=== PATIENT | male | born 1960 | race Caucasian/White ===

== ENCOUNTER → 2016-11-27 | Outpatient (CLI) | payer OTHER ==
--- NOTE | 2016-12-05 11:11 | P.ARTDOP ---
Arterial Doppler LOWER EXTREMITY ARTERIAL DOPPLER: DATE OF SERVICE: 11/27/2016 Reason for study: Suspected peripheral vascular disease. Doppler waveforms: Multiphasic throughout on the left. Not done on the right.. Pulse volume recording: Normal configuration throughout on the left. Pressure gradients: None. Ankle-brachial indices: Greater than one bilaterally. Toe pressures: [] on the right, 81 on the left Impression: Normal.
== END | disposition home or self-care (01) ==
LOC: RADUSWWP 13:30
PROVIDERS: ATTEND Family Medicine
DX: I73.9 Peripheral vascular disease, unspecified (principal)
CPT/HCPCS: 93922

== ENCOUNTER → 2016-12-28 | Outpatient (CLI) | payer OTHER ==
--- NOTE | 2016-12-28 15:45 | US ---
EXAMINATION TYPE: US venous doppler duplex LE DATE OF EXAM: 12/28/2016 3:37 PM COMPARISON: LOWER EXTREMITY VENOUS INSUFFICIENCY SIDE PERFORMED: bilateral 1) Color flow is present and patency is documented in the following vessels. No DVT or SVT is noted . ? EIV ? Common Femoral Vein ? Deep Femoral Vein ? Femoral Vein ? Popliteal Vein ? Proximal Calf Veins ? Greater Saph Vein ? Upper Small Saph Vein 2) There is venous reflux noted at the following venous levels: rt CFV, GSV lower leg. Left DFV, FV prox, GSV lower leg. IMPRESSION: No ultrasound evidence for acute DVT in the bilateral lower extremities. Venous reflux n oted above.
== END | disposition home or self-care (01) ==
LOC: RADUSWWP 14:24
PROVIDERS: ATTEND Podiatrist
DX: M86.8X7 Other osteomyelitis, ankle and foot (principal); E13.621 Other specified diabetes mellitus with foot ulcer; E63.8 Other specified nutritional deficiencies
CPT/HCPCS: 93923; 93970

== ENCOUNTER 2019-01-17 00:52 | Inpatient (IN) | payer MEDICAID ==
--- NOTE | 2019-01-17 01:50 | XR ---
History: ITS.REASON XR Reason: Pain Exam: XR LEFT FOOT Comparison: 12/14/2016 FINDINGS: No osseous destruction or new periosteal reaction identified. No fracture or dislocation. Midfoot polyarticular osteoarthrosis, possible Charcot's joint not excluded, again noted. Large enthesophyte at the plantar surface of the calcaneus. IMPRESSION: No osseous destruction or new periosteal reaction identified. Midfoot polyarticular osteoarthrosis, possible Charcot's joint not excluded, again noted. Large enthesophyte at the plantar surface of the calcaneus.
[2019-01-17 02:04] LABS: Glucose,Whole Blood 369 mg/dL (75-99)
--- NOTE | 2019-01-17 03:10 | ED ---
General Adult HPI - General Chief complaint: Skin/Abscess/Foreign Body Stated complaint: Diabetic Foot Ulcer Time Seen by Provider: 01/17/19 01:53 Source: patient Mode of arrival: ambulatory Limitations: no limitations - History of Present Illness Initial comments: Timur is a 58-year-old diabetic male who is been being followed by podiatry for a nonhealing wound on his left toe for a number of weeks. Patient reports that last night after showering he noted significant pain and redness to the left toe he tried to go to sleep however was woken by the pain. Patient reports he's noted that the toe seems to be swollen and he can see what appears to be a blood blister developing around the toe. Patient reports he's never experienced this in the past. He denies any associated injury. He denies any fevers chills nausea vomiting. - Related Data Home Medications Medication Instructions Recorded Confirmed HYDROcodone/APAP 10-325MG [[place] 1 tab PO Q6HR PRN 05/12/14 01/17/19 10-325] Potassium Chloride [K-Tab ER] 10 meq PO DAILY 05/12/14 01/17/19 Ibuprofen [Motrin] 800 mg PO TID PRN 05/29/16 01/17/19 Aspirin EC [Ecotrin Low Dose] 81 mg PO DAILY 01/17/19 01/17/19 Ertugliflozin Pidolate [Steglatro] 15 mg PO DAILY 01/17/19 01/17/19 Furosemide [Lasix] 20 mg PO BID 01/17/19 01/17/19 Insulin Glargine [Lantus] 30 unit SQ HS 01/17/19 01/17/19 Losartan Potassium 100 mg PO HS 01/17/19 01/17/19 amLODIPine [Norvasc] 5 mg PO DAILY 01/17/19 01/17/19 Previous Rx's Medication Instructions Recorded Pantoprazole [Protonix] 40 mg PO AC-BRKFST #30 tablet. 06/01/16 Allergies Allergy/AdvReac Type Severity Reaction Status Date / Time levofloxacin [From Levaquin] AdvReac Severe Chest Pain Verified 01/17/19 07:14 cephalexin monohydrate AdvReac Unknown Nausea & Verified 01/17/19 07:14 [From Keflex] Vomiting codeine AdvReac Unknown Nausea & Verified 01/17/19 07:14 Vomiting Review of Systems ROS Statement: Those systems with pertinent positive or pertinent negative responses have been documented in the HPI. ROS Other: All systems not noted in ROS Statement are negative. Past Medical History Past Medical History: Diabetes Mellitus, GERD/Reflux, Hypertension, Osteoarthritis (OA) Additional Past Medical History / Comment(s): PT ARRIVED BY CAR TO [facility] ER WITH C/O N/V/D FOR 24 HOURS. HE HAS AN ILEOSTOMY THAT HE HAS HAD TO EMPTY FREQUENTLY. HE HAS HAD SEVERAL EPISODES OF VOMITTING AND CONTINUOUS NAUSEA. 8-10 KIDNEY STONES, ULCERATIVE Colitis, Urostomy, RECTUM REMOVED. PT HAS ARTHIRITIS ALL OVER, History of Any Multi-Drug Resistant Organisms: None Reported Date of last positivie culture/infection: 12/14/16 MDRO Source:: TOE Past Surgical History: Appendectomy, Bowel Resection, Heart Catheterization, Joint Replacement, Orthopedic Surgery Additional Past Surgical History / Comment(s): BILATERAL TOTAL KneeS,L Shoulder ROTATOR CUFF REPAIR, BILATERALHandS L HAND INDEX FINGER AND R HAND MIDDLE FINGER BOTH PARTIAL AMP WITH REPAIR, COLECTOMY/ILEOSTOMY. CARDIAC CATH YRS AGO AND NO BLOCKAGES-DONE AT [facility]. Past Anesthesia/Blood Transfusion Reactions: No Reported Reaction Additional Past Anesthesia/Blood Transfusion Reaction / Comment(s): NEVER RECIEVED BLOOD Past Psychological History: No Psychological Hx Reported Smoking Status: Never smoker Past Alcohol Use History: Occasional Past Drug Use History: None Reported - Past Family History Father Family Medical History: Hypertension Additional Family Medical History / Comment(s): FATHER ALIVE AND IS 74 YRS OLD. Mother Family Medical History: Osteoarthritis (OA) Additional Family Medical History / Comment(s): MOTHER HAS ALOT OF ARTHRITIS AND HAS HAD MANY ORTHOPEDIC SURGERIES. SHE IS 73 YRS OLD. General Exam - General Exam Comments Initial Comments: Physical Exam GENERAL: Patient is well-developed and well-nourished. Patient is nontoxic and well- hydrated and is in no distress. HENT: Normocephalic, Atraumatic. EYES: PERRL, EOMI PULMONARY: Unlabored respirations. No audible rales rhonchi or wheezing was noted. CARDIOVASCULAR: There is a regular rate and rhythm without any murmurs gallops or rubs. ABDOMEN: Soft and nontender with normal bowel sounds. SKIN: Nonhealing diabetic ulcer to the left pinky toe, with obvious underlying abscess and cellulitis of the foot : Deferred NEUROLOGIC: Patient is alert and oriented x3. Moving all extremities spontaneously MUSCULOSKELETAL: Normal extremities with adequate strength and full range of motion. No lower extremity swelling or edema. No calf tenderness. PSYCHIATRIC: Normal psychiatric evaluation. Limitations: no limitations Limitations: no limitations Course Vital Signs 01/17/19 01/17/19 01/17/19 01:02 05:19 06:16 Temperature 97.4 F L Pulse Rate 95 63 60 Respiratory 18 18 18 Rate Blood Pressure 156/81 147/85 125/76 O2 Sat by Pulse 98 98 98 Oximetry Medical Decision Making - Medical Decision Making The patient was seen and evaluated history was obtained from the patient signs a 58 her old diabetic male with chronic wound which is clearly now infected Labs and imaging ordered, x-ray reveals no obvious osteomyelitis no free air Labs reveal hyperglycemia with chronic kidney disease no leukocytosis Plan patient will be admitted for IV antibiotics and evaluation by wound care - Lab Data Result diagrams: 01/17/19 03:50 01/17/19 03:50 Lab Results 01/17/19 01/17/19 01/17/19 Range/Units 02:02 03:50 03:50 WBC 7.6 (3.8-10.6) k/uL RBC 4.94 (4.30-5.90) m/uL Hgb 15.6 (13.0-17.5) gm/dL Hct 45.3 (39.0-53.0) % MCV 91.7 (80.0-100.0) fL MCH 31.6 (25.0-35.0) pg MCHC 34.5 (31.0-37.0) g/dL RDW 12.3 (11.5-15.5) % Plt Count 219 (150-450) k/uL Neutrophils % 75 % Lymphocytes % 15 % Monocytes % 7 % Eosinophils % 2 % Basophils % 0 % Neutrophils # 5.7 (1.3-7.7) k/uL Lymphocytes # 1.2 (1.0-4.8) k/uL Monocytes # 0.5 (0-1.0) k/uL Eosinophils # 0.1 (0-0.7) k/uL Basophils # 0.0 (0-0.2) k/uL Sodium 137 (137-145) mmol/L Potassium 4.3 (3.5-5.1) mmol/L Chloride 106 (98-107) mmol/L Carbon Dioxide 19 L (22-30) mmol/L Anion Gap 12 mmol/L BUN 42 H (9-20) mg/dL Creatinine 1.45 H (0.66-1.25) mg/dL Est GFR (CKD-EPI)AfAm 62 (>60 ml/min/1.73 sqM) Est GFR (CKD-EPI)NonAf 53 (>60 ml/min/1.73 sqM) Glucose 283 H (74-99) mg/dL POC Glucose (mg/dL) 369 H (75-99) mg/dL POC Glu Buffer Chrome ID Deanna Ta Plasma Lactic Acid Ganesh (0.7-2.0) mmol/L Calcium 8.8 (8.4-10.2) mg/dL Total Bilirubin 0.7 (0.2-1.3) mg/dL AST 26 (17-59) U/L ALT 39 (21-72) U/L Alkaline Phosphatase 88 (38-126) U/L C-Reactive Protein 5.2 (<10.0) mg/L Total Protein 7.1 (6.3-8.2) g/dL Albumin 4.2 (3.5-5.0) g/dL 01/17/19 Range/Units 03:50 WBC (3.8-10.6) k/uL RBC (4.30-5.90) m/uL Hgb (13.0-17.5) gm/dL Hct (39.0-53.0) % MCV (80.0-100.0) fL MCH (25.0-35.0) pg MCHC (31.0-37.0) g/dL RDW (11.5-15.5) % Plt Count (150-450) k/uL Neutrophils % % Lymphocytes % % Monocytes % % Eosinophils % % Basophils % % Neutrophils # (1.3-7.7) k/uL Lymphocytes # (1.0-4.8) k/uL Monocytes # (0-1.0) k/uL Eosinophils # (0-0.7) k/uL Basophils # (0-0.2) k/uL Sodium (137-145) mmol/L Potassium (3.5-5.1) mmol/L Chloride (98-107) mmol/L Carbon Dioxide (22-30) mmol/L Anion Gap mmol/L BUN (9-20) mg/dL Creatinine (0.66-1.25) mg/dL Est GFR (CKD-EPI)AfAm (>60 ml/min/1.73 sqM) Est GFR (CKD-EPI)NonAf (>60 ml/min/1.73 sqM) Glucose (74-99) mg/dL POC Glucose (mg/dL) (75-99) mg/dL POC Glu Buffer Chrome ID Plasma Lactic Acid Ganesh 1.7 (0.7-2.0) mmol/L Calcium (8.4-10.2) mg/dL Total Bilirubin (0.2-1.3) mg/dL AST (17-59) U/L ALT (21-72) U/L Alkaline Phosphatase (38-126) U/L C-Reactive Protein (<10.0) mg/L Total Protein (6.3-8.2) g/dL Albumin (3.5-5.0) g/dL Disposition Clinical Impression: Abscess of skin or subcutaneous tissue, Acute renal insufficiency, Diabetic foot ulcer associated with type 2 diabetes mellitus, Abscess Disposition: ADMITTED IP TO THIS [facility] Condition: Stable
[2019-01-17] MEDS ORDERED: SODIUM CHLORIDE 0.9% 1,000 ML IV ONE (03:42)
[2019-01-17] MEDS ORDERED: LIDOCAINE 1% INJ 10MG/ML (20 ML MDV) SQ ONE (03:45)
[2019-01-17] MEDS ORDERED: VANCOMYCIN IV PER PHARMACY 1 EACH MISC MISCELLANE PRN (03:45)
[2019-01-17] MEDS: SODIUM CHLORIDE 0.9% 1,000 ML IV SCH ×2 (03:50→11:09)
[2019-01-17] MEDS: PIPERACILLIN-TAZOBACTAM 3.375 GM in SODIUM CHLORIDE 0.9% 100 ML IVPB SCH ×3 (04:03→21:04)
[2019-01-17 04:05] LABS: Basophils % (A) 0 %; Eosinophils # (A) 0.1 k/uL (0-0.7); Eosinophils % (A) 2 %; HCT 45.3 % (39.0-53.0); HGB 15.6 gm/dL (13.0-17.5); Lymphocytes # (A) 1.2 k/uL (1.0-4.8); Lymphocytes % (A) 15 %; MCH 31.6 pg (25.0-35.0); MCHC 34.5 g/dL (31.0-37.0); MCV 91.7 fL (80.0-100.0); Mean Platelet Volume 6.3; Monocytes # (A) 0.5 k/uL (0-1.0); Monocytes % (A) 7 %; Neutrophils # (A) 5.7 k/uL (1.3-7.7); Neutrophils % (A) 75 %; Platelet Count 219 k/uL (150-450); RBC 4.94 m/uL (4.30-5.90); RDW 12.3 % (11.5-15.5); WBC 7.6 k/uL (3.8-10.6)
[2019-01-17 04:28] LABS: Albumin 4.2 g/dL (3.5-5.0); C Reactive Protein 5.2 mg/L (<10.0); Calcium 8.8 mg/dL (8.4-10.2); Potassium 4.3 mmol/L (3.5-5.1); Total Bilirubin 0.7 mg/dL (0.2-1.3); Total Protein 7.1 g/dL (6.3-8.2)
[2019-01-17] MEDS ORDERED: NALOXONE 0.4 MG/ML 1 ML VIAL IV PRN (04:49)
[2019-01-17] MEDS ORDERED: MORPHINE SULFATE 4 MG/ML SYRINGE IVP STA (04:53)
[2019-01-17] MEDS ORDERED: VANCOMYCIN 1,750 MG in SODIUM CHLORIDE 0.9% 500 ML 500 ML IVPB ONE (05:00)
[2019-01-17 07:53] LABS: Glucose,Whole Blood 195 mg/dL (75-99)
[2019-01-17] MEDS: FUROSEMIDE 40 MG TAB PO SCH (08:14)
[2019-01-17] MEDS: LISINOPRIL 10 MG TAB PO SCH (08:14)
[2019-01-17] MEDS: PANTOPRAZOLE 40 MG TABLET PO SCH (08:14)
[2019-01-17] MEDS: amLODIPine 5 MG TAB PO SCH ×2 (08:14→21:04)
[2019-01-17] MEDS: INSULIN ASPART (NovoLOG) 100 UNIT/ML VIAL SQ SCH ×4 (08:14→21:04)
[2019-01-17] MEDS: HYDROcodone/APAP 10-325MG 1 EACH TAB PO PRN ×2 (08:23→18:14)
[2019-01-17] MEDS ORDERED: GABAPENTIN 400 MG CAP PO PRN (09:00)
[2019-01-17 12:23] LABS: Glucose,Whole Blood 148 mg/dL (75-99)
[2019-01-17 15:01] VITALS: BMI 32.5
[2019-01-17] MEDS ORDERED: VANCOMYCIN 1,750 MG in SODIUM CHLORIDE 0.9% 500 ML 500 ML IVPB SCH (17:00)
[2019-01-17 17:08] LABS: Glucose,Whole Blood 135 mg/dL (75-99)
--- NOTE | 2019-01-17 20:18 | P.HPIM ---
History of Present Illness H&P Date: 01/17/19 Chief Complaint: Left foot small toe infection History of presenting complaint: This is a very pleasant 58 year patient who follows with Dr. hull out of [place]. Chronic stable medical conditions include diabetes, GERD, hypertension, osteoarthritis, has a chronic ileostomy from surgery from underlying ulcerative colitis. Normally changes the bag every 3 days. Patient is being followed by a custodial services manager for wound on the left toe for about close to 2 months. Yesterday started leaking became sore and inflamed and red. Was admitted for the same. She was started on IV Zosyn and vancomycin the ER.. Denies any injury to the toe. 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 EYES: Pupils equal. Conjunctiva normal. HEENT: External appearance of nose and ears normal, oral cavity grossly normal. NECK: JVD not raised; masses not palpable. HEART: First and second heart sounds are normal; no edema. LUNGS: Respiratory rate normal; clear to auscultation. ABDOMEN: Soft, nontender, liver spleen not palpable, no masses palpable. Ileostomy bag with liquid stool present PSYCH: Alert and oriented x3; mood and affect normal. NEUROLOGICAL: Cranial nerves grossly intact; no facial asymmetry, power and sensation grossly intact. LYMPHATICS: No lymph nodes palpable in the axilla and neck Dermatological: There is superficial wound on the superior lateral aspect of the left small toe with some tenderness Investigations, reviewed and clinical context: White count 7.6 hemoglobin 15.6 platelets 219 potassium 4.3 to and 42 creatinine 1.45 Patient's labs from 2017 show a BUN of 29 and creatinine 1.5 X-ray of the foot did not show any bony involvement Assessment: -This is a patient is could've wound on the left foot small toe being followed by a custodial services manager for about 2 months. It became acutely painful red and was draining yesterday. X-ray of the foot does not show any involvement of the bone. That makes acute osteomyelitis less likely. We'll get an ESR, CRP and get a ID opinion for the same. -Chronic kidney disease stage III from diabetic nephropathy and possibly hype rtensive nephrosclerosis -Diabetes mellitus type 2, chronically insulin -GERD -Essential hypertension -Chronic ileostomy with surgery for ulcerative colitis in the past Plan: Patient was started on IV Zosyn and vancomycin the ER. Given the renal function will hold off vancomycin for now. Still further input from ID. We'll check the ESR and a CRP. Other home medications resumed. Accu-Cheks will be followed. Care was discussed with the patient. Questions were answered.. Past Medical History Past Medical History: Diabetes Mellitus, GERD/Reflux, Hypertension, Osteoarthritis (OA) Additional Past Medical History / Comment(s): PT ARRIVED BY CAR TO [facility] ER WITH C/O N/V/D FOR 24 HOURS. HE HAS AN ILEOSTOMY THAT HE HAS HAD TO EMPTY FREQUENTLY. HE HAS HAD SEVERAL EPISODES OF VOMITTING AND CONTINUOUS NAUSEA. 8-10 KIDNEY STONES, ULCERATIVE Colitis, Urostomy, RECTUM REMOVED. PT HAS ARTHIRITIS ALL OVER, History of Any Multi-Drug Resistant Organisms: None Reported Date of last positivie culture/infection: 12/14/16 MDRO Source:: TOE Past Surgical History: Appendectomy, Bowel Resection, Heart Catheterization, Joint Replacement, Orthopedic Surgery Additional Past Surgical History / Comment(s): BILATERAL TOTAL KneeS,L Shoulder ROTATOR CUFF REPAIR, BILATERALHandS L HAND INDEX FINGER AND R HAND MIDDLE FINGER BOTH PARTIAL AMP WITH REPAIR, COLECTOMY/ILEOSTOMY. CARDIAC CATH YRS AGO AND NO BLOCKAGES-DONE AT [facility]. Past Anesthesia/Blood Transfusion Reactions: No Reported Reaction Additional Past Anesthesia/Blood Transfusion Reaction / Comment(s): NEVER RECIEVED BLOOD Past Psychological History: No Psychological Hx Reported Smoking Status: Never smoker Past Alcohol Use History: Occasional Past Drug Use History: None Reported - Past Family History Father Family Medical History: Hypertension Additional Family Medical History / Comment(s): FATHER ALIVE AND IS 74 YRS OLD. Mother Family Medical History: Osteoarthritis (OA) Additional Family Medical History / Comment(s): MOTHER HAS ALOT OF ARTHRITIS AND HAS HAD MANY ORTHOPEDIC SURGERIES. SHE IS 73 YRS OLD. Medications and Allergies Home Medications Medication Instructions Recorded Confirmed Type HYDROcodone/APAP 10-325MG [[place] 1 tab PO Q6HR PRN 05/12/14 01/17/19 History 10-325] Potassium Chloride [K-Tab ER] 10 meq PO DAILY 05/12/14 01/17/19 History Ibuprofen [Motrin] 800 mg PO TID PRN 05/29/16 01/17/19 History Pantoprazole [Protonix] 40 mg PO AC-BRKFST #30 tablet. 06/01/16 01/17/19 Rx Aspirin EC [Ecotrin Low Dose] 81 mg PO DAILY 01/17/19 01/17/19 History Ertugliflozin Pidolate [Steglatro] 15 mg PO DAILY 01/17/19 01/17/19 History Furosemide [Lasix] 20 mg PO BID 01/17/19 01/17/19 History Insulin Glargine [Lantus] 30 unit SQ HS 01/17/19 01/17/19 History Losartan Potassium 100 mg PO HS 01/17/19 01/17/19 History amLODIPine [Norvasc] 5 mg PO DAILY 01/17/19 01/17/19 History Allergies Allergy/AdvReac Type Severity Reaction Status Date / Time levofloxacin [From Levaquin] AdvReac Severe Chest Pain Verified 01/17/19 07:14 cephalexin monohydrate AdvReac Unknown Nausea & Verified 01/17/19 07:14 [From Keflex] Vomiting codeine AdvReac Unknown Nausea & Verified 01/17/19 07:14 Vomiting Physical Exam Vitals: Vital Signs Temp Pulse Pulse Resp BP BP Pulse Ox 01/17/19 13:09 97.4 F L 62 16 114/66 99 01/17/19 07:50 97.4 F L 61 16 155/84 97 01/17/19 06:16 60 18 125/76 98 01/17/19 05:19 63 18 147/85 98 01/17/19 01:02 97.4 F L 95 18 156/81 98 Intake and Output 01/17/19 01/17/19 01/17/19 06:59 14:59 22:59 Other: Voiding Method Toilet Toilet # Voids 2 Weight 108.862 kg 108.862 kg Results CBC & Chem 7: 01/17/19 03:50 01/17/19 03:50 Labs: Abnormal Lab Results - Last 24 Hours (Table) 01/17/19 01/17/19 01/17/19 Range/Units 02:02 03:50 07:50 Carbon Dioxide 19 L (22-30) mmol/L BUN 42 H (9-20) mg/dL Creatinine 1.45 H (0.66-1.25) mg/dL Glucose 283 H (74-99) mg/dL POC Glucose (mg/dL) 369 H 195 H (75-99) mg/dL 01/17/19 01/17/19 Range/Units 12:21 17:06 Carbon Dioxide (22-30) mmol/L BUN (9-20) mg/dL Creatinine (0.66-1.25) mg/dL Glucose (74-99) mg/dL POC Glucose (mg/dL) 148 H 135 H (75-99) mg/dL Thrombosis Risk Factor Assmnt - Choose All That Apply Each Factor Represents 1 point: Age 41-60 years Thrombosis Risk Factor Assessment Total Risk Factor Score: 1 Thrombosis Risk Factor Assessment Level: Low Risk
[2019-01-17 20:53] LABS: Glucose,Whole Blood 152 mg/dL (75-99)
[2019-01-18] MEDS: PIPERACILLIN-TAZOBACTAM 3.375 GM in SODIUM CHLORIDE 0.9% 100 ML IVPB SCH ×3 (04:17→20:13)
[2019-01-18] MEDS: SODIUM CHLORIDE 0.9% 1,000 ML IV SCH ×3 (04:18→20:15)
[2019-01-18] MEDS: HYDROcodone/APAP 10-325MG 1 EACH TAB PO PRN ×3 (04:21→20:14)
[2019-01-18 07:18] LABS: Glucose,Whole Blood 163 mg/dL (75-99)
[2019-01-18] MEDS: FUROSEMIDE 40 MG TAB PO SCH (07:29)
[2019-01-18] MEDS: amLODIPine 5 MG TAB PO SCH ×2 (07:29→20:14)
[2019-01-18] MEDS: PANTOPRAZOLE 40 MG TABLET PO SCH (07:29)
[2019-01-18] MEDS: INSULIN ASPART (NovoLOG) 100 UNIT/ML VIAL SQ SCH ×4 (07:29→20:39)
[2019-01-18] MEDS: LISINOPRIL 10 MG TAB PO SCH (07:29)
[2019-01-18 08:59] LABS: HCT 43.2 % (39.0-53.0); HGB 14.8 gm/dL (13.0-17.5); MCHC 34.2 g/dL (31.0-37.0); MCV 93.7 fL (80.0-100.0); Mean Platelet Volume 6.4; Platelet Count 186 k/uL (150-450); RBC 4.61 m/uL (4.30-5.90); RDW 12.3 % (11.5-15.5); WBC 5.6 k/uL (3.8-10.6)
[2019-01-18 10:02] LABS: Erythrocyte Sedimentation Rate 5 mm/hr (0-15)
[2019-01-18 12:00] LABS: Glucose,Whole Blood 148 mg/dL (75-99)
[2019-01-18] MEDS: TAMSULOSIN 0.4 MG CAP.ER.24H PO SCH (12:46)
[2019-01-18 17:33] LABS: Glucose,Whole Blood 129 mg/dL (75-99)
[2019-01-18 20:37] LABS: Glucose,Whole Blood 186 mg/dL (75-99)
--- NOTE | 2019-01-18 21:58 | P.PN ---
Progress Note - Text Progress Note Date: 01/18/19 Chief Complaint: Left foot small toe infection Interval history: This is a very pleasant 58 year patient who follows with Dr. hull out of [place]. Chronic stable medical conditions include diabetes, GERD, hypertension, osteoarthritis, has a chronic ileostomy from surgery from underlying ulcerative colitis. Normally changes the bag every 3 days. Patient is being followed by a tool/die maker for wound on the left toe for about close to 2 months. Yesterday started leaking became sore and inflamed and red. Was admitted for the same. She was started on IV Zosyn and vancomycin the ER.. Denies any injury to the toe. Today-feeding bit better. Pain is better controlled. Did tolerate her diet. No fever no chills. No drainage. Review of systems: Was done for constitutional, cardiovascular, GI, pulmonary. relevant finding as above Current medications are reviewed that include: IV Zosyn Physical examination: VITAL SIGNS: 98, 71, 18, 136/81, 98% room air GENERAL: Laying in bed, more comfortable today. EYES: Pupils equal. Conjunctiva normal. HEENT: External appearance of nose and ears normal, oral cavity grossly normal. NECK: JVD not raised; masses not palpable. HEART: First and second heart sounds are normal; no edema. LUNGS: Respiratory rate normal; clear to auscultation. ABDOMEN: Soft, nontender, liver spleen not palpable, no masses palpable. Ileostomy bag with liquid stool present PSYCH: Alert and oriented x3; mood and affect normal. Dermatological: There is superficial wound on the superior lateral aspect of the left small toe with some tenderness Investigations, reviewed and clinical context: White count 5.6 hemoglobin 14.8 CRP less than 5 Patient's labs from 2017 show a BUN of 29 and creatinine 1.5 X-ray of the foot did not show any bony involvement Assessment: -This is a patient is could've wound on the left foot small toe being followed by a tool/die maker for about 2 months. It became acutely painful red and was draining yesterday. X-ray of the foot does not show any involvement of the bone. That makes acute osteomyelitis less likely. We'll get an ESR, CRP and get a ID opinion for the same. -Chronic kidney disease stage III from diabetic nephropathy and possibly hypertensive nephrosclerosis -Diabetes mellitus type 2, chronically insulin -GERD -Essential hypertension -Chronic ileostomy with surgery for ulcerative colitis in the past Plan: Awaiting input from ID. Continue with IV Zosyn. Patient's toe pain is better. Care was discussed with the patient. Follow.
--- NOTE | 2019-01-18 22:42 | P.CONS ---
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 Is developed an increasing amount of ulceration to the fifth toe he became very concerned because of his history of prior diabetic foot ulceration. 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 He was doing well with these but they were out and trying to break some new boots in. All who is slowly trying to utilize them. Developed a diabetic ulceration to the left foot fifth toe and with the swelling pain erythema and increased blood sugars he presented to Hospital. With concerns of diabetic foot infection the consultation was requested. The patient has not had high-grade fevers, chills or rigors but is concerned about toe or foot loss. Review of Systems HEENT:Denies headache or acute visual change. Denies sinus or mouth discomforts. Denies neck stiffness or pain. Denies significant oral cavity pain. Denies difficulty on swallowing. Lungs: Denies significant shortness of breath, cough, sputum production, or hemoptysis. Cardiovascular: Denies significant shortness of breath, chest pain, chest wall pain, orthopnea, dyspnea on exertion, syncope Gastrointestinal:Denies nausea, vomiting, diarrhea, constipation, hematemesis, melena, hematochezia. No no significant change of bowel habit noticed. Musculoskeletal: denies significant myalgias or arthralgias. No new joint swelling. Denies new back pain. Skin:swelling pain ulceration left foot Neuro: Denies headache or visual change. Denies any new onset weakness or difficulty with ambulation. Denies falls or seizures. Psychiatric:Denies anxiety or depression. Endocrine: Denies significant fatigue, denies significant weight loss or weight gain. Past Medical History Past Medical History: Diabetes Mellitus, GERD/Reflux, Hypertension, Osteoarthritis (OA) Additional Past Medical History / Comment(s): PT ARRIVED BY CAR TO [facility] ER WITH C/O N/V/D FOR 24 HOURS. HE HAS AN ILEOSTOMY THAT HE HAS HAD TO EMPTY FREQUENTLY. HE HAS HAD SEVERAL EPISODES OF VOMITTING AND CONTINUOUS NAUSEA. 8-10 KIDNEY STONES, ULCERATIVE Colitis, Urostomy, RECTUM REMOVED. PT HAS ARTHIRITIS A LL OVER, History of Any Multi-Drug Resistant Organisms: None Reported Year Discovered:: 12/14/16 MDRO Source:: TOE Past Surgical History: Appendectomy, Bowel Resection, Heart Catheterization, Joint Replacement, Orthopedic Surgery Additional Past Surgical History / Comment(s): BILATERAL TOTAL KneeS,L Shoulder ROTATOR CUFF REPAIR, BILATERALHandS L HAND INDEX FINGER AND R HAND MIDDLE FINGER BOTH PARTIAL AMP WITH REPAIR, COLECTOMY/ILEOSTOMY. CARDIAC CATH YRS AGO AND NO BLOCKAGES-DONE AT [facility]. Past Anesthesia/Blood Transfusion Reactions: No Reported Reaction Additional Past Anesthesia/Blood Transfusion Reaction / Comm: NEVER RECIEVED BLOOD Past Psychological History: No Psychological Hx Reported Additional Psychological History / Comment(s): . 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 no tobacco useNo alcohol use. No travel history Smoking Status: Never smoker Past Alcohol Use History: Occasional Past Drug Use History: None Reported - Past Family History Father Family Medical History: Hypertension Additional Family Medical History / Comment(s): FATHER ALIVE AND IS 74 YRS OLD. Mother Family Medical History: Osteoarthritis (OA) Additional Family Medical History / Comment(s): MOTHER HAS ALOT OF ARTHRITIS AND HAS HAD MANY ORTHOPEDIC SURGERIES. SHE IS 73 YRS OLD. Medications and Allergies Home Medications and Allergies Comment(s): Current Medications Hydrocodone Bitart/Acetaminophen (Cascade 10) 0.5 each PO Q6HR PRN PRN Reason: Pain Last Admin: 01/18/19 20:14 Dose: 0.5 each Documented by: Amlodipine Besylate (Norvasc) 5 mg PO BID [facility] Last Admin: 01/18/19 20:14 Dose: 5 mg Documented by: Furosemide (Lasix) 40 mg PO DAILY [facility] Last Admin: 01/18/19 07:29 Dose: 40 mg Documented by: Gabapentin (Neurontin) 800 mg PO TID PRN PRN Reason: Pain Sodium Chloride (Saline 0.9%) 1,000 mls @ 100 mls/hr IV .Q10H [facility] Last Admin: 01/18/19 20:15 Dose: 100 mls/hr Documented by: Piperacillin Sod/Tazobactam (Sod 3.375 gm/ Sodium Chloride) 100 mls @ 25 mls/hr IVPB Q8H [facility] Last Admin: 01/18/19 20:13 Dose: 25 mls/hr Documented by: Insulin Aspart (Novolog) 0 unit SQ ACHS CHRISTIANO; Protocol Last Admin: 01/18/19 20:39 Dose: 3 unit Documented by: Lisinopril (Zestril) 10 mg PO DAILY [facility] Last Admin: 01/18/19 07:29 Dose: 10 mg Documented by: Morphine Sulfate (Morphine Sulfate (Inj)) 2 mg IVP Q4H PRN PRN Reason: Pain/Discomfort Naloxone HCl (Narcan) 0.2 mg IV Q2M PRN PRN Reason: Opioid Reversal Pantoprazole Sodium (Protonix) 40 mg PO AC-BRKFST [facility] Last Admin: 01/18/19 07:29 Dose: 40 mg Documented by: Tamsulosin HCl (Flomax) 0.4 mg PO PC-SUPPER [facility] Last Admin: 01/18/19 12:46 Dose: 0.4 mg Documented by: Home Medications Medication Instructions Recorded Confirmed Type HYDROcodone/APAP 10-325MG [Cascade 1 tab PO Q6HR PRN 05/12/14 01/17/19 History 10-325] Potassium Chloride [K-Tab ER] 10 meq PO DAILY 05/12/14 01/17/19 History Ibuprofen [Motrin] 800 mg PO TID PRN 05/29/16 01/17/19 History Pantoprazole [Protonix] 40 mg PO [facility] #30 tablet. 06/01/16 01/17/19 Rx Aspirin EC [Ecotrin Low Dose] 81 mg PO DAILY 01/17/19 01/17/19 History Ertugliflozin Pidolate [Steglatro] 15 mg PO DAILY 01/17/19 01/17/19 History Furosemide [Lasix] 20 mg PO BID 01/17/19 01/17/19 History Insulin Glargine [Lantus] 30 unit SQ 01/17/19 01/17/19 History Losartan Potassium 100 mg PO 01/17/19 01/17/19 History amLODIPine [Norvasc] 5 mg PO DAILY 01/17/19 01/17/19 History Allergies Allergy/AdvReac Type Severity Reaction Status Date / Time levofloxacin [From Levaquin] AdvReac Severe Chest Pain Verified 01/17/19 07:14 cephalexin monohydrate AdvReac Unknown Nausea & Verified 01/17/19 07:14 [From Keflex] Vomiting codeine AdvReac Unknown Nausea & Verified 01/17/19 07:14 Vomiting Physical Exam Vitals: Vital Signs Temp Pulse Resp BP Pulse Ox 01/18/19 20:43 97.3 F L 58 L 18 137/92 98 01/18/19 14:10 98.0 F 71 20 154/81 97 01/18/19 05:00 98.0 F 71 18 136/81 98 Intake and Output 01/18/19 01/18/19 01/18/19 06:59 14:59 22:59 Intake Total 500 300 Balance 500 300 Intake: Oral 500 300 Other: Voiding Method Toilet Toilet # Voids 1 3 2 # Bowel Movements 1 HEENT: Anicteric conjunctiva are pink and moist nasal mucosa grossly intact without significant lesions, there is no thrush. Neck: The neck is supple without significant lymphadenopathy or thyromegaly. Lungs: Good bilateral air entry without significant crackles or wheezing. There is no significant bronchial sounds. There is no egophony or dullness. Heart: Regular rate and rhythm with an audible S1-S2, no S3 no S4. There is no significant murmur click or rub, PMI was nondisplaced. Abdomen: Positive bowel sounds soft and nontender without palpable masses or o rganomegaly. There was no guarding or rebound. Extremities: The upper extremities have excellent pulses they are symmetric, no significant petechiae or telangiectasia. No splinter hemorrhages were noted. does have prior shoulder surgery in bicep injuries in the past The lower extremities are free from significant edema. The feet are well perfused. The left foot fifth toe has evidence of the distinct ulceration. There is swelling erythema and some deformity. He does have bilateral foot deformities from his Charcot feet. No other ulcerations are seen. There is only minimal ascending erythema on the left leg. the bilateral total knee arthroplasty are without erythema or tenderness. Neuro: Awake alert oriented to person place and time. There are no acute new gross focal sensory motor deficits. Results CBC & Chem 7: 01/18/19 08:28 01/17/19 03:50 Labs: Abnormal Lab Results - Last 24 Hours (Table) 01/18/19 01/18/19 01/18/19 Range/Units 07:13 11:48 17:25 POC Glucose (mg/dL) 163 H 148 H 129 H (75-99) mg/dL 07/14/19 Range/Units 20:34 POC Glucose (mg/dL) 186 H (75-99) mg/dL Microbiology - Last 24 Hours (Table) 01/17/19 03:50 Blood Culture - Preliminary Blood No Growth after 24 hours Laboratory Results WBC 5.6 k/uL (3.8-10.6) 01/18/19 08:28 RBC 4.61 m/uL (4.30-5.90) 01/18/19 08:28 Hgb 14.8 gm/dL (13.0-17.5) 01/18/19 08:28 Hct 43.2 % (39.0-53.0) 01/18/19 08:28 MCV 93.7 fL (80.0-100.0) 01/18/19 08:28 MCH 32.0 pg (25.0-35.0) 01/18/19 08:28 MCHC 34.2 g/dL (31.0-37.0) 01/18/19 08:28 RDW 12.3 % (11.5-15.5) 01/18/19 08:28 Plt Count 186 k/uL (150-450) 01/18/19 08:28 Neutrophils % 75 % 01/17/19 03:50 Lymphocytes % 15 % 01/17/19 03:50 Monocytes % 7 % 01/17/19 03:50 Eosinophils % 2 % 01/17/19 03:50 Basophils % 0 % 01/17/19 03:50 Neutrophils # 5.7 k/uL (1.3-7.7) 01/17/19 03:50 Lymphocytes # 1.2 k/uL (1.0-4.8) 01/17/19 03:50 Monocytes # 0.5 k/uL (0-1.0) 01/17/19 03:50 Eosinophils # 0.1 k/uL (0-0.7) 01/17/19 03:50 Basophils # 0.0 k/uL (0-0.2) 01/17/19 03:50 ESR 5 mm/hr (0-15) 01/18/19 08:28 Sodium 137 mmol/L (137-145) 01/17/19 03:50 Potassium 4.3 mmol/L (3.5-5.1) 01/17/19 03:50 Chloride 106 mmol/L (98-107) 01/17/19 03:50 Carbon Dioxide 19 mmol/L (22-30) L 01/17/19 03:50 Anion Gap 12 mmol/L 01/17/19 03:50 BUN 42 mg/dL (9-20) H 01/17/19 03:50 Creatinine 1.45 mg/dL (0.66-1.25) H 01/17/19 03:50 Est GFR (CKD-EPI)AfAm 62 (>60 ml/min/1.73 sqM) 01/17/19 03:50 Est GFR (CKD-EPI)NonAf 53 (>60 ml/min/1.73 sqM) 01/17/19 03:50 Glucose 283 mg/dL (74-99) H 01/17/19 03:50 POC Glucose (mg/dL) 186 mg/dL (75-99) H 01/18/19 20:34 POC Glu [employer] Carolina Dinh 01/18/19 20:34 Plasma Lactic Acid Ganesh 1.7 mmol/L (0.7-2.0) 01/17/19 03:50 Calcium 8.8 mg/dL (8.4-10.2) 01/17/19 03:50 Total Bilirubin 0.7 mg/dL (0.2-1.3) 01/17/19 03:50 AST 26 U/L (17-59) 01/17/19 03:50 ALT 39 U/L (21-72) 01/17/19 03:50 Alkaline Phosphatase 88 U/L (38-126) 01/17/19 03:50 C-Reactive Protein <5.0 mg/L (<10.0) 01/18/19 08:28 Total Protein 7.1 g/dL (6.3-8.2) 01/17/19 03:50 Albumin 4.2 g/dL (3.5-5.0) 01/17/19 03:50 Microbiology 01/17/19 03:50 Blood Blood Culture - Preliminary No Growth after 24 hours Comments: x-ray without fracture or osteomyelitis Assessment and Plan (1) Diabetic ulcer of right foot associated with diabetes mellitus due to underlying condition, with fat layer exposed Narrative/Plan: 58-year-old male who 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 He has noticed been trying to break and some new boots and developed some ulceration to the lateral aspect of the toe. He has some minimal drainage. The and became considerably worse with swelling to the toe increasing drainage erythema tenderness and ascending erythema. With all the changes he sought care. He has now been admitted and has been initiated antibiotic therapy that included Zosyn and vancomycin. Local wound care was initiated with therahoney wrap. Elevation of the foot while at rest. Bone scan has been r equested to ensure there is no underlying osteomyelitis. He does seem to be feeling a bit better since admission. Improved glucose control is paramount. Multivitamin with zinc is added. Current Visit: No Status: Acute Code(s): E08.621 - DIABETES MELLITUS DUE TO UNDERLYING CONDITION W FOOT ULCER; L97.512 - NON-PRS CHRONIC ULCER OTH PRT RIGHT FOOT W FAT LAYER EXPOSED SNOMED Code(s): 752439468 (2) Small bowel obstruction Current Visit: No Status: Acute Code(s): K56.69 - OTHER INTESTINAL OBSTR UCTION * DO NOT USE * SNOMED Code(s): 095105671 (3) Degenerative joint disease Current Visit: Yes Status: Acute Code(s): M19.90 - UNSPECIFIED OSTEOARTHRITIS, UNSPECIFIED SITE SNOMED Code(s): 166181184
[2019-01-19] MEDS: PIPERACILLIN-TAZOBACTAM 3.375 GM in SODIUM CHLORIDE 0.9% 100 ML IVPB SCH ×3 (04:18→20:26)
[2019-01-19] MEDS: SODIUM CHLORIDE 0.9% 1,000 ML IV SCH ×3 (04:18→20:22)
[2019-01-19] MEDS: ONDANSETRON 4 MG/2 ML VIAL IVP PRN ×3 (06:20→17:43)
[2019-01-19 07:05] LABS: Glucose,Whole Blood 206 mg/dL (75-99)
[2019-01-19] MEDS: LISINOPRIL 10 MG TAB PO SCH (08:48)
[2019-01-19] MEDS: MULTIVITAMINS, THERA 1 EACH TAB PO SCH (08:48)
[2019-01-19] MEDS: PANTOPRAZOLE 40 MG TABLET PO SCH (08:48)
[2019-01-19] MEDS: FUROSEMIDE 40 MG TAB PO SCH (08:48)
[2019-01-19] MEDS: INSULIN ASPART (NovoLOG) 100 UNIT/ML VIAL SQ SCH ×4 (08:49→21:28)
[2019-01-19] MEDS: amLODIPine 5 MG TAB PO SCH ×2 (08:49→20:29)
[2019-01-19] MEDS: MORPHINE SULFATE 2 MG/ML SYRINGE IVP PRN ×2 (10:42→21:17)
[2019-01-19 12:41] LABS: Glucose,Whole Blood 155 mg/dL (75-99)
--- NOTE | 2019-01-19 14:02 | NM ---
EXAMINATION TYPE: NM bone 3 phase DATE OF EXAM: 01/19/2019 COMPARISON: Plain film 01/17/2019 HISTORY: Osteomyelitis left foot, fifth digit open sore Triple phase bone scintigraphy was performed following the injection of 26 mCi Tc 99m MDP. Immediate images and 4.5 hours post injection images acquired. FINDINGS: There is increased uptake noted at the posterior right calcaneus plantar aspect. There may be associa marianne spur. Uptake in the midfoot of the left foot is noted likely due to underlying arthropathy. There is some mild uptake present on blood pool of blood flow imaging at the level of the fifth digit of t he left foot, no significant uptake in delayed images in this distribution. IMPRESSION: Findings may be due to underlying cellulitis. There is arthropathy and possible right-sided plantar c alcaneal spur. No definite osteomyelitis fifth digit left foot.
[2019-01-19 17:32] LABS: Glucose,Whole Blood 268 mg/dL (75-99)
[2019-01-19] MEDS: TAMSULOSIN 0.4 MG CAP.ER.24H PO SCH (17:43)
--- NOTE | 2019-01-19 18:04 | P.PN ---
Progress Note - Text Progress Note Date: 01/19/19 Chief Complaint: Left foot small toe infection Interval history: This is a very pleasant 58 year patient who follows with Dr. hull out of [place]. Chronic stable medical conditions include diabetes, GERD, hypertension, osteoarthritis, has a chronic ileostomy from surgery from underlying ulcerative colitis. Normally changes the bag every 3 days. Patient is being followed by a vehicle sales professional for wound on the left toe for about close to 2 months. Yesterday started leaking became sore and inflamed and red. Was admitted for the same. She was started on IV Zosyn and vancomycin the ER.. Denies any injury to the toe. Today-patient had some nausea vomiting. Also increase drainage from his ileostomy bag. Rather tired. Feels a bit exhausted. No fever no chills. Review of systems: Was done for constitutional, cardiovascular, GI, pulmonary. relevant finding as above Current medications are reviewed that include: IV Zosyn, normal saline Physical examination: VITAL SIGNS: 97.7, 65, 22, 150/82, 98% room air GENERAL: Laying in bed, tired. EYES: Pupils equal. Conjunctiva normal. HEENT: External appearance of nose and ears normal, oral cavity dry. NECK: JVD not raised; masses not palpable. HEART: First and second heart sounds are normal; no edema. LUNGS: Respiratory rate normal; clear to auscultation. ABDOMEN: Soft, nontender, liver spleen not palpable, no masses palpable. Ileostomy bag watery stool PSYCH: Alert and oriented x3; mood and affect tired. Dermatological: There is superficial wound on the superior lateral aspect of the left small toe with some tenderness Investigations, reviewed and clinical context: Accu-Cheks noted C. diff negative X-ray of the foot did not show any bony involvement Assessment: -wound on the left foot small toe being followed by a vehicle sales professional for about 2 months. It became acutely painful red and was draining X-ray of the foot does not show any involvement of the bone. That makes acute osteomyelitis less likely. -Chronic kidney disease stage III from diabetic nephropathy and possibly hypertensive nephrosclerosis -Diabetes mellitus type 2, chronically insulin -GERD -Essential hypertension -Chronic ileostomy with surgery for ulcerative colitis in the past -Acute antibiotic associated diarrhea Plan: Continue with antibiotics. Add Imodium. Increase IV fluids. Bone scan has been ordered. Care was discussed with the patient.
[2019-01-19 18:43] LABS: Calcium 8.5 mg/dL (8.4-10.2); Potassium 4.3 mmol/L (3.5-5.1)
[2019-01-19 21:29] LABS: Glucose,Whole Blood 186 mg/dL (75-99)
--- NOTE | 2019-01-19 23:06 | P.PN ---
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 Is developed an increasing amount of ulceration to the fifth toe he became very concerned because of his history of prior diabetic foot ulceration. 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 He was doing well with these but they were out and trying to break some new boots in. All who is slowly trying to utilize them. Developed a diabetic ulceration to the left foot fifth toe and with the swelling pain erythema and increased blood sugars he presented to Hospital. With concerns of diabetic foot infection the consul tation was requested. The patient has not had high-grade fevers, chills or rigors but is concerned about toe or foot loss. 01/19/2019 patient had worsening status with nausea diarrhea and limited emesis. Now feeling much better and stool in the ostomy is now somewhat formed without blood. Denies fever and foot is feeling better. Objective - Vital Signs Vital signs: Vital Signs Temp 98.4 F 01/19/19 22:15 Pulse 83 01/19/19 22:15 Resp 16 01/19/19 22:15 BP 119/72 01/19/19 22:15 Pulse Ox 95 01/19/19 22:15 Intake & Output 01/19/19 01/19/19 01/20/19 06:59 18:59 06:59 Intake Total 300 100 Output Total 2400 1000 Balance -2100 -900 Intake: Oral 300 100 Output: Urine 400 Stool 2000 1000 Other: Voiding Method Toilet # Voids 1 1 - Exam HEENT: Anicteric conjunctiva are pink and moist nasal mucosa grossly intact without significant lesions, there is no thrush. Neck: The neck is supple without significant lymphadenopathy or thyromegaly. Lungs: Good bilateral air entry without significant crackles or wheezing. There is no significant bronchial sounds. There is no egophony or dullness. Heart: Regular rate and rhythm with an audible S1-S2, no S3 no S4. There is no significant murmur click or rub, PMI was nondisplaced. Abdomen: Positive bowel sounds soft and nontender without palpable masses or organomegaly. There was no guarding or rebound. Extremities: The upper extremities have excellent pulses they are symmetric, no significant petechiae or telangiectasia. No splinter hemorrhages were noted. does have prior shoulder surgery in bicep injuries in the past The lower extremities are free from significant edema. The feet are well perfused. The left foot fifth toe has evidence of the distinct ulceration. There is some swelling, improved erythema and some deformity. He does have bilateral foot def ormities from his Charcot feet. No other ulcerations are seen. There is only minimal ascending erythema on the left leg. the bilateral total knee arthroplasty are without erythema or tenderness. Neuro: Awake alert oriented to person place and time. There are no acute new gross focal sensory motor deficits. - Labs CBC & Chem 7: 01/18/19 08:28 01/19/19 18:23 Labs: Abnormal Lab Results - Last 24 Hours (Table) 01/19/19 01/19/19 01/19/19 Range/Units 07:03 12:22 17:30 Chloride (98-107) mmol/L Carbon Dioxide (22-30) mmol/L BUN (9-20) mg/dL Glucose (74-99) mg/dL POC Glucose (mg/dL) 206 H 155 H 268 H (75-99) mg/dL 01/19/19 01/19/19 Range/Units 18:23 21:08 Chloride 109 H (98-107) mmol/L Carbon Dioxide 21 L (22-30) mmol/L BUN 23 H (9-20) mg/dL Glucose 221 H (74-99) mg/dL POC Glucose (mg/dL) 186 H (75-99) mg/dL Microbiology - Last 24 Hours (Table) 01/17/19 03:50 Blood Culture - Preliminary Blood No Growth after 48 hours Laboratory Results WBC 5.6 k/uL (3.8-10.6) 01/18/19 08:28 RBC 4.61 m/uL (4.30-5.90) 01/18/19 08:28 Hgb 14.8 gm/dL (13.0-17.5) 01/18/19 08:28 Hct 43.2 % (39.0-53.0) 01/18/19 08:28 MCV 93.7 fL (80.0-100.0) 01/18/19 08:28 MCH 32.0 pg (25.0-35.0) 01/18/19 08:28 MCHC 34.2 g/dL (31.0-37.0) 01/18/19 08:28 RDW 12.3 % (11.5-15.5) 01/18/19 08:28 Plt Count 186 k/uL (150-450) 01/18/19 08:28 Neutrophils % 75 % 01/17/19 03:50 Lymphocytes % 15 % 01/17/19 03:50 Monocytes % 7 % 01/17/19 03:50 Eosinophils % 2 % 01/17/19 03:50 Basophils % 0 % 01/17/19 03:50 Neutrophils # 5.7 k/uL (1.3-7.7) 01/17/19 03:50 Lymphocytes # 1.2 k/uL (1.0-4.8) 01/17/19 03:50 Monocytes # 0.5 k/uL (0-1.0) 01/17/19 03:50 Eosinophils # 0.1 k/uL (0-0.7) 01/17/19 03:50 Basophils # 0.0 k/uL (0-0.2) 01/17/19 03:50 ESR 5 mm/hr (0-15) 01/18/19 08:28 Sodium 138 mmol/L (137-145) 01/19/19 18:23 Potassium 4.3 mmol/L (3.5-5.1) 01/19/19 18:23 Chloride 109 mmol/L (98-107) H 01/19/19 18:23 Carbon Dioxide 21 mmol/L (22-30) L 01/19/19 18:23 Anion Gap 8 mmol/L 01/19/19 18:23 BUN 23 mg/dL (9-20) H 01/19/19 18:23 Creatinine 1.25 mg/dL (0.66-1.25) 01/19/19 18:23 Est GFR (CKD-EPI)AfAm 75 (>60 ml/min/1.73 sqM) 01/19/19 18:23 Est GFR (CKD-EPI)NonAf 64 (>60 ml/min/1.73 sqM) 01/19/19 18:23 Glucose 221 mg/dL (74-99) H 01/19/19 18:23 POC Glucose (mg/dL) 186 mg/dL (75-99) H 01/19/19 21:08 POC Glu [place] Wheeler ID Ritika Hogan 01/19/19 21:08 Plasma Lactic Acid Ganesh 1.7 mmol/L (0.7-2.0) 01/17/19 03:50 Calcium 8.5 mg/dL (8.4-10.2) 01/19/19 18:23 Total Bilirubin 0.7 mg/dL (0.2-1.3) 01/17/19 03:50 AST 26 U/L (17-59) 01/17/19 03:50 ALT 39 U/L (21-72) 01/17/19 03:50 Alkaline Phosphatase 88 U/L (38-126) 01/17/19 03:50 C-Reactive Protein <5.0 mg/L (<10.0) 01/18/19 08:28 Total Protein 7.1 g/dL (6.3-8.2) 01/17/19 03:50 Albumin 4.2 g/dL (3.5-5.0) 01/17/19 03:50 C. 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 He has noticed been trying to break and some new boots and developed some ulceration to the lateral aspect of the toe. He has some minimal drainage. The and became considerably worse with swelling to the toe increasing drainage erythema tenderness and ascending erythema. With all the changes he sought care. He has now been admitted and has been initiated antibiotic therapy that included Zosyn and vancomycin. Local wound care was initiated with theraho mumtaz wrap. Elevation of the foot while at rest. Bone scan has been requested to ensure there is no underlying osteomyelitis. He does seem to be feeling a bit better since admission. Improved glucose control is paramount. Multivitamin with zinc is added. 01/19/2019 feeling better now that the diarrhea has resolved, foot improved. Bone scan is negative and will not require outpatient intravenous Will be transitioned to oral antibiotic therapy in the morning as he is ready for discharge at that time if he continues to have resolution of his gastroenteritis. Current Visit: No Status: Acute Code(s): E08.621 - DIABETES MELLITUS DUE TO UNDERLYING CONDITION W FOOT ULCER; L97.512 - NON-PRS CHRONIC ULCER OTH PRT RIGHT FOOT W FAT LAYER EXPOSED SNOMED Code(s): 379055282 (2) Small bowel obstruction Current Visit: No Status: Acute Code(s): K56.69 - OTHER INTESTINAL OBSTRUCTION * DO NOT USE * SNOMED Code(s): 803655313 (3) Degenerative joint disease Current Visit: Yes Status: Acute Code(s): M19.90 - UNSPECIFIED OSTEOARTHRITIS, UNSPECIFIED SITE SNOMED Code(s): 873553284
[2019-01-20] MEDS: MORPHINE SULFATE 2 MG/ML SYRINGE IVP PRN (03:05)
[2019-01-20] MEDS: SODIUM CHLORIDE 0.9% 1,000 ML IV SCH ×3 (05:27→13:57)
[2019-01-20] MEDS: PIPERACILLIN-TAZOBACTAM 3.375 GM in SODIUM CHLORIDE 0.9% 100 ML IVPB SCH ×2 (05:28→12:00)
[2019-01-20 06:14] VITALS: BP 126/75; PULSE 72; RESP 18; TEMP 97.9
[2019-01-20 07:11] LABS: Glucose,Whole Blood 200 mg/dL (75-99)
[2019-01-20] MEDS: LISINOPRIL 10 MG TAB PO SCH (07:50)
[2019-01-20] MEDS: INSULIN ASPART (NovoLOG) 100 UNIT/ML VIAL SQ SCH ×2 (07:50→12:34)
[2019-01-20] MEDS: PANTOPRAZOLE 40 MG TABLET PO SCH (07:50)
[2019-01-20] MEDS: MULTIVITAMINS, THERA 1 EACH TAB PO SCH (07:50)
[2019-01-20] MEDS: amLODIPine 5 MG TAB PO SCH (07:50)
[2019-01-20 09:25] LABS: HCT 43.2 % (39.0-53.0); HGB 14.7 gm/dL (13.0-17.5); MCH 31.9 pg (25.0-35.0); MCHC 34.1 g/dL (31.0-37.0); MCV 93.7 fL (80.0-100.0); Mean Platelet Volume 6.5; Platelet Count 146 k/uL (150-450); RBC 4.61 m/uL (4.30-5.90); RDW 12.2 % (11.5-15.5); WBC 5.6 k/uL (3.8-10.6)
[2019-01-20 09:48] LABS: Calcium 8.1 mg/dL (8.4-10.2); Potassium 3.9 mmol/L (3.5-5.1)
[2019-01-20 12:31] LABS: Glucose,Whole Blood 163 mg/dL (75-99)
--- NOTE | 2019-01-20 22:44 | P.PN ---
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 Is developed an increasing amount of ulceration to the fifth toe he became very concerned because of his history of prior diabetic foot ulceration. 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 He was doing well with these but they were out and trying to break some new boots in. All who is slowly trying to utilize them. Developed a diabetic ulceration to the left foot fifth toe and with the swelling pain erythema and increased blood sugars he presented to Hospital. With concerns of diabetic foot infection the consul tation was requested. The patient has not had high-grade fevers, chills or rigors but is concerned about toe or foot loss. 01/19/2019 patient had worsening status with nausea diarrhea and limited emesis. Now feeling much better and stool in the ostomy is now somewhat formed without blood. Denies fever and foot is feeling better. 01/20/2019 patient is feeling better today. His gastrointestinal distress has resolved. He is not having any further difficulties with profuse diarrhea. He has no nausea or emesis. He is not having abdominal pain. Denies fevers or chills blood sugars improved. Objective - Vital Signs Vital signs: Vital Signs Temp 97.9 F 01/20/19 06:13 Pulse 72 01/20/19 06:13 Resp 18 01/20/19 06:13 BP 126/75 01/20/19 06:13 Pulse Ox 97 01/20/19 06:13 Intake & Output 01/20/19 01/20/19 01/21/19 06:59 18:59 06:59 Intake Total 100 Output Total 1000 Balance -900 Intake: Oral 100 Output: Stool 1000 Other: Voiding Method Toilet # Voids 2 3 # Bowel Movements 0 - Exam HEENT: Anicteric conjunctiva are pink and moist nasal mucosa grossly intact without significant lesions, there is no thrush. Neck: The neck is supple without significant lymphadenopathy or thyromegaly. Lungs: Good bilateral air entry without significant crackles or wheezing. There is no significant bronchial sounds. There is no egophony or dullness. Heart: Regular rate and rhythm with an audible S1-S2, no S3 no S4. There is no significant murmur click or rub, PMI was nondisplaced. Abdomen: Positive bowel sounds soft and nontender without palpable masses or organomegaly. There was no guarding or rebound. Extremities: The upper extremities have excellent pulses they are symmetric, no significant petechiae or telangiectasia. No splinter hemorrhages were noted. does have prior shoulder surgery in bicep injuries in the past The lower extremities are free from significant edema. The feet are well perfused. The left foot fifth toe has evidence of the distinct ulceration. There is some swelling, improved erythema and some deformity. He does have bilateral foot deformities from his Charcot feet. No other ulcerations are seen. There is only minimal ascending erythema on the left leg. the bilateral total knee arthroplasty are without erythema or tenderness. Neuro: Awake alert oriented to person place and time. There are no acute new gross focal sensory motor deficits. - Labs CBC & Chem 7: 01/20/19 09:00 01/20/19 09:00 Labs: Abnormal Lab Results - Last 24 Hours (Table) 01/20/19 01/20/19 01/20/19 Range/Units 07:08 09:00 09:00 Plt Count 146 L (150-450) k/uL Sodium 136 L (137-145) mmol/L Chloride 110 H (98-107) mmol/L Carbon Dioxide 18 L (22-30) mmol/L BUN 23 H (9-20) mg/dL Creatinine 1.31 H (0.66-1.25) mg/dL Glucose 247 H (74-99) mg/dL POC Glucose (mg/dL) 200 H (75-99) mg/dL Calcium 8.1 L (8.4-10.2) mg/dL 01/20/19 Range/Units 12:28 Plt Count (150-450) k/uL Sodium (137-145) mmol/L Chloride (98-107) mmol/L Carbon Dioxide (22-30) mmol/L BUN (9-20) mg/dL Creatinine (0.66-1.25) mg/dL Glucose (74-99) mg/dL POC Glucose (mg/dL) 163 H (75-99) mg/dL Calcium (8.4-10.2) mg/dL Microbiology - Last 24 Hours (Table) 01/17/19 03:50 Blood Culture - Preliminary Blood No Growth after 72 hours Laboratory Results WBC 5.6 k/uL (3.8-10.6) 01/20/19 09:00 RBC 4.61 m/uL (4.30-5.90) 01/20/19 09:00 Hgb 14.7 gm/dL (13.0-17.5) 01/20/19 09:00 Hct 43.2 % (39.0-53.0) 01/20/19 09:00 MCV 93.7 fL (80.0-100.0) 01/20/19 09:00 MCH 31.9 pg (25.0-35.0) 01/20/19 09:00 MCHC 34.1 g/dL (31.0-37.0) 01/20/19 09:00 RDW 12.2 % (11.5-15.5) 01/20/19 09:00 Plt Count 146 k/uL (150-450) L 01/20/19 09:00 Neutrophils % 75 % 01/17/19 03:50 Lymphocytes % 15 % 01/17/19 03:50 Monocytes % 7 % 01/17/19 03:50 Eosinophils % 2 % 01/17/19 03:50 Basophils % 0 % 01/17/19 03:50 Neutrophils # 5.7 k/uL (1.3-7.7) 01/17/19 03:50 Lymphocytes # 1.2 k/uL (1.0-4.8) 01/17/19 03:50 Monocytes # 0.5 k/uL (0-1.0) 01/17/19 03:50 Eosinophils # 0.1 k/uL (0-0.7) 01/17/19 03:50 Basophils # 0.0 k/uL (0-0.2) 01/17/19 03:50 ESR 5 mm/hr (0-15) 01/18/19 08:28 Sodium 136 mmol/L (137-145) L 01/20/19 09:00 Potassium 3.9 mmol/L (3.5-5.1) 01/20/19 09:00 Chloride 110 mmol/L (98-107) H 01/20/19 09:00 Carbon Dioxide 18 mmol/L (22-30) L 01/20/19 09:00 Anion Gap 8 mmol/L 01/20/19 09:00 BUN 23 mg/dL (9-20) H 01/20/19 09:00 Creatinine 1.31 mg/dL (0.66-1.25) H 01/20/19 09:00 Est GFR (CKD-EPI)AfAm 70 (>60 ml/min/1.73 sqM) 01/20/19 09:00 Est GFR (CKD-EPI)NonAf 61 (>60 ml/min/1.73 sqM) 01/20/19 09:00 Glucose 247 mg/dL (74-99) H 01/20/19 09:00 POC Glucose (mg/dL) 163 mg/dL (75-99) H 01/20/19 12:28 POC Glu Mail Carrier Radha Garcia 01/20/19 12:28 Plasma Lactic Acid Ganesh 1.7 mmol/L (0.7-2.0) 01/17/19 03:50 Calcium 8.1 mg/dL (8.4-10.2) L 01/20/19 09:00 Total Bilirubin 0.7 mg/dL (0.2-1.3) 01/17/19 03:50 AST 26 U/L (17-59) 01/17/19 03:50 ALT 39 U/L (21-72) 01/17/19 03:50 Alkaline Phosphatase 88 U/L (38-126) 01/17/19 03:50 C-Reactive Protein <5.0 mg/L (<10.0) 01/18/19 08:28 Total Protein 7.1 g/dL (6.3-8.2) 01/17/19 03:50 Albumin 4.2 g/dL (3.5-5.0) 01/17/19 03:50 C. 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 He has noticed been trying to break and some new boots and developed some ulceration to the lateral aspect of the toe. He has some minimal drainage. The and became considerably worse with swelling to the toe increasing drainage erythema tenderness and ascending erythema. With all the changes he sought care. He has now been admitted and has been initiated antibiotic therapy that included Zosyn and vancomycin. Local wound care was initiated with therahoney wrap. Elevation of the foot while at rest. Bone scan has been requested to ensure there is no underlying osteomyelitis. He does seem to be feeling a bit better since admission. Improved glucose control is paramount. Multivitamin with zinc is added. 01/19/2019 feeling better now that the diarrhea has resolved, foot improved. Bone scan is negative and will not require outpatient intravenous Will be transitioned to oral antibiotic therapy in the morning as he is ready for discharge at that time if he continues to have resolution of his gastroenteritis. 01/20/2019 the patient is improved further today. His gastrointestinal function is at baseline. He denies nausea or emesis or diarrhea. Foot is without pain. He is doing well with the therahoney dressing and this will continue in outpatient setting. Will be Epifoam the office after he sees his primary care physician. Antibiotic therapy is provided with Augmentin for the next week and is to contact the office if he has any acute change or worsening of the foot. He does have a specialty boot. He does await his new diabetic shoes and boots to protect his foot even further. Status: Acute Code(s): E08.621 - DIABETES MELLITUS DUE TO UNDERLYING CONDITION W FOOT ULCER; L97.512 - NON-PRS CHRONIC ULCER OTH PRT RIGHT FOOT W FAT LAYER EXPOSED SNOMED Code(s): 594541219 (2) Small bowel obstruction Status: Acute Code(s): K56.69 - OTHER INTESTINAL OBSTRUCTION * DO NOT USE * SNOMED Code(s): 442538308 (3) Degenerative joint disease Status: Acute Code(s): M19.90 - UNSPECIFIED OSTEOARTHRITIS, UNSPECIFIED SITE SNOMED Code(s): 484729748
--- NOTE | 2019-01-20 23:14 | P.DS ---
Providers Date of admission: 01/17/19 04:49 Expected date of discharge: 01/20/19 Attending physician: Vahid Chang Consults: 01/17/19 20:08 Consult Physician Routine Consulting Provider: Pablo Norwood Consult Reason/Comments: l foot toe infection Do you want consulting provider notified?: Yes Primary care physician: Kervin Palma [facility] Course: Hospital course: This is a very pleasant 58 year patient who follows with Dr. palma out of [place]. Chronic stable medical conditions include diabetes, GERD, hypertension, osteoarthritis, has a chronic ileostomy from surgery from underlying ulcerative colitis. Normally changes the bag every 3 days. Patient is being followed by a bow stapler for wound on the left toe for about close to 2 months. Yesterday started leaking became sore and inflamed and red. Was admitted for the same. She was started on IV Zosyn and vancomycin the ER.. Denies any injury to the toe. Patient did have a bone scan. That was negative. X-ray of the foot was negative for osteomyelitis. Final diagnosis was cellulitis with the toe wound. Care was discussed with patient. Doing well. consultation: Dr. Norwood from infectious disease Physical examination: VITAL SIGNS: 97.9, 72, 18, 126/75, 97% room air GENERAL: Laying in bed, tired. EYES: Pupils equal. Conjunctiva normal. HEENT: External appearance of nose and ears normal, oral cavity dry. NECK: JVD not raised; masses not palpable. HEART: First and second heart sounds are normal; no edema. LUNGS: Respiratory rate normal; clear to auscultation. ABDOMEN: Soft, nontender, liver spleen not palpable, no masses palpable. Ileostomy bag watery stool Dermatological: There is superficial wound on the superior lateral aspect of the left small toe with some tenderness Investigations, reviewed and clinical context: BUN 23, creatinine 1.31 Accu-Cheks noted C. diff negative X-ray of the foot did not show any bony involvement Assessment: -Acute wound on the left foot small toe being followed by a bow stapler for about 2 months. It became acutely painful red and was draining X-ray of the foot does not show any involvement of the bone. Diagnosis acute cellulitis with wound -Chronic kidney disease stage III from diabetic nephropathy and possibly hypertensive nephrosclerosis -Diabetes mellitus type 2, chronically on insulin -GERD -Essential hypertension -Chronic ileostomy with surgery for ulcerative colitis in the past -Acute antibiotic associated diarrhea Disposition: Home Patient Condition at Discharge: Stable Plan - Discharge Summary New Discharge Prescriptions: New Amoxic-Pot Clav 875-125Mg [Augmentin 875-125] 1 tab PO Q12HR #20 tablet Continue HYDROcodone/APAP 10-325MG [Mathews 10-325] 1 tab PO Q6HR PRN PRN Reason: Pain Pantoprazole [Protonix] 40 mg PO AC-BRKFST #30 tablet. Ertugliflozin Pidolate [Steglatro] 15 mg PO DAILY Losartan Potassium 100 mg PO HS Aspirin EC [Ecotrin Low Dose] 81 mg PO DAILY Changed Insulin Glargine [Lantus] 25 unit SQ HS #0 amLODIPine [Norvasc] 5 mg PO BID #60 tab Discontinued Potassium Chloride [K-Tab ER] 10 meq PO DAILY Ibuprofen [Motrin] 800 mg PO TID PRN PRN Reason: Pain Furosemide [Lasix] 20 mg PO BID Discharge Medication List HYDROcodone/APAP 10-325MG [Mathews 10-325] 1 tab PO Q6HR PRN 05/12/14 [History] Pantoprazole [Protonix] 40 mg PO AC-BRKFST #30 tablet. 06/01/16 [Rx] Aspirin EC [Ecotrin Low Dose] 81 mg PO DAILY 01/17/19 [History] Ertugliflozin Pidolate [Steglatro] 15 mg PO DAILY 01/17/19 [History] Losartan Potassium 100 mg PO HS 01/17/19 [History] Amoxic-Pot Clav 875-125Mg [Augmentin 875-125] 1 tab PO Q12HR #20 tablet 01/20/19 [Rx] Insulin Glargine [Lantus] 25 unit SQ HS #0 01/20/19 [Rx] amLODIPine [Norvasc] 5 mg PO BID #60 tab 01/20/19 [Rx] Follow up Appointment(s)/Referral(s): Pablo Norwood MD [STAFF PHYSICIAN] - As Needed Kervin Palma MD [Primary Care Provider] - 01/22/19 10:45 am Patient Instructions/Handouts: Foot Care for People with Diabetes (DC), Diabetic Foot Ulcers (DC) Discharge Disposition: HOME SELF-CARE
== END 2019-01-20 15:53 | disposition home or self-care (01) | DRG 638 ==
LOC: EC 00:52 → 4MS4W 04:49
PROVIDERS: ADMIT Hospitalist; ATTEND Hospitalist
DX: E11.621 Type 2 diabetes mellitus with foot ulcer (principal); L03.116 Cellulitis of left lower limb; K51.90 Ulcerative colitis, unspecified, without complications; K52.1 Toxic gastroenteritis and colitis; E11.22 Type 2 diabetes mellitus with diabetic chronic kidney disease; E11.610 Type 2 diabetes mellitus with diabetic neuropathic arthropathy; E11.65 Type 2 diabetes mellitus with hyperglycemia; N18.3 Chronic kidney disease, stage 3 (moderate); L97.522 Non-pressure chronic ulcer of other part of left foot with fat layer exposed; I12.9 Hypertensive chronic kidney disease with stage 1 through stage 4 chronic kidney disease, or unspecified chronic kidney disease; T36.95XA Adverse effect of unspecified systemic antibiotic, initial encounter; K21.9 Gastro-esophageal reflux disease without esophagitis; M19.90 Unspecified osteoarthritis, unspecified site; Z93.2 Ileostomy status; Z79.82 Long term (current) use of aspirin; Z79.4 Long term (current) use of insulin; Z79.899 Other long term (current) drug therapy; Z87.442 Personal history of urinary calculi; Z96.653 Presence of artificial knee joint, bilateral; Z90.49 Acquired absence of other specified parts of digestive tract; Z89.022 Acquired absence of left finger(s); Z89.021 Acquired absence of right finger(s); Z88.1 Allergy status to other antibiotic agents; Z88.5 Allergy status to narcotic agent; Z82.49 Family history of ischemic heart disease and other diseases of the circulatory system; Z82.61 Family history of arthritis
CPT/HCPCS: 36415; 78315; 80048; 80053; 83605; 85025; 85027; 85652; 86140; 87040; 87324; 96365; 96366; 96367; 96372; 96375; 99284

== ENCOUNTER → 2019-05-27 | Outpatient (CLI) | payer MEDICAID ==
--- NOTE | 2019-05-27 09:35 | MR ---
EXAMINATION TYPE: MR thoracic spine wo con DATE OF EXAM: 05/27/2019 COMPARISON: Pain HISTORY: injury of thorax about two months ago, upper back pain Standard multiplanar, multisequence MRI departmental protocol Multiplanar, multisequence images of the thoracic spine were acquired. FINDINGS: There is multilevel degenerative disc disease and hypertrophic changes. Multilevel vertebral body hem angioma noted. Multilevel Schmorl's nodes. Incidental note is made of degenerative disc disease invol ving the mid and lower cervical spine. Chronic appearing deformity T4 noted. At T1-T2 there is no disc herniation or canal stenosis. Neural foramina patent. T2-T3 paracentral disc bulging but no canal stenosis or foraminal encroachment T3-T4 there is central disc bulging with mild effacement of thecal sac. No canal stenosis or foramina l encroachment. T4-T5 there is central disc bulging with mild effacement of thecal sac. More localized area of left p aracentral thecal sac compression may represent a small disc protrusion. Best noted on axial image 9. No Canal stenosis. No spinal cord contact. Neural foramina patent. At T5-T6 there is a focal central disc herniation cord compression. A area of compressive myelitis in volving the anterior paracentral spinal cord not excluded. Neural foramina patent. T6-T7 there is no disc herniation or canal stenosis. No foraminal encroachment At T7-T8 there is no disc herniation or canal stenosis. There is left paracentral disc bulging. Neura l foramina are patent. T8-T9 there is left paracentral disc protrusion with mild effacement of thecal sac. No spinal cord co ntact. Left neural foramina mildly narrowed. T9-T10 there is no disc herniation or canal stenosis. No foraminal encroachment At T10-T11 there is no disc herniation or canal stenosis. There is mild facet arthropathy and hypertr ophic spurring. Neural foramina.. T11-T12 no disc herniation or canal stenosis. No foraminal encroachment. Anterior spurring noted. At T12-L1 there is a right paracentral lateral disc bulge with mild right-sided foraminal encroachmen t. IMPRESSION: 1. Central disc herniation T5-T6 with spinal cord compression. 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 2. Multilevel moderate to severe degenerative disc disease. 3. Left paracentral disc bulging T7-T8 and T8-T9 with mild effacement of thecal sac but no spinal cor d contact. 4. Mild central disc bulging T3-T4 and T4-T5 but no spinal cord contact or foraminal encroachment. 5. At T12-L1 there is a right paracentral lateral disc bulge with mild right foraminal encroachment.
== END | disposition home or self-care (01) ==
LOC: RADMRIMAIN 08:14
PROVIDERS: ATTEND Family Medicine
DX: M51.24 Other intervertebral disc displacement, thoracic region (principal); M51.34 Other intervertebral disc degeneration, thoracic region; G95.29 Other cord compression
CPT/HCPCS: 72146

== ENCOUNTER → 2019-07-15 | Outpatient (CLI) | payer MEDICAID ==
[2019-07-15 13:31] VITALS: BP 145/77; PULSE 104; RESP 18
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
== END | disposition home or self-care (01) ==
LOC: PNWHC3 12:52
PROVIDERS: ATTEND Specialist
DX: M47.814 Spondylosis without myelopathy or radiculopathy, thoracic region (principal); M46.94 Unspecified inflammatory spondylopathy, thoracic region; M51.24 Other intervertebral disc displacement, thoracic region; E11.9 Type 2 diabetes mellitus without complications; I10 Essential (primary) hypertension; M19.90 Unspecified osteoarthritis, unspecified site; K21.9 Gastro-esophageal reflux disease without esophagitis; Z79.891 Long term (current) use of opiate analgesic; Z79.899 Other long term (current) drug therapy; Z79.4 Long term (current) use of insulin; Z79.01 Long term (current) use of anticoagulants; Z79.52 Long term (current) use of systemic steroids; Z79.82 Long term (current) use of aspirin
CPT/HCPCS: 99211

== ENCOUNTER 2019-07-27 06:10 | Day surgery (SDC) | payer MEDICAID ==
[2019-07-23 15:23] VITALS: BMI 33.2
[~2019-07-27 06:10] MED LIST: DEXAMETHASONE SOD PHOSPHATE 10 MG/ML 1 ML VIAL ONE; IOPAMIDOL M200 10 ML VIAL ONE; LACTATED RINGERS 1,000 ML IV SCH; MIDAZOLAM 2 MG/2 ML VIAL ONE; fentaNYL (PF) 50 MCG/ML 2 ML AMP ONE
[2019-07-27] MEDS ORDERED: LIDOCAINE 1% 20 ML VIAL (10MG/ML) FOR IV START INTRADERMA ONE (06:35)
[2019-07-27 06:42] LABS: Glucose,Whole Blood 188 mg/dL (75-99)
[2019-07-27 06:45] VITALS: RESP 18; TEMP 98
--- NOTE | 2019-07-27 07:26 | P.PCN ---
Date of Procedure: 07/27/19 Procedure(s) Performed: PREOPERATIVE DIAGNOSIS: 1- Thoracic radiculopathy, Thoracic Degenerative Disc Diseases 2-Thoracic spondylosis with Facet arthropathy without myelopathy POSTOPERATIVE DIAGNOSIS: 1-Thoracic Degenerative Disc Diseases 2-Thoracic spondylosis with Facet arthropathy without myelopathy PROCEDURE 1. Thoracic epidural steroid injection under fluoroscopic guidance at the T5-6 level using a left paramedian approach 2. Thoracic epidurogram. ANESTHESIA: Local with 1% lidocaine 3 ml, moderate sedation with intravenous Versed and fentanyl, sedation time 16 minutes Fluoroscopy was used for the procedure and images were saved in the radiology portion of the chart. EBL: Minimal PROCEDURE INDICATION: The patient with low back pain and radiculitis symptoms unresponsive to conservative treatment. Fluoroscopy was used to optimize visualization of the needle placement and to maximize safety. PROCEDURE DESCRIPTION / TECHNIQUE: The patient was seen and identified in the preoperative area. Risks, benefits, complications including but not limited to infections ,bleeding ,allergic r eaction to the medications ,nerve damage and incomplete pain relief , and alternatives were discussed with the patient. The patient agreed to proceed with the procedure and signed the consent. IV was started, and vital signs were stable. Patient was taken to the OR and time out was completed. The patient was placed in the prone position on procedure table. The thoracic area was prepped and draped in the usual sterile fashion. Vitals were closely monitored during the procedure. Conscious sedation was used during the procedure to decrease patients anxiety. Using anterior-posterior fluoroscopy, the T5-6 interlaminar space was identified and the skin over this site was marked and then infiltrated with 1% lidocaine subcutaneously. Subsequently, a 20-gauge 3.5" Tuohy epidural needle was inserted and advanced toward the epidural space using the loss of resistance technique and guided by AP and lateral/ oblique fluoroscopy. The correct needle position in the epidural space was verified with the injection of 2 mL of the water soluble contrast dye Isovue 200 contrast under live fluoroscopy, observing an excellent epidurogram. Then, after negative aspiration for blood and CSF and in the absence of paresthesias, a 5 ml mixture containing 10 mg of dexamethasone, 3 ml of preservative free Normal Saline, and 1 ml of preservative free lidocaine 1% solution was injected and a washout epidurogram was seen. Needle was withdrawn intact, skin was cleansed, and bandages were applied. COMPLICATIONS: None DISPOSITION / PLANS: The patient was placed in a supine position and transferred to the recovery area in a stable condition for observation. There was no evidence of lower extremity motor or sensory deficit after the procedure. Patient was discharged from the recovery room after meeting discharge criteria. Home discharge instructions were given to the patient by the staff. The patient will schedule a follow up in the clinic in 2-4 weeks.
[2019-07-27 07:36] LABS: Glucose,Whole Blood 209 mg/dL (75-99)
[2019-07-27 07:55] VITALS: BP 138/93; PULSE 88
--- NOTE | 2019-07-27 08:12 | FL ---
Fluoroscopy HISTORY: Pain 10 seconds fluoroscopy time supplied to the referring clinician. 4 intraoperative C-arm images docum ent the procedure. See dictated report from anesthesia.
== END 2019-07-27 07:58 | disposition home or self-care (01) ==
LOC: ORPAIN 06:10
PROVIDERS: ATTEND Anesthesiology
DX: M51.14 Intervertebral disc disorders with radiculopathy, thoracic region (principal); M47.24 Other spondylosis with radiculopathy, thoracic region; E11.9 Type 2 diabetes mellitus without complications; K21.9 Gastro-esophageal reflux disease without esophagitis; M19.90 Unspecified osteoarthritis, unspecified site; Z93.2 Ileostomy status; Z90.49 Acquired absence of other specified parts of digestive tract; Z87.442 Personal history of urinary calculi; Z87.19 Personal history of other diseases of the digestive system; Z98.890 Other specified postprocedural states; Z96.653 Presence of artificial knee joint, bilateral; Z89.022 Acquired absence of left finger(s); Z89.021 Acquired absence of right finger(s); Z82.49 Family history of ischemic heart disease and other diseases of the circulatory system; Z82.61 Family history of arthritis; Z88.1 Allergy status to other antibiotic agents; Z88.5 Allergy status to narcotic agent; Z79.82 Long term (current) use of aspirin; Z79.899 Other long term (current) drug therapy; Z79.4 Long term (current) use of insulin
CPT/HCPCS: 62321; J2250; J1100; J3010; Q9966; 99152

== ENCOUNTER → 2020-05-23 | Outpatient (CLI) | payer MEDICAID ==
--- NOTE | 2020-05-23 11:27 | US ---
EXAMINATION TYPE: US thyroid st tissue head/neck DATE OF EXAM: 05/23/2020 COMPARISON: NONE CLINICAL HISTORY: R22.1 Swelling and mass of neck. GLAND SIZE: Right Lobe: cm Overall Parenchyma: Left Lobe: cm Overall Parenchyma: Isthmus Thickness: cm NODULES RIGHT: # of nodules measured on right: 1. X x cm nodule at the pole with margins; . This nodule is and shows . Prior size: x x cm 2. X x cm nodule at the pole with margins; . This nodule is and shows . Prior size: x x cm 3. X x cm nodule at the pole with margins; . This nodule is and shows . Prior size: x x cm 4. X x cm nodule at the pole with margins; . This nodule is and shows . Prior size: x x cm LEFT: # of nodules measured on left: 1. X x cm nodule at the pole with margins; . This nodule is and shows . Prior size: x x cm 2. X x cm nodule at the pole with margins; . This nodule is and shows . Prior size: x x cm 3. X x cm nodule at the pole with margins; . This nodule is and shows . Prior size: x x cm 4. X x cm nodule at the pole with margins; . This nodule is and shows . Prior size: x x cm ISTHMUS: # of nodules measured in the isthmus: 1. X x cm nodule at the pole with margins; . This nodule is and shows . Prior size: x x cm Bilateral neck scanned, no evidence of lymphadenopathy. IMPRESSION: EXAMINATION TYPE: US thyroid st tissue head/neck DATE OF EXAM: 05/23/2020 COMPARISON: NONE CLINICAL HISTORY: R22.1 Swelling and mass of neck. Swelling, redness left submandibular area MEASUREMENTS: GLAND SIZE: Right Lobe: 4.7 x 1.6 x 1.4 cm Left Lobe: 4.9 x 1.8 x 1.3 cm Isthmus Thickness: 0.6 NODULES RIGHT: # of nodules measured on right: 0 LEFT: # of nodules measured on left:0 ISTHMUS: # of nodules measured within isthmus:0 Bilateral neck scanned, no evidence of lymphadenopathy. Area of swelling/redness = 4.3 x 4.8 x 1.6 cm area of swelling. No abscess or free fluid noted. IMPRESSION: 1. Diffuse soft tissue edema overlying the area of abnormality correlate for cellulitis. No definite abscess is seen. Correlate with CT soft tissue neck as clinically warranted.
== END | disposition home or self-care (01) ==
LOC: RADUSWWP 10:55
PROVIDERS: ATTEND Nurse Practitioner Family
DX: M79.89 Other specified soft tissue disorders (principal)
CPT/HCPCS: 76536

== ENCOUNTER 2020-05-26 10:31 | Emergency (ER) | payer MEDICAID ==
[2020-05-26 10:47] VITALS: RESP 18
[2020-05-26] MEDS ORDERED: amLODIPine 10 MG TAB PO STA (11:02)
[2020-05-26] MEDS ORDERED: SODIUM CHLORIDE 0.9% 500 ML 500 ML IV ONE (11:02)
[2020-05-26] MEDS ORDERED: ACETAMINOPHEN TAB 325 MG TAB PO STA (11:03)
--- NOTE | 2020-05-26 11:08 | ED ---
General Adult HPI - General Chief complaint: Headache Stated complaint: High BP Time Seen by Provider: 05/26/20 10:50 Source: patient, RN notes reviewed, old records reviewed Mode of arrival: ambulatory Limitations: no limitations - History of Present Illness Initial comments: 59-year-old male patient to ED for evaluation. Patient positive for the last 6 weeks he has been having essentially daily headaches in his frontal and maxillary sinus region. He reports that his blood pressure has been quite elevated. He seems primary care provider twice over this time. He had his blood pressure medication Norvasc up to 10 mg. He reports that he is diabetic and his blood sugars have been elevated as well. Patient does have a history of ileostomy secondary to ulcerative colitis. Denies any other acute complaints. Systemic: Pt denies fatigue, fever/chills, rash. Pt denies weakness, night sweats, weight loss. Neuro: Pt denies visual disturbances, syncope or pre-syncope. HEENT: Pt denies ocular discharge or irritation, otalgia, rhinorrhea, pharyngitis or notable lymphadenopathy. Cardiopulmonary: Pt denies chest pain, SOB, heart palpitations, dyspnea on exertion. Abdominal/GI: Pt denies abdominal pain, n/v/d. : Pt denies dysuria, burning w/ urination, frequency/urgency. Denies new onset urinary or bowel incontinence. MSK: Pt denies myalgia, loss of strength or function in extremities. Neuro: Pt denies new onset weakness, paresthesias. - Related Data Home Medications Medication Instructions Recorded Confirmed HYDROcodone/APAP 10-325MG [[place] 1 tab PO Q6H PRN 05/12/14 05/26/20 10-325] Aspirin EC [Ecotrin Low Dose] 81 mg PO DAILY 01/17/19 05/26/20 Ibuprofen [Motrin] 800 mg PO TID PRN 07/14/19 05/26/20 Losartan Potassium [Cozaar] 100 mg PO DAILY 07/14/19 05/26/20 Chlorhexidine Gluconate [Peridex] 15 ml PO BID 05/26/20 05/26/20 Doxycycline Monohydrate [Monodox] 100 mg PO BID 05/26/20 05/26/20 Fluticasone Nasal [place] [Flonase 1 spray EA NOSTRIL DAILY PRN 05/26/20 05/26/20 Nasal [place]] Insulin Glargine,Hum.rec.anlog 30 unit SQ DAILY 05/26/20 05/26/20 [Lantus Solostar] Insulin Glulisine [Apidra Solostar] See Protocol SQ ACHS 05/26/20 05/26/20 Sildenafil Citrate 100 mg PO DAILY PRN 05/26/20 05/26/20 Tamsulosin [Flomax] 0.4 mg PO HS 05/26/20 05/26/20 amLODIPine [Norvasc] 10 mg PO DAILY 05/26/20 05/26/20 predniSONE See Taper PO DAILY 05/26/20 05/26/20 Previous Rx's Medication Instructions Recorded Pantoprazole [Protonix] 40 mg PO AC-BRKFST #30 tablet. 06/01/16 Amoxicillin/Potassium Clav 1 each PO Q12HR #20 tab 05/26/20 [Augmentin 875-125 Tablet] Allergies Allergy/AdvReac Type Severity Reaction Status Date / Time levofloxacin [From Levaquin] AdvReac Severe Chest Pain Verified 05/26/20 12:28 cephalexin monohydrate AdvReac Unknown Nausea & Verified 05/26/20 12:28 [From Keflex] Vomiting codeine AdvReac Unknown Nausea & Verified 05/26/20 12:28 Vomiting Review of Systems ROS Statement: Those systems with pertinent positive or pertinent negative responses have been documented in the HPI. ROS Other: All systems not noted in ROS Statement are negative. Past Medical History Past Medical History: Diabetes Mellitus, GERD/Reflux, Hypertension, Osteoarthritis (OA) Additional Past Medical History / Comment(s): PT ARRIVED BY CAR TO [facility] ER WITH C/O N/V/D FOR 24 HOURS. HE HAS AN ILEOSTOMY THAT HE HAS HAD TO EMPTY FREQUENTLY. HE HAS HAD SEVERAL EPISODES OF VOMITTING AND CONTINUOUS NAUSEA. 8-10 KIDNEY STONES, ULCERATIVE Colitis, Urostomy, RECTUM REMOVED. PT HAS ARTHIRITIS ALL OVER, History of Any Multi-Drug Resistant Organisms: None Reported Date of last positivie culture/infection: 12/14/16 MDRO Source:: TOE Past Surgical History: Appendectomy, Bowel Resection, Heart Catheterization, Joint Replacement, Orthopedic Surgery Additional Past Surgical History / Comment(s): BILATERAL TOTAL KneeS,L Shoulder ROTATOR CUFF REPAIR, BILATERALHandS L HAND INDEX FINGER AND R HAND MIDDLE FINGER BOTH PARTIAL AMP WITH REPAIR, COLECTOMY/ILEOSTOMY. CARDIAC CATH YRS AGO AND NO BLOCKAGES-DONE AT [facility]. Past Anesthesia/Blood Transfusion Reactions: No Reported Reaction Additional Past Anesthesia/Blood Transfusion Reaction / Comment(s): NEVER RECEIVED BLOOD Past Psychological History: No Psychological Hx Reported Smoking Status: Never smoker Past Alcohol Use History: Occasional Past Drug Use History: None Reported - Past Family History Father Family Medical History: Hypertension Additional Family Medical History / Comment(s): FATHER ALIVE AND IS 74 YRS OLD. Mother Family Medical History: Osteoarthritis (OA) Additional Family Medical History / Comment(s): MOTHER HAS ALOT OF ARTHRITIS AND HAS HAD MANY ORTHOPEDIC SURGERIES. SHE IS 73 YRS OLD. General Exam - General Exam Comments Initial Comments: Constitutional: NAD, AOX3, Pt has pleasant affect. HEENT: NC/AT, trachea midline, neck supple, no lymphadenopathy. External ears appear normal, without discharge. Mucous membranes moist. Eyes PERRLA, EOM intact. There is no scleral icterus. No pallor noted. Cardiopulmonary: RRR, no murmurs, rubs or gallops, no JVD noted. Lungs CTAB in anterior and posterior heck. No peripheral edema. Maxillary sinus pressure rep roducible upon palpation. Abdominal exam: Abdomen soft and non-distended. Abdomen non-tender to palpation in all 4 quadrants. Bowel sounds active in LLQ. No hepatosplenomegaly. No ecchymosis Neuro: CN II-XII intact. No nuchal rigidity. No raccon eyes, no lyon sign, no hemotympanum. No cervical spinal tenderness. NIH 0. MSK: No posterior calf tenderness bilaterally, homans sign negative bilaterally. Posterior tibialis and radial pulse +2 bilaterally. Sensation intact in upper and lower extremities. Full active ROM in upper and lower extremities, 5/5 stregnth. Limitations: no limitations Course Vital Signs 05/26/20 05/26/20 10:42 13:06 Temperature 97.8 F Pulse Rate 90 80 Respiratory 18 18 Rate Blood Pressure 148/101 145/103 O2 Sat by Pulse 99 99 Oximetry Medical Decision Making - Medical Decision Making 59-year-old male patient to ED for evaluation of headache, elevated blood pressure, hyperglycemia ongoing the last 6 weeks. Patient vital signs are stable emergency department. Physical exam displayed maxillary sinus reproducible tender this to palpation. CT angiography of brain negative for acute process. CT brain without contrast is displayed no acute process. patient will be treated with Augmentin for sinusitis. Will follow up with primary care provider tomorrow will closely monitor blood sugar and will return for any worsening symptoms. Case discussed with Dr. Garcia. - Lab Data Result diagrams: 05/26/20 11:20 05/26/20 11:20 Lab Results 05/26/20 05/26/20 05/26/20 Range/Units 11: 11: 11:20 WBC 12.8 H (3.8-10.6) k/uL RBC 5.18 (4.30-5.90) m/uL Hgb 16.6 (13.0-17.5) gm/dL Hct 47.3 (39.0-53.0) % MCV 91.2 (80.0-100.0) fL MCH 32.1 (25.0-35.0) pg MCHC 35.2 (31.0-37.0) g/dL RDW 11.9 (11.5-15.5) % Plt Count 239 (150-450) k/uL MPV 6.5 Neutrophils % 84 % Lymphocytes % 9 % Monocytes % 4 % Eosinophils % 1 % Basophils % 1 % Neutrophils # 10.7 H (1.3-7.7) k/uL Lymphocytes # 1.1 (1.0-4.8) k/uL Monocytes # 0.6 (0-1.0) k/uL Eosinophils # 0.1 (0-0.7) k/uL Basophils # 0.1 (0-0.2) k/uL Sodium 138 (137-145) mmol/L Potassium 4.1 (3.5-5.1) mmol/L Chloride 102 (98-107) mmol/L Carbon Dioxide 27 (22-30) mmol/L Anion Gap 9 mmol/L BUN 34 H (9-20) mg/dL Creatinine 1.23 (0.66-1.25) mg/dL Est GFR (CKD-EPI)AfAm 75 (>60 ml/min/1.73 sqM) Est GFR (CKD-EPI)NonAf 65 (>60 ml/min/1.73 sqM) Glucose 304 H (74-99) mg/dL Calcium 9.4 (8.4-10.2) mg/dL Total Bilirubin 1.5 H (0.2-1.3) mg/dL AST 19 (17-59) U/L ALT 24 (4-49) U/L Alkaline Phosphatase 84 (38-126) U/L Troponin I <0.012 (0.000-0.034) ng/mL Total Protein 7.6 (6.3-8.2) g/dL Albumin 4.6 (3.5-5.0) g/dL - EKG Data -: EKG Interpreted by Me (and Dr. Garcia ) EKG Comments: ventricular rate 79, when necessary for 174, QRS 112, QT/QTc 416/477. Sinus rhythm with PVC. Incomplete right bundle branch block. Anterior fascicular block. No concern for acute ischemia this time. Disposition Clinical Impression: Headache, Sinusitis Disposition: HOME SELF-CARE Condition: Stable Instructions (If sedation given, give patient instructions): Acute Headache (ED), Sinusitis (ED) Additional Instructions: Follow up with PCP tomorrow. Take antibiotics as directed. Return to ED with any worsening symptoms. Prescriptions: Amoxicillin/Potassium Clav [Augmentin 875-125 Tablet] 1 each PO Q12HR #20 tab Is patient prescribed a controlled substance at d/c from ED?: No Referrals: Kervin Palma MD [Primary Care Provider] - 1-2 days
[2020-05-26 11:30] LABS: Basophils # (A) 0.1 k/uL (0-0.2); Basophils % (A) 1 %; Eosinophils # (A) 0.1 k/uL (0-0.7); Eosinophils % (A) 1 %; HCT 47.3 % (39.0-53.0); HGB 16.6 gm/dL (13.0-17.5); Lymphocytes # (A) 1.1 k/uL (1.0-4.8); Lymphocytes % (A) 9 %; MCH 32.1 pg (25.0-35.0); MCHC 35.2 g/dL (31.0-37.0); MCV 91.2 fL (80.0-100.0); Mean Platelet Volume 6.5; Monocytes # (A) 0.6 k/uL (0-1.0); Monocytes % (A) 4 %; Neutrophils # (A) 10.7 k/uL (1.3-7.7); Neutrophils % (A) 84 %; Platelet Count 239 k/uL (150-450); RBC 5.18 m/uL (4.30-5.90); RDW 11.9 % (11.5-15.5); WBC 12.8 k/uL (3.8-10.6)
[2020-05-26 11:43] LABS: Albumin 4.6 g/dL (3.5-5.0); Calcium 9.4 mg/dL (8.4-10.2); Potassium 4.1 mmol/L (3.5-5.1); Total Bilirubin 1.5 mg/dL (0.2-1.3); Total Protein 7.6 g/dL (6.3-8.2)
--- NOTE | 2020-05-26 12:26 | CT ---
EXAMINATION TYPE: CT brain wo con DATE OF EXAM: 05/26/2020 COMPARISON: 08/23/2015 INDICATION: HERR for 6 weeks, elevated BP DLP: 1089 mGycm, Automated exposure control for dose reduction was used. CONTRAST: None CT of the brain is performed utilizing 3 mm thick sections through the posterior fossa and 3 mm thick sections through the remaining calvarium. Study is performed within 24 hours of arrival to the hosp ital. No abnormal hyperdensity is present to suggest an acute intracranial hemorrhage. No mass lesion is evident. No acute infarcts are evident. Mild periventricular white matter hypodensity may be present most like ly on the basis of chronic white matter ischemic changes. Vascular calcification is in the distal morena tebral arteries. A small amount of calcification is at the carotid siphon level. A Virchow-Thad's sp isreal or small lacunar infarct of the inferior left basal ganglion is present. Ventricles and sulci are appropriate for the patient age. Paranasal sinuses and mastoid air cells within the [id number] are clear. IMPRESSIONS: 1. No acute intracranial process. 2. Mild periventricular white matter ischemic type changes. 3. Probable Virchow-Thad space left inferior basal ganglion
--- NOTE | 2020-05-26 13:56 | CT ---
EXAMINATION TYPE: CT angio head neck DATE OF EXAM: 05/26/2020 HISTORY: HERR for 6 weeks, elevated BP COMPARISON: None CT DLP: 674.7 mGycm. Automated Exposure Control for Dose Reduction was Utilized. TECHNIQUE: CTA scan of the neck is performed with IV Contrast, patient injected with 65 mL of Isovue 370, axial images are obtained, coronal and sagittal reformatted images are reviewed. Three-D recons tructed images are created on an independent workstation and reviewed. Source images are reviewed. FINDINGS: Carotid/Vascular Structures: There is a three-vessel arch. Vertebral arteries are codominant. Common carotid arteries bifurcate into internal and external carotid arteries. Internal carotid arteries are tortuous. Some plaquing is present on the right. No significant flow-limiting stenosis is evident. V ertebral arteries and internal carotid arteries are patent to the level of the skull base. Cervical of [place]: Vertebral basilar system appears normal. Posterior cerebral vasculature is unrema rkable. Internal carotid arteries bifurcate normally into A1 and M1 segments. The right A1 segment is better visualized in the coronal plane in the axial plane. A2 segments are normal. The anterior comm unicating artery is patent. Posterior communicating arteries are not identified.. IMPRESSION: 1. No flow-limiting stenosis bilateral carotid bifurcations. 2. Normal pauma of [place]
[2020-05-26] MEDS ORDERED: AMOXIC-POT CLAV 875MG STARTER PACK 2 TAB BTL PO STA (14:10)
[2020-05-26] MEDS ORDERED: AMOXIC-POT CLAV 875-125MG 1 EACH TAB PO STA (14:10)
[2020-05-26 15:06] LABS: Appearance,Urine Clear (Clear); Bilirubin,Urine Negative (Negative); Blood,Urine Negative (Negative); Color,Urine Yellow; Glucose,Urine (UA) 4+ (Negative); Ketones,Urine Negative (Negative); Leukocyte Esterase,Urine Negative (Negative); Mucus,Urine Rare /hpf; Nitrite,Urine Negative (Negative); Protein,Urine 1+ (Negative); RBC,Urine 1 /hpf (0-5); Urobilinogen,Urine <2.0 mg/dL (<2.0); WBC,Urine 1 /hpf (0-5)
[2020-05-26 15:11] LABS: Specific Gravity,Urine >1.050 (1.001-1.035)
[2020-05-26 15:18] VITALS: BP 141/108; PULSE 85; TEMP 97.4
== END 2020-05-26 15:23 | disposition home or self-care (01) ==
LOC: EC 10:31
DX: J32.9 Chronic sinusitis, unspecified (principal); K21.9 Gastro-esophageal reflux disease without esophagitis; E11.65 Type 2 diabetes mellitus with hyperglycemia; I10 Essential (primary) hypertension; M19.90 Unspecified osteoarthritis, unspecified site; Z79.4 Long term (current) use of insulin; Z79.82 Long term (current) use of aspirin; Z79.899 Other long term (current) drug therapy; Z88.1 Allergy status to other antibiotic agents; Z88.5 Allergy status to narcotic agent; Z95.5 Presence of coronary angioplasty implant and graft; Z96.653 Presence of artificial knee joint, bilateral
CPT/HCPCS: 36415; 93005; 80053; 84484; 85025; 81001; 70496; 70450; 70498; 99285; 96360; Q9967

== ENCOUNTER → 2020-07-02 | Outpatient (CLI) | payer MEDICAID ==
--- NOTE | 2020-07-02 08:25 | MR ---
EXAMINATION TYPE: MR cervical spine wo con DATE OF EXAM: 07/02/2020 COMPARISON: None HISTORY: 53-year-old female R5 1, headache TECHNIQUE: Multiplanar, multisequence images of the cervical spine were acquired. FINDINGS: No craniocervical junction abnormality, predental space widening, or prevertebral soft tissue swellin g. There is preserved alignment of the cervical spine. Mild multilevel degenerative disc disease is present with variable disc desiccation and discussed by complex formation. Ligamentum flavum thickening made cervical spine with scattered facet and uncovertebral joint arthrop athy. No suspicious bone marrow replacement. Some diminished marrow signal suggests red marrow hyperplasia. At C2-C3, no canal or foraminal stenosis. At C3-C4, facet and uncovertebral joint arthropathy resulting in mild bilateral neuroforaminal stenos is. No significant spinal canal stenosis. At C4-C5, there is ligamentum flavum thickening, broad-based disc osteophyte complex, and right great er than left facet and uncovertebral joint arthropathy. Changes result in mild spinal canal stenosis. Moderate to severe right and [id number] left neuroforaminal stenosis. At C5-C6, hypertrophic facet arthropathy results in mild neuroforaminal narrowing. Ligamentum flavum thickening impresses on the dorsal thecal sac. Minimal overall narrowing of the spinal canal. At C6/C7, ligamentum flavum thickening with hypertrophic facet arthropathy. Mild left neuroforaminal narrowing. No significant spinal canal stenosis. At C7-T1, facet arthropathy without significant canal or foraminal stenosis. Normal course, caliber, and signal intensity of the cervical spinal cord. IMPRESSION: 1. Mild multilevel degenerative disc disease. Ligamentum flavum thickening mid cervical spine. Scatte red facet and uncovertebral joint arthropathy. 2. Overall mild spinal canal stenosis at C4-C5, minimal at C5-C6. No mass effect on the cord or cord compression. 3. Variable neuroforaminal stenoses as outlined above, moderate to severe on the right at C4-C5. Mild to moderate on the left at this level.
== END | disposition home or self-care (01) ==
LOC: RADMRIMAIN 07:38
PROVIDERS: ATTEND Nurse Practitioner Family
DX: M48.02 Spinal stenosis, cervical region (principal); M50.30 Other cervical disc degeneration, unspecified cervical region
CPT/HCPCS: 72141

== ENCOUNTER → 2020-08-01 | Outpatient (CLI) | payer MEDICAID ==
[2020-08-01 16:15] LABS: Basophils # (A) 0.1 k/uL (0-0.2); Basophils % (A) 1 %; Eosinophils # (A) 0.1 k/uL (0-0.7); Eosinophils % (A) 3 %; HCT 42.1 % (39.0-53.0); HGB 14.9 gm/dL (13.0-17.5); Lymphocytes # (A) 1.2 k/uL (1.0-4.8); Lymphocytes % (A) 21 %; MCHC 35.4 g/dL (31.0-37.0); MCV 90.6 fL (80.0-100.0); Mean Platelet Volume 6.6; Monocytes # (A) 0.4 k/uL (0-1.0); Monocytes % (A) 8 %; Neutrophils # (A) 3.7 k/uL (1.3-7.7); Neutrophils % (A) 66 %; Platelet Count 194 k/uL (150-450); RBC 4.65 m/uL (4.30-5.90); RDW 12.4 % (11.5-15.5); WBC 5.5 k/uL (3.8-10.6)
[2020-08-01 16:22] LABS: Appearance,Urine Clear (Clear); Bilirubin,Urine Negative (Negative); Blood,Urine Negative (Negative); Color,Urine Yellow; Glucose,Urine (UA) 4+ (Negative); Ketones,Urine Negative (Negative); Leukocyte Esterase,Urine Negative (Negative); Mucus,Urine Rare /hpf; Nitrite,Urine Negative (Negative); PH, Urine 5.5 (5.0-8.0); Protein,Urine 1+ (Negative); RBC,Urine <1 /hpf (0-5); Specific Gravity,Urine 1.028 (1.001-1.035); Urobilinogen,Urine <2.0 mg/dL (<2.0); WBC,Urine 5 /hpf (0-5)
[2020-08-02 01:00] LABS: Hemoglobin A1C 8.5 % (4.0-6.0)
[2020-08-02 01:57] LABS: African American GFR (CKD) 69.7 (60.0-200.0); Albumin 4.7 g/dL (3.80-4.90); Albumin/Globulin Ratio 2.47 (1.60-3.17); Anion Gap 10.5 mmol/L (4.00-12.00); BUN/Creat Ratio 22.31 Ratio (12.00-20.00); Carbon Dioxide 23.5 mmol/L (21.6-31.8); Chol/HDL Ratio 3.11; Globulin 1.9 g/dL (1.6-3.3); LDL Cholesterol,Calculated 69.4 mg/dL (0.0-131.0); Magnesium 1.6 mg/dL (1.5-2.4); Non-African American GFR(CKD) 60.1 (60.0-200.0); Phosphorus 3.7 mg/dL (2.4-5.1); Potassium 4.1 mmol/L (3.5-5.5); Total Bilirubin 1.2 mg/dL (0.3-1.2); Total Protein 6.6 g/dL (6.2-8.2); VLDL Calculation 23.6 mg/dL (5.00-40.00)
[2020-08-02 02:05] LABS: T4, Free (Free Thyroxine) 1.3 ng/dL (0.80-1.80)
[2020-08-02 03:56] LABS: Urine Alcohol Negative (Negative); Urine Barbiturate Negative (Negative); Urine Cocaine Negative (Negative); Urine Methadone Negative (Negative); Urine Opiates Positive (Negative); Urine Phencyclidine Negative (Negative)
[2020-08-02 04:06] LABS: Creatinine,Urine Random 169.4 mg/dL
[2020-08-02 04:11] LABS: Total Protein,Urine Random 37.1 mg/dL (0.0-13.5)
== END | disposition home or self-care (01) ==
LOC: LABWHC1 15:47
PROVIDERS: ATTEND Internal Medicine
DX: Z01.30 Encounter for examination of blood pressure without abnormal findings (principal); Z12.5 Encounter for screening for malignant neoplasm of prostate; F11.90 Opioid use, unspecified, uncomplicated; Z78.9 Other specified health status; Z68.33 Body mass index [BMI] 33.0-33.9, adult; R73.02 Impaired glucose tolerance (oral); E78.2 Mixed hyperlipidemia; I10 Essential (primary) hypertension
CPT/HCPCS: 84439; 82570; 80061; 80053; 84156; 83735; 84100; 84443; 85025; 81001; 80306; 83036; 36415; G0103

== ENCOUNTER 2020-08-11 17:33 | Inpatient (IN) | payer MEDICAID ==
[2020-08-11] MEDS ORDERED: METOCLOPRAMIDE 5 MG/ML 2 ML VIAL IVP STA (17:34)
[2020-08-11 17:41] LABS: Glucose,Whole Blood 188 mg/dL (75-99)
--- NOTE | 2020-08-11 17:43 | ED ---
General Adult HPI - General Chief complaint: Dizziness Stated complaint: dizziness Time Seen by Provider: 08/11/20 17:38 Source: patient, EMS, RN notes reviewed Mode of arrival: EMS Limitations: no limitations - History of Present Illness Initial comments: patient is a pleasant 60-year-old male presenting to the emergency department by EMS. EMS had difficulty identifying chief complaint. Patient complains of extreme dizziness. Patient had slurred speech that is improving per EMS. Patient also seemed to have some weakness of his left arm and both legs. Patient had a procedure done at 4:00 today with his neurologist, and Dr. Tsang secondary to chronic headaches. Patient is unclear what procedure was done however had 2 tubes inserted into his nares. Patient does not have headache at this time. Patient states he feels weak all over. Patient states he is very dizzy. Patient is nauseated and did vomit a couple times in route. Last known well was prior to his 4:00 procedure.Patient has a somewhat difficult time providing history. - Related Data Home Medications Medication Instructions Recorded Confirmed HYDROcodone/APAP 10-325MG [[place] 1 tab PO Q6H PRN 05/12/14 05/26/20 10-325] Aspirin EC [Ecotrin Low Dose] 81 mg PO DAILY 01/17/19 05/26/20 Ibuprofen [Motrin] 800 mg PO TID PRN 07/14/19 05/26/20 Losartan Potassium [Cozaar] 100 mg PO DAILY 07/14/19 05/26/20 Chlorhexidine Gluconate [Peridex] 15 ml PO BID 05/26/20 05/26/20 Doxycycline Monohydrate [Monodox] 100 mg PO BID 05/26/20 05/26/20 Fluticasone Nasal [place] [Flonase 1 spray EA NOSTRIL DAILY PRN 05/26/20 05/26/20 Nasal [place]] Insulin Glargine,Hum.rec.anlog 30 unit SQ DAILY 05/26/20 05/26/20 [Lantus Solostar] Insulin Glulisine [Apidra Solostar] See Protocol SQ ACHS 05/26/20 05/26/20 Sildenafil Citrate 100 mg PO DAILY PRN 05/26/20 05/26/20 Tamsulosin [Flomax] 0.4 mg PO HS 05/26/20 05/26/20 amLODIPine [Norvasc] 10 mg PO DAILY 05/26/20 05/26/20 predniSONE See Taper PO DAILY 05/26/20 05/26/20 Previous Rx's Medication Instructions Recorded Pantoprazole [Protonix] 40 mg PO AC-BRKFST #30 tablet. 06/01/16 Amoxicillin/Potassium Clav 1 each PO Q12HR #20 tab 05/26/20 [Augmentin 875-125 Tablet] Allergies Allergy/AdvReac Type Severity Reaction Status Date / Time levofloxacin [From Levaquin] AdvReac Severe Chest Pain Verified 08/11/20 17:46 cephalexin monohydrate AdvReac Unknown Nausea & Verified 08/11/20 17:46 [From Keflex] Vomiting codeine AdvReac Unknown Nausea & Verified 08/11/20 17:46 Vomiting Review of Systems ROS Statement: Those systems with pertinent positive or pertinent negative responses have been documented in the HPI. ROS Other: All systems not noted in ROS Statement are negative. Constitutional: Denies: fever Eyes: Denies: eye pain ENT: Denies: ear pain Respiratory: Denies: cough Cardiovascular: Denies: chest pain Endocrine: Denies: fatigue Gastrointestinal: Denies: abdominal pain Genitourinary: Denies: dysuria Musculoskeletal: Denies: back pain Skin: Denies: rash Neurological: Reports: weakness, vertigo. Denies: headache Past Medical History Past Medical History: Diabetes Mellitus, GERD/Reflux, Hypertension, Osteoarthritis (OA) Additional Past Medical History / Comment(s): PT ARRIVED BY CAR TO [facility] ER WITH C/O N/V/D FOR 24 HOURS. HE HAS AN ILEOSTOMY THAT HE HAS HAD TO EMPTY FREQUENTLY. HE HAS HAD SEVERAL EPISODES OF VOMITTING AND CONTINUOUS NAUSEA. 8-10 KIDNEY STONES, ULCERATIVE Colitis, Urostomy, RECTUM REMOVED. PT HAS ARTHIRITIS ALL OVER, History of Any Multi-Drug Resistant Organisms: None Reported Date of last positivie culture/infection: 12/14/16 MDRO Source:: TOE Past Surgical History: Appendectomy, Bowel Resection, Heart Catheterization, Joint Replacement, Orthopedic Surgery Additional Past Surgical History / Comment(s): BILATERAL TOTAL KneeS,L Shoulder ROTATOR CUFF REPAIR, BILATERALHandS L HAND INDEX FINGER AND R HAND MIDDLE FINGER BOTH PARTIAL AMP WITH REPAIR, COLECTOMY/ILEOSTOMY. CARDIAC CATH YRS AGO AND NO BLOCKAGES-DONE AT [facility]. Past Anesthesia/Blood Transfusion Reactions: No Reported Reaction Additional Past Anesthesia/Blood Transfusion Reaction / Comment(s): NEVER RECEIVED BLOOD Past Psychological History: No Psychological Hx Reported Smoking Status: Never smoker Past Alcohol Use History: Occasional Past Drug Use History: None Reported - Past Family History Father Family Medical History: Hypertension Additional Family Medical History / Comment(s): FATHER ALIVE AND IS 74 YRS OLD. Mother Family Medical History: Osteoarthritis (OA) Additional Family Medical History / Comment(s): MOTHER HAS ALOT OF ARTHRITIS AND HAS HAD MANY ORTHOPEDIC SURGERIES. SHE IS 73 YRS OLD. General Exam General appearance: alert Head exam: Present: atraumatic Eye exam: Present: normal appearance, PERRL, EOMI. Absent: nystagmus ENT exam: Present: normal exam, normal oropharynx, other (Normal internal nares exam) Neck exam: Present: normal inspection Respiratory exam: Present: normal lung sounds bilaterally Cardiovascular Exam: Present: regular rate, normal rhythm GI/Abdominal exam: Present: soft, other (Ostomy bag is present). Absent: tenderness Extremities exam: Present: normal inspection Neurological exam: Present: alert, oriented X3, CN II-XII intact Expanded Neurological exam: Present: protecting the airway Speech: Present: fluid speech Cranial nerves: EOM's Intact: Normal Motor strength exam: RUE: 5, LUE: 5, RLE: 3, LLE: 3 Eye Response: (4) open spontaneously Motor Response: (6) obeys commands Verbal Response: (5) oriented Psychiatric exam: Present: anxious Skin exam: Present: normal color Course Vital Signs 08/11/20 08/11/20 17:37 18:46 Temperature 98.1 F Pulse Rate 68 72 Respiratory 18 18 Rate Blood Pressure 145/80 124/90 O2 Sat by Pulse 98 100 Oximetry - Reevaluation(s) Reevaluation #1: 08/11/20 17:56 Code stroke was called immediately following evaluation of patient. Case was discussed with Dr. soria who agrees patient is not a TPA candidate. He states risks outweighs benefit with NIH of 2. In addition patient is not a clear-cut diagnosis of stroke at this time. In addition we have attempted to get a hold of Dr. Tsang without success this time. 08/11/20 18:51 Case was discussed with Dr. Tsang who is familiar with this patient and states he had a sphenopalatine ganglion block. This was using a catheter, not a needle. Lidocaine was used. No injection Through the mucosa occurred. 08/11/20 19:09 Primary care physician is Dr. Villatoros, not Dr. lopez EKG Findings - EKG Comments: EKG Findings:: Normal sinus rhythm at 60. MO 192. QRS 120. QTc 464. QTC 464. Left axis. No acute ST change. Nonspecific intraventricular conduction delay. Medical Decision Making - Medical Decision Making Patient reevaluated and resting comfortably in bed. Patient still has some dizziness however is improved. Patient is somewhat drowsy. Patient and spouse are updated on results and plan. Dr. Amaya has been paged for admission covering for hospital call. - Lab Data Result diagrams: 08/11/20 17:53 08/11/20 17:53 Lab Results 08/11/20 08/11/20 08/11/20 Range/Units 17:40 17:53 17:53 WBC 7.0 (3.8-10.6) k/uL RBC 4.34 (4.30-5.90) m/uL Hgb 14.4 (13.0-17.5) gm/dL Hct 39.1 (39.0-53.0) % MCV 90.1 (80.0-100.0) fL MCH 33.3 (25.0-35.0) pg MCHC 37.0 (31.0-37.0) g/dL RDW 12.3 (11.5-15.5) % Plt Count 205 (150-450) k/uL MPV 6.5 Neutrophils % 68 % Lymphocytes % 20 % Monocytes % 6 % Eosinophils % 4 % Basophils % 1 % Neutrophils # 4.8 (1.3-7.7) k/uL Lymphocytes # 1.4 (1.0-4.8) k/uL Monocytes # 0.4 (0-1.0) k/uL Eosinophils # 0.3 (0-0.7) k/uL Basophils # 0.1 (0-0.2) k/uL Hyperchromasia Slight PT 10.7 (9.0-12.0) sec INR 1.0 (<1.2) APTT 22.4 (22.0-30.0) sec Sodium (137-145) mmol/L Potassium (3.5-5.1) mmol/L Chloride (98-107) mmol/L Carbon Dioxide (22-30) mmol/L Anion Gap mmol/L BUN (9-20) mg/dL Creatinine (0.66-1.25) mg/dL Est GFR (CKD-EPI)AfAm (>60 ml/min/1.73 sqM) Est GFR (CKD-EPI)NonAf (>60 ml/min/1.73 sqM) Glucose (74-99) mg/dL POC Glucose (mg/dL) 188 H (75-99) mg/dL POC Glu Cable Tool Driller Volodymyr Tate Calcium (8.4-10.2) mg/dL Total Bilirubin (0.2-1.3) mg/dL AST (17-59) U/L ALT (4-49) U/L Alkaline Phosphatase (38-126) U/L Total Protein (6.3-8.2) g/dL Albumin (3.5-5.0) g/dL 08/11/20 Range/Units 17:53 WBC (3.8-10.6) k/uL RBC (4.30-5.90) m/uL Hgb (13.0-17.5) gm/dL Hct (39.0-53.0) % MCV (80.0-100.0) fL MCH (25.0-35.0) pg MCHC (31.0-37.0) g/dL RDW (11.5-15.5) % Plt Count (150-450) k/uL MPV Neutrophils % % Lymphocytes % % Monocytes % % Eosinophils % % Basophils % % Neutrophils # (1.3-7.7) k/uL Lymphocytes # (1.0-4.8) k/uL Monocytes # (0-1.0) k/uL Eosinophils # (0-0.7) k/uL Basophils # (0-0.2) k/uL Hyperchromasia PT (9.0-12.0) sec INR (<1.2) APTT (22.0-30.0) sec Sodium 138 (137-145) mmol/L Potassium 3.4 L (3.5-5.1) mmol/L Chloride 108 H (98-107) mmol/L Carbon Dioxide 20 L (22-30) mmol/L Anion Gap 10 mmol/L BUN 26 H (9-20) mg/dL Creatinine 1.30 H (0.66-1.25) mg/dL Est GFR (CKD-EPI)AfAm 70 (>60 ml/min/1.73 sqM) Est GFR (CKD-EPI)NonAf 60 (>60 ml/min/1.73 sqM) Glucose 189 H (74-99) mg/dL POC Glucose (mg/dL) (75-99) mg/dL POC Glu Cable Tool Driller ID Calcium 9.5 (8.4-10.2) mg/dL Total Bilirubin 1.5 H (0.2-1.3) mg/dL AST 26 (17-59) U/L ALT 27 (4-49) U/L Alkaline Phosphatase 74 (38-126) U/L Total Protein 7.0 (6.3-8.2) g/dL Albumin 4.3 (3.5-5.0) g/dL - Radiology Data Radiology results: report reviewed (Computed tomography scan of the brain and CT angios reveal no acute abnormality) Disposition Clinical Impression: Vertigo, Leg weakness Disposition: ADMITTED IP TO THIS HOSP Is patient prescribed a controlled substance at d/c from ED?: No Referrals: Volodymyr Lopez DO [REFERRING] - 1-2 days Decision Time: 19:07
[2020-08-11 17:57] LABS: Basophils # (A) 0.1 k/uL (0-0.2); Basophils % (A) 1 %; Eosinophils # (A) 0.3 k/uL (0-0.7); Eosinophils % (A) 4 %; HCT 39.1 % (39.0-53.0); HGB 14.4 gm/dL (13.0-17.5); Hyperchromasia Slight; Lymphocytes # (A) 1.4 k/uL (1.0-4.8); Lymphocytes % (A) 20 %; MCH 33.3 pg (25.0-35.0); MCV 90.1 fL (80.0-100.0); Mean Platelet Volume 6.5; Monocytes # (A) 0.4 k/uL (0-1.0); Monocytes % (A) 6 %; Neutrophils # (A) 4.8 k/uL (1.3-7.7); Neutrophils % (A) 68 %; Platelet Count 205 k/uL (150-450); RBC 4.34 m/uL (4.30-5.90); RDW 12.3 % (11.5-15.5)
[2020-08-11] MEDS ORDERED: LORazepam 2 MG/ML INJ IV STA (17:58)
--- NOTE | 2020-08-11 18:01 | CT ---
EXAMINATION TYPE: CT brain wo con for TPA DATE OF EXAM: 08/11/2020 COMPARISON: 05/26/2020 HISTORY: dizziness CT DLP: 1177.8 mGycm Automated exposure control for dose reduction was used. Ventricles have normal size. There is no mass effect nor midline shift. There is no sign of intracran ial hemorrhage. There is 1 cm hypodensity in the insula left temporal lobe consistent with Virchow-Ro bin space unchanged. There is some mild white matter hypodensity in both cerebral hemispheres. The calvarium is intact. The skull base is intact. IMPRESSION: There is evidence for some mild chronic small vessel ischemia.. No adverse change compared to old exa m. No acute abnormality.
[2020-08-11 18:05] LABS: Albumin 4.3 g/dL (3.5-5.0); Calcium 9.5 mg/dL (8.4-10.2); Potassium 3.4 mmol/L (3.5-5.1); Total Bilirubin 1.5 mg/dL (0.2-1.3)
[2020-08-11 18:22] LABS: Prothrombin Time 10.7 sec (9.0-12.0)
[2020-08-11 18:23] LABS: Partial Thromboplastin Time 22.4 sec (22.0-30.0)
--- NOTE | 2020-08-11 18:59 | CT ---
EXAMINATION TYPE: CT angio head neck DATE OF EXAM: 08/11/2020 COMPARISON: 05/26/2020 HISTORY: Dizziness, nausea CT DLP: 856.2 mGycm Automated exposure control for dose reduction was used. CONTRAST: Performed with IV Contrast, patient injected with 65 mL of Isovue 370. Images obtained from the aortic arch to the vertex of the brain with IV contrast and 3-D post process ed images. There is normal branching pattern of the great vessels on the aortic arch. There is arterial flow in the common internal and external carotid arteries bilaterally. There is arterial flow in both subclav aleks arteries. I see no evidence of any significant stenosis of the internal carotid arteries. Carotid artery bifurcations appear widely patent. There is arterial flow in both vertebral arteries. There is atherosclerotic calcification in the distal vertebral arteries bilaterally. There is arteria l flow in the vertebrobasilar artery system. There is arterial flow in the anterior middle and web coordinator ior cerebral arteries. There is normal contrast opacification of the venous sinuses. I see no evidenc e of intracranial arterial stenosis. There is no evidence of intracranial aneurysm or neovascularity. There is no mass effect. IMPRESSION: Negative CT angiogram of the neck. Negative CT angiogram of the brain. No adverse change. Atheroscler otic calcification seen in the distal vertebral arteries bilaterally.
[2020-08-11] MEDS ORDERED: SCOPOLAMINE 1.5MG/72HR PATCH TRANSDERM STA (19:13)
--- NOTE | 2020-08-11 19:47 | XR ---
EXAMINATION TYPE: XR chest 2V DATE OF EXAM: 08/11/2020 COMPARISON: 05/31/2016 HISTORY: Hypertension. Altered mental status. Nausea. TECHNIQUE: 2 views FINDINGS: There is no heart failure nor confluent pneumonic infiltrate. Costophrenic angles are clear . Bony thorax is intact. There are no hilar masses. IMPRESSION: No active cardiopulmonary disease. No change.
[2020-08-11] MEDS: MECLIZINE 25 MG TAB PO PRN (20:24)
[2020-08-11] MEDS ORDERED: ONDANSETRON 4 MG/2 ML VIAL IVP STA (20:31)
[2020-08-11] MEDS: SODIUM CHLORIDE 0.9% 1,000 ML IV SCH (20:47)
[2020-08-11 20:53] LABS: Glucose,Whole Blood 200 mg/dL (75-99)
[2020-08-11] MEDS ORDERED: ONDANSETRON 4 MG/2 ML VIAL IVP PRN (22:08)
[2020-08-11] MEDS: METOCLOPRAMIDE 5 MG/ML 2 ML VIAL IVP SCH (22:38)
[2020-08-12 03:55] LABS: Cholesterol 148 mg/dL (<200); HDL Cholesterol 44 mg/dL (40-60); LDL Cholesterol,Calculated 69 mg/dL (0-99); Triglycerides 174 mg/dL (<150)
[2020-08-12] MEDS: METOCLOPRAMIDE 5 MG/ML 2 ML VIAL IVP SCH ×2 (05:08→11:01)
[2020-08-12] MEDS: MECLIZINE 25 MG TAB PO PRN ×2 (05:10→13:13)
[2020-08-12] MEDS: SODIUM CHLORIDE 0.9% 1,000 ML IV SCH (05:11)
[2020-08-12 05:16] VITALS: RESP 16
[2020-08-12 06:17] LABS: Glucose,Whole Blood 141 mg/dL (75-99)
[2020-08-12] MEDS: INSULIN ASPART (NovoLOG) 100 UNIT/ML VIAL SQ SCH ×2 (06:25→13:13)
[2020-08-12 08:25] VITALS: TEMP 97.7
[2020-08-12] MEDS ORDERED: ATORVASTATIN 80 MG TAB PO STA (10:18)
[2020-08-12] MEDS ORDERED: ASPIRIN 81 MG PO SCH (10:30)
[2020-08-12] MEDS ORDERED: CLOPIDOGREL 75 MG TAB PO SCH (10:30)
--- NOTE | 2020-08-12 11:00 | ECHOF ---
Referral Reason:Thrombus MEASUREMENTS -------- HEIGHT: 182.9 cm WEIGHT: 116.1 kg BP: 132/78 RVIDd: 3.3 cm (< 3.3) IVSd: 1.6 cm (0.6 - 1.1) LVIDd: 4.2 cm (3.9 - 5.3) LVPWd: 1.7 cm (0.6 - 1.1) IVSs: 1.8 cm LVIDs: 3.3 cm LVPWs: 2.0 cm LAESV Index (A-L): 34.73 ml/m Ao Diam: 4.1 cm (2.0 - 3.7) AV Cusp: 2.7 cm (1.5 - 2.6) MV EXCURSION: 16.790 mm (> 18.000) MV EF SLOPE: 87 mm/s (70 - 150) EPSS: 1.4 cm MV E Jason: 0.66 m/s MV DecT: 260 ms MV A Jason: 0.85 m/s MV E/A Ratio: 0.78 RAP: 5.00 mmHg RVSP: 24.33 mmHg FINDINGS -------- Sinus rhythm. This was a technically difficult study with suboptimal views. The left ventricular size is normal. There is moderate concentric left ventricular hypertrophy. O verall left ventricular systolic function is low-normal with, an EF between 50 - 55 %. The right ventricle is mildly enlarged. LA is midly dilated 29-33ml/m2. The right atrial size is normal. xx ml of Lumason was utilized for enhancement of images. Interatrial and interventricular septum intact. The aortic valve is trileaflet and appears structurally normal. There is no evidence of aortic regu rgitation. There is no evidence of aortic stenosis. Mild mitral regurgitation is present. Mild tricuspid regurgitation present. There is no evidence of pulmonary hypertension. The right v entricular systolic pressure, as measured by Doppler, is 24.33mmHg. There is no pulmonic regurgitation present. The aortic root is mildy dilated. IVC Not well visulized. There is no pericardial effusion. CONCLUSIONS -------- 1. The left ventricular size is normal. 2. There is moderate concentric left ventricular hypertrophy. 3. Overall left ventricular systolic function is low-normal with, an EF between 50 - 55 %. 4. The right ventricle is mildly enlarged. 5. LA is midly dilated 29-33ml/m2. 6. Mild mitral regurgitation is present. 7. Mild tricuspid regurgitation present. NEW PATIENT ESCORT: Anitha Herbert RDCS
[2020-08-12 11:01] VITALS: BP 132/83; PULSE 80
--- NOTE | 2020-08-12 11:02 | P.CNNES ---
History of Present Illness Consult date: 08/12/20 Requesting physician: Mariano Hogan Reason for Consult: dizziness and leg weakness History of Present Illness: This is a 60-year-old gentleman with medical history of headaches, diabetes mellitus (5-10 years ago), hypertension, osteoarthritis, ulcer colitis s/p ileostomy (about 20 years ago) that presented to the emergency department via EMS on 08/11/2020 for complaint of dizziness as well as bilateral leg weakness. The patient stated that he has these chronic headaches and yesterday he was at the neurologist office (Dr. Tsang) because of the chronic headache and was getting a procedure at 4pm on 08/11/2020. From his description it seems that he was getting sphenopalantine ganglion block (going in each nostril). After the procedure he stated that the he felt extremely dizzy and wobbly as well as that he felt his bilateral legs that will week. He denied of any focal weakness. He was having episodes of nausea and vomiting. Denies off any ringing in the ears or hearing loss. He denied of any visual disturbance. He did feel like he was the slurring of the speech which resolved. But his major complaint was the dizziness, nausea and vomiting. He said his symptoms has resolved early in the morning today at around possibly 8:00. Per the patient's nurse she stated that the he was given meclizine and it seems to help them. Currently the patient feels he is back to baseline. According to him he has these headaches that are chronic but denies any photophobia photophobia any tearing of the eyes any warning signs prior to the headaches. Denies any visual disturbance with these headaches. He has seen Dr. Tsang once according to him and the is a result she received his procedure yesterday. He stated that he saw an ENT in the past for the headache and was told his headaches are not due to sinus. She stated that he has bilateral lower neck pain but denies any radiation of the the neck. 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 As stated above he has seen an ENT in the past as well as he had the MRI of the cervical about 2 weeks ago. And it was ordered by his ENT according to the patient and he was told that he had cervical degenerative disease but no significant impingement in the cervical spine according to the patient. He said that he had CT in the past and he was told that he has a stroke but he doesn't remember what side of the brain he had a stroke and what was the stroke located on the CT upon seeing his ENT. Patient is on aspirin 81 mg at home but he is on any other antiplatelets and the patient is not on the Lipitor. He denies any tobacco use. He socially drinks alcohol. He did acknowledge that his mother has a history of TIAs. Workup in the hospital consisted of: Initial vital signs: Blood pressure of 145/80, heart rate of 68, respiratory of 18, temperature of 98.1 Fahrenheit oral and pulse ox of 98% room air. CT head is reported as there is evidence for small mild chronic small vessel ischemia. No adverse changes compared to old exam (05/26/2020). No acute abnormality. CT angiography of the head and neck was reported as met negative CT angiogram of the neck. Negative CT angiogram of the brain. No adverse change. Atherosclerotic calcification seen in the distal vertebral arteries laterally. EKG is reported as normal sinus rhythm. Left axis deviation. Nonspecific intraventricular conduction delay. Abnormal EKG. White blood cells 7.0 which is normal. Patient BUN 26 and the creatinine is 1.3. Initial POC glucose is 188 which is elevated. Lipid panel: Triglyceride 174, cholesterol of 148, LDL 69 and HDL 44. AST of 26 and ALT 27. Review of Systems Review of system: The 12 point system was reviewed and apparent positive and negative per HPI. Past Medical History Past Medical History: Diabetes Mellitus, GERD/Reflux, Hypertension, Osteoar thritis (OA) Additional Past Medical History / Comment(s): 8-10 KIDNEY STONES, ULCERATIVE Colitis, RECTUM REMOVED. PT HAS ARTHIRITIS ALL OVER, History of Any Multi-Drug Resistant Organisms: None Reported Date of last positivie culture/infection: 12/14/16 MDRO Source:: TOE Past Surgical History: Appendectomy, Bowel Resection, Heart Catheterization, Joint Replacement, Orthopedic Surgery Additional Past Surgical History / Comment(s): BILATERAL TOTAL KneeS,L Shoulder ROTATOR CUFF REPAIR, BILATERALHandS L HAND INDEX FINGER AND R HAND MIDDLE FINGER BOTH PARTIAL AMP WITH REPAIR, COLECTOMY/ILEOSTOMY. CARDIAC CATH YRS AGO AND NO BLOCKAGES-DONE AT [facility]. Past Anesthesia/Blood Transfusion Reactions: No Reported Reaction Additional Past Anesthesia/Blood Transfusion Reaction / Comment(s): NEVER RECEIVED BLOOD Past Psychological History: No Psychological Hx Reported Additional Psychological History / Comment(s): . 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 no tobacco useNo alcohol use. No travel history Smoking Status: Never smoker Past Alcohol Use History: Occasional Additional Past Alcohol Use History / Comment(s): PT MAY DRINK 3 TIMES A MONTH- HE USED TO DRINK A COUPLE MIXED DRINKS A DAY. Past Drug Use History: None Reported Additional Drug Use History / Comment(s): PT SMOKED A ITTLE MARIJUANA A YOUNG PERSON. - Past Family History Father Family Medical History: Hypertension Additional Family Medical History / Comment(s): FATHER ALIVE AND IS 74 YRS OLD. Mother Family Medical History: Osteoarthritis (OA) Additional Family Medical History / Comment(s): MOTHER HAS ALOT OF ARTHRITIS AND HAS HAD MANY ORTHOPEDIC SURGERIES. SHE IS 73 YRS OLD. Medications and Allergies Home Medications Medication Instructions Recorded Confirmed Type HYDROcodone/APAP 10-325MG [Avery 1 tab PO Q6H PRN 05/12/14 08/11/20 History 10-325] Pantoprazole [Protonix] 40 mg PO AC-BRKFST #30 tablet. 06/01/16 08/11/20 Rx Aspirin EC [Ecotrin Low Dose] 81 mg PO DAILY 01/17/19 08/11/20 History Losartan Potassium [Cozaar] 100 mg PO DAILY 07/14/19 08/11/20 History Insulin Glargine,Hum.rec.anlog 40 unit SQ DAILY 05/26/20 08/11/20 History [Lantus Solostar] Tamsulosin [Flomax] 0.4 mg PO HS 05/26/20 08/11/20 History amLODIPine [Norvasc] 10 mg PO DAILY 05/26/20 08/11/20 History Metoprolol Tartrate [Lopressor] 25 mg PO BID 08/11/20 08/11/20 History metFORMIN HCL 1,000 mg PO BID 08/11/20 08/11/20 History Allergies Allergy/AdvReac Type Severity Reaction Status Date / Time levofloxacin [From Levaquin] AdvReac Severe Chest Pain Verified 08/12/20 07:04 cephalexin monohydrate AdvReac Unknown Nausea & Verified 08/12/20 07:04 [From Keflex] Vomiting codeine AdvReac Unknown Nausea & Verified 08/12/20 07:04 Vomiting Physical Examination - Vital Signs Vital Signs: Vital Signs Temp Pulse Pulse Resp BP BP Pulse Ox 08/12/20 04:00 98.0 F 78 16 132/78 97 08/12/20 02:00 88 18 08/11/20 23:09 97.7 F 88 18 167/86 95 08/11/20 21:10 97.4 F L 79 19 145/77 96 08/11/20 21:00 79 18 08/11/20 20:51 97.4 F L 79 19 145/77 96 08/11/20 20:32 80 18 136/94 98 08/11/20 18:46 72 18 124/90 100 08/11/20 17:37 98.1 F 68 18 145/80 98 Intake and Output 08/11/20 08/12/20 08/12/20 22:59 06:59 14:59 Intake Total 100 600 Output Total 900 Balance 100 -300 Intake: Intake, IV Titration 100 600 Amount Sodium Chloride 0.9% 1, 100 600 000 ml @ 100 mls/hr IV . Q10H [facility] Rx#:[id number] Oral 0 Output: Urine 700 Stool 200 Other: Voiding Method Urinal Urinal Weight 116.5 kg 116.5 kg GENERAL: The patient is lying in bed and is not in acute distress. CHEST: The heart rate is regular rate rhythm. No murmurs to auscultation. No carotid bruit bilaterally. LUNG: Clear to auscultation bilaterally no wheezing noted throughout. Not labored breathing. ABDOMEN/GI: Bowel sounds present in all 4 quadrants. No tenderness to palpation throughout. NEUROLOGICAL: Higher mental function: The patient is awake, alert, oriented to self, place and time. Patient is following commands. No aphasia and no neglect. Cranial nerves: The pupils are round, equal and reactive to light and accommodation. Visual heck are full to confrontation throughout. Extraocular movement is intact no nystagmus is noted. Facial sensation is normal to touch throughout. The facial strength is normal throughout. Hearing is normal bilaterally to hand rub. Tongue is midline and moved [id number] without any difficulty. No dysarthria is noted. Shoulder shrug is normal bilaterally. Motor: Gait is normal with normal arms swings. The strength is 5 over 5 throughout. 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 Cerebellum: Normal finger to nose heel to chin bilaterally. Sensation: Sensation is normal to touch throughout. Reflexes (right/left): 2+ throughout upper and 1+ throughout lower. Plantars are downgoing bilaterally. Results GENERAL: The patient is lying in bed and is not in acute distress. CHEST: The heart rate is regular rate rhythm. No murmurs to auscultation. No carotid bruit bilaterally----. LUNG: Clear to auscultation bilaterally no wheezing noted throughout. Not labored breathing. ABDOMEN/GI: Bowel sounds present in all 4 quadrants. No tenderness to palpation throughout. NEUROLOGICAL: Higher mental function: The patient is awake, alert, oriented to self, place and time. Patient is following commands. No aphasia and no neglect. Cranial nerves: The pupils are round, equal and reactive to light and accommodation. Visual heck are full to confrontation throughout. Extraocular movement is intact no nystagmus is noted. Facial sensation is normal to touch throughout. The facial strength is normal throughout. Hearing is normal bilaterally to hand rub. Tongue is midline and moved [id number] without any difficulty. No dysarthria is noted. Shoulder shrug is normal bilaterally. Motor: The strength is 5 over 5 throughout. Normal tone and bulk. Cerebellum: Normal finger to nose bilaterally. Sensation: Sensation is normal to touch throughout. Reflexes (right/left): Biceps ---; triceps---; brachioradialis; patellar----; ankles-----. Plantars are downgoing bilaterally. - Laboratory Findings CBC and BMP: 08/11/20 17:53 08/11/20 17:53 Abnormal Lab Findings: Abnormal Labs 08/11/20 08/11/20 08/11/20 17:40 17:53 17:53 Potassium 3.4 L Chloride 108 H Carbon Dioxide 20 L BUN 26 H Creatinine 1.30 H Glucose 189 H POC Glucose (mg/dL) 188 H Total Bilirubin 1.5 H Triglycerides 174 H 08/11/20 08/12/20 20:52 06:16 Potassium Chloride Carbon Dioxide BUN Creatinine Glucose POC Glucose (mg/dL) 200 H 141 H Total Bilirubin Triglycerides Assessment and Plan Assessment: This is a 60-year-old gentleman presented emergency department on 08/11/2020 and was sent from his neurology clinic for dizziness left arm weakness and bilateral leg weakness as well as slurring the speech. Transient episode of Vertigo, nausea and vomitting and bilateral lower leg weakness possibly due to Transient ischemic attack vs as result of procedure (sphenopalatine ganglion block which can cause dizziness, nausea and vomiting) Cephalgia Left Carpal tunnel syndrome Cervical spondylosis (had MRI Cervical spine two weeks ago according to patient and showed degenerative changes) Hypertension Uncontrolled Diabetes mellitus (last HbA1c 8.5 on 08/01/2020---prior is 8.3) Acute on chronic kidney insuffiency Ulcer colitis Osteoarthritis Plan: CT head is reported as there is evidence for small mild chronic small vessel ischemia. No adverse changes compared to old exam (05/26/2020). No acute abnormality. CT angiography of the head and neck was reported as met negative CT angiogram of the neck. Negative CT angiogram of the brain. No adverse change. Atherosclerotic calcification seen in the distal vertebral arteries laterally. Lipid panel: Triglyceride 174, cholesterol of 148, LDL 69 and HDL 44. I ordered MRI the brain to rule out acute ischemic stroke. In the ED the patient was started on meclizine 25 mg 1 tablet 4 times a day as needed. Also the patient was given Zofran 4 mg once in the ED and was started on the Reglan 10 mg IV every 6 hours. I started the patient on aspirin 81 mg and Plavix 75mg daily for 21 days then can discontinue ASA after 21 days while continue on Plavix indefinetly. I started the patient on Lipitor 40 mg qhs for secondary stroke prophylaxis. 2-D echo was ordered by the ED team is pending. Hemoglobin A1c is ordered by the primary team is pending. Speech therapy, occupation therapy and physical therapy CONSULTED. I ordered the every 4 neuro checks. I placed the patient on the patella and monitor. TSH is 1.48 on 08/01/2020 which is normal and the free T4 is 1.3 which is also normal therefore I'm not going to repeat the TSH. Regarding the patient the bilateral neck pain that is localized he had the MRI the cervical spine according to him 2 weeks ago and it showed cervical spondylosis without any significant the cord compression or changes according to him. He does have left upper extremity weakness. Recommend EMG with nerve conduction as an outpatient to rule out any radiculopathy. Also he has a carpal tunnel from the patient's the presentation recommend EMG as an outpatient as well of the left upper extremity He needs to follow-up with a neurologist within 1-2 weeks upon discharge. Will Defer the rest of the medical management to the primary team. Thank you for the consultation. Stas Gonzáles MD Neuro-Hospitalist Time with Patient: Greater than 30
[2020-08-12] MEDS ORDERED: HYDROcodone/APAP 10-325MG 1 EACH TAB PO PRN (11:16)
[2020-08-12 11:56] LABS: Glucose,Whole Blood 243 mg/dL (75-99)
--- NOTE | 2020-08-12 13:31 | MR ---
EXAMINATION TYPE: MR brain wo con DATE OF EXAM: 08/12/2020 12:58 PM COMPARISON: NONE HISTORY: dizziness, weakness FINDINGS: The ventricles, basal cisterns and sulci overlying the cerebral convexities are mildly enlarged. There is evidence of mild periventricular white matter ischemic demyelination. Remote deep white matter insults are also noted. No acute edema is seen on diffusion weighted imaging. There is no evidence for midline shift or mass effect. Acute intracranial hemorrhage or extra-axial collection is not evident. The paranasal sinuses and mastoid air cells are well-aerated. IMPRESSION: Age-related atrophic and chronic small vessel ischemic change. No acute intracranial process at this time.
[2020-08-12 14:26] LABS: Hemoglobin A1C 8.1 % (4.0-6.0)
--- NOTE | 2020-08-12 16:15 | P.HPIM ---
History of Present Illness H&P Date: 08/12/20 Chief Complaint: Dizziness patient is a pleasant 60-year-old male presenting to the emergency department by EMS. EMS had difficulty identifying chief complaint. Patient complains of extreme dizziness. Patient had slurred speech that is improving per EMS. Patient also seemed to have some weakness of his left arm and both legs. Patient had a procedure done at 4:00 today with his neurologist, and Dr. Tsang secondary to chronic headaches. Patient is unclear what procedure was done however had 2 tubes inserted into his nares. Patient does not have headache at this time. Patient states he feels weak all over. Patient states he is very dizzy. Patient is nauseated and did vomit a couple times in route. Last known well was prior to his 4:[address] head is reported as there is evidence for small mild chronic small vessel ischemia. No adverse changes compared to old exam (05/26/2020). No acute abnormality. CT angiography of the head and neck was reported as met negative CT angiogram of the neck. Negative CT angiogram of the brain. No adverse change. Atherosclerotic calcification seen in the distal vertebral arteries laterally. EKG is reported as normal sinus rhythm. Left axis deviation. Nonspecific intraventricular conduction delay. Abnormal EKG. White blood cells 7.0 which is normal. Patient BUN 26 and the creatinine is 1.3. Initial POC glucose is 188 which is elevated. Lipid panel: Triglyceride 174, cholesterol of 148, LDL 69 and HDL 44. AST of 26 and ALT 27. neurology saw patient and recommended MRI; which was unremarkable; echo cardiogram revealed an EF of 50-55% Patient wasstarted the patient on aspirin 81 mg and Plavix 75mg daily for 21 days then can discontinue ASA after 21 days while continue on Plavix indef inetly. I started the patient on Lipitor 40 mg qhs for secondary stroke prophylaxis. Regarding the patient the bilateral neck pain that is localized he had the MRI the cervical spine according to him 2 weeks ago and it showed cervical spondylosis without any significant the cord compression or changes according to him. He does have left upper extremity weakness. Recommend EMG with nerve conduction as an outpatient to rule out any radiculopathy. Also he has a carpal tunnel from the patient's the presentation recommend EMG as an outpatient as well of the left upper extremity He needs to follow-up with a neurologist within 1-2 weeks upon discharge. Plan of care was discussed with patient's in great detail and all of her questions were answered to her satisfaction Review of Systems Constitutional: Denies: fever Eyes: Denies: eye pain ENT: Denies: ear pain Respiratory: Denies: cough Cardiovascular: Denies: chest pain Endocrine: Denies: fatigue Gastrointestinal: Denies: abdominal pain Genitourinary: Denies: dysuria Musculoskeletal: Denies: back pain Skin: Denies: rash Neurological: Reports: weakness, vertigo. Denies: headache Past Medical History Past Medical History: Diabetes Mellitus, GERD/Reflux, Hypertension, Osteoarthritis (OA) Additional Past Medical History / Comment(s): 8-10 KIDNEY STONES, ULCERATIVE Colitis, RECTUM REMOVED. PT HAS ARTHIRITIS ALL OVER, History of Any Multi-Drug Resistant Organisms: None Reported Date of last positivie culture/infection: 12/14/16 MDRO Source:: TOE Past Surgical History: Appendectomy, Bowel Resection, Heart Catheterization, Joint Replacement, Orthopedic Surgery Additional Past Surgical History / Comment(s): BILATERAL TOTAL KneeS,L Shoulder ROTATOR CUFF REPAIR, BILATERALHandS L HAND INDEX FINGER AND R HAND MIDDLE FINGER BOTH PARTIAL AMP WITH REPAIR, COLECTOMY/ILEOSTOMY. CARDIAC CATH YRS AGO AND NO BLOCKAGES-DONE AT [facility]. Past Anesthesia/Blood Transfusion Reactions: No Reported Reaction Additional Past Anesthesia/Blood Transfusion Reaction / Comment(s): NEVER RECEIVED BLOOD Past Psychological History: No Psychological Hx Reported Additional Psychological History / Comment(s): . 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 no tobacco useNo alcohol use. No travel history Smoking Status: Never smoker Past Alcohol Use History: Occasional Additional Past Alcohol Use History / Comment(s): PT MAY DRINK 3 TIMES A MONTH- HE USED TO DRINK A COUPLE MIXED DRINKS A DAY. Past Drug Use History: None Reported Additional Drug Use History / Comment(s): PT SMOKED A ITTLE MARIJUANA A YOUNG PERSON. - Past Family History Father Family Medical History: Hypertension Additional Family Medical History / Comment(s): FATHER ALIVE AND IS 74 YRS OLD. Mother Family Medical History: Osteoarthritis (OA) Additional Family Medical History / Comment(s): MOTHER HAS ALOT OF ARTHRITIS AND HAS HAD MANY ORTHOPEDIC SURGERIES. SHE IS 73 YRS OLD. Medications and Allergies Home Medications Medication Instructions Recorded Confirmed Type HYDROcodone/APAP 10-325MG [[place] 1 tab PO Q6H PRN 05/12/14 08/11/20 History 10-325] Pantoprazole [Protonix] 40 mg PO BAILEY-SURESH #30 tablet. 06/01/16 08/11/20 Rx Aspirin EC [Ecotrin Low Dose] 81 mg PO DAILY 01/17/19 08/11/20 History Losartan Potassium [Cozaar] 100 mg PO DAILY 07/14/19 08/11/20 History Insulin Glargine,Hum.rec.anlog 40 unit SQ DAILY 05/26/20 08/11/20 History [Lantus Solostar] Tamsulosin [Flomax] 0.4 mg PO HS 05/26/20 08/11/20 History amLODIPine [Norvasc] 10 mg PO DAILY 05/26/20 08/11/20 History Metoprolol Tartrate [Lopressor] 25 mg PO BID 08/11/20 08/11/20 History metFORMIN HCL 1,000 mg PO BID 08/11/20 08/11/20 History Aspirin 81 mg PO DAILY #21 chew 08/12/20 Rx Atorvastatin [Lipitor] 40 mg PO HS #30 tab 08/12/20 Rx Clopidogrel [Plavix] 75 mg PO DAILY #30 tab 08/12/20 Rx Meclizine [Antivert] 25 mg PO QID PRN #30 tab 08/12/20 Rx Allergies Allergy/AdvReac Type Severity Reaction Status Date / Time levofloxacin [From Levaquin] AdvReac Severe Chest Pain Verified 08/12/20 07:04 cephalexin monohydrate AdvReac Unknown Nausea & Verified 08/12/20 07:04 [From Keflex] Vomiting codeine AdvReac Unknown Nausea & Verified 08/12/20 07:04 Vomiting Physical Exam Vitals: Vital Signs Temp Pulse Pulse Resp BP BP Pulse Ox 08/12/20 11:00 80 16 132/83 97 08/12/20 08:00 97.7 F 69 16 131/77 98 08/12/20 04:00 98.0 F 78 16 132/78 97 08/12/20 02:00 88 18 08/11/20 23:09 97.7 F 88 18 167/86 95 08/11/20 21:10 97.4 F L 79 19 145/77 96 08/11/20 21:00 79 18 08/11/20 20:51 97.4 F L 79 19 145/77 96 08/11/20 20:32 80 18 136/94 98 08/11/20 18:46 72 18 124/90 100 08/11/20 17:37 98.1 F 68 18 145/80 98 Intake and Output 08/11/20 08/12/20 08/12/20 22:59 06:59 14:59 Intake Total 100 600 380 Output Total 900 Balance 100 -300 380 Intake: IV 200 Sodium Chloride 0.9% 1, 200 000 ml @ 100 mls/hr IV . Q10H CHRISTIANO Rx#:[id number] Intake, IV Titration 100 600 Amount Sodium Chloride 0.9% 1, 100 600 000 ml @ 100 mls/hr IV . Q10H CHRISTIANO Rx#:[id number] Oral 0 180 Output: Urine 700 Stool 200 Other: Voiding Method Urinal Urinal # Voids 1 Weight 116.5 kg 116.5 kg Results CBC & Chem 7: 08/11/20 17:53 08/11/20 17:53 Labs: Abnormal Lab Results - Last 24 Hours (Table) 08/11/20 08/11/20 08/11/20 Range/Units 17:40 17:53 17:53 Potassium 3.4 L (3.5-5.1) mmol/L Chloride 108 H (98-107) mmol/L Carbon Dioxide 20 L (22-30) mmol/L BUN 26 H (9-20) mg/dL Creatinine 1.30 H (0.66-1.25) mg/dL Glucose 189 H (74-99) mg/dL POC Glucose (mg/dL) 188 H (75-99) mg/dL Total Bilirubin 1.5 H (0.2-1.3) mg/dL Triglycerides 174 H (<150) mg/dL 08/11/20 08/12/20 08/12/20 Range/Units 20:52 06:16 11:54 Potassium (3.5-5.1) mmol/L Chloride (98-107) mmol/L Carbon Dioxide (22-30) mmol/L BUN (9-20) mg/dL Creatinine (0.66-1.25) mg/dL Glucose (74-99) mg/dL POC Glucose (mg/dL) 200 H 141 H 243 H (75-99) mg/dL Total Bilirubin (0.2-1.3) mg/dL Triglycerides (<150) mg/dL Thrombosis Risk Factor Assmnt - Choose All That Apply Any of the Below Risk Factors Present?: Yes Each Factor Represents 1 point: Age 41-60 years Other Risk Factors: No Other congenital or acquired thrombophilia - If yes, enter type in comment: No Thrombosis Risk Factor Assessment Total Risk Factor Score: 1 Thrombosis Risk Factor Assessment Level: Low Risk Assessment and Plan Assessment: 1.Transient episode of Vertigo, nausea and vomitting and bilateral lower leg weakness possibly due to Transient ischemic attack vs as result of procedure (sphenopalatine ganglion block which can cause dizziness, nausea and vomiting) 2.Cephalgia 3.Left Carpal tunnel syndrome 4.Cervical spondylosis (had MRI Cervical spine two weeks ago according to patient and showed degenerative changes) 5.Hypertension 6.Uncontrolled Diabetes mellitus (last HbA1c 8.5 on 08/01/2020---prior is 8.3) 7.Acute on chronic kidney insuffiency 8.Ulcer colitis 9.Osteoarthritis CT head is reported as there is evidence for small mild chronic small vessel ischemia. No adverse changes compared to old exam (05/26/2020). No acute abnormality. CT angiography of the head and neck was reported as met negative CT angiogram of the neck. Negative CT angiogram of the brain. No adverse change. Atherosclerotic calcification seen in the distal vertebral arteries laterally. Lipid panel: Triglyceride 174, cholesterol of 148, LDL 69 and HDL 44. MRI of the brain to rule out acute ischemic stroke. In the ED the patient was started on meclizine 25 mg 1 tablet 4 times a day as needed. Also the patient was given Zofran 4 mg once in the ED and was started on the Reglan 10 mg IV every 6 hours. Neurology started the patient on aspirin 81 mg and Plavix 75mg daily for 21 days then can discontinue ASA after 21 days while continue on Plavix indefinetly. I started the patient on Lipitor 40 mg qhs for secondary stroke prophylaxis. 2-D echo was ordered by the ED team is pending. Hemoglobin A1c is ordered by the primary team is pending. Speech therapy, occupation therapy and physical therapy CONSULTED. I ordered the every 4 neuro checks. I placed the patient on the patella and monitor. TSH is 1.48 on 08/01/2020 which is normal and the free T4 is 1.3 which is also normal therefore I'm not going to repeat the TSH.
--- NOTE | 2020-08-12 16:16 | P.DS ---
Providers Date of admission: 08/11/20 19:09 Expected date of discharge: 08/12/20 Attending physician: Radha Amaya Consults: 08/11/20 19:10 Consult Physician Urgent Consulting Provider: Stas Gonzáles Consult Reason/Comments: Vertigo, leg weakness Do you want consulting provider notified?: Yes Primary care physician: Divya Dewitt DO Hospital Course: 60-year-old male presenting to the emergency department by EMS. EMS had difficulty identifying chief complaint. Patient complains of extreme dizziness. Patient had slurred speech that is improving per EMS. Patient also seemed to have some weakness of his left arm and both legs. Patient had a procedure done at 4:00 today with his neurologist, and Dr. Tsang secondary to chronic headaches. Patient is unclear what procedure was done however had 2 tubes inserted into his nares. Patient does not have headache at this time. Patient states he feels weak all over. Patient states he is very dizzy. Patient is nauseated and did vomit a couple times in route. Last known well was prior to his 4:[address] head is reported as there is evidence for small mild chronic small vessel ischemia. No adverse changes compared to old exam (05/26/2020). No acute abnormality. CT angiography of the head and neck was reported as met negative CT angiogram of the neck. Negative CT angiogram of the brain. No adverse change. Atherosclerotic calcification seen in the distal vertebral arteries laterally. EKG is reported as normal sinus rhythm. Left axis deviation. Nonspecific intraventricular conduction delay. Abnormal EKG. White blood cells 7.0 which is normal. Patient BUN 26 and the creatinine is 1.3. Initial POC glucose is 188 which is elevated. Lipid panel: Triglyceride 174, cholesterol of 148, LDL 69 and HDL 44. AST of 26 and ALT 27. neurology saw patient and recommended MRI; which was unremarkable; echocardiogram revealed an EF of 50-55% Patient wasstarted the patient on aspirin 81 mg and Plavix 75mg daily for 21 days then can discontinue ASA after 21 days while continue on Plavix indefinetly. I started the patient on Lipitor 40 mg qhs for secondary stroke prophylaxis. Regarding the patient the bilateral neck pain that is localized he had the MRI the cervical spine according to him 2 weeks ago and it showed cervical spondylosis without any significant the cord compression or changes according to him. He does have left upper extremity weakness. Recommend EMG with nerve conduction as an outpatient to rule out any radiculopathy. Also he has a carpal tunnel from the patient's the presentation recommend EMG as an outpatient as well of the left upper extremity He needs to follow-up with a neurologist within 1-2 weeks upon discharge. Plan of care was discussed with patient's in great detail and all of her questions were answered to her satisfaction Plan - Discharge Summary Discharge Rx Participant: No New Discharge Prescriptions: New Meclizine [Antivert] 25 mg PO QID PRN #30 tab PRN Reason: Vertigo Aspirin 81 mg PO DAILY #21 chew Atorvastatin [Lipitor] 40 mg PO HS #30 tab Clopidogrel [Plavix] 75 mg PO DAILY #30 tab Continue HYDROcodone/APAP 10-325MG [[place] 10-325] 1 tab PO Q6H PRN PRN Reason: Pain Pantoprazole [Protonix] 40 mg PO AC-BRKFST #30 tablet. Aspirin EC [Ecotrin Low Dose] 81 mg PO DAILY Losartan Potassium [Cozaar] 100 mg PO DAILY Insulin Glargine,Hum.rec.anlog [Lantus Solostar] 40 unit SQ DAILY amLODIPine [Norvasc] 10 mg PO DAILY Tamsulosin [Flomax] 0.4 mg PO HS metFORMIN HCL 1,000 mg PO BID Metoprolol Tartrate [Lopressor] 25 mg PO BID Discharge Medication List HYDROcodone/APAP 10-325MG [[place] 10-325] 1 tab PO Q6H PRN 05/12/14 [History] Pantoprazole [Protonix] 40 mg PO AC-BRKFST #30 tablet. 06/01/16 [Rx] Aspirin EC [Ecotrin Low Dose] 81 mg PO DAILY 01/17/19 [History] Losartan Potassium [Cozaar] 100 mg PO DAILY 07/14/19 [History] Insulin Glargine,Hum.rec.anlog [Lantus Solostar] 40 unit SQ DAILY 05/26/20 [History] Tamsulosin [Flomax] 0.4 mg PO HS 05/26/20 [History] amLODIPine [Norvasc] 10 mg PO DAILY 05/26/20 [History] Metoprolol Tartrate [Lopressor] 25 mg PO BID 08/11/20 [History] metFORMIN HCL 1,000 mg PO BID 08/11/20 [History] Aspirin 81 mg PO DAILY #21 chew 08/12/20 [Rx] Atorvastatin [Lipitor] 40 mg PO HS #30 tab 08/12/20 [Rx] Clopidogrel [Plavix] 75 mg PO DAILY #30 tab 08/12/20 [Rx] Meclizine [Antivert] 25 mg PO QID PRN #30 tab 08/12/20 [Rx] Follow up Appointment(s)/Referral(s): Divya Dewitt DO [Primary Care Provider] - 1 Week (call saturday to make f/u appt) Vaishali Tsang MD [Medical Doctor] - 1 Week (pt wants to make own appt ) Patient Instructions/Handouts: Vertigo (DC) Discharge Disposition: HOME SELF-CARE Plan of Treatment: EMG/ NCS as out patient FOLLOW UP WITH PRIMARY NEUROLOGIST WITHIN 1-2 WEEKS
[2020-08-13] MEDS ORDERED: ATORVASTATIN 40 MG TAB PO SCH (21:00)
== END 2020-08-12 15:25 | disposition home or self-care (01) | DRG 149 ==
LOC: SUPCPDRO 17:33 → EC 17:33 → 3SCARD 19:09
PROVIDERS: ADMIT Hospitalist; ATTEND Hospitalist
DX: R42 Dizziness and giddiness (principal); I67.89 Other cerebrovascular disease; K51.90 Ulcerative colitis, unspecified, without complications; I11.9 Hypertensive heart disease without heart failure; E11.9 Type 2 diabetes mellitus without complications; Z93.2 Ileostomy status; Z79.4 Long term (current) use of insulin; R51.9 Headache, unspecified; I67.2 Cerebral atherosclerosis; M47.812 Spondylosis without myelopathy or radiculopathy, cervical region; G56.02 Carpal tunnel syndrome, left upper limb; I45.9 Conduction disorder, unspecified; K21.9 Gastro-esophageal reflux disease without esophagitis; M19.90 Unspecified osteoarthritis, unspecified site; Z79.82 Long term (current) use of aspirin; Z79.899 Other long term (current) drug therapy; Z86.73 Personal history of transient ischemic attack (TIA), and cerebral infarction without residual deficits; Z87.442 Personal history of urinary calculi; Z90.49 Acquired absence of other specified parts of digestive tract; Z87.19 Personal history of other diseases of the digestive system; Z96.653 Presence of artificial knee joint, bilateral; Z87.39 Personal history of other diseases of the musculoskeletal system and connective tissue; Z89.022 Acquired absence of left finger(s); Z89.021 Acquired absence of right finger(s); Z98.890 Other specified postprocedural states; Z88.1 Allergy status to other antibiotic agents; Z88.5 Allergy status to narcotic agent; Z82.49 Family history of ischemic heart disease and other diseases of the circulatory system; Z82.61 Family history of arthritis; Z82.3 Family history of stroke
CPT/HCPCS: 36415; 70450; 70496; 70498; 70551; 71046; 80053; 80061; 83036; 85025; 85610; 85730; 93005; 93306; 96374; 96375; 99285

== ENCOUNTER → 2021-04-13 | Outpatient (CLI) | payer MEDICAID ==
--- NOTE | 2021-04-13 12:32 | XR ---
EXAMINATION TYPE: XR chest 2V DATE OF EXAM: 04/13/2021 COMPARISON: 08/11/2020 TECHNIQUE: PA and lateral views submitted. HISTORY: Chest pain FINDINGS: The lungs are clear and there is no pneumothorax, pleural effusion, or focal pneumonia. Heart size normal. No overt failure. Arthropathy of the shoulders. Biapical pleural thickening. Hypertrophic and degenerative changes spine. IMPRESSION: 1. No acute process.
== END | disposition home or self-care (01) ==
LOC: RADXRMAIN 12:08
PROVIDERS: ATTEND Physician Assistant
DX: R05.9 Cough, unspecified (principal)
CPT/HCPCS: 71046

== ENCOUNTER 2022-02-04 11:14 | Emergency (ER) | payer MEDICAID ==
[2022-02-04 11:41] VITALS: RESP 18; TEMP 97.9
[2022-02-04] MEDS ORDERED: KETOROLAC 15 MG/ML 1 ML VIAL IVP STA ×2 (12:29→14:35)
[2022-02-04] MEDS ORDERED: HYDROmorphone 0.5 MG/0.5 ML SYRINGE IVP STA ×2 (12:29→14:35)
[2022-02-04] MEDS ORDERED: SODIUM CHLORIDE 0.9% 2,000 ML IV STA (12:29)
[2022-02-04] MEDS ORDERED: ONDANSETRON 4 MG/2 ML VIAL IVP STA (12:29)
[2022-02-04 13:00] LABS: Basophils % (A) 1 %; Eosinophils # (A) 0.4 k/uL (0-0.7); Eosinophils % (A) 4 %; HCT 40.4 % (39.0-53.0); HGB 14.3 gm/dL (13.0-17.5); Lymphocytes # (A) 0.8 k/uL (1.0-4.8); Lymphocytes % (A) 8 %; MCH 31.7 pg (25.0-35.0); MCHC 35.3 g/dL (31.0-37.0); MCV 89.6 fL (80.0-100.0); Mean Platelet Volume 6.6; Monocytes # (A) 0.5 k/uL (0-1.0); Monocytes % (A) 5 %; Neutrophils # (A) 7.8 k/uL (1.3-7.7); Neutrophils % (A) 81 %; Platelet Count 209 k/uL (150-450); RBC 4.51 m/uL (4.30-5.90); WBC 9.6 k/uL (3.8-10.6)
[2022-02-04 13:10] LABS: Albumin 4.6 g/dL (3.5-5.0); Calcium 9.4 mg/dL (8.4-10.2); Potassium 4.5 mmol/L (3.5-5.1); Total Bilirubin 1.3 mg/dL (0.2-1.3); Total Protein 7.5 g/dL (6.3-8.2)
[2022-02-04 13:11] LABS: Appearance,Urine Clear (Clear); Bilirubin,Urine Negative (Negative); Blood,Urine Negative (Negative); Color,Urine Yellow; Glucose,Urine (UA) Trace (Negative); Ketones,Urine Negative (Negative); Leukocyte Esterase,Urine Negative (Negative); Nitrite,Urine Negative (Negative); PH, Urine 5.5 (5.0-8.0); Protein,Urine Trace (Negative); Specific Gravity,Urine 1.015 (1.001-1.035); Urobilinogen,Urine <2.0 mg/dL (<2.0)
--- NOTE | 2022-02-04 13:53 | CT ---
EXAMINATION TYPE: CT abdomen pelvis wo con DATE OF EXAM: 02/04/2022 COMPARISON: None INDICATION: abdominal and flank pain xfew days. hx of kidney stones DLP: 1409.1 mGycm, Automated exposure control for dose reduction was used. CONTRAST: 0 mL of Isovue 300. Study performed without Oral Contrast TECHNIQUE: Axial images were obtained from above the diaphragm to the pubic rami in the axial plane a t 5 mm thick sections. Reconstructed images are reviewed on the computer in the coronal plane. FINDINGS: Limited CT sections are obtained the lung bases. The lung bases are clear. Coronary artery calcific ation is present. CT ABDOMEN: Liver: Normal Spleen: Normal Pancreas: Normal Adrenal glands: The adrenal glands are normal. Gallbladder: Normal Kidneys: No masses are evident. No hydronephrosis is present. No cysts are present. 0.3 cm nonobst ructing renal stone is at the mid to inferior pole left kidney. A 0.3 cm mid upper pole renal stone i s also present. There is a 0.4 cm nonobstructing renal stone anterior right mid kidney. Aorta: Vascular calcification is within the aorta. Inferior vena cava: Normal. CT PELVIS: There is a ileostomy in the right lower quadrant. The study is performed without oral contrast limiti ng bowel evaluation. Appendix: Surgically absent Urinary bladder: Normal. Genitourinary structures: Prostate appears normal. Osseous structures: No suspicious lytic or sclerotic lesions. Facet degenerative changes are present. IMPRESSIONS: 1. Nonobstructing bilateral renal stones.
[2022-02-04] MEDS ORDERED: TAMSULOSIN 0.4 MG CAP.ER.24H PO STA (14:35)
--- NOTE | 2022-02-04 14:43 | ED ---
Abdominal Pain HPI - General Chief Complaint: Abdominal Pain Stated Complaint: abd pain Time Seen by Provider: 02/04/22 11:43 Source: patient, RN notes reviewed Mode of arrival: ambulatory Limitations: no limitations - History of Present Illness Initial Comments: 61-year-old male presents emergency Department with chief complaint of left flank pain. Patient states started overnight worsening. Patient states he feels that he is a kidney stone his been told is had stones in his kidney. Patient states that he has decreased urine output no dysuria no noted blood. Patient states he has) the right states that he's had no change in output. Patient states does have underlying ulcerative colitis disease. Patient denies any fevers or chills. Nauseated pain causing the vomit. - Related Data Home Medications Medication Instructions Recorded Confirmed HYDROcodone/APAP 10-325MG [[place] 1 tab PO Q6H PRN 05/12/14 08/11/20 10-325] Aspirin EC [Ecotrin Low Dose] 81 mg PO DAILY 01/17/19 08/11/20 Losartan Potassium [Cozaar] 100 mg PO DAILY 07/14/19 08/11/20 Insulin Glargine,Hum.rec.anlog 40 unit SQ DAILY 05/26/20 08/11/20 [Lantus Solostar Pen] Tamsulosin [Flomax] 0.4 mg PO HS 05/26/20 08/11/20 amLODIPine [Norvasc] 10 mg PO DAILY 05/26/20 08/11/20 Metoprolol Tartrate [Lopressor] 25 mg PO BID 08/11/20 08/11/20 metFORMIN HCL [Glucophage] 1,000 mg PO BID 08/11/20 08/11/20 Previous Rx's Medication Instructions Recorded Pantoprazole [Protonix] 40 mg PO ROMAN #30 tablet. 06/01/16 Aspirin 81 mg PO DAILY #21 chew 08/12/20 Atorvastatin [Lipitor] 40 mg PO HS #30 tab 08/12/20 Clopidogrel [Plavix] 75 mg PO DAILY #30 tab 08/12/20 Meclizine [Antivert] 25 mg PO QID PRN #30 tab 08/12/20 Ketorolac [Toradol] 10 mg PO Q8HR #15 tab 02/04/22 Ondansetron Odt [Zofran Odt] 4 mg PO Q8HR PRN #10 tab 02/04/22 Tamsulosin [Flomax] 0.4 mg PO DAILY #7 cap 02/04/22 Allergies Allergy/AdvReac Type Severity Reaction Status Date / Time levofloxacin [From Levaquin] AdvReac Severe Chest Pain Verified 02/04/22 11:41 cephalexin monohydrate AdvReac Unknown Nausea & Verified 02/04/22 11:41 [From Keflex] Vomiting codeine AdvReac Unknown Nausea & Verified 02/04/22 11:41 Vomiting Review of Systems ROS Statement: Those systems with pertinent positive or pertinent negative responses have been documented in the HPI. ROS Other: All systems not noted in ROS Statement are negative. Past Medical History Past Medical History: Diabetes Mellitus, GERD/Reflux, Hypertension, Osteoarthritis (OA) Additional Past Medical History / Comment(s): 8-10 KIDNEY STONES, ULCERATIVE Colitis, RECTUM REMOVED. PT HAS ARTHIRITIS ALL OVER, History of Any Multi-Drug Resistant Organisms: None Reported Date of last positivie culture/infection: 12/14/16 MDRO Source:: TOE Past Surgical History: Appendectomy, Bowel Resection, Heart Catheterization, Joint Replacement, Orthopedic Surgery Additional Past Surgical History / Comment(s): BILATERAL TOTAL KneeS,L Shoulder ROTATOR CUFF REPAIR, BILATERALHandS L HAND INDEX FINGER AND R HAND MIDDLE FINGER BOTH PARTIAL AMP WITH REPAIR, COLECTOMY/ILEOSTOMY. CARDIAC CATH YRS AGO AND NO BLOCKAGES-DONE AT [facility]. Past Anesthesia/Blood Transfusion Reactions: No Reported Reaction Additional Past Anesthesia/Blood Transfusion Reaction / Comment(s): NEVER RECEIVED BLOOD Past Psychological History: No Psychological Hx Reported Smoking Status: Never smoker Past Alcohol Use History: Occasional Past Drug Use History: None Reported - Past Family History Father Family Medical History: Hypertension Additional Family Medical History / Comment(s): FATHER ALIVE AND IS 74 YRS OLD. Mother Family Medical History: Osteoarthritis (OA) Additional Family Medical History / Comment(s): MOTHER HAS ALOT OF ARTHRITIS AND HAS HAD MANY ORTHOPEDIC SURGERIES. SHE IS 73 YRS OLD. General Exam Limitations: no limitations General appearance: alert, in no apparent distress Head exam: Present: atraumatic, normocephalic, normal inspection Eye exam: Present: normal appearance, PERRL, EOMI. Absent: scleral icterus, conjunctival injection, periorbital swelling ENT exam: Present: normal exam, normal oropharynx, mucous membranes moist Neck exam: Present: normal inspection, full ROM. Absent: tenderness, men ingismus, lymphadenopathy Respiratory exam: Present: normal lung sounds bilaterally. Absent: respiratory distress, wheezes, rales, rhonchi, stridor Cardiovascular Exam: Present: regular rate, normal rhythm, normal heart sounds. Absent: systolic murmur, diastolic murmur, rubs, gallop, clicks GI/Abdominal exam: Present: soft, tenderness, normal bowel sounds. Absent: distended, guarding, rebound, rigid Back exam: Present: CVA tenderness (R). Absent: CVA tenderness (L) Neurological exam: Present: alert, oriented X3 Skin exam: Present: warm, dry, intact, normal color. Absent: rash Course Vital Signs 02/04/22 11:39 Temperature 97.9 F Pulse Rate 74 Respiratory 18 Rate Blood Pressure 130/81 O2 Sat by Pulse 98 Oximetry Medical Decision Making - Medical Decision Making CT shows bilateral stones nonobstructing, laboratory unremarkable no other acute findings. Patient was treated for left flank pain suspect possibly passing stone. Patient will follow-up with urology. - Lab Data Result diagrams: 02/04/22 12:35 02/04/22 12:35 Lab Results 02/04/22 02/04/22 02/04/22 Range/Units 12:35 12:35 12:35 WBC 9.6 (3.8-10.6) k/uL RBC 4.51 (4.30-5.90) m/uL Hgb 14.3 (13.0-17.5) gm/dL Hct 40.4 (39.0-53.0) % MCV 89.6 (80.0-100.0) fL MCH 31.7 (25.0-35.0) pg MCHC 35.3 (31.0-37.0) g/dL RDW 13.0 (11.5-15.5) % Plt Count 209 (150-450) k/uL MPV 6.6 Neutrophils % 81 % Lymphocytes % 8 % Monocytes % 5 % Eosinophils % 4 % Basophils % 1 % Neutrophils # 7.8 H (1.3-7.7) k/uL Lymphocytes # 0.8 L (1.0-4.8) k/uL Monocytes # 0.5 (0-1.0) k/uL Eosinophils # 0.4 (0-0.7) k/uL Basophils # 0.0 (0-0.2) k/uL Sodium 141 (137-145) mmol/L Potassium 4.5 (3.5-5.1) mmol/L Chloride 109 H (98-107) mmol/L Carbon Dioxide 21 L (22-30) mmol/L Anion Gap 11 mmol/L BUN 19 (9-20) mg/dL Creatinine 1.25 (0.66-1.25) mg/dL Est GFR (CKD-EPI)AfAm 73 (>60 ml/min/1.73 sqM) Est GFR (CKD-EPI)NonAf 63 (>60 ml/min/1.73 sqM) Glucose 196 H (74-99) mg/dL Calcium 9.4 (8.4-10.2) mg/dL Total Bilirubin 1.3 (0.2-1.3) mg/dL AST 25 (17-59) U/L ALT 28 (4-49) U/L Alkaline Phosphatase 73 (38-126) U/L Total Protein 7.5 (6.3-8.2) g/dL Albumin 4.6 (3.5-5.0) g/dL Urine Color Yellow Urine Appearance Clear (Clear) Urine pH 5.5 (5.0-8.0) Ur Specific [place] 1.015 (1.001-1.035) Urine Protein Trace H (Negative) Urine Glucose (UA) Trace H (Negative) Urine Ketones Negative (Negative) Urine Blood Negative (Negative) Urine Nitrite Negative (Negative) Urine Bilirubin Negative (Negative) Urine Urobilinogen <2.0 (<2.0) mg/dL Ur Leukocyte Esterase Negative (Negative) Disposition Clinical Impression: Left flank pain, Kidney stone Disposition: HOME SELF-CARE Condition: Stable Instructions (If sedation given, give patient instructions): Flank Pain (ED) Additional Instructions: Please return to the Emergency Department if symptoms worsen or any other concerns. Prescriptions: Tamsulosin [Flomax] 0.4 mg PO DAILY #7 cap Ketorolac [Toradol] 10 mg PO Q8HR #15 tab Ondansetron Odt [Zofran Odt] 4 mg PO Q8HR PRN #10 tab PRN Reason: Nausea Is patient prescribed a controlled substance at d/c from ED?: No Referrals: Volodymyr Delcid DO [Primary Care Provider] - 1-2 days Time of Disposition: 14:42
[2022-02-04 15:01] VITALS: BP 138/84; PULSE 57
== END 2022-02-04 15:07 | disposition home or self-care (01) ==
LOC: EC 11:14
DX: N20.2 Calculus of kidney with calculus of ureter (principal); I10 Essential (primary) hypertension; E11.9 Type 2 diabetes mellitus without complications; Z88.1 Allergy status to other antibiotic agents; Z88.5 Allergy status to narcotic agent; Z79.899 Other long term (current) drug therapy; Z79.82 Long term (current) use of aspirin; Z79.84 Long term (current) use of oral hypoglycemic drugs; Z79.4 Long term (current) use of insulin
CPT/HCPCS: 36415; 80053; 85025; 81003; 74176; 99284; 96374; 96375; 96376; 96361; J2405; J1885; J1170

== ENCOUNTER → 2022-03-30 | Outpatient (CLI) | payer MEDICAID ==
--- NOTE | 2022-03-30 08:14 | US ---
EXAMINATION TYPE: US venous doppler duplex LE BI DATE OF EXAM: 03/30/2022 7:32 AM COMPARISON: 12/28/2016 CLINICAL HISTORY: R60.0 LOWER LEG EDEMA. Patient states having edema. No hx DVT. No redness. SIDE PERFORMED: Bilateral TECHNIQUE: The lower extremity deep venous system is examined utilizing real time linear array sonog apollo with graded compression, doppler sonography and color-flow sonography. VESSELS IMAGED: Common Femoral Vein Deep Femoral Vein Greater Saphenous Vein * Femoral Vein Popliteal Vein Small Saphenous Vein * Proximal Calf Veins (* superficial vessels) Grayscale, color doppler, spectral doppler imaging performed of the deep veins of the lower extremiti es. There is normal flow, compressibility, vascular waveforms. Right Leg: Negative for DVT Left Leg: Negative for DVT IMPRESSION: No ultrasound evidence for deep venous thrombosis in the bilateral lower extremities.
--- NOTE | 2022-03-30 08:23 | US ---
EXAMINATION TYPE: US abdomen complete DATE OF EXAM: 03/30/2022 COMPARISON: CT abdomen pelvis 02/04/2022 CLINICAL HISTORY: R10.84 ABD PAIN. Patient states having back pain. TECHNIQUE: Multiple sonographic images of the abdomen are obtained. FINDINGS: EXAM MEASUREMENTS: Liver Length: 21.5 cm Gallbladder Wall: 0.1 cm CBD: 0.6 cm Spleen: 15.4 cm Right Kidney: 12.4 x 5.1 x 5.0 cm Left Kidney: 11.8 x 5.1 x 6.1 cm Pancreas: Echogenic in appearance without focal lesion. Body = 2.0 cm. No ductal dilatation. Liver: Enlarged in size. Echogenic and heterogenous. Appearance limits evaluation for small masses . No definitive surface nodularity. No suspicious mass within limitations. Gallbladder: wnl, no pericholecystic fluid, shadowing gallstones, or wall thickening. Evidence for sonographic Renteria's sign: neg CBD: wnl Spleen: Enlarged in size Right Kidney: No hydronephrosis or masses seen . No shadowing renal calculi. Left Kidney: No hydronephrosis or masses seen . No shadowing renal calculi. Upper IVC: wnl Abd Aorta: No AAA visualized at this time IMPRESSION: 1. No acute process. 2. Heterogenous hyperechoic appearance of the liver consistent with hepatocellular disease which is most commonly seen with hepatic steatosis. 3. Mild splenomegaly.
[2022-03-30 11:11] LABS: ALT 27 U/L (10-49); AST 21 U/L (14-35); African American GFR (CKD) 63.3 (60.0-200.0); Albumin 4.5 g/dL (3.8-4.9); Albumin/Globulin Ratio 2.05 (1.60-3.17); Alkaline Phosphatase 65 U/L (41-126); BUN/Creat Ratio 17.57 Ratio (12.00-20.00); Blood Urea Nitrogen 24.6 mg/dL (9.0-27.0); Calcium 9.6 mg/dL (8.7-10.3); Carbon Dioxide 24.5 mmol/L (20.0-27.5); Chloride 109 mmol/L (96-109); Chol/HDL Ratio 2.39 Ratio; Globulin 2.2 g/dL (1.6-3.3); Glucose 159 mg/dL (70-110); LDL Cholesterol,Calculated 44.3 mg/dL (0.0-131.0); Non-African American GFR(CKD) 54.6 (60.0-200.0); Potassium 4.4 mmol/L (3.5-5.5); Sodium 144 mmol/L (135-145); Total Protein 6.7 g/dL (6.2-8.2)
== END | disposition home or self-care (01) ==
LOC: RADUSWWP 06:52
PROVIDERS: ATTEND Internal Medicine
DX: R60.0 Localized edema (principal); R10.84 Generalized abdominal pain
CPT/HCPCS: 76700; 80053; 80061; 82043; 82570; 86803; 87390; 93970

== ENCOUNTER → 2022-05-01 | Outpatient (CLI) | payer MEDICAID ==
--- NOTE | 2022-05-01 13:15 | CA ---
Transthoracic Echo Report Name: Timur Galvan Age: 61 Gender: M : 1960 Exam Date: 05/01/2022 08:42 Exam Location: [facility] Ht (in): 72 Wt (lb): 270 Ordering Physician: Regino Ibrahim MD Attending/Referring Phys: Regino Ibrahim MD Model Engine Mechanic Anitha Herbert [facility] Procedure CPT: Indications: edema Cardiac Hx: Technical Quality: Fair Contrast 1: Total Dose (mL): Contrast 2: Total Dose (mL): MEASUREMENTS (Male / Female) Normal Values 2D ECHO LV Diastolic Diameter PLAX 4.1 cm 4.2 - 5.9 / 3.9 - 5.3 cm LV Systolic Diameter PLAX 2.8 cm IVS Diastolic Thickness 2.1 cm 0.6 - 1.0 / 0.6 - 0.9 cm LVPW Diastolic Thickness 1.5 cm 0.6 - 1.0 / 0.6 - 0.9 cm LV Relative Wall Thickness 0.9 RV Internal Dim ED PLAX 3.8 cm LA Volume 59.3 cm??? 18 - 58 / 22 - 52 cm??? M-MODE Aortic Root Diameter MM 4.1 cm LA Systolic Diameter MM 4.7 cm LA Ao Ratio MM 1.1 AV Cusp Separation MM 2.9 cm DOPPLER AV Peak Velocity 119.8 cm/s AV Peak Gradient 5.7 mmHg LVOT Peak Velocity 93.7 cm/s LVOT Peak Gradient 3.5 mmHg MV Area PHT 2.0 cm??? Mitral E Point Velocity 49.7 cm/s Mitral A Point Velocity 69.6 cm/s Mitral E to A Ratio 0.7 MV Deceleration Time 370.4 ms MV E' Velocity 4.8 cm/s Mitral E to MV E' Ratio 10.3 TR Peak Velocity 238.6 cm/s TR Peak Gradient 22.8 mmHg FINDINGS Left Ventricle Moderately increased left ventricular wall thickness. Normal left ventricular systolic function with no obvious regional wall motion abnormalities. Left ventricular ejection fraction is estimated at 55-60 %. Right Ventricle Mild right ventricular dilatation. Right ventricular systolic pressure within normal limits. Right Atrium Right atrium not well visualized. Left Atrium Mildly increased left atrial volume. Mitral Valve Structurally normal mitral valve. No mitral stenosis, regurgitation or prolapse. Aortic Valve No aortic valve stenosis or regurgitation. Tricuspid Valve Structurally normal tricuspid valve. Mild tricuspid regurgitation. Pulmonic Valve Trace pulmonic regurgitation. Pericardium No pericardial effusion. Aorta Normal size aortic root and proximal ascending aorta. CONCLUSIONS LVH with preserved systolic function Previewed by: Dr. Jose Hanley MD (Electronically Signed) Final Date: 01 May 2022 13:14
== END | disposition home or self-care (01) ==
LOC: RADECHMAIN 07:54
PROVIDERS: ATTEND Internal Medicine
DX: Z00.00 Encounter for general adult medical examination without abnormal findings (principal)
CPT/HCPCS: 93306

== ENCOUNTER → 2023-03-13 | Outpatient (CLI) | payer MEDICAID ==
[2023-03-13 16:05] LABS: BUN/Creat Ratio 13.93 Ratio (12.00-20.00); Blood Urea Nitrogen 20.9 mg/dL (9.0-27.0); Calcium 9.8 mg/dL (8.7-10.3); Carbon Dioxide 20.8 mmol/L (21.6-31.8); Chloride 108 mmol/L (96-109); Glucose 187 mg/dL (70-110); Potassium 3.9 mmol/L (3.5-5.5); Sodium 142 mmol/L (135-145)
[2023-03-13 16:32] LABS: Basophils # (A) 0.05 X 10*3/uL (0.00-0.10); Basophils % (A) 0.9 %; Eosinophils # (A) 0.22 X 10*3/uL (0.04-0.35); Eosinophils % (A) 3.8 %; HCT 39.8 % (39.6-50.0); HGB 14.2 d/dL (13.0-17.0); Lymphocytes # (A) 0.88 X 10*3/uL (0.90-5.00); Lymphocytes % (A) 15.3 %; MCH 32.1 pg (27.0-32.0); MCHC 35.7 d/dL (32.0-37.0); MCV 89.8 FL (80.0-97.0); Mean Platelet Volume 9.1 FL (9.5-12.2); Monocytes % (A) 10.4 %; NRBC Per 100 WBC 0 X 10*3/uL (0.00-0.01); Neutrophils # (A) 3.99 X 10*3/uL (1.80-7.70); Neutrophils % (A) 69.4 %; Platelet Count 204 X 10*3/uL (140-440); RBC 4.43 X 10*6/uL (4.40-5.60); RDW 12.1 % (11.5-14.5); WBC 5.75 X 10*3/uL (4.50-10.00)
[2023-03-13 18:17] LABS: Appearance,Urine Clear (Clear); Bilirubin,Urine Negative (Negative); Blood,Urine Negative (Negative); Color,Urine Yellow (Yellow); Ketones,Urine Negative (Negative); Nitrite,Urine Negative (Negative); PH, Urine 5.5; Specific Gravity,Urine >1.035 (1.001-1.030); Urobilinogen,Urine 0.2
== END | disposition home or self-care (01) ==
LOC: LABWHC1 09:29
PROVIDERS: ATTEND Internal Medicine
DX: A08.4 Viral intestinal infection, unspecified (principal); E11.22 Type 2 diabetes mellitus with diabetic chronic kidney disease; N18.31 Chronic kidney disease, stage 3a; Z79.4 Long term (current) use of insulin
CPT/HCPCS: 36415; 80048; 81003; 83036; 85025

== ENCOUNTER 2023-11-09 15:53 | Emergency (ER) | payer MEDICAID ==
--- NOTE | 2023-11-09 17:03 | ED ---
Abdominal Pain HPI - General Chief Complaint: Abdominal Pain Stated Complaint: Low back pain Time Seen by Provider: 11/09/23 16:38 Source: patient Mode of arrival: ambulatory Limitations: no limitations - History of Present Illness Initial Comments: 63-year-old male presenting to the ED with complaints of flank pain. Patient currently being treated for shingles of the right side of abdomen/right flank. He does note a burning pain with this however last night, started to feel a new pain of his right flank which is stabbing in nature. Does note his urine has been darker than usual as well however denies dysuria, hematuria, urgency, frequency. Patient does report a history of kidney stones and reports pain feels consistent with this. Denies changes in bowel habits. No fever or chills. No chest pain or shortness of breath. No other complaints at this time. - Related Data Home Medications Medication Instructions Recorded Confirmed HYDROcodone/APAP 10-325MG [[place] 1 tab PO Q6H PRN 05/12/14 08/11/20 10-325] Aspirin EC [Ecotrin Low Dose] 81 mg PO DAILY 01/17/19 08/11/20 Losartan Potassium [Cozaar] 100 mg PO DAILY 07/14/19 08/11/20 Insulin Glargine,Hum.rec.anlog 40 unit SQ DAILY 05/26/20 08/11/20 [Lantus Solostar Pen] Tamsulosin [Flomax] 0.4 mg PO HS 05/26/20 08/11/20 amLODIPine [Norvasc] 10 mg PO DAILY 05/26/20 08/11/20 Metoprolol Tartrate [Lopressor] 25 mg PO BID 08/11/20 08/11/20 metFORMIN HCL [Glucophage] 1,000 mg PO BID 08/11/20 08/11/20 Previous Rx's Medication Instructions Recorded Pantoprazole [Protonix] 40 mg PO ROMAN #30 06/01/16 Aspirin 81 mg PO DAILY #21 chew 08/12/20 Atorvastatin [Lipitor] 40 mg PO HS #30 tab 08/12/20 Clopidogrel [Plavix] 75 mg PO DAILY #30 tab 08/12/20 Meclizine [Antivert] 25 mg PO QID PRN #30 tab 08/12/20 Ketorolac [Toradol] 10 mg PO Q8HR #15 tab 02/04/22 Ondansetron Odt [Zofran Odt] 4 mg PO Q8HR PRN #10 tab 02/04/22 Tamsulosin [Flomax] 0.4 mg PO DAILY #7 cap 02/04/22 Allergies Allergy/AdvReac Type Severity Reaction Status Date / Time levofloxacin [From Levaquin] AdvReac Severe Chest Pain Verified 02/04/22 11:41 cephalexin monohydrate AdvReac Unknown Nausea & Verified 02/04/22 11:41 [From Keflex] Vomiting codeine AdvReac Unknown Nausea & Verified 02/04/22 11:41 Vomiting Review of Systems ROS Statement: Those systems with pertinent positive or pertinent negative responses have been documented in the HPI. ROS Other: All systems not noted in ROS Statement are negative. Past Medical History Past Medical History: Diabetes Mellitus, GERD/Reflux, Hypertension, Osteoarthritis (OA) Additional Past Medical History / Comment(s): 8-10 KIDNEY STONES, ULCERATIVE Colitis, RECTUM REMOVED. PT HAS ARTHIRITIS ALL OVER, History of Any Multi-Drug Resistant Organisms: None Reported Date of last positivie culture/infection: 12/14/16 MDRO Source:: TOE Past Surgical History: Appendectomy, Bowel Resection, Heart Catheterization, Joint Replacement, Orthopedic Surgery Additional Past Surgical History / Comment(s): BILATERAL TOTAL KneeS,L Shoulder ROTATOR CUFF REPAIR, BILATERALHandS L HAND INDEX FINGER AND R HAND MIDDLE FINGER BOTH PARTIAL AMP WITH REPAIR, COLECTOMY/ILEOSTOMY. CARDIAC CATH YRS AGO AND NO BLOCKAGES-DONE AT [facility]. Past Anesthesia/Blood Transfusion Reactions: No Reported Reaction Additional Past Anesthesia/Blood Transfusion Reaction / Comment(s): NEVER RECEIVED BLOOD Past Psychological History: No Psychological Hx Reported Smoking Status: Never smoker Past Alcohol Use History: Occasional Past Drug Use History: None Reported - Past Family History Father Family Medical History: Hypertension Additional Family Medical History / Comment(s): FATHER ALIVE AND IS 74 YRS OLD. Mother Family Medical History: Osteoarthritis (OA) Additional Family Medical History / Comment(s): MOTHER HAS ALOT OF ARTHRITIS AND HAS HAD MANY ORTHOPEDIC SURGERIES. SHE IS 73 YRS OLD. General Exam Limitations: no limitations General appearance: alert, in no apparent distress Eye exam: Present: normal appearance Neck exam: Present: normal inspection Respiratory exam: Present: normal lung sounds bilaterally Cardiovascular Exam: Present: regular rate, normal rhythm GI/Abdominal exam: Present: soft, other (Scabbed/vesicular rash on the right abdomen/flank which does not cross midline. Abdomen is otherwise soft with no tenderness to palpation. No rebound guarding rigidity. Bowel sounds normal.) Neurological exam: Present: alert, oriented X3 Skin exam: Present: warm, dry Course Vital Signs 11/09/23 16:22 Temperature 98.2 F Pulse Rate 89 Respiratory 18 Rate Blood Pressure 165/95 O2 Sat by Pulse 99 Oximetry Medical Decision Making - Medical Decision Making Was pt. sent in by a medical professional or institution (, PA, VECTOR CONTROL ASSISTANT, urgent care, hospital, or half-way...) When possible be specific @ -No Did you speak to anyone other than the patient for history (EMS, parent, family, police, friend...)? What history was obtained from this source @ -No Did you review nursing and triage notes (agree or disagree)? Why? @ -I reviewed and agree with nursing and triage notes Were old charts reviewed (outside hosp., previous admission, EMS record, old EKG, old radiological studies, urgent care reports/EKG's, half-way records)? Report findings @ -No old charts were reviewed Differential Diagnosis (chest pain, altered mental status, abdominal pain women, abdominal pain men, vaginal bleeding, weakness, fever, dyspnea, syncope, headache, dizziness, GI bleed, back pain, seizure, CVA, palpatations, mental h ealth, musculoskeletal)? @ -Differential Abdominal Pain Men: Appendicitis, cholecystitis, diverticulosis, ischemic bowel, pancreatitis, hepatitis, UTI, gastroenteritis, AAA, incarcerated hernia, bowel obstruction, constipation, inflammatory bowel, hepatitis, peptic ulcer disease, splenic infarction, perforated viscus, testicular torsion, this is not meant to be an all-inclusive list EKG interpreted by me (3pts min.). @ -As above X-rays interpreted by me (1pt min.). @ -None done CT interpreted by me (1pt min.). @ -CT abdomen pelvis interpreted me which revealed no evidence of acute finding. U/S interpreted by me (1pt. min.). @ -None done What testing was considered but not performed or refused? (CT, X-rays, U/S, labs)? Why? @ -None What meds were considered but not given or refused? Why? @ -None Did you discuss the management of the patient with other professionals (professionals i.e. , PA, VECTOR CONTROL ASSISTANT, lab, RT, psych nurse, social media content specialist, executive staff assistant, teacher, weapons electrical engineering officer, showcase maker)? Give summary @ -No Was smoking cessation discussed for >3mins.? @ -No Was critical care preformed (if so, how long)? @ -No Were there social determinants of health that impacted care today? How? (Homelessness, low income, unemployed, alcoholism, drug addiction, transportation, low edu. Level, literacy, decrease access to med. care, skilled nursing, rehab)? @ -No Was there de-escalation of care discussed even if they declined (Discuss DNR or withdrawal of care, Hospice)? DNR status @ -No What co-morbidities impacted this encounter? (DM, HTN, Smoking, COPD, CAD, Cancer, CVA, ARF, Chemo, Hep., AIDS, mental health diagnosis, sleep apnea, morbid obesity)? @ -None Was patient admitted / discharged? Hospital course, mention meds given and route, prescriptions, significant lab abnormalities, going to OR and other pertinent info. @ -Discharge 63-year-old male currently being treated for shingles presenting to the ED with complaints of right flank pain/abdominal pain. Patient has shingles overlying the area of pain however he reports today pain seems different and with history of kidney stones prompting presentation to the ED for further evaluation. Notes some darkened urine however no other symptoms at this time. Laboratory studies reviewed and largely unremarkable. CT abdomen pelvis revealed no evidence of obstructing stone or other acute finding. Discharged home in stable condition with instructions to follow-up with his PCP. Discussed return precautions with patient who verbalized agreement. Undiagnosed new problem with uncertain prognosis? @ -No Drug Therapy requiring intensive monitoring for toxicity (Heparin, Nitro, Insulin, Cardizem)? @ -No Were any procedures done? @ -No Diagnosis/symptom? @ -Flank pain, shingles Acute, or Chronic, or Acute on Chronic? @ -Acute Uncomplicated (without systemic symptoms) or Complicated (systemic symptoms)? @ -Uncomplicated Side effects of treatment? @ -No Exacerbation, Progression, or Severe Exacerbation? @ -No Poses a threat to life or bodily function? How? (Chest pain, USA, MD, pneumonia, PE, COPD, DKA, ARF, appy, cholecystitis, CVA, Diverticulitis, Homicidal, Suicid al, threat to staff... and all critical care pts) @ -No - Lab Data Result diagrams: 11/09/23 17:14 11/09/23 17:14 Lab Results 11/09/23 11/09/23 11/09/23 Range/Units 17:14 17:14 17:15 WBC 6.6 (3.8-10.6) k/uL RBC 4.63 (4.30-5.90) m/uL Hgb 15.4 (13.0-17.5) gm/dL Hct 41.4 (39.0-53.0) % MCV 89.5 (80.0-100.0) fL MCH 33.3 (25.0-35.0) pg MCHC 37.2 H (31.0-37.0) g/dL RDW 12.7 (11.5-15.5) % Plt Count 208 (150-450) k/uL MPV 7.0 Neutrophils % 73 % Lymphocytes % 14 % Monocytes % 8 % Eosinophils % 3 % Basophils % 1 % Neutrophils # 4.8 (1.3-7.7) k/uL Lymphocytes # 0.9 L (1.0-4.8) k/uL Monocytes # 0.5 (0-1.0) k/uL Eosinophils # 0.2 (0-0.7) k/uL Basophils # 0.0 (0-0.2) k/uL Sodium 138 (137-145) mmol/L Potassium 4.1 (3.5-5.1) mmol/L Chloride 105 (98-107) mmol/L Carbon Dioxide 24 (22-30) mmol/L Anion Gap 9 mmol/L BUN 18 (9-20) mg/dL Creatinine 1.05 (0.66-1.25) mg/dL Est GFR (CKD-EPI)AfAm 89 (>60 ml/min/1.73 sqM) Est GFR (CKD-EPI)NonAf 77 (>60 ml/min/1.73 sqM) Glucose 136 H (74-99) mg/dL Calcium 9.2 (8.4-10.2) mg/dL Total Bilirubin 0.9 (0.2-1.3) mg/dL AST 24 (17-59) U/L ALT 31 (4-49) U/L Alkaline Phosphatase 73 (38-126) U/L Total Protein 7.3 (6.3-8.2) g/dL Albumin 4.5 (3.5-5.0) g/dL Amylase 58 (30-110) U/L Lipase 173 (23-300) U/L Urine Color Colorless Urine Appearance Clear (Clear) Urine pH 6.0 (5.0-8.0) Ur Specific [place] 1.030 (1.001-1.035) Urine Protein Trace H (Negative) Urine Glucose (UA) 4+ H (Negative) Urine Ketones Negative (Negative) Urine Blood Negative (Negative) Urine Nitrite Negative (Negative) Urine Bilirubin Negative (Negative) Urine Urobilinogen <2.0 (<2.0) mg/dL Ur Leukocyte Esterase Negative (Negative) Disposition Clinical Impression: Flank pain, Shingles Disposition: HOME SELF-CARE Condition: Good Additional Instructions: Please return to the Emergency Department if symptoms worsen or any other concerns. Please follow-up with your PCP. Is patient prescribed a controlled substance at d/c from ED?: No Referrals: Regino Ibrahim MD [Primary Care Provider] - 1-2 days Time of Disposition: 19:10
[2023-11-09 17:32] LABS: Basophils % (A) 1 %; Eosinophils # (A) 0.2 k/uL (0-0.7); Eosinophils % (A) 3 %; HCT 41.4 % (39.0-53.0); HGB 15.4 gm/dL (13.0-17.5); Lymphocytes # (A) 0.9 k/uL (1.0-4.8); Lymphocytes % (A) 14 %; MCH 33.3 pg (25.0-35.0); MCHC 37.2 g/dL (31.0-37.0); MCV 89.5 fL (80.0-100.0); Monocytes # (A) 0.5 k/uL (0-1.0); Monocytes % (A) 8 %; Neutrophils # (A) 4.8 k/uL (1.3-7.7); Neutrophils % (A) 73 %; Platelet Count 208 k/uL (150-450); RBC 4.63 m/uL (4.30-5.90); RDW 12.7 % (11.5-15.5); WBC 6.6 k/uL (3.8-10.6)
[2023-11-09 17:32] LABS: Appearance,Urine Clear (Clear); Bilirubin,Urine Negative (Negative); Blood,Urine Negative (Negative); Color,Urine Colorless; Glucose,Urine (UA) 4+ (Negative); Ketones,Urine Negative (Negative); Leukocyte Esterase,Urine Negative (Negative); Nitrite,Urine Negative (Negative); Protein,Urine Trace (Negative); Urobilinogen,Urine <2.0 mg/dL (<2.0)
[2023-11-09 17:40] LABS: ALT 31 U/L (4-49); AST 24 U/L (17-59); African American GFR (CKD) 89 (>60 ml/min/1.73 sqM); Albumin 4.5 g/dL (3.5-5.0); Alkaline Phosphatase 73 U/L (38-126); Amylase 58 U/L (30-110); Anion Gap 9 mmol/L; Blood Urea Nitrogen 18 mg/dL (9-20); Calcium 9.2 mg/dL (8.4-10.2); Carbon Dioxide 24 mmol/L (22-30); Chloride 105 mmol/L (98-107); Glucose 136 mg/dL (74-99); Lipase 173 U/L (23-300); Non-African American GFR(CKD) 77 (>60 ml/min/1.73 sqM); Potassium 4.1 mmol/L (3.5-5.1); Sodium 138 mmol/L (137-145); Total Bilirubin 0.9 mg/dL (0.2-1.3); Total Protein 7.3 g/dL (6.3-8.2)
[2023-11-09] MEDS: ACETAMINOPHEN TAB 500 MG TAB PO STA (17:42)
[2023-11-09] MEDS: KETOROLAC 15 MG/ML 1 ML VIAL IVP STA (17:43)
[2023-11-09] MEDS: MORPHINE SULFATE 2 MG/ML SYRINGE IVP STA (17:44)
[2023-11-09] MEDS: ONDANSETRON 4 MG/2 ML VIAL IVP STA (17:44)
[2023-11-09] MEDS: SODIUM CHLORIDE 0.9% 1,000 ML IV STA (17:44)
--- NOTE | 2023-11-09 18:44 | CT ---
EXAMINATION TYPE: CT abdomen pelvis wo con DATE OF EXAM: 11/09/2023 COMPARISON: Right flank pain INDICATION: right flank pain x 2 days DLP: 1200 mGycm, Automated exposure control for dose reduction was used. CONTRAST: 0 mL of Isovue 300. Study performed without Oral Contrast TECHNIQUE: Axial images were obtained from above the diaphragm to the pubic rami in the axial plane a t 5 mm thick sections. Reconstructed images are reviewed on the computer in the coronal plane. FINDINGS: Limited CT sections are obtained the lung bases. The lung bases are clear. CT ABDOMEN: Liver: Normal Spleen: Normal Pancreas: Atrophic Adrenal glands: The adrenal glands are normal. Gallbladder: Normal Kidneys: No masses are evident. No hydronephrosis is present. No cysts are present. 1 mm nonobstruc ting renal stone may be evident within the posterior left kidney. Previous renal stones not identifie d. Renal vascular calcifications are present. No renal stones are identified. Aorta: Vascular calcification is within the aorta. Inferior vena cava: Normal. CT PELVIS: Postsurgical changes within the proximal transverse colon. Colectomy appears to be present. This stud y is without oral contrast limiting bowel evaluation. There is an ostomy within the right lower quadr ant. Appendix: Present Urinary bladder: Normal. Genitourinary structures: Prostate is prominent. Osseous structures: No suspicious lytic or sclerotic lesions. Marked facet hypertrophy is present wit hin the lower lumbar spine. IMPRESSION: 1. No obstructing renal or ureteral calcifications are evident. 2. Prior colectomy with ostomy in the right lower quadrant.
[2023-11-09 19:33] VITALS: BP 123/79; PULSE 79; RESP 20; TEMP 97.9
== END 2023-11-09 19:34 | disposition home or self-care (01) ==
LOC: EC 15:53
DX: R10.9 Unspecified abdominal pain (principal); B02.9 Zoster without complications; Z88.5 Allergy status to narcotic agent; Z88.8 Allergy status to other drugs, medicaments and biological substances
CPT/HCPCS: 36415; 80053; 82150; 83690; 85025; 81003; 74176; 99284; 96374; 96375 ×2; 96361 ×2; J2405; J2270; J1885

== ENCOUNTER 2023-11-11 04:58 | Emergency (ER) | payer MEDICAID ==
--- NOTE | 2023-11-11 05:08 | ED ---
Recheck HPI - General Source: patient, RN notes reviewed, old records reviewed Mode of arrival: ambulatory Limitations: no limitations - History of Present Illness Returns Today for: persistent/worsening pain related to initial visit Symptoms Since Prior Visit: worsening pain Associated Symptoms: none Treatments Prior to Arrival: Given Pain Meds on <Larry Garcia - Last Filed: 11/11/23 06:42> <Edenilson Calabrese - Last Filed: 11/11/23 15:52> - General Chief Complaint: Abdominal Pain Stated Complaint: Abdominal Pain, Back Pain Time Seen by Provider: 11/11/23 05:06 - History of Present Illness Initial Comments: This is a 63-year-old male to ER for evaluation abdominal pain back pain. This is a reevaluation from 2 days ago for similar pain (Larry Garcia) - Related Data Home Medications Medication Instructions Recorded Confirmed HYDROcodone/APAP 10-325MG [[place] 1 tab PO Q6H PRN 05/12/14 08/11/20 10-325] Aspirin EC [Ecotrin Low Dose] 81 mg PO DAILY 01/17/19 08/11/20 Losartan Potassium [Cozaar] 100 mg PO DAILY 07/14/19 08/11/20 Insulin Glargine,Hum.rec.anlog 40 unit SQ DAILY 05/26/20 08/11/20 [Lantus Solostar Pen] Tamsulosin [Flomax] 0.4 mg PO HS 05/26/20 08/11/20 amLODIPine [Norvasc] 10 mg PO DAILY 05/26/20 08/11/20 Metoprolol Tartrate [Lopressor] 25 mg PO BID 08/11/20 08/11/20 metFORMIN HCL [Glucophage] 1,000 mg PO BID 08/11/20 08/11/20 Previous Rx's Medication Instructions Recorded Pantoprazole [Protonix] 40 mg PO ROMAN #30 06/01/16 Aspirin 81 mg PO DAILY #21 chew 08/12/20 Atorvastatin [Lipitor] 40 mg PO HS #30 tab 08/12/20 Clopidogrel [Plavix] 75 mg PO DAILY #30 tab 08/12/20 Meclizine [Antivert] 25 mg PO QID PRN #30 tab 08/12/20 Ketorolac [Toradol] 10 mg PO Q8HR #15 tab 02/04/22 Ondansetron Odt [Zofran Odt] 4 mg PO Q8HR PRN #10 tab 02/04/22 Tamsulosin [Flomax] 0.4 mg PO DAILY #7 cap 02/04/22 Dicyclomine [Bentyl] 10 mg PO TID PRN 7 Days #21 capsule 11/11/23 Allergies Allergy/AdvReac Type Severity Reaction Status Date / Time levofloxacin [From Levaquin] AdvReac Severe Chest Pain Verified 11/11/23 05:03 cephalexin monohydrate AdvReac Unknown Nausea & Verified 11/11/23 05:03 [From Keflex] Vomiting codeine AdvReac Unknown Nausea & Verified 11/11/23 05:03 Vomiting Review of Systems ROS Other: All systems not noted in ROS Statement are negative. <Larry Garcia - Last Filed: 11/11/23 06:42> ROS Other: All systems not noted in ROS Statement are negative. <Edenilson Calabrese - Last Filed: 11/11/23 15:52> ROS Statement: Those systems with pertinent positive or pertinent negative responses have been documented in the HPI. Past Medical History Past Medical History: Diabetes Mellitus, GERD/Reflux, Hypertension, Osteoarthritis (OA) Additional Past Medical History / Comment(s): 8-10 KIDNEY STONES, ULCERATIVE Colitis, RECTUM REMOVED. PT HAS ARTHIRITIS ALL OVER, History of Any Multi-Drug Resistant Organisms: None Reported Date of last positivie culture/infection: 12/14/16 MDRO Source:: TOE Past Surgical History: Appendectomy, Bowel Resection, Heart Catheterization, Joint Replacement, Orthopedic Surgery Additional Past Surgical History / Comment(s): BILATERAL TOTAL KneeS,L Shoulder ROTATOR CUFF REPAIR, BILATERALHandS L HAND INDEX FINGER AND R HAND MIDDLE FINGER BOTH PARTIAL AMP WITH REPAIR, COLECTOMY/ILEOSTOMY. CARDIAC CATH YRS AGO AND NO BLOCKAGES-DONE AT [facility]. Past Anesthesia/Blood Transfusion Reactions: No Reported Reaction Additional Past Anesthesia/Blood Transfusion Reaction / Comment(s): NEVER RECEIVED BLOOD Past Psychological History: No Psychological Hx Reported Smoking Status: Never smoker Past Alcohol Use History: Occasional Past Drug Use History: None Reported - Past Family History Father Family Medical History: Hypertension Additional Family Medical History / Comment(s): FATHER ALIVE AND IS 74 YRS OLD. Mother Family Medical History: Osteoarthritis (OA) Additional Family Medical History / Comment(s): MOTHER HAS ALOT OF ARTHRITIS AND HAS HAD MANY ORTHOPEDIC SURGERIES. SHE IS 73 YRS OLD. <Larry Garcia - Last Filed: 11/11/23 06:42> General Exam Limitations: no limitations General appearance: alert, in no apparent distress Head exam: Present: atraumatic, normocephalic, normal inspection Eye exam: Present: normal appearance, PERRL, EOMI. Absent: scleral icterus, conjunctival injection, periorbital swelling ENT exam: Present: normal exam, mucous membranes moist Neck exam: Present: normal inspection. Absent: tenderness, meningismus, lymphadenopathy Respiratory exam: Present: normal lung sounds bilaterally. Absent: respiratory distress, wheezes, rales, rhonchi, stridor Cardiovascular Exam: Present: regular rate, normal rhythm, normal heart sounds. Absent: systolic murmur, diastolic murmur, rubs, gallop, clicks GI/Abdominal exam: Present: soft, normal bowel sounds. Absent: distended, tenderness, guarding, rebound, rigid Extremities exam: Present: normal inspection, full ROM, normal capillary refill. Absent: tenderness, pedal edema, joint swelling, calf tenderness Back exam: Present: normal inspection Neurological exam: Present: alert, oriented X3, CN II-XII intact Psychiatric exam: Present: normal affect, normal mood Skin exam: Present: warm, dry, intact, normal color. Absent: rash <Larry Garcia - Last Filed: 11/11/23 06:42> Course <Larry Garcia - Last Filed: 11/11/23 06:42> Vital Signs 11/11/23 11/11/23 11/11/23 05:02 06:23 07:44 Temperature 98.6 F Pulse Rate 95 77 72 Respiratory 18 18 18 Rate Blood Pressure 128/85 134/92 138/96 O2 Sat by Pulse 98 96 98 Oximetry 11/11/23 09:39 Temperature 97.9 F Pulse Rate 85 Respiratory 18 Rate Blood Pressure 121/89 O2 Sat by Pulse 96 Oximetry - Reevaluation(s) Reevaluation #1: 11/11/23 05:08 Medical records reviewed (Larry Garcia) Reevaluation #4: Was pt. sent in by a medical professional or institution (PAULIE Fox, AEROPHYSICIST, urgent care, hospital, or usp...) When possible be specific @ -no Did you speak to anyone other than the patient for history (EMS, parent, family, police, friend...)? What history was obtained from this source @ -no Did you review nursing and triage notes (agree or disagree)? Why? @ -agree Are old charts reviewed (outside hosp., previous admission, EMS record, old EKG, old radiological studies, urgent care reports/EKG's, usp records)? Report findings @ -yes Differential Diagnosis (chest pain, altered mental status, abdominal pain women, abdominal pain men, vaginal bleeding, weakness, fever, dyspnea, syncope, headache, dizziness, GI bleed, back pain, seizure, CVA, palpatations, mental health, musculoskeletal)? @ -prior EKG interpreted by me (3pts min.). @ -yes X-rays interpreted by me (1pt min.). @ -yes negative for acute disease CT interpreted by me (1pt min.). @ -no U/S interpreted by me (1pt. min.). @ -no What testing was considered but not performed or refused? (CT, X-rays, U/S, labs)? Why? @ -none What meds were considered but not given or refused? Why? @ -none Did you discuss the management of the patient with other professionals (adarsh starr i.e. PAULIE Fox, AEROPHYSICIST, lab, RT, psych nurse, social science teacher, data warehouse administrator, teacher, staff air defense officer, case briefer)? Give summary @ -no Was smoking cessation discussed for >3mins.? @ -no Was critical care preformed (if so, how long)? @ -no Were there social determinants of health that impacted care today? How? (Homelessness, low income, unemployed, alcoholism, drug addiction, transportation, low edu. Level, literacy, decrease access to med. care, custodial, rehab)? @ -none Was there de-escalation of care discussed even if they declined (Discuss DNR or withdrawal of care, Hospice)? DNR status @ -no What co-morbidities impacted this encounter? (DM, HTN, Smoking, COPD, CAD, Cancer, CVA, ARF, Chemo, Hep., AIDS, mental health diagnosis, sleep apnea, morbid obesity)? @ -none Was patient admitted / discharged? Hospital course, mention meds given and route, prescriptions, significant lab abnormalities, going to OR and other pertinent info. @ - Undiagnosed new problem with uncertain prognosis? @ -no Drug Therapy requiring intensive monitoring for toxicity (Heparin, Nitro, Insulin, Cardizem)? @ -no Were any procedures done? @ -no Diagnosis/symptom? @ - Acute, or Chronic, or Acute on Chronic? @ -Acute Uncomplicated (without systemic symptoms) or Complicated (systemic symptoms)? @ -Complicated Side effects of treatment? @ -no Exacerbation, Progression, or Severe Exacerbation? @ -exacerbation Poses a threat to life or bodily function? How? (Chest pain, [place], [place], pneumonia, PE, COPD, DKA, ARF, appy, cholecystitis, CVA, Diverticulitis, Homicidal, Suicidal, threat to staff... and all critical care pts) @ -yes (Larry Garcia) Reevaluation #5: Differential Abdominal Pain Men: Appendicitis, cholecystitis, diverticulosis, ischemic bowel, pancreatitis, hepatitis, UTI, gastroenteritis, AAA, incarcerated hernia, bowel obstruction, constipation, inflammatory bowel, hepatitis, peptic ulcer disease, splenic infarction, perforated viscus, testicular torsion, this is not meant to be an all-inclusive list Differential Back Pain: Strain, zoster, cauda equina syndrome, epidural abscess, vertebral osteomyelitis, discitis, fracture, subluxation, disc herniation, DJD, spinal stenosis, dissection, AAA, pancreatitis, peptic ulcer disease, pyelonephritis, kidney stone, this is not meant to be an all-inclusive list. (Larry Garcia) Medical Decision Making - Lab Data Result diagrams: 11/11/23 05:42 <Larry Garcia - Last Filed: 11/11/23 06:42> - Lab Data Result diagrams: 11/11/23 05:42 11/11/23 05:42 <Edenilson Calabrese - Last Filed: 11/11/23 15:52> - Medical Decision Making Signed out to me pending results of workup. Patient presenting with right upper quadrant abdominal discomfort. Workup so far shows x-ray findings consistent with enteritis as interpreted by myself. Does have a colostomy bag. Has been having pain for multiple days and has overlying shingles. Laboratory studies unremarkable. I reevaluate the patient. I did offer right upper quadrant ultrasound. Had recent CT imaging and we both agree that he does not require this at this time. Right upper quadrant ultrasound unremarkable. CBD is 6 mm but that is normal for the patient's age. On reevaluation, patient is feeling improved. I did offer CT imaging however he agrees to defer at this time as he would like to go home. I believe this is reasonable. He will be discharged home with strict return precautions. I will provide the patient with a prescription for Bentyl. I instructed the patient to follow up with their PCP in the next 1-3 days.. I explained that the patient should return to the emergency department if they experience any worsening symptoms. Strict return precautions were discussed with the patient. The patient expressed understanding of these instructions. I answered all questions that the patient had. The patient was discharged home in fair condition with their prescriptions and follow up information. Diagnosis/symptom? @ -Abdominal pain of unknown etiology, enteritis, shingles Acute, or Chronic, or Acute on Chronic? @ -Acute Uncomplicated (without systemic symptoms) or Complicated (systemic symptoms)? @ -Uncomplicated Side effects of treatment? @ -None Exacerbation, Progression, or Severe Exacerbation] @ -No Poses a threat to life or bodily function? @ -Unlikely (Edenilson Calabrese) - Lab Data Lab Results 11/11/23 11/11/23 11/11/23 Range/Units 05:42 05:42 05:42 WBC 6.7 (3.8-10.6) k/uL RBC 4.67 (4.30-5.90) m/uL Hgb 15.4 (13.0-17.5) gm/dL Hct 41.2 (39.0-53.0) % MCV 88.2 (80.0-100.0) fL MCH 33.0 (25.0-35.0) pg MCHC 37.4 H (31.0-37.0) g/dL RDW 13.1 (11.5-15.5) % Plt Count 218 (150-450) k/uL MPV 7.0 Neutrophils % 75 % Lymphocytes % 14 % Monocytes % 6 % Eosinophils % 3 % Basophils % 1 % Neutrophils # 5.1 (1.3-7.7) k/uL Lymphocytes # 0.9 L (1.0-4.8) k/uL Monocytes # 0.4 (0-1.0) k/uL Eosinophils # 0.2 (0-0.7) k/uL Basophils # 0.0 (0-0.2) k/uL Hyperchromasia Slight Sodium 139 (137-145) mmol/L Potassium 4.3 (3.5-5.1) mmol/L Chloride 108 H (98-107) mmol/L Carbon Dioxide 21 L (22-30) mmol/L Anion Gap 10 mmol/L BUN 20 (9-20) mg/dL Creatinine 1.01 (0.66-1.25) mg/dL Est GFR (CKD-EPI)AfAm >90 (>60 ml/min/1.73 sqM) Est GFR (CKD-EPI)NonAf 80 (>60 ml/min/1.73 sqM) Glucose 139 H (74-99) mg/dL Plasma Lactic Acid Ganesh 2.0 (0.7-2.0) mmol/L Calcium 9.2 (8.4-10.2) mg/dL Total Bilirubin 1.3 (0.2-1.3) mg/dL AST 26 (17-59) U/L ALT 27 (4-49) U/L Alkaline Phosphatase 70 (38-126) U/L Total Protein 7.1 (6.3-8.2) g/dL Albumin 4.2 (3.5-5.0) g/dL Amylase 59 (30-110) U/L Lipase 192 (23-300) U/L Urine Color Urine Appearance (Clear) Urine pH (5.0-8.0) Ur Specific Shelby (1.001-1.035) Urine Protein (Negative) Urine Glucose (UA) (Negative) Urine Ketones (Negative) Urine Blood (Negative) Urine Nitrite (Negative) Urine Bilirubin (Negative) Urine Urobilinogen (<2.0) mg/dL Ur Leukocyte Esterase (Negative) 11/11/23 Range/Units 05:42 WBC (3.8-10.6) k/uL RBC (4.30-5.90) m/uL Hgb (13.0-17.5) gm/dL Hct (39.0-53.0) % MCV (80.0-100.0) fL MCH (25.0-35.0) pg MCHC (31.0-37.0) g/dL RDW (11.5-15.5) % Plt Count (150-450) k/uL MPV Neutrophils % % Lymphocytes % % Monocytes % % Eosinophils % % Basophils % % Neutrophils # (1.3-7.7) k/uL Lymphocytes # (1.0-4.8) k/uL Monocytes # (0-1.0) k/uL Eosinophils # (0-0.7) k/uL Basophils # (0-0.2) k/uL Hyperchromasia Sodium (137-145) mmol/L Potassium (3.5-5.1) mmol/L Chloride (98-107) mmol/L Carbon Dioxide (22-30) mmol/L Anion Gap mmol/L BUN (9-20) mg/dL Creatinine (0.66-1.25) mg/dL Est GFR (CKD-EPI)AfAm (>60 ml/min/1.73 sqM) Est GFR (CKD-EPI)NonAf (>60 ml/min/1.73 sqM) Glucose (74-99) mg/dL Plasma Lactic Acid Ganesh (0.7-2.0) mmol/L Calcium (8.4-10.2) mg/dL Total Bilirubin (0.2-1.3) mg/dL AST (17-59) U/L ALT (4-49) U/L Alkaline Phosphatase (38-126) U/L Total Protein (6.3-8.2) g/dL Albumin (3.5-5.0) g/dL Amylase (30-110) U/L Lipase (23-300) U/L Urine Color Light Yellow Urine Appearance Clear (Clear) Urine pH 5.5 (5.0-8.0) Ur Specific [place] 1.024 (1.001-1.035) Urine Protein Trace H (Negative) Urine Glucose (UA) 4+ H (Negative) Urine Ketones Negative (Negative) Urine Blood Negative (Negative) Urine Nitrite Negative (Negative) Urine Bilirubin Negative (Negative) Urine Urobilinogen <2.0 (<2.0) mg/dL Ur Leukocyte Esterase Negative (Negative) Disposition Is patient prescribed a controlled substance at d/c from ED?: No <Larry Garcia - Last Filed: 11/11/23 06:42> Is patient prescribed a controlled substance at d/c from ED?: No Time of Disposition: 09:18 <Edenilson Calabrese - Last Filed: 11/11/23 15:52> Clinical Impression: Shingles, Abdominal pain, Enteritis Disposition: HOME SELF-CARE Condition: Fair Instructions (If sedation given, give patient instructions): Shingles (ED) Prescriptions: Dicyclomine [Bentyl] 10 mg PO TID PRN 7 Days #21 capsule PRN Reason: Pain Referrals: Regino Ibrahim MD [Primary Care Provider] - 1-2 days
[2023-11-11 05:25] VITALS: RESP 18
[2023-11-11] MEDS: SODIUM CHLORIDE 0.9% 1,000 ML IV STA (05:41)
[2023-11-11] MEDS: MORPHINE SULFATE 4 MG/ML SYRINGE IVP STA (06:00)
[2023-11-11] MEDS: ONDANSETRON 4 MG/2 ML VIAL IVP STA (06:01)
[2023-11-11 06:04] LABS: Appearance,Urine Clear (Clear); Bilirubin,Urine Negative (Negative); Blood,Urine Negative (Negative); Color,Urine Light Yellow; Glucose,Urine (UA) 4+ (Negative); Ketones,Urine Negative (Negative); Leukocyte Esterase,Urine Negative (Negative); Nitrite,Urine Negative (Negative); PH, Urine 5.5 (5.0-8.0); Protein,Urine Trace (Negative); Specific Gravity,Urine 1.024 (1.001-1.035); Urobilinogen,Urine <2.0 mg/dL (<2.0)
[2023-11-11 06:22] LABS: ALT 27 U/L (4-49); AST 26 U/L (17-59); African American GFR (CKD) >90 (>60 ml/min/1.73 sqM); Albumin 4.2 g/dL (3.5-5.0); Alkaline Phosphatase 70 U/L (38-126); Amylase 59 U/L (30-110); Anion Gap 10 mmol/L; Blood Urea Nitrogen 20 mg/dL (9-20); Calcium 9.2 mg/dL (8.4-10.2); Carbon Dioxide 21 mmol/L (22-30); Chloride 108 mmol/L (98-107); Glucose 139 mg/dL (74-99); Lipase 192 U/L (23-300); Non-African American GFR(CKD) 80 (>60 ml/min/1.73 sqM); Sodium 139 mmol/L (137-145); Total Bilirubin 1.3 mg/dL (0.2-1.3); Total Protein 7.1 g/dL (6.3-8.2)
[2023-11-11 06:28] LABS: Basophils % (A) 1 %; Eosinophils # (A) 0.2 k/uL (0-0.7); Eosinophils % (A) 3 %; HCT 41.2 % (39.0-53.0); HGB 15.4 gm/dL (13.0-17.5); Hyperchromasia Slight; Lymphocytes # (A) 0.9 k/uL (1.0-4.8); Lymphocytes % (A) 14 %; MCHC 37.4 g/dL (31.0-37.0); MCV 88.2 fL (80.0-100.0); Monocytes # (A) 0.4 k/uL (0-1.0); Monocytes % (A) 6 %; Neutrophils # (A) 5.1 k/uL (1.3-7.7); Neutrophils % (A) 75 %; Platelet Count 218 k/uL (150-450); RBC 4.67 m/uL (4.30-5.90); RDW 13.1 % (11.5-15.5); WBC 6.7 k/uL (3.8-10.6)
--- NOTE | 2023-11-11 07:29 | XR ---
EXAMINATION TYPE: XR KUB DATE OF EXAM: 11/11/2023 Comparison: 05/30/2016 Clinical History: 63-year-old male abdominal and back pain Findings: No evidence for free intraperitoneal air. No dilated small bowel or air-fluid levels. Some mild scatt ered air is present. Some air-filled clustered small bowel loops right mid to lower abdomen. Suture m aterial projects at the right mid abdomen. Surgical clips mid pelvis. Impression: A few prominent but nondilated small bowel loops in the right mid to lower abdomen, either transient or could represent a mild regional ileus or enteritis. No evidence for free air or bowel obstruction.
[2023-11-11] MEDS: KETOROLAC 15 MG/ML 1 ML VIAL IVP STA (07:30)
[2023-11-11] MEDS: HYDROmorphone 1 MG/ML 1 ML SYRINGE IVP STA (07:33)
[2023-11-11] MEDS: LIDOCAINE 4% PATCH TOPICAL ONE (07:38)
[2023-11-11 07:43] LABS: Potassium 4.3 mmol/L (3.5-5.1)
[2023-11-11] MEDS: traMADol 50 MG STARTER PACK 3 TAB BTL PO STA (07:45)
--- NOTE | 2023-11-11 08:30 | US ---
EXAMINATION TYPE: US gallbladder DATE OF EXAM: 11/11/2023 COMPARISON: CT 11/09/23, ultrasound 03/30/2022 CLINICAL INDICATION: Male, 63 years old with history of eval gallbladder; Pt has shingles rash rt fla nk x 1 week, deeper subcostal RUQ pin x 2 days TECHNIQUE: Multiple sonographic images of the right upper quadrant are obtained. FINDINGS: EXAM MEASUREMENTS: Liver Length: 20.4 cm Gallbladder Wall: 0.2 cm CBD: 0.6 cm Right Kidney: 10.7x5.6x6.8 cm PRODUCTION SUPERINTENDENT HYDRO NOTES: Pancreas: Obscured by bowel gas Liver: increased size, echogenicity, and attenuation Gallbladder: wnl Evidence for sonographic Renteria's sign: No CBD: wnl Right Kidney: No hydronephrosis or masses seen, perinephric sweating . 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 Exam limited by patient pain, positioning, and body habitus IMPRESSION: 1. Hepatomegaly correlate for underlying hepatocellular disease\hepatic steatosis. 2. No evidence of cholelithiasis. Common bile duct is at upper limits of normal measuring 6 mm. Could not exclude mild intrahepatic biliary ductal dilation. Recommend CT scan of the abdomen and pelvis.
[2023-11-11] MEDS: LIDOCAINE 4% CREAM 5 GM TUBE TOPICAL ONE (09:42)
[2023-11-11] MEDS: ONDANSETRON 4 MG ODT STARTER PACK 2 TAB BTL PO STA (09:44)
[2023-11-11 09:48] VITALS: BP 121/89; PULSE 85; TEMP 97.9
== END 2023-11-11 09:45 | disposition home or self-care (01) ==
LOC: EC 04:58
DX: K52.9 Noninfective gastroenteritis and colitis, unspecified (principal); B02.9 Zoster without complications; Z88.5 Allergy status to narcotic agent; Z88.1 Allergy status to other antibiotic agents; Z88.8 Allergy status to other drugs, medicaments and biological substances
CPT/HCPCS: 36415; 80053; 82150; 83605; 83690; 85025; 81003; 74018; 76705; 99285; 96374; 96375 ×3; 96361 ×4; J2270; J2405; J1170; J1885; S0119

== ENCOUNTER 2024-03-06 15:23 | Emergency (ER) | payer MEDICAID ==
[2024-03-06 15:38] VITALS: TEMP 97.6
--- NOTE | 2024-03-06 16:24 | ED ---
General Adult HPI - General Chief complaint: Neuro Symptoms/Deficit Stated complaint: dizzy/low blood pressure Time Seen by Provider: 03/06/24 15:46 Source: patient Mode of arrival: wheelchair Limitations: no limitations - History of Present Illness Initial comments: Patient is a 63 y/o gentleman presenting for orthostatic hypotension with associated dizziness. Patient states recently admitted for the same. Was following up with his compensation specialist today (whome he was seeing to follow up on kidney disease diagnosed during prior admission) and when he stood up his " blood pressure dropped to 60/40" and he became dizzy. Computer Aide MD emergency department for further evaluation. Patient states over the last month he has had persistent headaches, does have 1 today, similar to his prior headaches. States nothing helps his headaches. Dizziness is described as lightheadedness. Initially blurred vision however states it is intermittent over the last month, occurs during episodes of dizziness. States that some days he will go to work and feel dizzy all days. Currently endorses some blurry vision in right lower visual field, states this has been ongoing for one year and his doctor plans to have patient have outpatient diabetic eye exam in the near future. + nausea, no emesis, no CP or BA, no abdominal pain, diarrhea or vomiting. No slulrred speech, numbness or weakness. - Related Data Home Medications Medication Instructions Recorded Confirmed HYDROcodone/APAP 10-325MG [[place] 1 tab PO Q8H PRN 05/12/14 03/06/24 10-325] Losartan Potassium [Cozaar] 100 mg PO DAILY 07/14/19 03/06/24 Tamsulosin [Flomax] 0.4 mg PO HS 05/26/20 03/06/24 Metoprolol Tartrate [Lopressor] 25 mg PO BID 08/11/20 03/06/24 metFORMIN HCL [Glucophage] 1,000 mg PO BID 08/11/20 03/06/24 Atorvastatin [Lipitor] 40 mg PO DAILY 03/06/24 03/06/24 Cholecalciferol (Vitamin D3) 50 mcg PO DAILY 03/06/24 03/06/24 [Vitamin D3 (50 Mcg = 2000 Iu)] Cyclobenzaprine [Flexeril] 5 mg PO BID PRN 03/06/24 03/06/24 DULoxetine HCL [Cymbalta] 30 mg PO DAILY 03/06/24 03/06/24 DULoxetine HCL [Cymbalta] 60 mg PO DAILY 03/06/24 03/06/24 Empagliflozin [Jardiance] 10 mg PO DAILY 03/06/24 03/06/24 Insulin Glargine,Hum.rec.anlog 44 units SQ HS 03/06/24 03/06/24 [Basagljuany Finneypen U-100] Pantoprazole [Protonix] 40 mg PO DAILY 03/06/24 03/06/24 Pregabalin [Lyrica] 50 mg PO TID 03/06/24 03/06/24 Semaglutide [Ozempic] 1 mg SQ TH 03/06/24 03/06/24 Sodium Bicarbonate 650 mg PO DAILY 03/06/24 03/06/24 amLODIPine [Norvasc] 5 mg PO DAILY 03/06/24 03/06/24 Previous Rx's Medication Instructions Recorded Aspirin 81 mg PO DAILY #21 chew 08/12/20 Clopidogrel [Plavix] 75 mg PO DAILY #30 tab 08/12/20 Magnesium Oxide [Mag-Ox] 400 mg PO DAILY 5 Days #5 tablet 03/06/24 Allergies Allergy/AdvReac Type Severity Reaction Status Date / Time levofloxacin [From Levaquin] AdvReac Severe Chest Pain Verified 03/06/24 16:26 cephalexin monohydrate AdvReac Unknown Nausea & Verified 03/06/24 16:26 [From Keflex] Vomiting codeine AdvReac Unknown Nausea & Verified 03/06/24 16:26 Vomiting Review of Systems ROS Statement: Those systems with pertinent positive or pertinent negative responses have been documented in the HPI. ROS Other: All systems not noted in ROS Statement are negative. Past Medical History Past Medical History: Diabetes Mellitus, GERD/Reflux, Hypertension, Osteoarthritis (OA) Additional Past Medical History / Comment(s): 8-10 KIDNEY STONES, ULCERATIVE Colitis, RECTUM REMOVED. PT HAS ARTHIRITIS ALL OVER, History of Any Multi-Drug Resistant Organisms: None Reported Date of last positivie culture/infection: 12/14/16 MDRO Source:: TOE Past Surgical History: Appendectomy, Bowel Resection, Heart Catheterization, Joint Replacement, Orthopedic Surgery Additional Past Surgical History / Comment(s): BILATERAL TOTAL KneeS,L Shoulder ROTATOR CUFF REPAIR, BILATERALHandS L HAND INDEX FINGER AND R HAND MIDDLE FINGER BOTH PARTIAL AMP WITH REPAIR, COLECTOMY/ILEOSTOMY. CARDIAC CATH YRS AGO AND NO BLOCKAGES-DONE AT [facility]. Past Anesthesia/Blood Transfusion Reactions: No Reported Reaction Additional Past Anesthesia/Blood Transfusion Reaction / Comment(s): NEVER RECEIVED BLOOD Past Psychological History: No Psychological Hx Reported Smoking Status: Never smoker Past Alcohol Use History: Occasional Past Drug Use History: None Reported - Past Family History Father Family Medical History: Hypertension Additional Family Medical History / Comment(s): FATHER ALIVE AND IS 74 YRS OLD. Mother Family Medical History: Osteoarthritis (OA) Additional Family Medical History / Comment(s): MOTHER HAS ALOT OF ARTHRITIS AND HAS HAD MANY ORTHOPEDIC SURGERIES. SHE IS 73 YRS OLD. General Exam - General Exam Comments Initial Comments: PE: CONSTITUTIONAL: No apparent distress, ill-appearing though nontoxic, tearful SKIN: Warm, dry, no jaundice, hives or petechiae EYES: Pupils are equally round, extraocular movements intact without nystagmus, clear conjunctiva, non-icteric sclera HENT: Normocephalic, atraumatic, moist mucus membranes, oropharynx clear without exudates NECK: , Full range of motion, normal appearance PULMONARY: Clear to auscultation without wheezes, rhonchi, or rales, normal excursion, no accessory muscle use and no stridor CARDIOVASCULAR: Regular rate, rhythm, normal S1 and S2. No appreciated murmurs, rubs or gallops. Strong radial pulses with intact distal perfusion. No lower extremity edema GASTROINTESTINAL: Soft, non-tender, non-distended, no palpable masses, no rebound or guarding. No hepatosplenomegaly. Colostomy bag right lower quadrant draining loose yellow stool MUSCULOSKELETAL: Extremities have no gross deformity, no edema, redness, or swelling. No calf swelling ot TTP. NEUROLOGIC: a/o x 3, GCS 15, normal mentation and speech. Moves all extremities x 4 without motor or sensory deficit, cranial nerves: II (, right lower quadrant blurry vision, otherwise visual heck without defects), III, IV and (extraocular movements are intact, pupils are equal with normal reaction to light), V (intact facial sensation and jaw opening), VII (no facial droop), IX and X (normal palate movement, midline uvula, normal voice), XI (symmetrical shoulder shrug and lateral head rotation against resistance), XII (midline tongue protrusion). Motor strength is 5/5 in all extremities. No abnormal movements. Normal muscle tone. Sensation to light touch is intact bilaterally. PSYCHIATRIC:_normal mood and affect, thought process is clear and linear Limitations: no limitations Course Vital Signs 03/06/24 03/06/24 03/06/24 15:35 15:38 16:38 Temperature 97.6 F Pulse Rate 61 Pulse Rate [ 98 Sitting Yield Improvement Engineer] Pulse Rate [ 106 H Standing Yield Improvement Engineer ] Pulse Rate [ 85 Supine Yield Improvement Engineer] Respiratory 18 18 20 Rate Blood Pressure 130/91 Blood Pressure 100/71 [Left Arm Sitting] Blood Pressure 81/62 [Left Arm Standing] Blood Pressure 120/81 [Left Arm Supine] O2 Sat by Pulse 99 96 96 Oximetry 03/06/24 03/06/24 03/06/24 17:00 18:00 19:00 Temperature Pulse Rate 76 82 87 Pulse Rate [ Sitting Yield Improvement Engineer] Pulse Rate [ Standing Yield Improvement Engineer ] Pulse Rate [ Supine Yield Improvement Engineer] Respiratory 18 16 16 Rate Blood Pressure 142/82 141/97 153/84 Blood Pressure [Left Arm Sitting] Blood Pressure [Left Arm Standing] Blood Pressure [Left Arm Supine] O2 Sat by Pulse 98 94 L 98 Oximetry 03/06/24 03/06/24 20:43 22:00 Temperature Pulse Rate 84 Pulse Rate [ 96 Sitting Yield Improvement Engineer] Pulse Rate [ 114 H Standing Yield Improvement Engineer ] Pulse Rate [ 60 Supine Yield Improvement Engineer] Respiratory 18 Rate Blood Pressure 146/72 Blood Pressure 155/98 [Left Arm Sitting] Blood Pressure 124/75 [Left Arm Standing] Blood Pressure 153/94 [Left Arm Supine] O2 Sat by Pulse 98 Oximetry - Reevaluation(s) Reevaluation #1: Patient's labs delayed, discussed with RNNaima, labs have already been sent, lab appears to be having issues processing blood work at this point. Patient is r sleeping comfortably this time. Blood pressure improved with fluid bolus. 03/06/24 19:34 EKG Findings - EKG Comments: EKG Findings:: Sinus rhythm, rate 79 bpm, OH interval 200 ms, QRS duration 116 ms, QT/QTc 388/422 ms, left axis deviation, no significant ST elevations or depressions, Most recent EKG compared with available for comparison was performed on 08/11/20, question small possible Q wave in V1, otherwise no significant new ST elevations or depressions/changes from prior Medical Decision Making - Medical Decision Making Was pt. sent in by a medical professional or institution (, PA, VENDING TECHNICIAN, urgent care, hospital, or fdc...) When possible be specific @ -Patient sent in by his compensation specialist Did you speak to anyone other than the patient for history (EMS, parent, family, police, friend...)? What history was obtained from this source @ -Patient's at bedside assisting providing history Did you review nursing and triage notes (agree or disagree)? Why? @ -[I reviewed triage notes, agree except for comments regarding blurry vision and severe headache, patient's headache is chronic and endorses intermittent blurred vision, currently blurry vision in right lower quadrant visual field ongoing for last year Were old charts reviewed (outside hosp., previous admission, EMS record, old EKG, old radiological studies, urgent care reports/EKG's, fdc records)? Report findings @ -Of note, due to "Downtime" for the last month, no EMR records of patient's recent admission available for review, patient appeared to visit ED on 11/11/2023, KUB x-ray showed prominent but nondilated small bowel loops possibly promotions representative of ileus or enteritis no obstruction ultrasound of the gallbladder showed hepatomegaly concerning for underlying hepatocellular disease or hepatic steatosis, no evidence of cholelithiasis CT of the abdomen showed no renal or ureteral calcifications, prior colectomy with ostomy in the right lower quadrant Differential Diagnosis (chest pain, altered mental status, abdominal pain women, abdominal pain men, vaginal bleeding, weakness, fever, dyspnea, syncope, headache, dizziness, GI bleed, back pain, seizure, CVA, palpatations, mental health, musculoskeletal)? @ -Differential diagnosis remains broad over top considerations include Benign paroxysmal positional Vertigo, Meniere's disease, vertebrobasilar insufficiency, hypovolemia, hypoglycemia, orthostatic hypotension arrhythmia, ACS, anemia, this is not meant to be an all-inclusive list EKG interpreted by me (3pts min.). @ -Sinus rhythm as above X-rays interpreted by me (1pt min.). @ -No acute process, no cardiomegaly, effusions or consolidation CT interpreted by me (1pt min.). @ -None done U/S interpreted by me (1pt. min.). @ -None done What testing was considered but not performed or refused? (CT, X-rays, U/S, labs)? Why? @ Considered CT brain however patient has no focal deficits on exam, dizziness described as "lightheadedness" and HERR described as chronic What meds were considered but not given or refused? Why? @ -Considered Toradol for HERR however patient with hx GERD so this was withheld Did you discuss the management of the patient with other professionals (professionals i.e. , PA, VENDING TECHNICIAN, lab, RT, psych nurse, manager social services, rim roller operator, teacher, administrative hearing officer, transplant case manager)? Give summary @ -No Was smoking cessation discussed for >3mins.? @ -No Was critical care preformed (if so, how long)? @ -No Were there social determinants of health that impacted care today? How? (Homelessness, low income, unemployed, alcoholism, drug addiction, tra nsportation, low edu. Level, literacy, decrease access to med. care, senior living, rehab)? @ -No Was there de-escalation of care discussed even if they declined (Discuss DNR or withdrawal of care, Hospice)? @ -No What co-morbidities impacted this encounter? (DM, HTN, Smoking, COPD, CAD, Cancer, CVA, ARF, Chemo, Hep., AIDS, mental health diagnosis, sleep apnea, morbid obesity)? @ -HTN, DM Was patient admitted / discharged? Hospital course, mention meds given and route, prescriptions, significant lab abnormalities, going to OR and other pertinent info. 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 Patient initially orthostatic vital sign positive, standing blood pressure 81/62, sitting blood pressure 100/71, lying blood pressure 120/81. Received 1 litre IV fluids and migraine cocktail minus toradol. On repeat orthostatic BP measurement seated blood pressure 155/98, standing low pressure 124/75, supine 133/94. Additional 500 cc bolus ordered due to decrease in BP on standing. On my reassessment patient endorses resolution of symptoms and improvement in his headache. He is able to ambulate to the bathroom without difficulty. Given r eassuring labs and improving symptoms plan for dishcarge. Patient is comfortable and agreeable with discharge home at this point. Of note a second EKG showed sinus rhythm, no ST elevation or depression, no arrhythmia, rate 81 bpm, OH 209 ms, QRS duration 160 ms, QT/QTc 407/444 ms, left axis deviation. Discussed this with patient, he will be prescribed short-term magnesium supplementation over the next 5 days discussed the importance of monitoring himself for dizziness return of dizziness, palpitations, shortness of breath, chest pain or feeling like he is going to pass out and return to the ER should he experience the symptoms. We also discussed importance of following with his primary care provider who is seeing this Saturday and discussing repeat EKG to reassess QT interval. Patient comfortable and agreeable with plan. Undiagnosed new problem with uncertain prognosis? @ -No Drug Therapy requiring intensive monitoring for toxicity (Heparin, Nitro, Insulin, Cardizem)? @ -No Were any procedures done? @ -No Diagnosis/symptom? @ -Dizziness, orthostatic hypotension Acute, or Chronic, or Acute on Chronic? @ -Acute Uncomplicated (without systemic symptoms) or Complicated (systemic symptoms)? @ -Complicated Side effects of treatment? @ -No Exacerbation, Progression, or Severe Exacerbation? @ -No Poses a threat to life or bodily function? How? (Chest pain, [place], [place], pneumonia, PE, COPD, DKA, ARF, appy, cholecystitis, CVA, Diverticulitis, Homicidal, Suicidal, threat to staff... and all critical care pts) @ -Potentially if has been left untreated. No at time of discharge - Lab Data Result diagrams: 03/06/24 16:04 03/06/24 16:04 Lab Results 03/06/24 03/06/24 03/06/24 Range/Units 16:04 16:04 16:04 WBC 6.7 (3.8-10.6) k/uL RBC 4.70 (4.30-5.90) m/uL Hgb 15.1 (13.0-17.5) gm/dL Hct 42.1 (39.0-53.0) % MCV 89.7 (80.0-100.0) fL MCH 32.2 (25.0-35.0) pg MCHC 35.9 (31.0-37.0) g/dL RDW 12.7 (11.5-15.5) % Plt Count 226 (150-450) k/uL MPV 7.5 Neutrophils % 79 % Lymphocytes % 11 % Monocytes % 6 % Eosinophils % 3 % Basophils % 1 % Neutrophils # 5.3 (1.3-7.7) k/uL Lymphocytes # 0.8 L (1.0-4.8) k/uL Monocytes # 0.4 (0-1.0) k/uL Eosinophils # 0.2 (0-0.7) k/uL Basophils # 0.0 (0-0.2) k/uL PT 10.9 (10.0-12.5) sec INR 1.0 (<1.2) APTT 26.1 (22.0-30.0) sec Sodium 139 (137-145) mmol/L Potassium 4.3 (3.5-5.1) mmol/L Chloride 108 H (98-107) mmol/L Carbon Dioxide 22 (22-30) mmol/L Anion Gap 9 mmol/L BUN 28 H (9-20) mg/dL Creatinine 1.14 (0.66-1.25) mg/dL Est GFR (CKD-EPI)AfAm 80 (>60 ml/min/1.73 sqM) Est GFR (CKD-EPI)NonAf 69 (>60 ml/min/1.73 sqM) Glucose 135 H (74-99) mg/dL POC Glucose (mg/dL) (70-110) mg/dL POC Glu Java Software Architect ID Plasma Lactic Acid Ganesh (0.7-2.0) mmol/L Calcium 9.8 (8.4-10.2) mg/dL Ionized Calcium Cesario 5.2 (4.5-5.3) mg/dL Phosphorus 2.9 (2.5-4.5) mg/dL Magnesium 1.6 (1.6-2.3) mg/dL Total Bilirubin 1.3 (0.2-1.3) mg/dL AST 37 (17-59) U/L ALT 26 (4-49) U/L Alkaline Phosphatase 68 (38-126) U/L Troponin I (0.000-0.034) ng/mL NT-Pro-B Natriuret Pep 119 pg/mL Total Protein 6.8 (6.3-8.2) g/dL Albumin 4.0 (3.5-5.0) g/dL TSH 0.920 (0.465-4.680) mIU/L Urine Color Urine Appearance (Clear) Urine pH (5.0-8.0) Ur Specific [place] (1.001-1.035) Urine Protein (Negative) Urine Glucose (UA) (Negative) Urine Ketones (Negative) Urine Blood (Negative) Urine Nitrite (Negative) Urine Bilirubin (Negative) Urine Urobilinogen (<2.0) mg/dL Ur Leukocyte Esterase (Negative) 03/06/24 03/06/24 03/06/24 Range/Units 16:04 16:04 17:56 WBC (3.8-10.6) k/uL RBC (4.30-5.90) m/uL Hgb (13.0-17.5) gm/dL Hct (39.0-53.0) % MCV (80.0-100.0) fL MCH (25.0-35.0) pg MCHC (31.0-37.0) g/dL RDW (11.5-15.5) % Plt Count (150-450) k/uL MPV Neutrophils % % Lymphocytes % % Monocytes % % Eosinophils % % Basophils % % Neutrophils # (1.3-7.7) k/uL Lymphocytes # (1.0-4.8) k/uL Monocytes # (0-1.0) k/uL Eosinophils # (0-0.7) k/uL Basophils # (0-0.2) k/uL PT (10.0-12.5) sec INR (<1.2) APTT (22.0-30.0) sec Sodium (137-145) mmol/L Potassium (3.5-5.1) mmol/L Chloride (98-107) mmol/L Carbon Dioxide (22-30) mmol/L Anion Gap mmol/L BUN (9-20) mg/dL Creatinine (0.66-1.25) mg/dL Est GFR (CKD-EPI)AfAm (>60 ml/min/1.73 sqM) Est GFR (CKD-EPI)NonAf (>60 ml/min/1.73 sqM) Glucose (74-99) mg/dL POC Glucose (mg/dL) 157 H (70-110) mg/dL POC Glu Java Software Architect ID Vagts, Suzin Plasma Lactic Acid Ganesh (0.7-2.0) mmol/L Calcium (8.4-10.2) mg/dL Ionized Calcium Cesario (4.5-5.3) mg/dL Phosphorus (2.5-4.5) mg/dL Magnesium (1.6-2.3) mg/dL Total Bilirubin (0.2-1.3) mg/dL AST (17-59) U/L ALT (4-49) U/L Alkaline Phosphatase (38-126) U/L Troponin I <0.012 (0.000-0.034) ng/mL NT-Pro-B Natriuret Pep pg/mL Total Protein (6.3-8.2) g/dL Albumin (3.5-5.0) g/dL TSH (0.465-4.680) mIU/L Urine Color Urine Appearance (Clear) Urine pH (5.0-8.0) Ur Specific [place] (1.001-1.035) Urine Protein (Negative) Urine Glucose (UA) (Negative) Urine Ketones (Negative) Urine Blood (Negative) Urine Nitrite (Negative) Urine Bilirubin (Negative) Urine Urobilinogen (<2.0) mg/dL Ur Leukocyte Esterase (Negative) 03/06/24 Range/Units 20:30 WBC (3.8-10.6) k/uL RBC (4.30-5.90) m/uL Hgb (13.0-17.5) gm/dL Hct (39.0-53.0) % MCV (80.0-100.0) fL MCH (25.0-35.0) pg MCHC (31.0-37.0) g/dL RDW (11.5-15.5) % Plt Count (150-450) k/uL MPV Neutrophils % % Lymphocytes % % Monocytes % % Eosinophils % % Basophils % % Neutrophils # (1.3-7.7) k/uL Lymphocytes # (1.0-4.8) k/uL Monocytes # (0-1.0) k/uL Eosinophils # (0-0.7) k/uL Basophils # (0-0.2) k/uL PT (10.0-12.5) sec INR (<1.2) APTT (22.0-30.0) sec Sodium (137-145) mmol/L Potassium (3.5-5.1) mmol/L Chloride (98-107) mmol/L Carbon Dioxide (22-30) mmol/L Anion Gap mmol/L BUN (9-20) mg/dL Creatinine (0.66-1.25) mg/dL Est GFR (CKD-EPI)AfAm (>60 ml/min/1.73 sqM) Est GFR (CKD-EPI)NonAf (>60 ml/min/1.73 sqM) Glucose (74-99) mg/dL POC Glucose (mg/dL) (70-110) mg/dL POC Glu Java Software Architect ID Plasma Lactic Acid Ganesh (0.7-2.0) mmol/L Calcium (8.4-10.2) mg/dL Ionized Calcium Cesario (4.5-5.3) mg/dL Phosphorus (2.5-4.5) mg/dL Magnesium (1.6-2.3) mg/dL Total Bilirubin (0.2-1.3) mg/dL AST (17-59) U/L ALT (4-49) U/L Alkaline Phosphatase (38-126) U/L Troponin I (0.000-0.034) ng/mL NT-Pro-B Natriuret Pep pg/mL Total Protein (6.3-8.2) g/dL Albumin (3.5-5.0) g/dL TSH (0.465-4.680) mIU/L Urine Color Light Yellow Urine Appearance Clear (Clear) Urine pH 5.5 (5.0-8.0) Ur Specific [place] 1.034 (1.001-1.035) Urine Protein Trace H (Negative) Urine Glucose (UA) 4+ H (Negative) Urine Ketones Negative (Negative) Urine Blood Negative (Negative) Urine Nitrite Negative (Negative) Urine Bilirubin Negative (Negative) Urine Urobilinogen <2.0 (<2.0) mg/dL Ur Leukocyte Esterase Negative (Negative) Disposition Clinical Impression: Dizziness, Orthostatic hypotension Disposition: HOME SELF-CARE Condition: Good Instructions (If sedation given, give patient instructions): Hypotension (ED) Additional Instructions: Every disease is a spectrum and a small chance still exists that a serious condition could develop, for this reason, please monitor yourself closely for new, changing or worsening symptoms, chest pain, shortness of breath, palpitations, feeling like you are going to pass out or episodes of passing out, fever, headache that you have never had before/worse headache in your life, changes in vision, slurred speech, weakness or numbness, confusion, inability to tolerate/keep down fluids or your medications, inability to follow up with outpatient providers as instructed and should you experience these symptoms or should you have any further concerns for your wellbeing please return to the ED or call 911 immediately. PLEASE call your primary care physician as soon as possible to arrange / discuss plan for followup appointment. Appointment in the next 1-3 days is strongly encouraged if possible. Please discuss repeat EKG for borderline prolonged QT interval on EKG and continuation of magnesium supplementation. Drink plenty of fluids and get plenty of rest. Please avoid exertional activitie s in the hot weather. PLEASE let us know here before you leave if there is anything further we can do to be of any assistance. Take care and feel Better! Prescriptions: Magnesium Oxide [Mag-Ox] 400 mg PO DAILY 5 Days #5 tablet Is patient prescribed a controlled substance at d/c from ED?: No Referrals: Regino Ibrahim MD [Primary Care Provider] - 1-2 days Time of Disposition: 21:33
[2024-03-06] MEDS: MAGNESIUM SULFATE-D5W PMX 1 GM in DEXTROSE/WATER 1 100ML.BAG IVPB ONE (17:29)
[2024-03-06] MEDS: SODIUM CHLORIDE 0.9% 1,000 ML IV STA (17:30)
[2024-03-06] MEDS: METOCLOPRAMIDE 5 MG/ML 2 ML VIAL IVP STA (17:30)
[2024-03-06] MEDS: diphenhydrAMINE 50 MG/ML 1 ML VIAL IVP STA (17:30)
[2024-03-06 17:57] LABS: Glucose,Whole Blood 157 mg/dL (70-110)
--- NOTE | 2024-03-06 18:44 | XR ---
EXAMINATION TYPE: XR chest 2V DATE OF EXAM: 03/06/2024 6:17 PM CLINICAL INDICATION: Male, 63 years old with history of Weakness; H COMPARISON: Chest radiographs from 04/13/2021 TECHNIQUE: XR chest 2V Frontal view of the chest. FINDINGS: Lungs/Pleura: There is no evidence of pleural effusion, focal consolidation, or pneumothorax. Pulmonary vascularity: Unremarkable. Heart/mediastinum: Cardiomediastinal silhouette is unremarkable. Musculoskeletal: No acute osseous pathology. Other findings: None IMPRESSION: No acute cardiopulmonary disease/process.
[2024-03-06 19:30] LABS: Basophils % (A) 1 %; Eosinophils # (A) 0.2 k/uL (0-0.7); Eosinophils % (A) 3 %; HCT 42.1 % (39.0-53.0); HGB 15.1 gm/dL (13.0-17.5); Lymphocytes # (A) 0.8 k/uL (1.0-4.8); Lymphocytes % (A) 11 %; MCH 32.2 pg (25.0-35.0); MCHC 35.9 g/dL (31.0-37.0); MCV 89.7 fL (80.0-100.0); Mean Platelet Volume 7.5; Monocytes # (A) 0.4 k/uL (0-1.0); Monocytes % (A) 6 %; Neutrophils # (A) 5.3 k/uL (1.3-7.7); Neutrophils % (A) 79 %; Platelet Count 226 k/uL (150-450); RDW 12.7 % (11.5-15.5); WBC 6.7 k/uL (3.8-10.6)
[2024-03-06 19:52] LABS: Ionized Calcium 5.2 mg/dL (4.5-5.3)
[2024-03-06 20:01] LABS: Partial Thromboplastin Time 26.1 sec (22.0-30.0); Prothrombin Time 10.9 sec (10.0-12.5)
[2024-03-06 20:08] LABS: ALT 26 U/L (4-49); African American GFR (CKD) 80 (>60 ml/min/1.73 sqM); Anion Gap 9 mmol/L; Blood Urea Nitrogen 28 mg/dL (9-20); Calcium 9.8 mg/dL (8.4-10.2); Carbon Dioxide 22 mmol/L (22-30); Chloride 108 mmol/L (98-107); Glucose 135 mg/dL (74-99); Non-African American GFR(CKD) 69 (>60 ml/min/1.73 sqM); Sodium 139 mmol/L (137-145); Total Bilirubin 1.3 mg/dL (0.2-1.3)
[2024-03-06 20:16] LABS: NT-Pro-B-Type Natriuretic Pept 119 pg/mL
[2024-03-06 20:49] LABS: Phosphorus 2.9 mg/dL (2.5-4.5); Potassium 4.3 mmol/L (3.5-5.1)
[2024-03-06 20:50] LABS: AST 37 U/L (17-59); Alkaline Phosphatase 68 U/L (38-126); Magnesium 1.6 mg/dL (1.6-2.3); Total Protein 6.8 g/dL (6.3-8.2)
[2024-03-06 21:02] LABS: Appearance,Urine Clear (Clear); Bilirubin,Urine Negative (Negative); Blood,Urine Negative (Negative); Color,Urine Light Yellow; Glucose,Urine (UA) 4+ (Negative); Ketones,Urine Negative (Negative); Leukocyte Esterase,Urine Negative (Negative); Nitrite,Urine Negative (Negative); PH, Urine 5.5 (5.0-8.0); Protein,Urine Trace (Negative); Specific Gravity,Urine 1.034 (1.001-1.035); Urobilinogen,Urine <2.0 mg/dL (<2.0)
[2024-03-06] MEDS: SODIUM CHLORIDE 0.9% 500 ML 500 ML IV ONE (21:21)
[2024-03-06 23:07] VITALS: BP 146/72; PULSE 84; RESP 18
== END 2024-03-06 23:00 | disposition home or self-care (01) ==
LOC: EC 15:23
CPT/HCPCS: 36415; 71046; 80053; 81003; 82330; 83605; 83735; 83880; 84100; 84443; 84484; 85025; 85610; 85730; 93005; 96361; 96365; 96366; 96375; 99284

== ENCOUNTER 2024-04-30 13:14 | Inpatient (IN) | payer MEDICAID ==
--- NOTE | 2024-04-30 13:38 | ED ---
Dizziness HPI - General Source: patient, RN notes reviewed <Jazzmine Chamberlain - Last Filed: 04/30/24 13:36> <Geri Garcia - Last Filed: 05/01/24 11:43> - General Stated Complaint: Weakness Time Seen by Provider: 04/30/24 13:31 - History of Present Illness Initial Comments: Quick [id number] male with history of hypertension diabetes presents emergency department chief complaint of dizziness, hypertension and muscle cramps. States he has been feeling mildly short of breath. Patient states that when he did his blood pressure this morning it was in the 70s over 60s. He is concerned that he is dehydrated. (Jazzmine Chamberlain) 63-year-old male with past medical history of hypertension, diabetes who presents to the emergency department reporting dizziness, lightheadedness, shortness of breath. He has had increased output from his ostomy. States that he has had this ostomy in place for 25 years. He never had an issue with it until recently. States that he will get a lot of output from it and become dehydrated. He has been diagnosed with orthostatic hypotension. He does not take any medications for the orthostatic hypotension. He reports that he has taken himself off of all of his high blood pressure medications. He denies history of C. difficile. No black or bloody stools. Has never had a colonoscopy after he got his ostomy placed. No fevers. Patient arrives and found to be markedly hypotensive. No other alleviating, precipitating or m odifying factors (Geri Garcia) - Related Data Home Medications Medication Instructions Recorded Confirmed HYDROcodone/APAP 10-325MG [[place] 1 tab PO Q8H PRN 05/12/14 04/30/24 10-325] Tamsulosin [Flomax] 0.4 mg PO HS 05/26/20 04/30/24 metFORMIN HCL [Glucophage] 1,000 mg PO BID 08/11/20 04/30/24 Atorvastatin [Lipitor] 40 mg PO DAILY 03/06/24 04/30/24 Cyclobenzaprine [Flexeril] 5 mg PO BID PRN 03/06/24 04/30/24 DULoxetine HCL [Cymbalta] 30 mg PO DAILY 03/06/24 04/30/24 DULoxetine HCL [Cymbalta] 60 mg PO DAILY 03/06/24 04/30/24 Empagliflozin [Jardiance] 10 mg PO DAILY 03/06/24 04/30/24 Insulin Glargine,Hum.rec.anlog 44 units SQ HS 03/06/24 04/30/24 [Basagljuany Finneypen U-100] Pantoprazole [Protonix] 40 mg PO DAILY 03/06/24 04/30/24 Pregabalin [Lyrica] 50 mg PO TID 03/06/24 04/30/24 Semaglutide [Ozempic] 0.5 mg SQ TH@2100 03/06/24 04/30/24 Sodium Bicarbonate 650 mg PO DAILY 03/06/24 04/30/24 Meloxicam [Mobic] 15 mg PO DAILY PRN 04/30/24 04/30/24 Ondansetron [Zofran] 4 mg PO Q6HR PRN 04/30/24 04/30/24 Previous Rx's Medication Instructions Recorded Aspirin 81 mg PO DAILY #21 chew 08/12/20 Clopidogrel [Plavix] 75 mg PO DAILY #30 tab 08/12/20 Allergies Allergy/AdvReac Type Severity Reaction Status Date / Time levofloxacin [From Levaquin] AdvReac Severe Chest Pain Verified 04/30/24 15:47 cephalexin monohydrate AdvReac Unknown Nausea & Verified 04/30/24 15:47 [From Keflex] Vomiting codeine AdvReac Unknown Nausea & Verified 04/30/24 15:47 Vomiting Review of Systems ROS Other: All systems not noted in ROS Statement are negative. <Jazzmine Chamberlain - Last Filed: 04/30/24 13:36> ROS Other: All systems not noted in ROS Statement are negative. <Geri Garcia - Last Filed: 05/01/24 11:43> ROS Statement: Those systems with pertinent positive or pertinent negative responses have been documented in the HPI. Past Medical History Past Medical History: Diabetes Mellitus, GERD/Reflux, Hypertension, Osteoarthritis (OA) Additional Past Medical History / Comment(s): 8-10 KIDNEY STONES, ULCERATIVE Colitis, RECTUM REMOVED. PT HAS ARTHIRITIS ALL OVER, History of Any Multi-Drug Resistant Organisms: None Reported Date of last positivie culture/infection: 12/14/16 MDRO Source:: TOE Past Surgical History: Appendectomy, Bowel Resection, Heart Catheterization, Joint Replacement, Orthopedic Surgery Additional Past Surgical History / Comment(s): BILATERAL TOTAL KneeS,L Shoulder ROTATOR CUFF REPAIR, BILATERALHandS L HAND INDEX FINGER AND R HAND MIDDLE FINGER BOTH PARTIAL AMP WITH REPAIR, COLECTOMY/ILEOSTOMY. CARDIAC CATH YRS AGO AND NO BLOCKAGES-DONE AT [facility]. Past Anesthesia/Blood Transfusion Reactions: No Reported Reaction Additional Past Anesthesia/Blood Transfusion Reaction / Comment(s): NEVER RECEIVED BLOOD Past Psychological History: No Psychological Hx Reported Smoking Status: Never smoker Past Alcohol Use History: Occasional Past Drug Use History: None Reported - Past Family History Father Family Medical History: Hypertension Additional Family Medical History / Comment(s): FATHER ALIVE AND IS 74 YRS OLD. Mother Family Medical History: Osteoarthritis (OA) Additional Family Medical History / Comment(s): MOTHER HAS ALOT OF ARTHRITIS AND HAS HAD MANY ORTHOPEDIC SURGERIES. SHE IS 73 YRS OLD. <Jazzmine Chamberlain - Last Filed: 04/30/24 13:36> General Exam <Jazzmine Chamberlain - Last Filed: 04/30/24 13:36> General appearance: alert, in no apparent distress Head exam: Present: atraumatic, normocephalic, normal inspection Eye exam: Present: normal appearance, PERRL, EOMI. Absent: scleral icterus, conjunctival injection, periorbital swelling ENT exam: Present: normal exam, mucous membranes moist Neck exam: Present: normal inspection. Absent: tenderness, meningismus, lymphadenopathy Respiratory exam: Present: normal lung sounds bilaterally. Absent: respiratory distress, wheezes, rales, rhonchi, stridor Cardiovascular Exam: Present: regular rate, normal rhythm, normal heart sounds. Absent: systolic murmur, diastolic murmur, rubs, gallop, clicks GI/Abdominal exam: Present: soft, normal bowel sounds, other (Ostomy with no surrounding redness. Does have some liquid stool in the bag). Absent: distended, tenderness, guarding, rebound, rigid Extremities exam: Present: normal inspection, full ROM, normal capillary refill. Absent: tenderness, pedal edema, joint swelling, calf tenderness Back exam: Present: normal inspection Neurological exam: Present: alert, oriented X3, CN II-XII intact Psychiatric exam: Present: normal affect, normal mood Skin exam: Present: warm, dry, intact, normal color. Absent: rash <Geri Garcia - Last Filed: 05/01/24 11:43> - General Exam Comments Initial Comments: Visual Physical Exam Vital signs reviewed General: Well-appearing, nontoxic, no acute distress. Head: Normocephalic, atraumatic Eyes: PERRLA, EOMI ENT: Airway patent Chest: Nonlabored breathing Skin: No visual rash, normal skin tone Neuro: Alert and oriented 3 Musculoskeletal: No gross abnormalities (Jazzmine Chamberlain) Course Vital Signs 04/30/24 04/30/24 04/30/24 13:36 13:42 14:20 Temperature 97.5 F L Pulse Rate 86 79 Pulse Rate [ 91 Standing] Respiratory 20 18 Rate Blood Pressure 99/42 113/77 Blood Pressure 60/30 [Standing] O2 Sat by Pulse 99 98 Oximetry 04/30/24 04/30/24 04/30/24 14:45 15:00 16:30 Temperature Pulse Rate Pulse Rate [ 84 75 79 Standing] Respiratory 18 18 16 Rate Blood Pressure Blood Pressure 104/73 102/78 113/84 [Standing] O2 Sat by Pulse 98 98 98 Oximetry 04/30/24 04/30/24 17:30 18:15 Temperature Pulse Rate Pulse Rate [ 89 79 Standing] Respiratory 16 18 Rate Blood Pressure Blood Pressure 128/72 128/82 [Standing] O2 Sat by Pulse 99 96 Oximetry Medical Decision Making <Jazzmine Chamberlain - Last Filed: 04/30/24 13:36> - Lab Data Result diagrams: 05/01/24 04:26 05/01/24 04:26 <Geri Garcia - Last Filed: 05/01/24 11:43> - Medical Decision Making I completed the quick note portion of this chart signed Jazzmine Chamberlain PA-C (Jazzmine Chamberlain) Was pt. sent in by a medical professional or institution (PAULIE Fox, [employer], urgent care, hospital, or penitentiary...) When possible be specific @ -No Did you speak to anyone other than the patient for history (EMS, parent, family, police, friend...)? What history was obtained from this source @ -I spoke with the for history Did you review nursing and triage notes (agree or disagree)? Why? @ -I reviewed and agree with nursing and triage notes Were old charts reviewed (outside hosp., previous admission, EMS record, old EKG, old radiological studies, urgent care reports/EKG's, penitentiary records)? Report findings @ -I reviewed patient's ER visit from March 05 where he presented with low blood pressure Differential Diagnosis (chest pain, altered mental status, abdominal pain women, abdominal pain men, vaginal bleeding, weakness, fever, dyspnea, syncope, headache, dizziness, GI bleed, back pain, seizure, CVA, palpatations, mental health, musculoskeletal)? @ -Differential Weakness: Hypoglycemia, shock, sepsis, hyponatremia, anemia, infection, AK, ETOH, adverse medicine reaction, overdose, stroke, this is not meant to be an all-inclusive list. EKG interpreted by me (3pts min.). @ -Yes and demonstrates sinus rhythm with rate of 76. WV interval 207. QRS 117. QTc of 407. No acute ST segment elevations or depressions X-rays interpreted by me (1pt min.). @ -None done CT interpreted by me (1pt min.). @ -None done U/S interpreted by me (1pt. min.). @ -None done What testing was considered but not performed or refused? (CT, X-rays, U/S, labs)? Why? @ -None What meds were considered but not given or refused? Why? @ -None Did you discuss the management of the patient with other professionals (professionals i.e. , PA, [employer], lab, RT, psych nurse, social media community manager, mortgage professional, teacher, chief business development officer, caser)? Give summary @ -Spoke with Dr. Carrion for admission. Patient presents with markedly low blood pressure and acute kidney injury. Was smoking cessation discussed for >3mins.? @ -No Was critical care preformed (if so, how long)? @ -No Were there social determinants of health that impacted care today? How? (Homelessness, low income, unemployed, alcoholism, drug addiction, transportation, low edu. Level, literacy, decrease access to med. care, prison, rehab)? @ -No Was there de-escalation of care discussed even if they declined (Discuss DNR or withdrawal of care, Hospice)? DNR status @ -No What co-morbidities impacted this encounter? (DM, HTN, Smoking, COPD, CAD, Ca ncer, CVA, ARF, Chemo, Hep., AIDS, mental health diagnosis, sleep apnea, morbid obesity)? @ -Hypertension, hyperlipidemia, diabetes Was patient admitted / discharged? Hospital course, mention meds given and route, prescriptions, significant lab abnormalities, going to OR and other pertinent info. @ -Upon arrival patient seen and evaluated in bed 3. Thorough history and physical exam was performed. Patient is markedly hypotensive upon arrival. He is placed on continuous pulse ox and cardiac monitoring. Twelve-lead EKG was obtained. Patient was given a liter bolus of normal saline. Laboratory studies are conducted. Results are discussed with patient. He does have acute kidney injury. I did recommend admission for orthostatic hypotension, acute kidney injury with increased output from his ostomy. Recommended nephrology and GI evaluation. Patient was agreeable to this. Spoke with Dr. Carrion for admission Undiagnosed new problem with uncertain prognosis? @ -No Drug Therapy requiring intensive monitoring for toxicity (Heparin, Nitro, Insulin, Cardizem)? @ -No Were any procedures done? @ -No Diagnosis/symptom? @ -Acute hypotension, PRIMITIVO Acute, or Chronic, or Acute on Chronic? @ -Acute on chronic Uncomplicated (without systemic symptoms) or Complicated (systemic symptoms)? @ -Complicated Side effects of treatment? @ -No Exacerbation, Progression, or Severe Exacerbation? @ -No Poses a threat to life or bodily function? How? (Chest pain, USA, AK, pneumonia, PE, COPD, DKA, ARF, appy, cholecystitis, CVA, Diverticulitis, Homicidal, Suicidal, threat to staff... and all critical care pts) @ -No (Geri Garcia) - Lab Data Lab Results 04/30/24 04/30/24 04/30/24 Range/Units 13:49 13:49 13:49 WBC 9.4 (3.8-10.6) k/uL RBC 5.54 (4.30-5.90) m/uL Hgb 16.9 (13.0-17.5) gm/dL Hct 49.6 (39.0-53.0) % MCV 89.6 (80.0-100.0) fL MCH 30.6 (25.0-35.0) pg MCHC 34.1 (31.0-37.0) g/dL RDW 14.6 (11.5-15.5) % Plt Count 284 (150-450) k/uL MPV 7.3 Neutrophils % 79 % Lymphocytes % 12 % Monocytes % 6 % Eosinophils % 2 % Basophils % 1 % Neutrophils # 7.4 (1.3-7.7) k/uL Lymphocytes # 1.1 (1.0-4.8) k/uL Monocytes # 0.6 (0-1.0) k/uL Eosinophils # 0.2 (0-0.7) k/uL Basophils # 0.1 (0-0.2) k/uL PT 10.6 (10.0-12.5) sec INR 1.0 (<1.2) APTT 26.1 (22.0-30.0) sec Sodium (137-145) mmol/L Potassium (3.5-5.1) mmol/L Chloride (98-107) mmol/L Carbon Dioxide (22-30) mmol/L Anion Gap mmol/L BUN (9-20) mg/dL Creatinine (0.66-1.25) mg/dL Est GFR (CKD-EPI)AfAm (>60 ml/min/1.73 sqM) Est GFR (CKD-EPI)NonAf (>60 ml/min/1.73 sqM) Glucose (74-99) mg/dL Plasma Lactic Acid Ganesh (0.7-2.0) mmol/L Calcium (8.4-10.2) mg/dL Magnesium (1.6-2.3) mg/dL Total Bilirubin (0.2-1.3) mg/dL AST (17-59) U/L ALT (4-49) U/L Alkaline Phosphatase (38-126) U/L Troponin I <0.012 (0.000-0.034) ng/mL Total Protein (6.3-8.2) g/dL Albumin (3.5-5.0) g/dL Influenza Type A (PCR) (Not Detectd) Influenza Type B (PCR) (Not Detectd) RSV (PCR) (Not Detectd) SARS-CoV-2 (PCR) (Not Detectd) 04/30/24 04/30/24 04/30/24 Range/Units 13:49 13:49 15:11 WBC (3.8-10.6) k/uL RBC (4.30-5.90) m/uL Hgb (13.0-17.5) gm/dL Hct (39.0-53.0) % MCV (80.0-100.0) fL MCH (25.0-35.0) pg MCHC (31.0-37.0) g/dL RDW (11.5-15.5) % Plt Count (150-450) k/uL MPV Neutrophils % % Lymphocytes % % Monocytes % % Eosinophils % % Basophils % % Neutrophils # (1.3-7.7) k/uL Lymphocytes # (1.0-4.8) k/uL Monocytes # (0-1.0) k/uL Eosinophils # (0-0.7) k/uL Basophils # (0-0.2) k/uL PT (10.0-12.5) sec INR (<1.2) APTT (22.0-30.0) sec Sodium 138 (137-145) mmol/L Potassium 5.4 H (3.5-5.1) mmol/L Chloride 111 H (98-107) mmol/L Carbon Dioxide 15 L (22-30) mmol/L Anion Gap 12 mmol/L BUN 42 H (9-20) mg/dL Creatinine 2.20 H (0.66-1.25) mg/dL Est GFR (CKD-EPI)AfAm 36 (>60 ml/min/1.73 sqM) Est GFR (CKD-EPI)NonAf 31 (>60 ml/min/1.73 sqM) Glucose 212 H (74-99) mg/dL Plasma Lactic Acid Ganesh 1.7 (0.7-2.0) mmol/L Calcium 9.3 (8.4-10.2) mg/dL Magnesium 2.1 (1.6-2.3) mg/dL Total Bilirubin 1.1 (0.2-1.3) mg/dL AST 20 (17-59) U/L ALT 28 (4-49) U/L Alkaline Phosphatase 100 (38-126) U/L Troponin I (0.000-0.034) ng/mL Total Protein 6.9 (6.3-8.2) g/dL Albumin 4.1 (3.5-5.0) g/dL Influenza Type A (PCR) Not Detected (Not Detectd) Influenza Type B (PCR) Not Detected (Not Detectd) RSV (PCR) Not Detected (Not Detectd) SARS-CoV-2 (PCR) Not Detected (Not Detectd) Disposition <Jazzmine Chamberlain - Last Filed: 04/30/24 13:36> Is patient prescribed a controlled substance at d/c from ED?: No Time of Disposition: 18:24 Decision to Admit Reason: Admit from EC Decision Date: 04/30/24 Decision Time: 18:24 <Geri Garcia - Last Filed: 05/01/24 11:43> Clinical Impression: Hypotension, PRIMITIVO (acute kidney injury) Disposition: ADMITTED IP TO THIS HOSP Condition: Stable
[2024-04-30] MEDS: SODIUM CHLORIDE 0.9% 1,000 ML IV ONE (13:52)
[2024-04-30 14:17] LABS: Basophils # (A) 0.1 k/uL (0-0.2); Basophils % (A) 1 %; Eosinophils # (A) 0.2 k/uL (0-0.7); Eosinophils % (A) 2 %; HCT 49.6 % (39.0-53.0); HGB 16.9 gm/dL (13.0-17.5); Lymphocytes # (A) 1.1 k/uL (1.0-4.8); Lymphocytes % (A) 12 %; MCH 30.6 pg (25.0-35.0); MCHC 34.1 g/dL (31.0-37.0); MCV 89.6 fL (80.0-100.0); Mean Platelet Volume 7.3; Monocytes # (A) 0.6 k/uL (0-1.0); Monocytes % (A) 6 %; Neutrophils # (A) 7.4 k/uL (1.3-7.7); Neutrophils % (A) 79 %; Platelet Count 284 k/uL (150-450); RBC 5.54 m/uL (4.30-5.90); RDW 14.6 % (11.5-15.5); WBC 9.4 k/uL (3.8-10.6)
[2024-04-30 14:26] LABS: Partial Thromboplastin Time 26.1 sec (22.0-30.0); Prothrombin Time 10.6 sec (10.0-12.5)
[2024-04-30 16:39] LABS: ALT 28 U/L (4-49); AST 20 U/L (17-59); African American GFR (CKD) 36 (>60 ml/min/1.73 sqM); Albumin 4.1 g/dL (3.5-5.0); Alkaline Phosphatase 100 U/L (38-126); Anion Gap 12 mmol/L; Blood Urea Nitrogen 42 mg/dL (9-20); Calcium 9.3 mg/dL (8.4-10.2); Carbon Dioxide 15 mmol/L (22-30); Chloride 111 mmol/L (98-107); Glucose 212 mg/dL (74-99); Magnesium 2.1 mg/dL (1.6-2.3); Non-African American GFR(CKD) 31 (>60 ml/min/1.73 sqM); Potassium 5.4 mmol/L (3.5-5.1); Sodium 138 mmol/L (137-145); Total Bilirubin 1.1 mg/dL (0.2-1.3); Total Protein 6.9 g/dL (6.3-8.2)
[2024-04-30] MEDS ORDERED: NALOXONE 0.4 MG/ML 1 ML VIAL IV PRN (18:24)
[2024-04-30] MEDS: SODIUM CHLORIDE 0.9% 1,000 ML IV SCH (19:20)
[2024-04-30 20:32] LABS: Glucose,Whole Blood 141 mg/dL (70-110)
[2024-04-30] MEDS ORDERED: DEXTROSE 50% SYRINGE 50 ML IVP PRN ×2 (21:33)
--- NOTE | 2024-04-30 21:45 | P.HPIM ---
History of Present Illness H&P Date: 04/30/24 History of present illness; Timur Galvan is a 63-year-old male with colectomy and ileostomy bag, GERD, hypertension who presents with new onset weakness. Patient states weakness and dizziness began today. He states he has had no falls or loss of consciousness. Reports no focal weaknesses. He reports for the last several days he has noticed increasing air and watery stools in his ileostomy bag. He states he has had several occasions of similar symptoms occurring resulting in ER visits for dehydration and kidney injury. He also states that he has been eating his normal diet without any issues and he has progressive acid reflux. He also states that he has decreased urine output today only urinating once this morning, without pain or blood. Today, he reports absence of fever, chills, weight loss, chest pain, palpitations, diaphoresis, dyspnea, cough, nausea, vomiting, abdominal pain, and headache. Initial lab work done in the ER showed WBC 9.4, hemoglobin 16.9, platelets 284, coagulation studies are WNL, sodium 138, potassium 5.4, chloride 111, bicarb 15, anion gap 12, BUN 42, creatinine 2.20, glucose 212, lactic acid 1.7, troponin negative, viral respiratory panel negative. Patient had orthostatics done in the ED which were positive. EKG done in the ER independently interpreted showed heart rate of 76, no ST segment elevation or depression seen, no T-wave inversions seen. Left axis deviation. Incomplete RBBB. Patient admitted to internal medicine service. REVIEW OF SYSTEMS: All Systems reviewed, pertinent positives and negatives noted in HPI. All other symptoms are negative. PHYSICAL EXAMINATION: Vitals reviewed GENERAL: No acute distress. Well developed, well nourished. HEENT: Pupils are round and equally reacting to light. EOMI. No scleral icterus. Normocephalic, atraumatic. No pharyngeal erythema. No thyromegaly. CARDIOVASCULAR: S1 and S2 present. No murmurs, rubs, or gallops. PULMONARY: Chest is clear to auscultation, no wheezing or crackles. ABDOMEN: Ileostomy bag in place with watery brown stool. Soft, nontender, nondistended, normoactive bowel sounds. No palpable organomegaly. MUSCULOSKELETAL: No apparent joint swelling and deformities. EXTREMITIES: No apparent cyanosis, clubbing, or pedal edema. NEUROLOGICAL: The patient is alert and oriented x3, Gross neurological examination did not reveal any focal deficits. SKIN: No apparent rashes. Labs reviewed Imaging reviewed Assessment and plan Timur Galvan is a 63-year-old male with colectomy and ileostomy bag, GERD, hypertension who presents with new onset weakness. #Diarrhea #Orthostatic hypotension #Malabsorption with History of colectomy with ileostomy #Generalized weakness and dizziness Given IV NS 1000 mL in ER - Continue IV NS at 130 mL/h - Check for C. diff - Check calprotectin levels - Consult GI - Recurring episodes of malabsorption #Acute kidney injury, likely due to dehydration Initial creatinine 2.20 Continue IV fluids as above - US kidney bladder - order UA, urine creatinine, Na, and nitrate - order serum osmolality - hold SUSIE inhibitors and avoid nephrotoxic medications Nephrology consulted #Hyperkalemia Initial 5.4 Monitor BMP #Hyperglycemia #Diabetes mellitus, type 2 Holding oral medications Begin Accu-Cheks and medium-dose sliding scale, monitor for hypoglycemia Resume home long-acting insulin Levemir 44 units Pending HbA1c Chronic Medical Conditions # Essential hypertension - Resume home Lisinopril Losartan 20 mg #Hyperlidemia - Resume home Atorvastatin 40 mg #CAD history of stent placement Resume home aspirin and Plavix #GERD - Increase pantoprazole 40mg twice daily #Chronic pain Resume home Flexeril, Cymbalta #BPH #Resume home Flomax F: IV Normal saline 130 mL/h E: Replete as needed N: Heart healthy diet E: None DVT ppx: Subq Lovenox Code status: Full code Anticipated discharge place: home Anticipated discharge time: 2 days Dictation was produced using [employer] dictation software. Please excuse any grammatical, word or spelling errors. Past Medical History Past Medical History: Diabetes Mellitus, GERD/Reflux, Hypertension, Osteoarthritis (OA) Additional Past Medical History / Comment(s): 8-10 KIDNEY STONES, ULCERATIVE Colitis, RECTUM REMOVED. PT HAS ARTHIRITIS ALL OVER, History of Any Multi-Drug Resistant Organisms: None Reported Date of last positivie culture/infection: 12/14/16 MDRO Source:: TOE Past Surgical History: Appendectomy, Bowel Resection, Heart Catheterization, Joint Replacement, Orthopedic Surgery Additional Past Surgical History / Comment(s): BILATERAL TOTAL KneeS,L Shoulder ROTATOR CUFF REPAIR, BILATERALHandS L HAND INDEX FINGER AND R HAND MIDDLE FINGER BOTH PARTIAL AMP WITH REPAIR, COLECTOMY/ILEOSTOMY. CARDIAC CATH YRS AGO A ND NO BLOCKAGES-DONE AT [facility]. Past Anesthesia/Blood Transfusion Reactions: No Reported Reaction Additional Past Anesthesia/Blood Transfusion Reaction / Comment(s): NEVER RECEIVED BLOOD Past Psychological History: No Psychological Hx Reported Smoking Status: Never smoker Past Alcohol Use History: Occasional Past Drug Use History: None Reported - Past Family History Father Family Medical History: Hypertension Additional Family Medical History / Comment(s): FATHER ALIVE AND IS 74 YRS OLD. Mother Family Medical History: Osteoarthritis (OA) Additional Family Medical History / Comment(s): MOTHER HAS ALOT OF ARTHRITIS AND HAS HAD MANY ORTHOPEDIC SURGERIES. SHE IS 73 YRS OLD. Medications and Allergies Home Medications Medication Instructions Recorded Confirmed Type HYDROcodone/APAP 10-325MG [[employer] 1 tab PO Q8H PRN 05/12/14 04/30/24 History 10-325] Tamsulosin [Flomax] 0.4 mg PO HS 05/26/20 04/30/24 History metFORMIN HCL [Glucophage] 1,000 mg PO BID 08/11/20 04/30/24 History Aspirin 81 mg PO DAILY #21 chew 08/12/20 04/30/24 Rx Clopidogrel [Plavix] 75 mg PO DAILY #30 tab 08/12/20 04/30/24 Rx Atorvastatin [Lipitor] 40 mg PO DAILY 03/06/24 04/30/24 History Cyclobenzaprine [Flexeril] 5 mg PO BID PRN 03/06/24 04/30/24 History DULoxetine HCL [Cymbalta] 30 mg PO DAILY 03/06/24 04/30/24 History DULoxetine HCL [Cymbalta] 60 mg PO DAILY 03/06/24 04/30/24 History Empagliflozin [Jardiance] 10 mg PO DAILY 03/06/24 04/30/24 History Insulin Glargine,Hum.rec.anlog 44 units SQ HS 03/06/24 04/30/24 History [Basaglar Kwikpen U-100] Pantoprazole [Protonix] 40 mg PO DAILY 03/06/24 04/30/24 History Pregabalin [Lyrica] 50 mg PO TID 03/06/24 04/30/24 History Semaglutide [Ozempic] 0.5 mg SQ TH@2100 03/06/24 04/30/24 History Sodium Bicarbonate 650 mg PO DAILY 03/06/24 04/30/24 History Meloxicam [Mobic] 15 mg PO DAILY PRN 04/30/24 04/30/24 History Ondansetron [Zofran] 4 mg PO Q6HR PRN 04/30/24 04/30/24 History Allergies Allergy/AdvReac Type Severity Reaction Status Date / Time levofloxacin [From Levaquin] AdvReac Severe Chest Pain Verified 04/30/24 15:47 cephalexin monohydrate AdvReac Unknown Nausea & Verified 04/30/24 15:47 [From Keflex] Vomiting codeine AdvReac Unknown Nausea & Verified 04/30/24 15:47 Vomiting Physical Exam Vitals: Vital Signs Temp Pulse Pulse Resp BP BP Pulse Ox 04/30/24 18:15 79 18 128/82 96 04/30/24 17:30 89 16 128/72 99 04/30/24 16:30 79 16 113/84 98 04/30/24 15:00 75 18 102/78 98 04/30/24 14:45 84 18 104/73 98 04/30/24 14:20 79 18 113/77 98 04/30/24 13:42 91 60/30 04/30/24 13:36 97.5 F L 86 20 99/42 99 Intake and Output 04/30/24 04/30/24 04/30/24 06:59 14:59 22:59 Other: Weight 113.398 kg Results CBC & Chem 7: 04/30/24 13:49 04/30/24 15:11 Labs: Abnormal Lab Results - Last 24 Hours (Table) 04/30/24 Range/Units 15:11 Potassium 5.4 H (3.5-5.1) mmol/L Chloride 111 H (98-107) mmol/L Carbon Dioxide 15 L (22-30) mmol/L BUN 42 H (9-20) mg/dL Creatinine 2.20 H (0.66-1.25) mg/dL Glucose 212 H (74-99) mg/dL
[2024-04-30] MEDS: HYDROcodone/APAP 10-325MG 1 EACH TAB PO PRN (22:22)
[2024-04-30] MEDS: INSULIN DETEMIR (LEVEMIR) 100 UNIT/ML SYR SQ SCH (22:23)
[2024-04-30] MEDS: TAMSULOSIN 0.4 MG CAP.ER.24H PO SCH (22:23)
[2024-04-30] MEDS: PREGABALIN 50 MG CAP PO SCH (22:23)
[2024-04-30 22:27] LABS: Glucose,Whole Blood 170 mg/dL (70-110)
[2024-05-01 00:17] LABS: Appearance,Urine Clear (Clear); Bilirubin,Urine Negative (Negative); Blood,Urine Negative (Negative); Color,Urine Light Yellow; Glucose,Urine (UA) 4+ (Negative); Hyaline Casts,Urine 3 /lpf (0-2); Ketones,Urine Negative (Negative); Leukocyte Esterase,Urine Negative (Negative); Mucus,Urine Rare /hpf; Nitrite,Urine Negative (Negative); PH, Urine 5.5 (5.0-8.0); Protein,Urine 1+ (Negative); RBC,Urine <1 /hpf (0-5); Specific Gravity,Urine 1.029 (1.001-1.035); Urobilinogen,Urine <2.0 mg/dL (<2.0); WBC,Urine <1 /hpf (0-5)
[2024-05-01 01:32] LABS: Glucose,Whole Blood 149 mg/dL (70-110)
[2024-05-01 05:53] LABS: Glucose,Whole Blood 142 mg/dL (70-110)
[2024-05-01] MEDS: INSULIN ASPART (NovoLOG) 100 UNIT/ML VIAL SQ SCH (05:54)
[2024-05-01] MEDS: PANTOPRAZOLE 40 MG TABLET PO SCH (05:56)
[2024-05-01] MEDS: ENOXAPARIN 30 MG/0.3 ML SYRINGE SQ SCH (09:13)
[2024-05-01] MEDS: LOPERAMIDE 2 MG CAP PO SCH (09:14)
[2024-05-01] MEDS: CLOPIDOGREL 75 MG TAB PO SCH (09:14)
[2024-05-01] MEDS: ATORVASTATIN 40 MG TAB PO SCH (09:14)
[2024-05-01] MEDS: DULoxetine HCL 60 MG CAPSULE.DR PO SCH (09:14)
[2024-05-01] MEDS: ASPIRIN 81 MG PO SCH (09:14)
[2024-05-01] MEDS: DULoxetine HCL 30 MG CAPSULE.DR PO SCH (09:14)
[2024-05-01 09:18] LABS: Basophils # (A) 0.05 X 10*3/uL (0.00-0.10); Basophils % (A) 0.7 %; Eosinophils # (A) 0.21 X 10*3/uL (0.04-0.35); Eosinophils % (A) 2.8 %; HCT 42.4 % (39.6-50.0); HGB 14.3 g/dL (13.0-17.0); Lymphocytes # (A) 1.27 X 10*3/uL (0.90-5.00); Lymphocytes % (A) 17.1 %; MCH 29.6 pg (27.0-32.0); MCHC 33.7 g/dL (32.0-37.0); MCV 87.8 FL (80.0-97.0); Monocytes # (A) 0.76 X 10*3/uL (0.20-1.00); Monocytes % (A) 10.2 %; NRBC Per 100 WBC 0 X 10*3/uL (0.00-0.01); Neutrophils # (A) 5.12 X 10*3/uL (1.80-7.70); Neutrophils % (A) 68.8 %; Platelet Count 197 X 10*3/uL (140-440); RBC 4.83 X 10*6/uL (4.40-5.60); RDW 14.3 % (11.5-14.5); WBC 7.44 X 10*3/uL (4.50-10.00)
[2024-05-01 09:20] LABS: BUN/Creat Ratio 21.95 Ratio (12.00-20.00); Blood Urea Nitrogen 43.9 mg/dL (9.0-27.0); Calcium 9.1 mg/dL (8.7-10.3); Carbon Dioxide 16.3 mmol/L (21.6-31.8); Chloride 112 mmol/L (96-109); Glucose 151 mg/dL (70-110); Potassium 4.8 mmol/L (3.5-5.5); Sodium 137 mmol/L (135-145)
--- NOTE | 2024-05-01 09:27 | US ---
EXAMINATION TYPE: US kidneys/renal and bladder DATE OF EXAM: 04/30/2024 COMPARISON: CT 11/09/23 CLINICAL INDICATION: Male, 63 years old with history of PRIMITIVO TECHNIQUE: Grayscale and color Doppler imaging of the bilateral kidneys and urinary bladder: FINDINGS: EXAM MEASUREMENTS: Right Kidney: 10.2 x 5.5 x 5.5 cm Left Kidney: 9.9 x 5.3 x 5.9 cm Right Kidney: No hydronephrosis or masses seen, perinephric sweating Left Kidney: No hydronephrosis or masses seen, perinephric sweating which could be due to chronic ki dney disease or senescent change. Bladder: wnl Bilateral Jets seen: yes IMPRESSION: No hydronephrosis. Mild perinephric edema which can be seen with chronic kidney disease or senescent change. [facility], , 05/01/2024 8:40 AM
--- NOTE | 2024-05-01 09:39 | P.CONS ---
History of Present Illness - Reason for Consult Consult date: 05/01/24 Gastric dumping Requesting physician: Geri Garcia - Chief Complaint Dizziness, dehydration - History of Present Illness This a pleasant 63-year-old white male who presented to the emergency department with complaints of dizziness, weakness muscle cramps and diarrhea. He has a past medical history including hypertension, diabetes mellitus, ulcerative colitis status post colectomy and ileostomy about 20 years ago. States that he has been having increased output from his ostomy. Normal bowel movements are 3- 4 times day but over the last 3 to 4 days he has been having 10 or more. Denies any abdominal pain maybe a little cramping, no nausea or vomiting. Denies any fevers or chills. Patient was noted to have acute kidney injury, hypotension and admitted for further evaluation. Influenza AMB, RSV and SARS COVID not detected Review of Systems REVIEW OF SYSTEMS: CARDIOPULMONARY: No chest pain, positive for shortness of breath Gastrointestinal: Abdominal pain. No nausea or vomiting. No hematemesis, coffee-ground emesis. No rectal bleeding, or melena. Diarrhea. GENITOURINARY: No dysuria or hematuria. MUSCULOSKELETAL: Reports normal range of motion. Muscle cramps. SKIN: No rashes. No jaundice. ENDOCRINE: No chills, fevers. No excessive weight gain or loss. No polydipsia or polyuria. PSYCHIATRIC: Unremarkable. NEUROLOGY: No change in mental status. Dizziness. ENT: Vision unremarkable. CONSTITUTIONAL: No recent weight loss. No fever, chills, night sweats. Past Medical History Past Medical History: Diabetes Mellitus, GERD/Reflux, Hypertension, Osteoarthritis (OA) Additional Past Medical History / Comment(s): 8-10 KIDNEY STONES, ULCERATIVE Colitis, RECTUM REMOVED. PT HAS ARTHIRITIS ALL OVER, History of Any Multi-Drug Resistant Organisms: None Reported Year Discovered:: 12/14/16 MDRO Source:: TOE Past Surgical History: Appendectomy, Bowel Resection, Heart Catheterization, Joint Replacement, Orthopedic Surgery Additional Past Surgical History / Comment(s): BILATERAL TOTAL KneeS,L Shoulder ROTATOR CUFF REPAIR, BILATERALHandS L HAND INDEX FINGER AND R HAND MIDDLE FINGER BOTH PARTIAL AMP WITH REPAIR, COLECTOMY/ILEOSTOMY. CARDIAC CATH YRS AGO AND NO BLOCKAGES-DONE AT [facility]. Past Anesthesia/Blood Transfusion Reactions: No Reported Reaction Additional Past Anesthesia/Blood Transfusion Reaction / Comm: NEVER RECEIVED BLOOD Past Psychological History: No Psychological Hx Reported Smoking Status: Never smoker Past Alcohol Use History: Occasional Past Drug Use History: None Reported - Past Family History Father Family Medical History: Hypertension Additional Family Medical History / Comment(s): FATHER ALIVE AND IS 74 YRS OLD. Mother Family Medical History: Osteoarthritis (OA) Additional Family Medical History / Comment(s): MOTHER HAS ALOT OF ARTHRITIS AND HAS HAD MANY ORTHOPEDIC SURGERIES. SHE IS 73 YRS OLD. Medications and Allergies Home Medications Medication Instructions Recorded Confirmed Type HYDROcodone/APAP 10-325MG [[place] 1 tab PO Q8H PRN 05/12/14 04/30/24 History 10-325] Tamsulosin [Flomax] 0.4 mg PO HS 05/26/20 04/30/24 History metFORMIN HCL [Glucophage] 1,000 mg PO BID 08/11/20 04/30/24 History Aspirin 81 mg PO DAILY #21 chew 08/12/20 04/30/24 Rx Clopidogrel [Plavix] 75 mg PO DAILY #30 tab 08/12/20 04/30/24 Rx Atorvastatin [Lipitor] 40 mg PO DAILY 03/06/24 04/30/24 History Cyclobenzaprine [Flexeril] 5 mg PO BID PRN 03/06/24 04/30/24 History DULoxetine HCL [Cymbalta] 30 mg PO DAILY 03/06/24 04/30/24 History DULoxetine HCL [Cymbalta] 60 mg PO DAILY 03/06/24 04/30/24 History Empagliflozin [Jardiance] 10 mg PO DAILY 03/06/24 04/30/24 History Insulin Glargine,Hum.rec.anlog 44 units SQ HS 03/06/24 04/30/24 History [Basaglar Kwikpen U-100] Pantoprazole [Protonix] 40 mg PO DAILY 03/06/24 04/30/24 History Pregabalin [Lyrica] 50 mg PO TID 03/06/24 04/30/24 History Semaglutide [Ozempic] 0.5 mg SQ TH@2100 03/06/24 04/30/24 History Sodium Bicarbonate 650 mg PO DAILY 03/06/24 04/30/24 History Meloxicam [Mobic] 15 mg PO DAILY PRN 04/30/24 04/30/24 History Ondansetron [Zofran] 4 mg PO Q6HR PRN 04/30/24 04/30/24 History Allergies Allergy/AdvReac Type Severity Reaction Status Date / Time levofloxacin [From Levaquin] AdvReac Severe Chest Pain Verified 04/30/24 15:47 cephalexin monohydrate AdvReac Unknown Nausea & Verified 04/30/24 15:47 [From Keflex] Vomiting codeine AdvReac Unknown Nausea & Verified 04/30/24 15:47 Vomiting Physical Exam Vitals: Vital Signs Temp Pulse Pulse Pulse Pulse Resp BP 05/01/24 01:53 98.2 F 84 18 05/01/24 01:52 98.2 F 57 L 99 84 04/30/24 20:46 98.6 F 68 17 04/30/24 18:15 79 18 04/30/24 17:30 89 16 04/30/24 16:30 79 16 04/30/24 15:00 75 18 04/30/24 14:45 84 18 04/30/24 14:20 79 18 113/77 04/30/24 13:42 91 04/30/24 13:36 97.5 F L 86 20 99/42 BP BP BP Pulse Ox 05/01/24 01:53 119/70 97 05/01/24 01:52 80/58 70/49 119/70 04/30/24 20:46 149/89 98 04/30/24 18:15 128/82 96 04/30/24 17:30 128/72 99 04/30/24 16:30 113/84 98 04/30/24 15:00 102/78 98 04/30/24 14:45 104/73 98 04/30/24 14:20 98 04/30/24 13:42 60/30 04/30/24 13:36 99 Intake and Output 04/30/24 04/30/24 05/01/24 14:59 22:59 06:59 Other: Voiding Method Toilet # Voids 1 2 Weight 113.398 kg 113.398 kg General appearance: The patient is alert, oriented, appears in no acute distress. HET: Head is normocephalic and atraumatic. Conjunctiva pink. Sclera anicteric. Neck: Supple without lymphadenopathy. Trachea midline. Heart: Regular. Lungs: Equal expansion, normal respiratory effort. Abdomen: Soft, nontender, nondistended. Ileostomy, loose stool nonbloody. Skin: No rashes. No jaundice. Extremities: Normal skin color and turgor. No pedal edema. Neurological: No focal deficits. Alert and oriented x3. Results CBC & Chem 7: 05/01/24 04:26 05/01/24 04:26 Labs: Abnormal Lab Results - Last 24 Hours (Table) 04/30/24 04/30/24 04/30/24 Range/Units 15:11 20:31 22:25 Potassium 5.4 H (3.5-5.1) mmol/L Chloride 111 H (98-107) mmol/L Carbon Dioxide 15 L (22-30) mmol/L BUN 42 H (9-20) mg/dL Creatinine 2.20 H (0.66-1.25) mg/dL Glucose 212 H (74-99) mg/dL POC Glucose (mg/dL) 141 H 170 H (70-110) mg/dL Urine Protein (Negative) Urine Glucose (UA) (Negative) Hyaline Casts (0-2) /lpf Urine Mucus (None) /hpf 04/30/24 05/01/24 05/01/24 Range/Units 23:15 01:30 05:52 Potassium (3.5-5.1) mmol/L Chloride (98-107) mmol/L Carbon Dioxide (22-30) mmol/L BUN (9-20) mg/dL Creatinine (0.66-1.25) mg/dL Glucose (74-99) mg/dL POC Glucose (mg/dL) 149 H 142 H (70-110) mg/dL Urine Protein 1+ H (Negative) Urine Glucose (UA) 4+ H (Negative) Hyaline Casts 3 H (0-2) /lpf Urine Mucus Rare H (None) /hpf Assessment and Plan (1) Diarrhea Narrative/Plan: 63-year-old male with a history of ulcerative colitis status post colectomy and ileostomy 20 years ago with intermittent episodes of increased ileostomy output. Unclear etiology at this time. Will get stool cultures and start symptomatic treatment with Imodium 2 mg 4 times daily. Discussed with patient importance that if he starts with diarrhea he is to start Imodium at home to avoid dehydration. Recommend outpatient follow-up with gastroenterology. No plans on endoscopic evaluation. Current Visit: Yes Status: Acute Code(s): R19.7 - DIARRHEA, UNSPECIFIED SNOMED Code(s): 01931285 (2) Diabetes Current Visit: Yes Status: Acute Code(s): E11.9 - TYPE 2 DIABETES MELLITUS WITHOUT COMPLICATIONS SNOMED Code(s): 20040785 (3) PRIMITIVO (acute kidney injury) Current Visit: Yes Status: Acute Code(s): N17.9 - ACUTE KIDNEY FAILURE, UNSPECIFIED SNOMED Code(s): 49223094 Plan: 1. Continue symptomatic and supportive care 2. Stool studies ordered 3. Start Imodium 2 mg 4 times daily 4. No plans on endoscopic evaluation 5. Discussed with patient recommend outpatient follow-up with gastroenterology 6. Rest of medical management per primary medical team Thank you for this consultation, we will sign off at this time. Thank you for allowing us to participate in the care of the patient, the GI service will sign off, gastroenterology will not be available at the hospital this weekend and through next week. If further evaluation by gastroenterology is required the patient will need transfer as per the primary team's discretion. Dr. Fide Coley I agree with the dictator's note, documented as a scribe by Araseli Curran.
[2024-05-01] MEDS: LACTATED RINGERS 1,000 ML IV SCH (10:55)
--- NOTE | 2024-05-01 11:54 | P.NPCON ---
History of Present Illness - Reason for Consult acute renal failure - History of Present Illness Reason for consultation: Acute kidney injury History of present illness: Patient is a 63-year-old male seen in renal consultation for acute kidney injury. Patient's baseline creatinine is near 1 from November 2023 and was elevated at 2.2 this admission. It is 2.0 today. Patient came to the hospital due to low blood pressures. Patient states blood pressure standing at home was systolic 70s and diastolic 40s. Patient states he felt dizzy but denies any syncopal episodes. Denies history of coronary artery disease. Patient does have history of diabetes. He denies use of nonsteroidals although Marti is l isted on his home medication list. Patient has history of ulcerative colitis and has a colostomy bag. Patient states he has noticed more air in the colostomy bag but denies more output than usual. Patient states he has been on Jardiance for a few months now. No vomiting. No fever or chills. Blood pressure is noted to be quite low with standing blood pressures running in the systolic 70s. Denies personal or family history of kidney disease. Vital signs are stable. Orthostatics positive. General: No acute distress. HEENT: Head exam is unremarkable. LUNGS: No audible rhonchi or wheezes. HEART: Rate and Rhythm are regular. ABDOMEN: Nontender. EXTREMITITES: No edema. Past Medical History Past Medical History: Diabetes Mellitus, GERD/Reflux, Hypertension, Osteoarthritis (OA) Additional Past Medical History / Comment(s): 8-10 KIDNEY STONES, ULCERATIVE Colitis, RECTUM REMOVED. PT HAS ARTHIRITIS ALL OVER, History of Any Multi-Drug Resistant Organisms: None Reported Date of last positivie culture/infection: 12/14/16 MDRO Source:: TOE Past Surgical History: Appendectomy, Bowel Resection, Heart Catheterization, Joint Replacement, Orthopedic Surgery Additional Past Surgical History / Comment(s): BILATERAL TOTAL KneeS,L Shoulder ROTATOR CUFF REPAIR, BILATERALHandS L HAND INDEX FINGER AND R HAND MIDDLE FINGER BOTH PARTIAL AMP WITH REPAIR, COLECTOMY/ILEOSTOMY. CARDIAC CATH YRS AGO AND NO BLOCKAGES-DONE AT [facility]. Past Anesthesia/Blood Transfusion Reactions: No Reported Reaction Additional Past Anesthesia/Blood Transfusion Reaction / Comment(s): NEVER RECEIVED BLOOD Past Psychological History: No Psychological Hx Reported Smoking Status: Never smoker Past Alcohol Use History: Occasional Past Drug Use History: None Reported - Past Family History Father Family Medical History: Hypertension Additional Family Medical History / Comment(s): FATHER ALIVE AND IS 74 YRS OLD. Mother Family Medical History: Osteoarthritis (OA) Additional Family Medical History / Comment(s): MOTHER HAS ALOT OF ARTHRITIS AND HAS HAD MANY ORTHOPEDIC SURGERIES. SHE IS 73 YRS OLD. Medications and Allergies Home Medications Medication Instructions Recorded Confirmed Type HYDROcodone/APAP 10-325MG [[place] 1 tab PO Q8H PRN 05/12/14 04/30/24 History 10-325] Tamsulosin [Flomax] 0.4 mg PO HS 05/26/20 04/30/24 History metFORMIN HCL [Glucophage] 1,000 mg PO BID 08/11/20 04/30/24 History Aspirin 81 mg PO DAILY #21 chew 08/12/20 04/30/24 Rx Clopidogrel [Plavix] 75 mg PO DAILY #30 tab 08/12/20 04/30/24 Rx Atorvastatin [Lipitor] 40 mg PO DAILY 03/06/24 04/30/24 History Cyclobenzaprine [Flexeril] 5 mg PO BID PRN 03/06/24 04/30/24 History DULoxetine HCL [Cymbalta] 30 mg PO DAILY 03/06/24 04/30/24 History DULoxetine HCL [Cymbalta] 60 mg PO DAILY 03/06/24 04/30/24 History Empagliflozin [Jardiance] 10 mg PO DAILY 03/06/24 04/30/24 History Insulin Glargine,Hum.rec.anlog 44 units SQ HS 03/06/24 04/30/24 History [Brianagljuany Aleman U-100] Pantoprazole [Protonix] 40 mg PO DAILY 03/06/24 04/30/24 History Pregabalin [Lyrica] 50 mg PO TID 03/06/24 04/30/24 History Semaglutide [Ozempic] 0.5 mg SQ TH@2100 03/06/24 04/30/24 History Sodium Bicarbonate 650 mg PO DAILY 03/06/24 04/30/24 History Meloxicam [Mobic] 15 mg PO DAILY PRN 04/30/24 04/30/24 History Ondansetron [Zofran] 4 mg PO Q6HR PRN 04/30/24 04/30/24 History Allergies Allergy/AdvReac Type Severity Reaction Status Date / Time levofloxacin [From Levaquin] AdvReac Severe Chest Pain Verified 04/30/24 15:47 cephalexin monohydrate AdvReac Unknown Nausea & Verified 04/30/24 15:47 [From Keflex] Vomiting codeine AdvReac Unknown Nausea & Verified 04/30/24 15:47 Vomiting Physical Exam Vitals: Vital Signs Temp Pulse Pulse Pulse Pulse Resp BP 05/01/24 08:02 81 66 68 18 05/01/24 07:02 97.4 F L 64 18 05/01/24 01:53 98.2 F 84 18 05/01/24 01:52 98.2 F 57 L 99 84 04/30/24 20:46 98.6 F 68 17 04/30/24 18:15 79 18 04/30/24 17:30 89 16 04/30/24 16:30 79 16 04/30/24 15:00 75 18 04/30/24 14:45 84 18 04/30/24 14:20 79 18 113/77 04/30/24 13:42 91 04/30/24 13:36 97.5 F L 86 20 99/42 BP BP BP Pulse Ox 05/01/24 08:02 93/64 75/51 145/81 99 05/01/24 07:02 128/80 98 05/01/24 01:53 119/70 97 05/01/24 01:52 80/58 70/49 119/70 04/30/24 20:46 149/89 98 04/30/24 18:15 128/82 96 04/30/24 17:30 128/72 99 04/30/24 16:30 113/84 98 04/30/24 15:00 102/78 98 04/30/24 14:45 104/73 98 04/30/24 14:20 98 04/30/24 13:42 60/30 04/30/24 13:36 99 Intake and Output 04/30/24 05/01/24 05/01/24 22:59 06:59 14:59 Intake Total 356 Balance 356 Intake: Oral 356 Other: Voiding Method Toilet # Voids 1 2 Weight 113.398 kg Results - Lab Results Most recent lab results Calcium 9.1 mg/dL (8.7-10.3) 05/01/24 04:26 Magnesium 2.1 mg/dL (1.6-2.3) 04/30/24 15:11 05/01/24 04:26 05/01/24 04:26 Assessment and Plan Plan: Assessment: 1. Acute kidney injury secondary to ATN secondary to hypotension. Creatinine 2.2 on admission and is 2.0 today. Baseline creatinine near 1 from November 2023. No hydronephrosis noted on renal ultrasound. UA fairly benign. 2. Hypovolemia with urine sodium less than 20 and urine osmolality 755. 3. Hypotension related to hypovolemia. Possibly from mild blood loss from colostomy. GI consulted. 4. History of ulcerative colitis. Has a colostomy bag. 5. Metabolic acidosis secondary to acute kidney injury and GI losses. Was also on metformin outpatient. 6. Diabetes mellitus. Plan: Change maintenance IV fluids from LR to sodium bicarb drip to be run at 125 cc an hour. 500 cc bolus of normal saline now. Continue to monitor orthostatic vital signs. Hold Jardiance for now. Check a.m. cortisol level. Avoid nephrotoxins. Continue to monitor renal function and urine output. Thank you for the consultation. I will continue to follow the patient with you during his hospital stay.
[2024-05-01 12:13] LABS: Glucose,Whole Blood 154 mg/dL (70-110)
[2024-05-01] MEDS: SODIUM CHLORIDE 0.9% 500 ML 500 ML IV ONE (13:11)
[2024-05-01] MEDS: DEXTROSE 5% IN WATER 1,000 ML with SODIUM BICARB (1 MEQ/ML) 150 ML IV SCH (13:11)
--- NOTE | 2024-05-01 15:52 | P.PN ---
Subjective Progress Note Date: 05/01/24 Subjective: Timur Galvan is a 63-year-old male with colectomy and ileostomy bag, GERD, hypertension who presents with new onset weakness. Initial lab work done in the ER showed WBC 9.4, hemoglobin 16.9, platelets 284, coagulation studies are WNL, sodium 138, potassium 5.4, chloride 111, bicarb 15, anion gap 12, BUN 42, creatinine 2.20, glucose 212, lactic acid 1.7, troponin negative, viral respiratory panel negative. Patient had orthostatics done in the ED which were positive. EKG done in the ER showed heart rate of 76, no ST segment elevation or depression seen, no T-wave inversions seen. Left axis deviation. Incomplete RBBB. Patient is admitted for further evaluation of orthostatic hypotension, PRIMITIVO and weakness. Nephrology is consulted. Gastroenterology is consulted. All Systems reviewed and pertinent positives and negatives noted in HPI, all other symptoms are negative Objective: Vital signs reviewed. GENERAL: No acute distress. Well developed, well nourished. HEENT: Pupils are round and equally reacting to light. EOMI. No scleral icterus. Normocephalic, atraumatic. No pharyngeal erythema. No thyromegaly. CARDIOVASCULAR: S1 and S2 present. No murmurs, rubs, or gallops. PULMONARY: Chest is clear to auscultation, no wheezing or crackles. ABDOMEN: Ileostomy bag in place with watery brown stool. Soft, nontender, nondistended, normoactive bowel sounds. No palpable organomegaly. MUSCULOSKELETAL: No apparent joint swelling and deformities. EXTREMITIES: No apparent cyanosis, clubbing, or pedal edema. NEUROLOGICAL: The patient is alert and oriented x3, Gross neurological examination did not reveal any focal deficits. SKIN: No apparent rashes. Data reviewed today: Labs: WBC 7.4, hemoglobin 14.3, sodium 137, potassium 4.8, chloride 112, bicarb 16.3, anion gap 8.7, BUN 43.9, creatinine 8.0, GFR 37, glucose 151, HbA1c 8.2, serum osmolality 309 Images: No new imaging Assessment and Plan: Timur Galvan is a 63-year-old male with colectomy and ileostomy bag, GERD, hypertension who presents with new onset weakness. #Diarrhea #Orthostatic hypotension #Malabsorption with History of colectomy with ileostomy #Generalized weakness and dizziness C. difficile negative Check calprotectin levels GI consulted; Note reviewed, signed off, started on Imodium Patient started on morphine 2 mg 4 times daily, Order stool culture Outpatient follow-up with gastroenterology IV fluids as below #Acute kidney injury, likely due to dehydration #Non-anion gap metabolic acidosis Initial creatinine 2.20 US kidney bladder shows no hydronephrosis Urinalysis shows proteinuria and glycosuria, urine creatinine 171, urine sodium 20, urine nitrogen 869 Serum osmolality 309 FEN 0.2% hold SUSIE inhibitors and avoid nephrotoxic medications Nephrology consulted; note reviewed; patient started on bicarb drip at 125 cc/h #Hyperkalemia, resolved Initial 5.4---> 4.8 Monitor BMP #Hyperglycemia #Diabetes mellitus, type 2 Holding oral medications Accu-Cheks and medium-dose sliding scale, monitor for hypoglycemia Resume home long-acting insulin Levemir 44 units HbA1c 8.2 Chronic Medical Conditions # Essential hypertension - Resume home Lisinopril Losartan 20 mg #Hyperlidemia - Resume home Atorvastatin 40 mg #CAD history of stent placement Resume home aspirin and Plavix #GERD - Increase pantoprazole 40mg twice daily #Chronic pain Resume home Flexeril, Cymbalta #BPH #Resume home Flomax F: Bicarb drip at 125 cc/h E: Replete as needed N: Heart healthy diet E: None DVT ppx: Subq Lovenox Code status: Full code Anticipated discharge place: home Anticipated discharge time: Pending clinical course I have seen and evaluated the patient today. Discussed with the resident and agree with the residents finding and plan as documented in the resident's note. Changes highlighted in blue font. Objective - Vital Signs Vital signs: Vital Signs Temp 97.7 F 05/01/24 14:00 Pulse 95 05/01/24 14:00 Resp 18 05/01/24 14:00 BP 96/67 05/01/24 14:00 Pulse Ox 99 05/01/24 14:00 FiO2 Intake & Output 04/30/24 05/01/24 05/01/24 18:59 06:59 18:59 Intake Total 1064 Balance 1064 Weight 113.398 kg 113.398 kg Intake: Oral 1064 Other: Voiding Method Toilet # Voids 2 4 - Labs CBC & Chem 7: 05/01/24 04:26 05/01/24 04:26 Labs: Abnormal Lab Results - Last 24 Hours (Table) 04/30/24 04/30/24 04/30/24 Range/Units 15:11 20:31 22:25 MPV (9.5-12.2) FL Potassium 5.4 H (3.5-5.1) mmol/L Chloride 111 H (98-107) mmol/L Carbon Dioxide 15 L (22-30) mmol/L BUN 42 H (9-20) mg/dL Creatinine 2.20 H (0.66-1.25) mg/dL Est GFR (CKD-EPI) (>=60) BUN/Creatinine Ratio (12.00-20.00) Ratio Glucose 212 H (74-99) mg/dL POC Glucose (mg/dL) 141 H 170 H (70-110) mg/dL Hemoglobin A1c (<=6.0) % Osmolality (275-295) mOsm/kg Urine Protein (Negative) Urine Glucose (UA) (Negative) Hyaline Casts (0-2) /lpf Urine Mucus (None) /hpf Ur Random Sodium (40-220) mmol/L 04/30/24 04/30/24 05/01/24 Range/Units 23:15 23:15 01:30 MPV (9.5-12.2) FL Potassium (3.5-5.1) mmol/L Chloride (98-107) mmol/L Carbon Dioxide (22-30) mmol/L BUN (9-20) mg/dL Creatinine (0.66-1.25) mg/dL Est GFR (CKD-EPI) (>=60) BUN/Creatinine Ratio (12.00-20.00) Ratio Glucose (74-99) mg/dL POC Glucose (mg/dL) 149 H (70-110) mg/dL Hemoglobin A1c (<=6.0) % Osmolality (275-295) mOsm/kg Urine Protein 1+ H (Negative) Urine Glucose (UA) 4+ H (Negative) Hyaline Casts 3 H (0-2) /lpf Urine Mucus Rare H (None) /hpf Ur Random Sodium <20 L (40-220) mmol/L 05/01/24 05/01/24 05/01/24 Range/Units 04:26 04:26 04:26 MPV 9.0 L (9.5-12.2) FL Potassium (3.5-5.1) mmol/L Chloride 112 H (98-107) mmol/L Carbon Dioxide 16.3 L (22-30) mmol/L BUN 43.9 H (9-20) mg/dL Creatinine 2.0 H (0.66-1.25) mg/dL Est GFR (CKD-EPI) 37 L (>=60) BUN/Creatinine Ratio 21.95 H (12.00-20.00) Ratio Glucose 151 H (74-99) mg/dL POC Glucose (mg/dL) (70-110) mg/dL Hemoglobin A1c 8.2 H (<=6.0) % Osmolality (275-295) mOsm/kg Urine Protein (Negative) Urine Glucose (UA) (Negative) Hyaline Casts (0-2) /lpf Urine Mucus (None) /hpf Ur Random Sodium (40-220) mmol/L 05/01/24 05/01/24 05/01/24 Range/Units 04:26 05:52 12:12 MPV (9.5-12.2) FL Potassium (3.5-5.1) mmol/L Chloride (98-107) mmol/L Carbon Dioxide (22-30) mmol/L BUN (9-20) mg/dL Creatinine (0.66-1.25) mg/dL Est GFR (CKD-EPI) (>=60) BUN/Creatinine Ratio (12.00-20.00) Ratio Glucose (74-99) mg/dL POC Glucose (mg/dL) 142 H 154 H (70-110) mg/dL Hemoglobin A1c (<=6.0) % Osmolality 309 H (275-295) mOsm/kg Urine Protein (Negative) Urine Glucose (UA) (Negative) Hyaline Casts (0-2) /lpf Urine Mucus (None) /hpf Ur Random Sodium (40-220) mmol/L
[2024-05-01 17:10] LABS: Glucose,Whole Blood 164 mg/dL (70-110)
[2024-05-01 20:35] LABS: Glucose,Whole Blood 200 mg/dL (70-110)
[2024-05-01] MEDS: CYCLOBENZAPRINE 5 MG TAB PO PRN (21:10)
[2024-05-02 01:49] LABS: Glucose,Whole Blood 143 mg/dL (70-110)
[2024-05-02 06:19] LABS: Glucose,Whole Blood 152 mg/dL (70-110)
[2024-05-02] MEDS: ENOXAPARIN 40 MG/0.4 ML SYRINGE SQ SCH (08:36)
[2024-05-02 09:41] LABS: Blood Urea Nitrogen 31.2 mg/dL (9.0-27.0); Calcium 8.4 mg/dL (8.7-10.3); Carbon Dioxide 18.4 mmol/L (21.6-31.8); Chloride 108 mmol/L (96-109); Glucose 171 mg/dL (70-110); Magnesium 1.7 mg/dL (1.5-2.4); Potassium 3.8 mmol/L (3.5-5.5); Sodium 139 mmol/L (135-145)
[2024-05-02 11:52] LABS: Glucose,Whole Blood 193 mg/dL (70-110)
--- NOTE | 2024-05-02 12:17 | P.PN ---
Subjective Patient is seen in follow-up for acute kidney injury. Renal function improving. Currently on bicarb drip. Still having loose output from colostomy. Vital signs are stable. Orthostatics positive. General: No acute distress. HEENT: Head exam is unremarkable. LUNGS: No audible rhonchi or wheezes. HEART: Rate and Rhythm are regular. ABDOMEN: Colostomy noted. EXTREMITITES: No edema. Objective - Vital Signs Vital signs: Vital Signs Temp 97.6 F 05/02/24 07:00 Pulse 104 H 05/02/24 07:00 Resp 16 05/02/24 07:00 BP 102/72 05/02/24 07:00 Pulse Ox 99 05/02/24 07:00 FiO2 Intake & Output 05/01/24 05/02/24 05/02/24 18:59 06:59 18:59 Intake Total 1182 118 Balance 1182 118 Intake: Oral 1182 118 Other: Voiding Method Toilet # Voids 4 1 - Labs CBC & Chem 7: 05/01/24 04:26 05/02/24 05:24 Labs: Abnormal Lab Results - Last 24 Hours (Table) 05/01/24 05/01/24 05/01/24 Range/Units 12:12 17:08 20:34 Carbon Dioxide (21.6-31.8) mmol/L Anion Gap (4.00-12.00) mmol/L BUN (9.0-27.0) mg/dL Est GFR (CKD-EPI) (>=60) BUN/Creatinine Ratio (12.00-20.00) Ratio Glucose (70-110) mg/dL POC Glucose (mg/dL) 154 H 164 H 200 H (70-110) mg/dL Calcium (8.7-10.3) mg/dL 05/02/24 05/02/24 05/02/24 Range/Units 01:48 05:24 06:18 Carbon Dioxide 18.4 L (21.6-31.8) mmol/L Anion Gap 12.60 H (4.00-12.00) mmol/L BUN 31.2 H (9.0-27.0) mg/dL Est GFR (CKD-EPI) 53 L (>=60) BUN/Creatinine Ratio 20.80 H (12.00-20.00) Ratio Glucose 171 H (70-110) mg/dL POC Glucose (mg/dL) 143 H 152 H (70-110) mg/dL Calcium 8.4 L (8.7-10.3) mg/dL 05/02/24 Range/Units 11:50 Carbon Dioxide (21.6-31.8) mmol/L Anion Gap (4.00-12.00) mmol/L BUN (9.0-27.0) mg/dL Est GFR (CKD-EPI) (>=60) BUN/Creatinine Ratio (12.00-20.00) Ratio Glucose (70-110) mg/dL POC Glucose (mg/dL) 193 H (70-110) mg/dL Calcium (8.7-10.3) mg/dL Microbiology - Last 24 Hours (Table) 05/01/24 08:50 Stool Culture - Preliminary Stool Assessment and Plan Plan: Assessment: 1. Acute kidney injury secondary to ATN secondary to hypotension. Creatinine 2.2 on admission and is 1.5 today. Baseline creatinine near 1 from November 2023. No hydronephrosis noted on renal ultrasound. UA fairly benign. 2. Hypovolemia with urine sodium less than 20 and urine osmolality 755. 3. Hypotension related to hypovolemia. Possibly from high output from colostomy. GI following. Cortisol level on the lower end at 6.7. 4. History of ulcerative colitis. Has a colostomy bag. 5. Metabolic acidosis secondary to acute kidney injury and GI losses. Was also on metformin outpatient. Improving with bicarb drip. 6. Diabetes mellitus. Plan: Maintain bicarb drip. Continue to monitor orthostatic vital signs. Hold Jardiance for now. Proceed with cosyntropin stimulation test. Avoid nephrotoxins. Continue to monitor renal function and urine output. Continue to monitor orthostatics. Replace potassium and magnesium.
[2024-05-02] MEDS: POTASSIUM CHLORIDE ER 20 MEQ TAB.ER PO STA (12:52)
[2024-05-02] MEDS: MAGNESIUM SULFATE-D5W PMX 1 GM in DEXTROSE/WATER 1 100ML.BAG IVPB SCH (12:53)
--- NOTE | 2024-05-02 14:55 | P.PN ---
Subjective Progress Note Date: 05/02/24 Hospital course: Timur Galvan is a 63-year-old male with colectomy and ileostomy bag, GERD, hypertension who presents with new onset weakness. Initial lab work done in the ER showed WBC 9.4, hemoglobin 16.9, platelets 284, coagulation studies are WNL, sodium 138, potassium 5.4, chloride 111, bicarb 15, anion gap 12, BUN 42, creatinine 2.20, glucose 212, lactic acid 1.7, troponin negative, viral respi ratory panel negative. Patient had orthostatics done in the ED which were positive. EKG done in the ER showed heart rate of 76, no ST segment elevation or depression seen, no T-wave inversions seen. Left axis deviation. Incomplete RBBB. Patient is admitted for further evaluation of orthostatic hypotension, PRIMITIVO and weakness. Nephrology is consulted. Gastroenterology is consulted. All Systems reviewed and pertinent positives and negatives noted in HPI, all other symptoms are negative Objective: Vital signs reviewed. GENERAL: No acute distress. Well developed, well nourished. HEENT: Pupils are round and equally reacting to light. EOMI. No scleral icterus. Normocephalic, atraumatic. No pharyngeal erythema. No thyromegaly. CARDIOVASCULAR: S1 and S2 present. No murmurs, rubs, or gallops. PULMONARY: Chest is clear to auscultation, no wheezing or crackles. ABDOMEN: Ileostomy bag in place with watery brown stool. Soft, nontender, nondistended, normoactive bowel sounds. No palpable organomegaly. MUSCULOSKELETAL: No apparent joint swelling and deformities. EXTREMITIES: No apparent cyanosis, clubbing, or pedal edema. NEUROLOGICAL: The patient is alert and oriented x3, Gross neurological examination did not reveal any focal deficits. SKIN: No apparent rashes. Data reviewed today: Labs: Cortisol 6.7, BUN 31, creatinine 1.5, sodium 139, potassium 3.8, chloride 108, bicarb 18.4 Images: No new imaging Assessment and Plan: Timur Galvan is a 63-year-old male with colectomy and ileostomy bag, GERD, hypertension who presents with new onset weakness. #Diarrhea #Orthostatic hypotension #Malabsorption with History of colectomy with ileostomy #Generalized weakness and dizziness C. difficile negative Check calprotectin levels GI consulted; Note reviewed, signed off, started on Imodium Order stool culture Outpatient follow-up with gastroenterology IV fluids as below Cortisol 6.7, order cosyntropin stimulation test for chronic adrenal i nsufficiency #Acute kidney injury, likely due to dehydration, improved #Anion gap metabolic acidosis Initial creatinine 2.20 improved to 1.5 US kidney bladder shows no hydronephrosis Urinalysis shows proteinuria and glycosuria, urine creatinine 171, urine sodium 20, urine nitrogen 869 Serum osmolality 309 FEN 0.2% hold SUSIE inhibitors and avoid nephrotoxic medications Discussed with nephrology, continue bicarb drip at 125 cc/h, cosyntropin stimul ation test for chronic adrenal insufficiency #Hyperkalemia, resolved Initial 5.4---> 4.8 Monitor BMP #Hyperglycemia #Diabetes mellitus, type 2 Holding oral medications Accu-Cheks and medium-dose sliding scale, monitor for hypoglycemia Resume home long-acting insulin Levemir 44 units HbA1c 8.2 Chronic Medical Conditions # Essential hypertension - Resume home Lisinopril Losartan 20 mg #Hyperlidemia - Resume home Atorvastatin 40 mg #CAD history of stent placement Resume home aspirin and Plavix #GERD - Increase pantoprazole 40mg twice daily #Chronic pain Resume home Flexeril, Cymbalta #BPH #Resume home Flomax F: Bicarb drip at 125 cc/h E: Replete as needed N: Heart healthy diet E: None DVT ppx: Subq Lovenox Code status: Full code Anticipated discharge place: home Anticipated discharge time: Pending clinical course I have seen and evaluated the patient today. Discussed with the resident and agree with the residents finding and plan as documented in the resident's note. Changes highlighted in blue font. Objective - Vital Signs Vital signs: Vital Signs Temp 97.5 F L 05/02/24 14:08 Pulse 123 H 05/02/24 14:08 Resp 16 05/02/24 14:08 BP 94/74 05/02/24 14:08 Pulse Ox 100 05/02/24 14:08 FiO2 Intake & Output 05/01/24 05/02/24 05/02/24 18:59 06:59 18:59 Intake Total 1182 358 Balance 1182 358 Intake: Oral 1182 358 Other: Voiding Method Toilet # Voids 4 1 3 - Labs CBC & Chem 7: 05/01/24 04:26 05/02/24 05:24 Labs: Abnormal Lab Results - Last 24 Hours (Table) 05/01/24 05/01/24 05/02/24 Range/Units 17:08 20:34 01:48 Carbon Dioxide (21.6-31.8) mmol/L Anion Gap (4.00-12.00) mmol/L BUN (9.0-27.0) mg/dL Est GFR (CKD-EPI) (>=60) BUN/Creatinine Ratio (12.00-20.00) Ratio Glucose (70-110) mg/dL POC Glucose (mg/dL) 164 H 200 H 143 H (70-110) mg/dL Calcium (8.7-10.3) mg/dL 05/02/24 05/02/24 05/02/24 Range/Units 05:24 06:18 11:50 Carbon Dioxide 18.4 L (21.6-31.8) mmol/L Anion Gap 12.60 H (4.00-12.00) mmol/L BUN 31.2 H (9.0-27.0) mg/dL Est GFR (CKD-EPI) 53 L (>=60) BUN/Creatinine Ratio 20.80 H (12.00-20.00) Ratio Glucose 171 H (70-110) mg/dL POC Glucose (mg/dL) 152 H 193 H (70-110) mg/dL Calcium 8.4 L (8.7-10.3) mg/dL Microbiology - Last 24 Hours (Table) 05/01/24 08:50 Stool Culture - Preliminary Stool
[2024-05-02 16:58] LABS: Glucose,Whole Blood 194 mg/dL (70-110)
[2024-05-02 20:33] LABS: Glucose,Whole Blood 200 mg/dL (70-110)
[2024-05-03 02:41] LABS: Glucose,Whole Blood 145 mg/dL (70-110)
[2024-05-03 05:49] LABS: Glucose,Whole Blood 145 mg/dL (70-110)
[2024-05-03] MEDS: COSYNTROPIN 0.25 MG VIAL IVP ONE (05:56)
[2024-05-03] MEDS: ONDANSETRON 4 MG TAB PO PRN (07:42)
[2024-05-03] MEDS: ACETAMINOPHEN TAB 325 MG TAB PO PRN (09:04)
[2024-05-03 09:51] LABS: Blood Urea Nitrogen 16.2 mg/dL (9.0-27.0); Carbon Dioxide 26.7 mmol/L (21.6-31.8); Chloride 104 mmol/L (96-109); Glucose 162 mg/dL (70-110); Magnesium 1.8 mg/dL (1.5-2.4); Potassium 3.4 mmol/L (3.5-5.5); Sodium 140 mmol/L (135-145)
--- NOTE | 2024-05-03 10:44 | P.PN ---
Subjective Patient is seen in follow-up for acute kidney injury. Renal function improving. Currently on bicarb drip. Acidosis improved. Output from the colostomy also improved. Had 1 episode of vomiting this morning. Did eat his full breakfast. Vital signs are stable. Orthostatics positive. General: No acute distress. HEENT: Head exam is unremarkable. LUNGS: No audible rhonchi or wheezes. HEART: Rate and Rhythm are regular. ABDOMEN: Colostomy noted. EXTREMITITES: No edema. Objective - Vital Signs Vital signs: Vital Signs Temp 97.6 F 05/03/24 07:00 Pulse 104 H 05/03/24 07:00 Resp 17 05/03/24 07:00 BP 103/68 05/03/24 07:00 Pulse Ox 100 05/03/24 07:00 FiO2 Intake & Output 05/02/24 05/03/24 05/03/24 18:59 06:59 18:59 Intake Total 358 236 Balance 358 236 Intake: Oral 358 236 Other: Voiding Method Toilet # Voids 3 1 - Labs CBC & Chem 7: 05/01/24 04:26 05/03/24 05:52 Labs: Abnormal Lab Results - Last 24 Hours (Table) 05/02/24 05/02/24 05/02/24 Range/Units 11:50 16:57 20:32 Potassium (3.5-5.5) mmol/L Glucose (70-110) mg/dL POC Glucose (mg/dL) 193 H 194 H 200 H (70-110) mg/dL Calcium (8.7-10.3) mg/dL 05/03/24 05/03/24 05/03/24 Range/Units 02:40 05:47 05:52 Potassium 3.4 L (3.5-5.5) mmol/L Glucose 162 H (70-110) mg/dL POC Glucose (mg/dL) 145 H 145 H (70-110) mg/dL Calcium 8.0 L (8.7-10.3) mg/dL Microbiology - Last 24 Hours (Table) 05/01/24 08:50 Stool Culture - Preliminary Stool Assessment and Plan Plan: Assessment: 1. Acute kidney injury secondary to ATN secondary to hypotension. Creatinine 2.2 on admission and is 1.2 today. Baseline creatinine near 1 from November 2023. No hydronephrosis noted on renal ultrasound. UA fairly benign. 2. Hypovolemia with urine sodium less than 20 and urine osmolality 755. 3. Hypotension related to hypovolemia. Possibly from high output from colostomy. GI following. Cortisol level on the lower end at 6.7. Cosyntropin stimulation test negative. 4. History of ulcerative colitis. Has a colostomy bag. 5. Metabolic acidosis secondary to acute kidney injury and GI losses. Was also on metformin outpatient. Improving with bicarb drip. 6. Diabetes mellitus. 7. Hypokalemia from intracellular shifting from IV bicarb. Magnesium 1.8. Plan: Change bicarb drip to normal saline. Replace potassium. Continue to monitor orthostatic vital signs. Continue to hold Jardiance for now. Avoid nephrotoxins. Continue to monitor renal function and urine output.
[2024-05-03] MEDS: POTASSIUM CHLORIDE ER 20 MEQ TAB.ER PO STA (10:52)
[2024-05-03] MEDS: SODIUM CHLORIDE 0.9% 1,000 ML IV SCH (10:53)
[2024-05-03 12:19] LABS: Glucose,Whole Blood 298 mg/dL (70-110)
[2024-05-03] MEDS: ONDANSETRON 4 MG/2 ML VIAL IVP PRN (14:33)
--- NOTE | 2024-05-03 14:47 | P.PN ---
Subjective Progress Note Date: 05/03/24 Hospital course: Timur Galvan is a 63-year-old male with colectomy and ileostomy bag, GERD, h ypertension who presents with new onset weakness. Initial lab work done in the ER showed WBC 9.4, hemoglobin 16.9, platelets 284, coagulation studies are WNL, sodium 138, potassium 5.4, chloride 111, bicarb 15, anion gap 12, BUN 42, creatinine 2.20, glucose 212, lactic acid 1.7, troponin negative, viral respiratory panel negative. Patient had orthostatics done in the ED which were positive. EKG done in the ER showed heart rate of 76, no ST segment elevation or depression seen, no T-wave inversions seen. Left axis deviation. Incomplete RBBB. Patient is admitted for further evaluation of orthostatic hypotension, PRIMITIVO and weakness. Nephrology is consulted. Gastroenterology is consulted. GI signed off. Ruled out adrenal insufficiency. Patient seen and examined at bedside. No acute events overnight. Still continues to have lightheadedness when getting up All Systems reviewed and pertinent positives and negatives noted in HPI, all other symptoms are negative Objective: Vital signs reviewed. GENERAL: No acute distress. Well developed, well nourished. HEENT: Pupils are round and equally reacting to light. EOMI. No scleral icterus. Normocephalic, atraumatic. No pharyngeal erythema. No thyromegaly. CARDIOVASCULAR: S1 and S2 present. No murmurs, rubs, or gallops. PULMONARY: Chest is clear to auscultation, no wheezing or crackles. ABDOMEN: Ileostomy bag in place with watery brown stool. Soft, nontender, nondistended, normoactive bowel sounds. No palpable organomegaly. MUSCULOSKELETAL: No apparent joint swelling and deformities. EXTREMITIES: No apparent cyanosis, clubbing, or pedal edema. NEUROLOGICAL: The patient is alert and oriented x3, Gross neurological exa mination did not reveal any focal deficits. SKIN: No apparent rashes. Data reviewed today: Labs: Cortisol level 31 after stim test, potassium 3.4, creatinine 1.2, blood sugars range between 1 45-1 62, magnesium 1.8 Images: No new imaging Assessment and Plan: Timur Galvan is a 63-year-old male with colectomy and ileostomy bag, GERD, hypertension who presents with new onset weakness. #Diarrhea #Orthostatic hypotension #Malabsorption with History of colectomy with ileostomy #Generalized weakness and dizziness C. difficile negative Check calprotectin levels, pending GI consulted; Note reviewed, signed off, started on Imodium Order stool culture, no growth Outpatient follow-up with gastroenterology IV fluids as below Adrenal insufficiency ruled out #Acute kidney injury, likely due to dehydration, improved #Anion gap metabolic acidosis hold SUSIE inhibitors and avoid nephrotoxic medications Discussed with nephrology, continue normal saline 75 cc an hour #Hyperkalemia, resolved Initial 5.4---> 4.8 Monitor BMP #Hyperglycemia #Diabetes mellitus, type 2 Holding oral medications Accu-Cheks and medium-dose sliding scale, monitor for hypoglycemia home long-acting insulin Levemir 44 units HbA1c 8.2 Chronic Medical Conditions #Hyperlidemia - Resume home Atorvastatin 40 mg #CAD history of stent placement Resume home aspirin and Plavix #GERD - Increase pantoprazole 40mg twice daily #Chronic pain Resume home Flexeril, Cymbalta #BPH #Resume home Flomax F: Normal saline 75 cc an hour E: Replete as needed N: Heart healthy diet E: None DVT ppx: Subq Lovenox Code status: Full code Anticipated discharge place: home Anticipated discharge time: Pending clinical course Objective - Vital Signs Vital signs: Vital Signs Temp 97.6 F 05/03/24 07:00 Pulse 104 H 05/03/24 07:00 Resp 17 05/03/24 07:00 BP 103/68 05/03/24 07:00 Pulse Ox 100 05/03/24 07:00 FiO2 Intake & Output 05/02/24 05/03/24 05/03/24 18:59 06:59 18:59 Intake Total 358 236 Balance 358 236 Intake: Oral 358 236 Other: Voiding Method Toilet # Voids 3 1 - Labs CBC & Chem 7: 05/01/24 04:26 05/03/24 05:52 Labs: Abnormal Lab Results - Last 24 Hours (Table) 05/02/24 05/02/24 05/03/24 Range/Units 16:57 20:32 02:40 Potassium (3.5-5.5) mmol/L Glucose (70-110) mg/dL POC Glucose (mg/dL) 194 H 200 H 145 H (70-110) mg/dL Calcium (8.7-10.3) mg/dL Cortisol (3.1-22.4) UG/DL 05/03/24 05/03/24 05/03/24 Range/Units 05:47 05:52 07:34 Potassium 3.4 L (3.5-5.5) mmol/L Glucose 162 H (70-110) mg/dL POC Glucose (mg/dL) 145 H (70-110) mg/dL Calcium 8.0 L (8.7-10.3) mg/dL Cortisol 31.0 H (3.1-22.4) UG/DL 05/03/24 Range/Units 12:17 Potassium (3.5-5.5) mmol/L Glucose (70-110) mg/dL POC Glucose (mg/dL) 298 H (70-110) mg/dL Calcium (8.7-10.3) mg/dL Cortisol (3.1-22.4) UG/DL Microbiology - Last 24 Hours (Table) 05/01/24 08:50 Stool Culture - Preliminary Stool
[2024-05-03 17:31] LABS: Glucose,Whole Blood 162 mg/dL (70-110)
[2024-05-03 20:25] LABS: Glucose,Whole Blood 181 mg/dL (70-110)
[2024-05-04 01:47] LABS: Glucose,Whole Blood 202 mg/dL (70-110)
[2024-05-04 04:32] VITALS: RESP 16
[2024-05-04 06:36] LABS: Glucose,Whole Blood 126 mg/dL (70-110)
[2024-05-04 08:15] VITALS: BP 118/75; PULSE 101; TEMP 97.7
[2024-05-04 09:10] LABS: Blood Urea Nitrogen 16.2 mg/dL (9.0-27.0); Calcium 8.2 mg/dL (8.7-10.3); Carbon Dioxide 24.9 mmol/L (21.6-31.8); Chloride 106 mmol/L (96-109); Glucose 182 mg/dL (70-110); Magnesium 1.7 mg/dL (1.5-2.4); Potassium 3.6 mmol/L (3.5-5.5); Sodium 142 mmol/L (135-145)
[2024-05-04 11:56] LABS: Glucose,Whole Blood 225 mg/dL (70-110)
--- NOTE | 2024-05-04 13:10 | P.DS ---
Providers Date of admission: 04/30/24 18:26 Expected date of discharge: 05/04/24 Attending physician: Jesus Manuel Carrion Consults: 04/30/24 18:30 Consult Physician Urgent Consulting Provider: Sampson Sequeira Consult Reason/Comments: moses, orthostatic hypotension Do you want consulting provider notified?: Yes 04/30/24 18:38 Consult Physician Urgent Consulting Provider: Zehra Coley Consult Reason/Comments: gastric dumping Do you want consulting provider notified?: Yes Primary care physician: Regino Bryant [facility] Course: Diagnosis: #Diarrhea #Orthostatic hypotension #Malabsorption with History of colectomy with ileostomy #Generalized weakness and dizziness #Acute kidney injury, likely due to dehydration, improved #Anion gap metabolic acidosis #Hyperkalemia, resolved #Hyperglycemia #Diabetes mellitus, type 2 #Hyperlidemia #CAD history of stent placement #GERD #Chronic pain #BPH Hospital Course: Timur Galvan is a 63-year-old male with colectomy and ileostomy bag, GERD, hypertension who presents with new onset weakness. Initial lab work done in the ER showed WBC 9.4, hemoglobin 16.9, platelets 284, coagulation studies are WNL, sodium 138, potassium 5.4, chloride 111, bicarb 15, anion gap 12, BUN 42, creatinine 2.20, glucose 212, lactic acid 1.7, troponin negative, viral respiratory panel negative. Patient had orthostatics done in the ED which were positive. EKG done in the ER showed heart rate of 76, no ST segment elevation or depression seen, no T-wave inversions seen. Left axis deviation. Incomplete RBBB. Patient is admitted for further evaluation of orthostatic hypotension, MOSES and weakness. Nephrology is consulted. Gastroenterology is consulted. GI signed off. Ruled out adrenal insufficiency. Colostomy output has also returned baseline. MOSES resolved. However, patient to continue experience orthostatic hypotension. Patient is notified discussed with patient that his symptoms could be likely due to peripheral neuropathy in the setting of chronic type 2 diabetes mellitus. Patient is medically optimized to be discharged and to follow-up with his PCP, GI and nephrology. Patient is advised to continue with Imodium 2 mg p.o. 4 times daily. Prescription sent in to pharmacy. Patient to continue with his home medications as directed. Patient is provided with instructions on dehydration and MOSES. Vital signs reviewed. Gen: in no apparent distress, resting comfortably in bed Eyes: PERRL, no scleral injection or icterus HENT: normocephalic, atraumatic, good hearing acuity, moist mucous membranes Neck: full range of motion Resp: CTAB, no rales, rhonchi, or wheezes CVS: normal S1 and S2, no murmurs, rubs or gallops, no edema GI: soft, NTTP, ND, no hepatosplenomegaly : no suprapubic tenderness, no CVAT, waterman catheter [is/not] present MSK: no clubbing, no cyanosis, no noted contractures of extremities Skin: no noted rashes, petechiae; temperature of skin is appropriate Neuro: moving all extremities without signs of weakness, CN II-XII intact Psych: cooperative, euthymic mood, insight and judgment intact A total of 36 minutes of time were spent preparing this complex discharge summary. Patient was discharged on 05/04/2024 at 1149. I have seen and evaluated the patient today. Discussed with the resident and agree with the residents finding and plan as documented in the resident's note. Changes highlighted in blue font. Patient Condition at Discharge: Stable Plan - Discharge Summary New Discharge Prescriptions: New Loperamide [Imodium] 2 mg PO QID #90 cap Continue HYDROcodone/APAP 10-325MG [[place] 10-325] 1 tab PO Q8H PRN PRN Reason: Pain Tamsulosin [Flomax] 0.4 mg PO HS Aspirin 81 mg PO DAILY #21 chew Clopidogrel [Plavix] 75 mg PO DAILY #30 tab DULoxetine HCL [Cymbalta] 60 mg PO DAILY Pregabalin [Lyrica] 50 mg PO TID Ondansetron [Zofran] 4 mg PO Q6HR PRN PRN Reason: Nausea And Vomiting Atorvastatin [Lipitor] 40 mg PO DAILY Pantoprazole [Protonix] 40 mg PO DAILY Cyclobenzaprine [Flexeril] 5 mg PO BID PRN PRN Reason: Muscle Pain DULoxetine HCL [Cymbalta] 30 mg PO DAILY Insulin Glargine,Hum.rec.anlog [Basaglar Kwikpen U-100] 44 units SQ HS Semaglutide [Ozempic] 0.5 mg SQ TH@2100 Discontinued metFORMIN HCL [Glucophage] 1,000 mg PO BID Sodium Bicarbonate 650 mg PO DAILY Empagliflozin [Jardiance] 10 mg PO DAILY Meloxicam [Mobic] 15 mg PO DAILY PRN PRN Reason: Pain Discharge Medication List HYDROcodone/APAP 10-325MG [[place] 10-325] 1 tab PO Q8H PRN 05/12/14 [History] Tamsulosin [Flomax] 0.4 mg PO HS 05/26/20 [History] Aspirin 81 mg PO DAILY #21 chew 08/12/20 [Rx] Clopidogrel [Plavix] 75 mg PO DAILY #30 tab 08/12/20 [Rx] Atorvastatin [Lipitor] 40 mg PO DAILY 03/06/24 [History] Cyclobenzaprine [Flexeril] 5 mg PO BID PRN 03/06/24 [History] DULoxetine HCL [Cymbalta] 30 mg PO DAILY 03/06/24 [History] DULoxetine HCL [Cymbalta] 60 mg PO DAILY 03/06/24 [History] Insulin Glargine,Hum.rec.anlog [Basaglar Kwikpen U-100] 44 units SQ HS 03/06/24 [History] Pantoprazole [Protonix] 40 mg PO DAILY 03/06/24 [History] Pregabalin [Lyrica] 50 mg PO TID 03/06/24 [History] Semaglutide [Ozempic] 0.5 mg SQ TH@2100 03/06/24 [History] Ondansetron [Zofran] 4 mg PO Q6HR PRN 04/30/24 [History] Loperamide [Imodium] 2 mg PO QID #90 cap 05/04/24 [Rx] Follow up Appointment(s)/Referral(s): Lluvia Smith MD [STAFF PHYSICIAN] - 1 Week Zehra Coley MD [STAFF PHYSICIAN] - 1 Week Regino Ibrahim MD [Primary Care Provider] - 1-2 days Patient Instructions/Handouts: Dehydration (DC), Acute Kidney Injury (DC) Activity/Diet/Wound Care/Special Instructions: Please see your PCP, GI and nephrology. FOLLOW UP SOONER FOR WORSENING SYMPTOMS, PROBLEMS, OR CONCERNS. Discharge Disposition: HOME SELF-CARE
--- NOTE | 2024-05-04 21:19 | P.PN ---
Subjective Patient is seen for follow-up for acute kidney injury. No significant complaints today. Renal function has improved. Serum creatinine now at 1.2 mg/dL. Objective - Vital Signs Vital signs: Vital Signs Temp 97.7 F 05/04/24 07:00 Pulse 101 H 05/04/24 07:00 Resp 16 05/04/24 08:00 BP 118/75 05/04/24 07:00 Pulse Ox 97 05/04/24 07:00 FiO2 Intake & Output 05/04/24 05/04/24 05/05/24 06:59 18:59 06:59 Intake Total 118 Balance 118 Intake: Oral 118 Other: # Voids 1 # Bowel Movements 1 - Exam Patient is awake, comfortable, no acute distress. Examination of lower extremities shows no significant edema. 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 Acute kidney injury secondary to ATN secondary to hypotension. Creatinine 2.2 on admission and is 1.2 today. Baseline creatinine near 1 from November 2023. No hydronephrosis noted on renal ultrasound. UA fairly benign. 2. Hypovolemia with urine sodium less than 20 and urine osmolality 755. 3. Hypotension related to hypovolemia. Possibly from high output from colostomy. GI following. Cortisol level on the lower end at 6.7. Cosyntropin stimulation test negative. 4. History of ulcerative colitis. Has a colostomy bag. 5. Metabolic acidosis secondary to acute kidney injury and GI losses. Was also on metformin outpatient. Improving with bicarb drip. 6. Diabetes mellitus. 7. Hypokalemia from intracellular shifting from IV bicarb. Magnesium 1.8. Plan: Patient can be discharged from nephrology standpoint. Follow-up as outpatient and we can arrange for outpatient IV fluids if patient develops significant volume depletion
== END 2024-05-04 13:26 | disposition home or self-care (01) | DRG 640 ==
LOC: EC 13:14 → 6NMEDSUR 18:25 → OBSVTOIN 18:26 → 6NMEDSUR 20:02
PROVIDERS: ADMIT Student in an Organized Health Care Education/Training Program; ATTEND Student in an Organized Health Care Education/Training Program
DX: E86.1 Hypovolemia (principal); N17.0 Acute kidney failure with tubular necrosis; K90.9 Intestinal malabsorption, unspecified; I95.1 Orthostatic hypotension; E87.20 Acidosis, unspecified; E11.65 Type 2 diabetes mellitus with hyperglycemia; I10 Essential (primary) hypertension; Z93.2 Ileostomy status; Z93.3 Colostomy status; Z79.4 Long term (current) use of insulin; I25.10 Atherosclerotic heart disease of native coronary artery without angina pectoris; K21.9 Gastro-esophageal reflux disease without esophagitis; G89.29 Other chronic pain; N40.0 Benign prostatic hyperplasia without lower urinary tract symptoms; E87.5 Hyperkalemia; E87.6 Hypokalemia; T47.1X5A Adverse effect of other antacids and anti-gastric-secretion drugs, initial encounter; R19.7 Diarrhea, unspecified; E86.0 Dehydration; T46.5X6A Underdosing of other antihypertensive drugs, initial encounter; Z96.653 Presence of artificial knee joint, bilateral; Z91.128 Patient's intentional underdosing of medication regimen for other reason; Z79.02 Long term (current) use of antithrombotics/antiplatelets; Z79.1 Long term (current) use of non-steroidal anti-inflammatories (NSAID); Z79.84 Long term (current) use of oral hypoglycemic drugs; Z79.899 Other long term (current) drug therapy; Z79.85 Long-term (current) use of injectable non-insulin antidiabetic drugs; Z79.82 Long term (current) use of aspirin; Z89.022 Acquired absence of left finger(s); Z95.5 Presence of coronary angioplasty implant and graft; Z90.49 Acquired absence of other specified parts of digestive tract
CPT/HCPCS: 36415; 76770; 80048; 80053; 81001; 82533; 82570; 83036; 83605; 83735; 83930; 83935; 83993; 84300; 84484; 84540; 85025; 85610; 85730; 87045; 87046; 87324; 87636; 93005; 96360; 96361; 99285

== ENCOUNTER 2024-06-09 11:13 | Emergency (ER) | payer MEDICAID ==
[2024-06-09 11:18] VITALS: TEMP 97.3
--- NOTE | 2024-06-09 11:39 | ED ---
Abdominal Pain HPI - General Chief Complaint: Abdominal Pain Stated Complaint: abd pain Time Seen by Provider: 06/09/24 11:27 Source: patient, RN notes reviewed Mode of arrival: ambulatory Limitations: no limitations - History of Present Illness Initial Comments: This is a 64-year-old male with history of hypertension and ostomy complaining of abdominal pain (01/14) increased hunger and possible blocked ostomy x 2 days. Patient endorses associated nausea/vomiting. Describes diffuse pain as constant and squeezing/cramping. Endorses transient blocked ostomy following Thanksgiving attributed to stuffing. Endorses intake of pizza last night prior to start of symptoms. Endorses use of stool softener with minimal relief. Patient states initial ostomy placed by Dr. Coley 20 years ago. Patient states he has an upcoming endoscope appointment on 06/26/2024. Denies fever, chills, fatigue, chest pain, dyspnea, hematochezia, melena. MD Complaint: abdominal pain Onset/Timin -: days(s) Location: diffuse Radiation: none Migration to: no migration Severity scale (1-10): 7 Quality: cramping Consistency: constant Improves With: nothing Context: other (Possible obstructed ostomy) Associated Symptoms: nausea, vomiting Treatments Prior to Arrival: other (Stool softeners) - Related Data Home Medications Medication Instructions Recorded Confirmed HYDROcodone/APAP 10-325MG [[place] 1 tab PO Q8H PRN 05/12/14 06/09/24 10-325] Tamsulosin [Flomax] 0.4 mg PO HS 05/26/20 06/09/24 Atorvastatin [Lipitor] 40 mg PO DAILY 03/06/24 06/09/24 Cyclobenzaprine [Flexeril] 5 mg PO BID PRN 03/06/24 06/09/24 DULoxetine HCL [Cymbalta] 60 mg PO DAILY 03/06/24 06/09/24 Insulin Glargine,Hum.rec.anlog 44 units SQ HS 03/06/24 06/09/24 [Basaglar Kwikpen U-100] Pantoprazole [Protonix] 40 mg PO DAILY 03/06/24 06/09/24 Pregabalin [Lyrica] 50 mg PO TID 03/06/24 06/09/24 Semaglutide [Ozempic] 0.5 mg SQ TH@2100 03/06/24 06/09/24 Cholecalciferol [Vitamin D3 (25 25 mcg PO DAILY 06/09/24 06/09/24 Mcg = 1000 Iu)] Loperamide [Imodium] 2 mg PO QID PRN 06/09/24 06/09/24 amLODIPine [Norvasc] 10 mg PO DAILY 06/09/24 06/09/24 Previous Rx's Medication Instructions Recorded Clopidogrel [Plavix] 75 mg PO DAILY #30 tab 08/12/20 Allergies Allergy/AdvReac Type Severity Reaction Status Date / Time levofloxacin [From Levaquin] AdvReac Severe Chest Pain Verified 06/09/24 16:00 cephalexin monohydrate AdvReac Unknown Unknown Verified 06/09/24 16:00 [From Keflex] Childhood codeine AdvReac Unknown Nausea & Verified 06/09/24 16:00 Vomiting Review of Systems ROS Statement: Those systems with pertinent positive or pertinent negative responses have been documented in the HPI. ROS Other: All systems not noted in ROS Statement are negative. Past Medical History Past Medical History: Diabetes Mellitus, GERD/Reflux, Hypertension, Osteoarthritis (OA) Additional Past Medical History / Comment(s): 8-10 KIDNEY STONES, ULCERATIVE Colitis, RECTUM REMOVED. PT HAS ARTHIRITIS ALL OVER, History of Any Multi-Drug Resistant Organisms: None Reported Date of last positivie culture/infection: 12/14/16 MDRO Source:: TOE Past Surgical History: Appendectomy, Bowel Resection, Heart Catheterization, Joint Replacement, Orthopedic Surgery Additional Past Surgical History / Comment(s): BILATERAL TOTAL KneeS,L Shoulder ROTATOR CUFF REPAIR, BILATERALHandS L HAND INDEX FINGER AND R HAND MIDDLE FINGER BOTH PARTIAL AMP WITH REPAIR, COLECTOMY/ILEOSTOMY. CARDIAC CATH YRS AGO AND NO BLOCKAGES-DONE AT [facility]. Past Anesthesia/Blood Transfusion Reactions: No Reported Reaction Additional Past Anesthesia/Blood Transfusion Reaction / Comment(s): NEVER RECEIVED BLOOD Past Psychological History: No Psychological Hx Reported Smoking Status: Never smoker Past Alcohol Use History: Occasional Past Drug Use History: None Reported - Past Family History Father Family Medical History: Hypertension Additional Family Medical History / Comment(s): FATHER ALIVE AND IS 74 YRS OLD. Mother Family Medical History: Osteoarthritis (OA) Additional Family Medical History / Comment(s): MOTHER HAS ALOT OF ARTHRITIS AND HAS HAD MANY ORTHOPEDIC SURGERIES. SHE IS 73 YRS OLD. General Exam Limitations: no limitations General appearance: alert, in no apparent distress Head exam: Present: atraumatic, normocephalic, normal inspection Eye exam: Present: normal appearance, PERRL, EOMI. Absent: scleral icterus, conjunctival injection, periorbital swelling ENT exam: Present: normal exam, mucous membranes moist Neck exam: Present: normal inspection. Absent: tenderness, meningismus, lymphadenopathy Respiratory exam: Present: normal lung sounds bilaterally. Absent: respiratory distress, wheezes, rales, rhonchi, stridor Cardiovascular Exam: Present: regular rate, normal rhythm, normal heart sounds. Absent: systolic murmur, diastolic murmur, rubs, gallop, clicks GI/Abdominal exam: Present: soft, distended, tenderness (Diffuse tenderness, especially around ostomy site at right lower quadrant. Ostomy output appears as thick orange stool), diminished bowel sounds, hypoactive bowel sounds. Absent: guarding, rebound, rigid Extremities exam: Present: normal inspection, full ROM, normal capillary refill. Absent: tenderness, pedal edema, joint swelling, calf tenderness Back exam: Present: normal inspection Neurological exam: Present: alert, oriented X3, CN II-XII intact Psychiatric exam: Present: normal affect, normal mood Skin exam: Present: warm, dry, intact, normal color. Absent: rash Course Vital Signs 06/09/24 06/09/24 06/09/24 11:15 12:57 15:23 Temperature 97.3 F L Pulse Rate 70 68 66 Respiratory 18 16 18 Rate Blood Pressure 149/81 147/92 149/88 O2 Sat by Pulse 96 98 97 Oximetry 06/09/24 16:45 Temperature Pulse Rate 61 Respiratory 18 Rate Blood Pressure 125/93 O2 Sat by Pulse 96 Oximetry Medical Decision Making - Medical Decision Making Was pt. sent in by a medical professional or institution (, PA, BED BUG EXTERMINATOR, urgent care, hospital, or snf...) When possible be specific @ -No Did you speak to anyone other than the patient for history (EMS, parent, family, police, friend...)? What history was obtained from this source @ -No Did you review nursing and triage notes (agree or disagree)? Why? @ -I reviewed and agree with nursing and triage notes Were old charts reviewed (outside hosp., previous admission, EMS record, old EKG, old radiological studies, urgent care reports/EKG's, snf records)? Report findings @ -No old charts were reviewed Differential Diagnosis (chest pain, altered mental status, abdominal pain women, abdominal pain men, vaginal bleeding, weakness, fever, dyspnea, syncope, headache, dizziness, GI bleed, back pain, seizure, CVA, palpatations, mental health, musculoskeletal)? @ -Differential Abdominal Pain Men: Appendicitis, cholecystitis, diverticulosis, ischemic bowel, pancreatitis, hepatitis, UTI, gastroenteritis, AAA, obstructed ostomy, incarcerated hernia, bowel obstruction, constipation, inflammatory bowel, hepatitis, peptic ulcer disease, splenic infarction, perforated viscus, testicular torsion, this is not meant to be an all-inclusive list EKG interpreted by me (3pts min.). @ -Not done X-rays interpreted by me (1pt min.). @ -KUB advised no evidence of acute process. CT interpreted by me (1pt min.). @ -Abdomen/pelvic CT with oral contrast shows no CT evidence of obstruction. U/S interpreted by me (1pt. min.). @ -None done What testing was considered but not performed or refused? (CT, X-rays, U/S, labs)? Why? @ -None What meds were considered but not given or refused? Why? @ -None Did you discuss the management of the patient with other professionals (professionals i.e. , PA, BED BUG EXTERMINATOR, lab, RT, psych nurse, forensic social worker, photography teacher, teacher, lodge officer, adult protective caseworker)? Give summary @ -Spoke to Dr. Bonner who advised CT with oral contrast to confirm obstruction. Was smoking cessation discussed for >3mins.? @ -No Was critical care preformed (if so, how long)? @ -No Were there social determinants of health that impacted care today? How? (Homelessness, low income, unemployed, alcoholism, drug addiction, transportation, low edu. Level, literacy, decrease access to med. care, senior living, rehab)? @ -No Was there de-escalation of care discussed even if they declined (Discuss DNR or withdrawal of care, Hospice)? DNR status @ -No What co-morbidities impacted this encounter? (DM, HTN, Smoking, COPD, CAD, Cancer, CVA, ARF, Chemo, Hep., AIDS, mental health diagnosis, sleep apnea, morbid obesity)? @ -None Was patient admitted / discharged? Hospital course, mention meds given and route, prescriptions, significant lab abnormalities, going to OR and other pertinent info. @ -Lab work shows elevated BUN and creatinine with hyperglycemia (166) and elevated lactic acid of 2.8 with repeat lactic acid of 1.4. KUB advised no evidence of acute process. Abdomen/pelvic CT with oral contrast shows no CT evidence of obstruction. Patient initially given IV normal saline, Toradol and Zofran. Zofran starter pack sent home with patient following discovery of no obstruction. Advised follow-up with gastroenterology in next 24 to 48 hours. Advised to return to ER if symptoms continue to worsen before that time. Undiagnosed new problem with uncertain prognosis? @ -No Drug Therapy requiring intensive monitoring for toxicity (Heparin, Nitro, Insulin, Cardizem)? @ -No Were any procedures done? @ -No Diagnosis/symptom? @ -No discernible ostomy obstruction Acute, or Chronic, or Acute on Chronic? @ -Acute Uncomplicated (without systemic symptoms) or Complicated (systemic symptoms)? @ -Complicated Side effects of treatment? @ -No Exacerbation, Progression, or Severe Exacerbation? @ -No Poses a threat to life or bodily function? How? (Chest pain, [place], [place], pneumonia, PE, COPD, DKA, ARF, appy, cholecystitis, CVA, Diverticulitis, Homicidal, Suicidal, threat to staff... and all critical care pts) @ -No - Lab Data Result diagrams: 06/09/24 11:52 06/09/24 11:52 Lab Results 06/09/24 06/09/24 06/09/24 Range/Units 11:52 11:52 11:52 WBC 8.3 (3.8-10.6) k/uL RBC 4.58 (4.30-5.90) m/uL Hgb 13.8 D (13.0-17.5) gm/dL Hct 39.3 (39.0-53.0) % MCV 85.8 (80.0-100.0) fL MCH 30.0 (25.0-35.0) pg MCHC 35.0 (31.0-37.0) g/dL RDW 13.9 (11.5-15.5) % Plt Count 214 (150-450) k/uL MPV 7.2 Neutrophils % 81 % Lymphocytes % 9 % Monocytes % 6 % Eosinophils % 3 % Basophils % 0 % Neutrophils # 6.7 (1.3-7.7) k/uL Lymphocytes # 0.7 L (1.0-4.8) k/uL Monocytes # 0.5 (0-1.0) k/uL Eosinophils # 0.3 (0-0.7) k/uL Basophils # 0.0 (0-0.2) k/uL Sodium 138 (137-145) mmol/L Potassium 3.7 (3.5-5.1) mmol/L Chloride 102 (98-107) mmol/L Carbon Dioxide 24 (22-30) mmol/L Anion Gap 12 mmol/L BUN 25 H (9-20) mg/dL Creatinine 1.40 H (0.66-1.25) mg/dL Est GFR (CKD-EPI)AfAm 62 (>60 ml/min/1.73 sqM) Est GFR (CKD-EPI)NonAf 54 (>60 ml/min/1.73 sqM) Glucose 166 H (74-99) mg/dL Lactic Ac Sepsis Rflx Plasma Lactic Acid Ganesh 2.8 H* (0.7-2.0) mmol/L Calcium 9.4 (8.4-10.2) mg/dL Total Bilirubin 1.3 (0.2-1.3) mg/dL AST 22 (17-59) U/L ALT 23 (4-49) U/L Alkaline Phosphatase 102 (38-126) U/L Total Protein 6.9 (6.3-8.2) g/dL Albumin 4.4 (3.5-5.0) g/dL Amylase 43 (30-110) U/L Lipase 104 (23-300) U/L 06/09/24 06/09/24 Range/Units 13:12 16:10 WBC (3.8-10.6) k/uL RBC (4.30-5.90) m/uL Hgb (13.0-17.5) gm/dL Hct (39.0-53.0) % MCV (80.0-100.0) fL MCH (25.0-35.0) pg MCHC (31.0-37.0) g/dL RDW (11.5-15.5) % Plt Count (150-450) k/uL MPV Neutrophils % % Lymphocytes % % Monocytes % % Eosinophils % % Basophils % % Neutrophils # (1.3-7.7) k/uL Lymphocytes # (1.0-4.8) k/uL Monocytes # (0-1.0) k/uL Eosinophils # (0-0.7) k/uL Basophils # (0-0.2) k/uL Sodium (137-145) mmol/L Potassium (3.5-5.1) mmol/L Chloride (98-107) mmol/L Carbon Dioxide (22-30) mmol/L Anion Gap mmol/L BUN (9-20) mg/dL Creatinine (0.66-1.25) mg/dL Est GFR (CKD-EPI)AfAm (>60 ml/min/1.73 sqM) Est GFR (CKD-EPI)NonAf (>60 ml/min/1.73 sqM) Glucose (74-99) mg/dL Lactic Ac Sepsis Rflx Y Plasma Lactic Acid Ganesh 1.4 (0.7-2.0) mmol/L Calcium (8.4-10.2) mg/dL Total Bilirubin (0.2-1.3) mg/dL AST (17-59) U/L ALT (4-49) U/L Alkaline Phosphatase (38-126) U/L Total Protein (6.3-8.2) g/dL Albumin (3.5-5.0) g/dL Amylase (30-110) U/L Lipase (23-300) U/L Disposition Clinical Impression: Complication of ostomy Disposition: HOME SELF-CARE Condition: Good Additional Instructions: Follow-up with gastroenterology in next 24 to 48 hours. Return to ER if experiencing recurring abdominal pain and nausea with no ostomy output. Is patient prescribed a controlled substance at d/c from ED?: No Referrals: Regino Ibrahim MD [Primary Care Provider] - 1-2 days Zehra Coley MD [STAFF PHYSICIAN] - 1-2 days Time of Disposition: 16:30
[2024-06-09] MEDS ORDERED: IOPAMIDOL CONTRAST (ORAL USE) VIAL PO PRN (11:40)
[2024-06-09] MEDS: SODIUM CHLORIDE 0.9% 1,000 ML IV STA (11:56)
[2024-06-09] MEDS: ONDANSETRON 4 MG/2 ML VIAL IVP STA (11:56)
[2024-06-09] MEDS: KETOROLAC 15 MG/ML 1 ML VIAL IVP STA (11:56)
[2024-06-09 12:09] LABS: Basophils % (A) 0 %; Eosinophils # (A) 0.3 k/uL (0-0.7); Eosinophils % (A) 3 %; HCT 39.3 % (39.0-53.0); Lymphocytes # (A) 0.7 k/uL (1.0-4.8); Lymphocytes % (A) 9 %; MCV 85.8 fL (80.0-100.0); Mean Platelet Volume 7.2; Monocytes # (A) 0.5 k/uL (0-1.0); Monocytes % (A) 6 %; Neutrophils # (A) 6.7 k/uL (1.3-7.7); Neutrophils % (A) 81 %; Platelet Count 214 k/uL (150-450); RBC 4.58 m/uL (4.30-5.90); RDW 13.9 % (11.5-15.5); WBC 8.3 k/uL (3.8-10.6)
--- NOTE | 2024-06-09 12:10 | XR ---
EXAMINATION TYPE: XR KUB DATE OF EXAM: 06/09/2024 11:45 AM COMPARISON: 11/11/2023 CLINICAL INDICATION: Male, 64 years old with history of abdominal pain; [facility] TECHNIQUE: One radiographic view of the abdomen was obtained. FINDINGS: Scattered surgical clips throughout the abdomen. The bowel gas pattern is nonspecific witho ut dilated loops of small or large bowel. . Fecal material and gas are demonstrated throughout the co joi and rectum. There is no evidence for organomegaly or pneumoperitoneum. The osseous structures are intact. No ab normal calcifications are present. Multilevel degeneration changes throughout spine. Mild osteoporosi s of the hips with joint space and osteophyte formation. IMPRESSION: Nonspecific bowel gas pattern without radiographic evidence for acute process. Findings similar to pr ior [facility], , 06/09/2024 12:08 PM
[2024-06-09 12:20] LABS: HGB 13.8 gm/dL (13.0-17.5)
[2024-06-09 12:46] LABS: ALT 23 U/L (4-49); AST 22 U/L (17-59); African American GFR (CKD) 62 (>60 ml/min/1.73 sqM); Albumin 4.4 g/dL (3.5-5.0); Alkaline Phosphatase 102 U/L (38-126); Amylase 43 U/L (30-110); Anion Gap 12 mmol/L; Blood Urea Nitrogen 25 mg/dL (9-20); Calcium 9.4 mg/dL (8.4-10.2); Carbon Dioxide 24 mmol/L (22-30); Chloride 102 mmol/L (98-107); Glucose 166 mg/dL (74-99); Lipase 104 U/L (23-300); Non-African American GFR(CKD) 54 (>60 ml/min/1.73 sqM); Potassium 3.7 mmol/L (3.5-5.1); Sodium 138 mmol/L (137-145); Total Bilirubin 1.3 mg/dL (0.2-1.3); Total Protein 6.9 g/dL (6.3-8.2)
[2024-06-09 15:27] VITALS: RESP 18
--- NOTE | 2024-06-09 15:28 | CT ---
EXAMINATION TYPE: CT abdomen pelvis w con CT DLP: 1841 mGycm, Automated exposure control for dose reduction was used. DATE OF EXAM: 06/09/2024 3:14 PM COMPARISON: CT abdomen pelvis 11/09/2023, 02/04/2022 CLINICAL INDICATION:Male, 64 years old with history of Possible obstructed ostomy, diffuse abdominal pain; abd pain TECHNIQUE: Standard CT of the abdomen and pelvis following the administration of 100 cc of Isovue 3 00 IV contrast material and oral contrast. Coronal and sagittal reformats were performed. FINDINGS: LOWER CHEST: Minimal pleural thickening of the bilateral lower lobes. The visualized lungs are clear. Mildly prominent heart. ABDOMEN LIVER: Unremarkable GALLBLADDER AND BILE DUCTS: Unremarkable. PANCREAS: Lipomatous pseudohypertrophy changes. SPLEEN: Unremarkable. ADRENAL GLANDS: Unremarkable. KIDNEYS AND URETERS: No evidence of hydronephrosis. Punctate nonobstructive bilateral renal calculi. The kidneys enhance symmetrically. Contrast is demonstrated within both collecting systems on the del ayed phase. PELVIS BLADDER: Unremarkable REPRODUCTIVE: Coarse calcifications of the prostate gland are identified. ABDOMEN & PELVIS STOMACH AND BOWEL: Stomach and duodenum are unremarkable. Postsurgical changes with right lower quadr ant end colostomy. No evidence of bowel obstruction. No dilated bowel upstream of the ostomy. Enteric contrast reaches the mid small bowel. No focal bowel wall thickening or surrounding inflammatory elsie nges. PERITONEUM: No evidence of pneumoperitoneum or free fluid. Anterior mid and right abdomen mesentery s urgical clips identified. VASCULATURE: Minimal atherosclerotic calcifications are present throughout the abdominal aorta and it s branches. No evidence of aortic aneurysm. MUSCULOSKELETAL: No acute osseous abnormalities. Moderate disc degeneration changes are present throu ghout the thoracolumbar spine. Degenerative changes of bilateral SI joints with anterior bridging. LYMPH NODES: No evidence for lymphadenopathy. SOFT TISSUE/ABDOMINAL WALL: Post surgical changes with right lower quadrant and colostomy. Small left fat filled inguinal hernia. IMPRESSION: 1. Postsurgical changes from right lower quadrant redemonstrated. No CT evidence for obstruction. 2. Punctate nonobstructive bilateral renal calculi. [facility], , 06/09/2024 3:25 PM
[2024-06-09] MEDS: ONDANSETRON 4 MG ODT STARTER PACK 2 TAB BTL PO STA (16:42)
[2024-06-09 16:47] VITALS: BP 125/93; PULSE 61
== END 2024-06-09 16:49 | disposition home or self-care (01) ==
LOC: EC 11:13
DX: K94.03 Colostomy malfunction (principal); Z88.1 Allergy status to other antibiotic agents; Z88.5 Allergy status to narcotic agent
CPT/HCPCS: 36415; 80053; 82150; 83605; 83690; 85025; 87045; 87046; 74018; 74177; 99285; 96374; 96375; 96361; J2405; J1885; S0119; Q9967

== ENCOUNTER 2024-06-10 20:45 | Observation (INO) | payer MEDICAID ==
[2024-06-10] MEDS: MORPHINE SULFATE 4 MG/ML SYRINGE IVP STA (22:52)
[2024-06-10] MEDS: ONDANSETRON 4 MG/2 ML VIAL IVP STA (22:53)
[2024-06-10] MEDS: SODIUM CHLORIDE 0.9% 1,000 ML IV STA (22:53)
--- NOTE | 2024-06-10 23:03 | ED ---
Abdominal Pain HPI - General Chief Complaint: Abdominal Pain Stated Complaint: abd pain Time Seen by Provider: 06/10/24 21:28 Source: patient Mode of arrival: ambulatory Limitations: no limitations - History of Present Illness Initial Comments: 64-year-old male with past medical history of ulcerative colitis status post colectomy 25 years ago who presents to the emergency department reporting abdominal pain. Patient was seen yesterday in the emergency department for same complaint. He has pain around his ostomy site. He feels as if it is getting blocked with food. He has had issues for the past 2 months. Previously the patient was having significant output and there was a possible diagnosis of dumping syndrome. He was following with Dr. Fonseca. He does have a scope planned for the . Over the past week he has had worsening colicky pain around the site of the colostomy. He came into the emergency department yesterday. Lab oratory studies and CT were performed which demonstrated no signs of obstruction. Patient feels as if he can manipulate the site and produce output which makes him feel better and therefore he questions whether his ostomy is having issues. He has no abdominal tenderness in the remainder of his abdomen. He has had nausea with vomiting. He was told to take Imodium with his dumping syndrome and has cut back to 3 or 4 pills a day rather than 6 when this pain started. Patient has had some liquid stool from his site today. Reports that the pain started after he ate chili dogs for lunch. He denies any fevers. No bloody stools. No hematemesis. No other alleviating, precipitating modifying factors - Related Data Home Medications Medication Instructions Recorded Confirmed HYDROcodone/APAP 10-325MG [[place] 1 tab PO Q8H PRN 05/12/14 06/11/24 10-325] Tamsulosin [Flomax] 0.4 mg PO HS 05/26/20 06/11/24 Atorvastatin [Lipitor] 40 mg PO DAILY 03/06/24 06/11/24 Cyclobenzaprine [Flexeril] 5 mg PO BID PRN 03/06/24 06/11/24 DULoxetine HCL [Cymbalta] 60 mg PO DAILY 03/06/24 06/11/24 Insulin Glargine,Hum.rec.anlog 44 units SQ HS 03/06/24 06/11/24 [Basaglar Kwikpen U-100] Pantoprazole [Protonix] 40 mg PO DAILY 03/06/24 06/11/24 Pregabalin [Lyrica] 50 mg PO TID 03/06/24 06/11/24 Semaglutide [Ozempic] 0.5 mg SQ TH@2100 03/06/24 06/11/24 Cholecalciferol [Vitamin D3 (25 25 mcg PO DAILY 06/09/24 06/11/24 Mcg = 1000 Iu)] Loperamide [Imodium] 2 mg PO QID PRN 06/09/24 06/11/24 amLODIPine [Norvasc] 10 mg PO DAILY 06/09/24 06/11/24 Previous Rx's Medication Instructions Recorded Clopidogrel [Plavix] 75 mg PO DAILY #30 tab 08/12/20 Allergies Allergy/AdvReac Type Severity Reaction Status Date / Time cephalexin monohydrate Allergy Unknown Unknown Verified 06/11/24 07:17 [From Keflex] Childhood levofloxacin [From Levaquin] AdvReac Severe Chest Pain Verified 06/11/24 07:17 codeine AdvReac Unknown Nausea & Verified 06/11/24 07:17 Vomiting Review of Systems ROS Statement: Those systems with pertinent positive or pertinent negative responses have been documented in the HPI. ROS Other: All systems not noted in ROS Statement are negative. Past Medical History Past Medical History: Diabetes Mellitus, GERD/Reflux, Hypertension, Osteoarthritis (OA) Additional Past Medical History / Comment(s): 8-10 KIDNEY STONES, ULCERATIVE Colitis, RECTUM REMOVED. PT HAS ARTHIRITIS ALL OVER, History of Any Multi-Drug Resistant Organisms: None Reported Date of last positivie culture/infection: 12/14/16 MDRO Source:: TOE Past Surgical History: Appendectomy, Bowel Resection, Heart Catheterization, Joint Replacement, Orthopedic Surgery Additional Past Surgical History / Comment(s): BILATERAL TOTAL KneeS,L Shoulder ROTATOR CUFF REPAIR, BILATERALHandS L HAND INDEX FINGER AND R HAND MIDDLE FINGER BOTH PARTIAL AMP WITH REPAIR, COLECTOMY/ILEOSTOMY. CARDIAC CATH YRS AGO AND NO BLOCKAGES-DONE AT [facility]. Past Anesthesia/Blood Transfusion Reactions: No Reported Reaction Additional Past Anesthesia/Blood Transfusion Reaction / Comment(s): NEVER RECEIVED BLOOD Past Psychological History: No Psychological Hx Reported Smoking Status: Never smoker Past Alcohol Use History: Occasional Past Drug Use History: None Reported - Past Family History Father Family Medical History: Hypertension Additional Family Medical History / Comment(s): FATHER ALIVE AND IS 74 YRS OLD. Mother Family Medical History: Osteoarthritis (OA) Additional Family Medical History / Comment(s): MOTHER HAS ALOT OF ARTHRITIS AND HAS HAD MANY ORTHOPEDIC SURGERIES. SHE IS 73 YRS OLD. General Exam Limitations: no limitations General appearance: alert, in no apparent distress Head exam: Present: atraumatic, normocephalic, normal inspection Eye exam: Present: normal appearance, PERRL, EOMI. Absent: scleral icterus, c onjunctival injection, periorbital swelling ENT exam: Present: normal exam, mucous membranes moist Neck exam: Present: normal inspection. Absent: tenderness, meningismus, lymphadenopathy Respiratory exam: Present: normal lung sounds bilaterally. Absent: respiratory distress, wheezes, rales, rhonchi, stridor Cardiovascular Exam: Present: regular rate, normal rhythm, normal heart sounds. Absent: systolic murmur, diastolic murmur, rubs, gallop, clicks GI/Abdominal exam: Present: soft, tenderness (rlq around site of colostomy), normal bowel sounds. Absent: distended, guarding, rebound, rigid Extremities exam: Present: normal inspection, full ROM, normal capillary refill. Absent: tenderness, pedal edema, joint swelling, calf tenderness Back exam: Present: normal inspection Neurological exam: Present: alert, oriented X3, CN II-XII intact Psychiatric exam: Present: normal affect, normal mood Skin exam: Present: warm, dry, intact, normal color. Absent: rash Course Vital Signs 06/10/24 06/11/24 06/11/24 20:53 00:58 06:20 Temperature 98.0 F Pulse Rate 87 80 68 Respiratory 18 18 18 Rate Blood Pressure 124/72 154/95 123/75 O2 Sat by Pulse 100 98 98 Oximetry 06/11/24 06/11/24 06/11/24 07:46 13:45 16:28 Temperature 97.8 F Pulse Rate 66 67 60 Respiratory 18 18 18 Rate Blood Pressure 149/87 151/92 150/110 O2 Sat by Pulse 95 95 97 Oximetry 06/11/24 06/11/24 19:17 20:02 Temperature 98.4 F Pulse Rate 66 78 Respiratory 18 18 Rate Blood Pressure 148/72 160/104 O2 Sat by Pulse 98 97 Oximetry - Reevaluation(s) Reevaluation #1: Spoke with Dr. Pack. States that the patient can have a regular diet. He will do a scope of the colostomy in the morning 06/11/24 01:08 Medical Decision Making - Medical Decision Making Was pt. sent in by a medical professional or institution (, PA, FURNACE OPERATOR AND TENDER, urgent care, hospital, or snf...) When possible be specific @ -No Did you speak to anyone other than the patient for history (EMS, parent, family, police, friend...)? What history was obtained from this source @ -No Did you review nursing and triage notes (agree or disagree)? Why? @ -I reviewed and agree with nursing and triage notes Were old charts reviewed (outside hosp., previous admission, EMS record, old EKG , old radiological studies, urgent care reports/EKG's, snf records)? Report findings @ -I reviewed the ED visit from yesterday Differential Diagnosis (chest pain, altered mental status, abdominal pain women, abdominal pain men, vaginal bleeding, weakness, fever, dyspnea, syncope, headache, dizziness, GI bleed, back pain, seizure, CVA, palpatations, mental health, musculoskeletal)? @ -Differential Abdominal Pain Men: Appendicitis, cholecystitis, diverticulosis, ischemic bowel, pancreatitis, hepatitis, UTI, gastroenteritis, AAA, incarcerated hernia, bowel obstruction, constipation, inflammatory bowel, hepatitis, peptic ulcer disease, splenic infarction, perforated viscus, testicular torsion, this is not meant to be an all-inclusive list EKG interpreted by me (3pts min.). @ -Not done X-rays interpreted by me (1pt min.). @ -Yes and demonstrates no acute obstruction CT interpreted by me (1pt min.). @ -None done U/S interpreted by me (1pt. min.). @ -None done What testing was considered but not performed or refused? (CT, X-rays, U/S, labs)? Why? @ -None What meds were considered but not given or refused? Why? @ -None Did you discuss the management of the patient with other professionals (professionals i.e. , PAULIE, FURNACE OPERATOR AND TENDER, lab, RT, psych nurse, clinical social worker, dietician, te acher, annual giving officer, complex case manager)? Give summary @Spoke with Dr. Pack who was agreeable to scoping the patient. Spoke with Dr. Johnson for admission Was smoking cessation discussed for >3mins.? @ -No Was critical care preformed (if so, how long)? @ -No Were there social determinants of health that impacted care today? How? (Homelessness, low income, unemployed, alcoholism, drug addiction, pradhan sportation, low edu. Level, literacy, decrease access to med. care, group home, rehab)? @ -No Was there de-escalation of care discussed even if they declined (Discuss DNR or withdrawal of care, Hospice)? DNR status @ -No What co-morbidities impacted this encounter? (DM, HTN, Smoking, COPD, CAD, Cancer, CVA, ARF, Chemo, Hep., AIDS, mental health diagnosis, sleep apnea, morbid obesity)? @ -Ulcerative colitis with history of colectomy Was patient admitted / discharged? Hospital course, mention meds given and route, prescriptions, significant lab abnormalities, going to OR and other pertinent info. @ -Upon arrival patient seen and evaluated in room 27. Thorough history and physical exam was performed. IV was established. Patient administered nausea and pain medications. I did perform a KUB. Results are discussed with patient. I did discuss the case with Dr. Johnson. He requested I talk to surgery. I spoke with Dr. Pack who was agreeable to consult on the patient. Patient admitted to the floor in stable condition Undiagnosed new problem with uncertain prognosis? @ -No Drug Therapy requiring intensive monitoring for toxicity (Heparin, Nitro, Insulin, Cardizem)? @ -No Were any procedures done? @ -No Diagnosis/symptom? @ -Acute abdominal pain, history of subtotal colectomy Acute, or Chronic, or Acute on Chronic? @ -Acute Uncomplicated (without systemic symptoms) or Complicated (systemic symptoms)? @ -Complicated Side effects of treatment? @ -No Exacerbation, Progression, or Severe Exacerbation? @ -No Poses a threat to life or bodily function? How? (Chest pain, [place], DE, pneumonia, PE, COPD, DKA, ARF, appy, cholecystitis, CVA, Diverticulitis, Homicidal, Suicidal, threat to staff... and all critical care pts) @ -No - Lab Data Result diagrams: 06/13/24 05:09 06/13/24 05:09 Lab Results 06/10/24 06/10/24 06/10/24 Range/Units 21:59 21:59 21:59 WBC 5.9 (3.8-10.6) k/uL RBC 4.97 (4.30-5.90) m/uL Hgb 14.4 (13.0-17.5) gm/dL Hct 43.6 (39.0-53.0) % MCV 87.7 (80.0-100.0) fL MCH 29.0 (25.0-35.0) pg MCHC 33.1 (31.0-37.0) g/dL RDW 13.5 (11.5-15.5) % Plt Count 211 (150-450) k/uL MPV 6.6 Neutrophils % 68 % Lymphocytes % 17 % Monocytes % 7 % Eosinophils % 5 % Basophils % 1 % Neutrophils # 4.0 (1.3-7.7) k/uL Lymphocytes # 1.0 (1.0-4.8) k/uL Monocytes # 0.4 (0-1.0) k/uL Eosinophils # 0.3 (0-0.7) k/uL Basophils # 0.0 (0-0.2) k/uL Sodium 138 (137-145) mmol/L Potassium 3.6 (3.5-5.1) mmol/L Chloride 104 (98-107) mmol/L Carbon Dioxide 21 L (22-30) mmol/L Anion Gap 13 mmol/L BUN 21 H (9-20) mg/dL Creatinine 1.16 (0.66-1.25) mg/dL Est GFR (CKD-EPI)AfAm 78 (>60 ml/min/1.73 sqM) Est GFR (CKD-EPI)NonAf 68 (>60 ml/min/1.73 sqM) Glucose 305 H (74-99) mg/dL Lactic Ac Sepsis Rflx Plasma Lactic Acid Ganesh 4.4 H* (0.7-2.0) mmol/L Calcium 9.4 (8.4-10.2) mg/dL Total Bilirubin 0.7 (0.2-1.3) mg/dL AST 20 (17-59) U/L ALT 21 (4-49) U/L Alkaline Phosphatase 98 (38-126) U/L Total Protein 6.8 (6.3-8.2) g/dL Albumin 4.2 (3.5-5.0) g/dL Lipase 126 (23-300) U/L 06/10/24 Range/Units 23:14 WBC (3.8-10.6) k/uL RBC (4.30-5.90) m/uL Hgb (13.0-17.5) gm/dL Hct (39.0-53.0) % MCV (80.0-100.0) fL MCH (25.0-35.0) pg MCHC (31.0-37.0) g/dL RDW (11.5-15.5) % Plt Count (150-450) k/uL MPV Neutrophils % % Lymphocytes % % Monocytes % % Eosinophils % % Basophils % % Neutrophils # (1.3-7.7) k/uL Lymphocytes # (1.0-4.8) k/uL Monocytes # (0-1.0) k/uL Eosinophils # (0-0.7) k/uL Basophils # (0-0.2) k/uL Sodium (137-145) mmol/L Potassium (3.5-5.1) mmol/L Chloride (98-107) mmol/L Carbon Dioxide (22-30) mmol/L Anion Gap mmol/L BUN (9-20) mg/dL Creatinine (0.66-1.25) mg/dL Est GFR (CKD-EPI)AfAm (>60 ml/min/1.73 sqM) Est GFR (CKD-EPI)NonAf (>60 ml/min/1.73 sqM) Glucose (74-99) mg/dL Lactic Ac Sepsis Rflx Y Plasma Lactic Acid Ganesh (0.7-2.0) mmol/L Calcium (8.4-10.2) mg/dL Total Bilirubin (0.2-1.3) mg/dL AST (17-59) U/L ALT (4-49) U/L Alkaline Phosphatase (38-126) U/L Total Protein (6.3-8.2) g/dL Albumin (3.5-5.0) g/dL Lipase (23-300) U/L Disposition Clinical Impression: Abdominal pain, Lactic acid acidosis Disposition: ADMITTED IP TO THIS HOSP Condition: Stable Is patient prescribed a controlled substance at d/c from ED?: No Time of Disposition: 00:30 Decision to Admit Reason: Admit from EC Decision Date: 06/11/24 Decision Time: 00:30
[2024-06-10 23:08] LABS: ALT 21 U/L (4-49); AST 20 U/L (17-59); African American GFR (CKD) 78 (>60 ml/min/1.73 sqM); Albumin 4.2 g/dL (3.5-5.0); Alkaline Phosphatase 98 U/L (38-126); Anion Gap 13 mmol/L; Blood Urea Nitrogen 21 mg/dL (9-20); Calcium 9.4 mg/dL (8.4-10.2); Carbon Dioxide 21 mmol/L (22-30); Chloride 104 mmol/L (98-107); Glucose 305 mg/dL (74-99); Lipase 126 U/L (23-300); Non-African American GFR(CKD) 68 (>60 ml/min/1.73 sqM); Potassium 3.6 mmol/L (3.5-5.1); Sodium 138 mmol/L (137-145); Total Bilirubin 0.7 mg/dL (0.2-1.3); Total Protein 6.8 g/dL (6.3-8.2)
[2024-06-10 23:12] LABS: Basophils % (A) 1 %; Eosinophils # (A) 0.3 k/uL (0-0.7); Eosinophils % (A) 5 %; HCT 43.6 % (39.0-53.0); HGB 14.4 gm/dL (13.0-17.5); Lymphocytes % (A) 17 %; MCHC 33.1 g/dL (31.0-37.0); MCV 87.7 fL (80.0-100.0); Mean Platelet Volume 6.6; Monocytes # (A) 0.4 k/uL (0-1.0); Monocytes % (A) 7 %; Neutrophils % (A) 68 %; Platelet Count 211 k/uL (150-450); RBC 4.97 m/uL (4.30-5.90); RDW 13.5 % (11.5-15.5); WBC 5.9 k/uL (3.8-10.6)
[2024-06-11] MEDS ORDERED: NALOXONE 0.4 MG/ML 1 ML VIAL IV PRN (00:30)
[2024-06-11] MEDS: SODIUM CHLORIDE 0.9% 1,000 ML IV SCH (01:05)
--- NOTE | 2024-06-11 01:39 | XR ---
EXAM: XR Abdomen, 2 Views CLINICAL HISTORY: N/V and abdominal pain since Thanksgiving. Here recently for same issue. Pt. Has ostomy bag and pain is located around the stoma. TECHNIQUE: Frontal supine and upright view of the abdomen/pelvis. COMPARISON: 06/09/2024 FINDINGS: Gastrointestinal tract: Right pelvic ostomy is poorly seen. No dilation. Bones/joints: Osteopenia suspected. Mild to moderate degenerative changes. Soft tissues: Unremarkable Other findings: Surgical sutures over right mid abdomen. Clustered surgical clips in the central pelvis. IMPRESSION: Nonspecific bowel gas pattern.
[2024-06-11 02:27] LABS: Appearance,Urine Clear (Clear); Bilirubin,Urine Negative (Negative); Blood,Urine Negative (Negative); Color,Urine Colorless; Glucose,Urine (UA) 4+ (Negative); Ketones,Urine Negative (Negative); Leukocyte Esterase,Urine Negative (Negative); Nitrite,Urine Negative (Negative); PH, Urine 5.5 (5.0-8.0); Protein,Urine Trace (Negative); Specific Gravity,Urine 1.029 (1.001-1.035); Urobilinogen,Urine <2.0 mg/dL (<2.0)
[2024-06-11] MEDS ORDERED: DEXTROSE 50% SYRINGE 50 ML IVP PRN ×2 (02:35)
[2024-06-11] MEDS: MORPHINE SULFATE 4 MG/ML SYRINGE IV PRN (02:43)
[2024-06-11 02:51] LABS: Glucose,Whole Blood 210 mg/dL (70-110)
--- NOTE | 2024-06-11 03:29 | P.HPIM ---
History of Present Illness H&P Date: 06/11/24 Chief Complaint: Abdominal pain Patient is a 64-year-old male with past medical history of diabetes mellitus, hypertension, GERD, ulcerative colitis status post colectomy with ileostomy bag 20 years ago presented to the ED with abdominal pain. He reports the pain started on Thanksgiving, and is mostly around the ostomy site. The severity of pain pain fluctuates between 6-9 out of 10. He tried taking a stool softener but without much relief of his symptoms. Sometimes he also experiences cramping pain on the left and right sides of his abdomen. He was at work at a [employer] the following day when he started experiencing sharp pain and also vomitted once. He initially felt that there was some blockage/backup near the ostomy, which is why he tried to put pressure on his abdomen around the ostomy site. He mentions that this helps to get the stool out sometimes. Lately he has also had more liquid output. He reports being nauseous today. Denies any precipitating or alleviating factors. Denies stoma bleeding. 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 He was here at the hospital with similar symptoms yesterday as well as a couple months ago. That was the first time he saw Dr. Coley, and he mentions being scheduled for an endoscopy for the . Additionally, he reports having a low stream of urine as well as numbness and hardening of the sole of his left leg that he attributed to his diabetes mellitus. Denies fever, chills, chest pain, shortness of breah, cough, chest pain, palpitations, hematuria, dysuria, slurred speech. ED documentation reviewed. In the ED patient was treated with morphine 4 mg, ondansetron 4 mg, 0.9 normal saline bolus. -Vitals on admission T 98 F, [place] 87 bpm, RR 18, BP 124/72, O2 sat 100% on room air -KUB x-ray shows nonspecific bowel gas pattern -Labs on admission show WBC 5.9, hemoglobin 14.4, sodium 138, potassium 3.6, bicarb 21, anion gap 13, BUN 21, lipase 126, total bilirubin 0.7 -UA shows trace protein and 4+ glucose Review of systems: Pertinent positives and negatives as discussed in HPI, a complete review of systems was performed and all other systems are negative. PMH: Diabetes mellitus, GERD, hypertension, osteoarthritis, ulcerative colitis, kidney stones PSH: Appendectomy, colectomy/ileostomy, heart catheterization, joint replacement FMH: Hypertension Social history: Tobacco: Never smoker Alcohol: Occasional Recreational drugs: Denies use Travel: No recent travel history Sick contacts: None Physical examination: Vital signs reviewed General: nontoxic, no distress, appears at stated age Derm: warm, dry, intact Head: atraumatic, normocephalic, symmetric Eyes: EOMI, anicteric sclera Mouth: no lip lesion, mucus membranes moist Cardiovascular: S1 S2 reg, no murmur Lungs: CTA bilateral, no rhonchi, no rales, no accessory muscle use Abdominal: soft, mild diffuse tenderness without guarding, rigidity, or rebound, ileostomy in place with liquid stool in bag with pink stoma noted Extremities: No cyanosis, clubbing, or pedal edema. Neuro: Alert, Oriented, Gross neurological examination did not reveal any focal deficits. Psych: well appearing, appropriate affect Assessment/Plan: Patient is a 64-year-old male with past medical history of diabetes mellitus,GERD, ulcerative colitis, s/p colectomy with ileostomy bag presented to the ED with abdominal pain, nausea and vomiting since 1 week. He has been admitted for further workup and management of the same. Active: #. Abdominal pain #. S/p colectomy with ileostomy bag 20 years ago -KUB x-ray shows nonspecific bowel gas pattern -Continue morphine 4 mg IV every 4 hours as needed for pain management -General Surgery is consulted and is planning on endoscopy in am #. Nausea and vomiting -Continue ondansetron 4 mg IVP every 8 hours as needed #. Hyperglycemia #. Insulin dependent diabetes mellitus -UA shows trace protein and 4+ glucose -Insulin sliding scale and blood glucose monitoring -Continue home med Levemir 35 Units (takes 44 units at bedtime) -A1c ordered #. Lactic acidosis -Lactic acid 4.4 trended down to 2.7 -Continue 0.9 normal saline at 130 mL/h Chronic: #. Hypertension -Continue home med amlodipine 10 mg PO daily #. Hyperlipidemia -Continue home med Atorvastatin 40 mg PO daily #. Anxiety/Depression -Continue home med Duloxetine 60 mg PO daily #. GERD -Continue home med Pantoprazole 40 mg PO daily #. Neuropathy -Continue home med pregabalin 50 mg PO TID #. Urinary retention -Continue home med Tamsulosin 0.4 mg PO HS #. History of TIA in 2020 Continue home med Plavix 75 mg PO Daily Restart home meds once confirmed by pharmacy F: 0.9 normal saline 130 mL/h E: Replete as required N: Regular diet A: Ambulatory DVT prophylaxis: Lovenox 40 mg SQ daily GI prophlaxis: Pantoprazole 40 mg PO daily The patient is admitted with an anticipated less than 2 midnight stay for evaluation of abdominal pain CODE STATUS: FULL CODE Discussed with: Patient Anticipated discharge place: Home Past Medical History Past Medical History: Diabetes Mellitus, GERD/Reflux, Hypertension, Osteoarthritis (OA) Additional Past Medical History / Comment(s): 8-10 KIDNEY STONES, ULCERATIVE Colitis, RECTUM REMOVED. PT HAS ARTHIRITIS ALL OVER, History of Any Multi-Drug Resistant Organisms: None Reported Date of last positivie culture/infection: 12/14/16 MDRO Source:: TOE Past Surgical History: Appendectomy, Bowel Resection, Heart Catheterization, Joint Replacement, Orthopedic Surgery Additional Past Surgical History / Comment(s): BILATERAL TOTAL KneeS,L Shoulder ROTATOR CUFF REPAIR, BILATERALHandS L HAND INDEX FINGER AND R HAND MIDDLE FINGER BOTH PARTIAL AMP WITH REPAIR, COLECTOMY/ILEOSTOMY. CARDIAC CATH YRS AGO AND NO BLOCKAGES-DONE AT [facility]. Past Anesthesia/Blood Transfusion Reactions: No Reported Reaction Additional Past Anesthesia/Blood Transfusion Reaction / Comment(s): NEVER RECEIVED BLOOD Past Psychological History: No Psychological Hx Reported Smoking Status: Never smoker Past Alcohol Use History: Occasional Past Drug Use History: None Reported - Past Family History Father Family Medical History: Hypertension Additional Family Medical History / Comment(s): FATHER ALIVE AND IS 74 YRS OLD. Mother Family Medical History: Osteoarthritis (OA) Additional Family Medical History / Comment(s): MOTHER HAS ALOT OF ARTHRITIS AND HAS HAD MANY ORTHOPEDIC SURGERIES. SHE IS 73 YRS OLD. Medications and Allergies Home Medications Medication Instructions Recorded Confirmed Type HYDROcodone/APAP 10-325MG [[place] 1 tab PO Q8H PRN 05/12/14 06/09/24 History 10-325] Tamsulosin [Flomax] 0.4 mg PO HS 05/26/20 06/09/24 History Clopidogrel [Plavix] 75 mg PO DAILY #30 tab 08/12/20 06/09/24 Rx Atorvastatin [Lipitor] 40 mg PO DAILY 03/06/24 06/09/24 History Cyclobenzaprine [Flexeril] 5 mg PO BID PRN 03/06/24 06/09/24 History DULoxetine HCL [Cymbalta] 60 mg PO DAILY 03/06/24 06/09/24 History Insulin Glargine,Hum.rec.anlog 44 units SQ HS 03/06/24 06/09/24 History [Basaglar Kwikpen U-100] Pantoprazole [Protonix] 40 mg PO DAILY 03/06/24 06/09/24 History Pregabalin [Lyrica] 50 mg PO TID 03/06/24 06/09/24 History Semaglutide [Ozempic] 0.5 mg SQ TH@2100 03/06/24 06/09/24 History Cholecalciferol [Vitamin D3 (25 25 mcg PO DAILY 06/09/24 06/09/24 History Mcg = 1000 Iu)] Loperamide [Imodium] 2 mg PO QID PRN 06/09/24 06/09/24 History amLODIPine [Norvasc] 10 mg PO DAILY 06/09/24 06/09/24 History Allergies Allergy/AdvReac Type Severity Reaction Status Date / Time levofloxacin [From Levaquin] AdvReac Severe Chest Pain Verified 06/09/24 16:00 cephalexin monohydrate AdvReac Unknown Unknown Verified 06/09/24 16:00 [From Keflex] Childhood codeine AdvReac Unknown Nausea & Verified 06/09/24 16:00 Vomiting Physical Exam Vitals: Vital Signs Temp Pulse Resp BP Pulse Ox 06/10/24 20:53 98.0 F 87 18 124/72 100 Intake and Output 06/10/24 06/10/24 06/11/24 14:59 22:59 06:59 Other: Weight 115.666 kg Results CBC & Chem 7: 06/10/24 21:59 06/10/24 21:59 Labs: Abnormal Lab Results - Last 24 Hours (Table) 06/10/24 06/10/24 Range/Units 21:59 21:59 Carbon Dioxide 21 L (22-30) mmol/L BUN 21 H (9-20) mg/dL Glucose 305 H (74-99) mg/dL Plasma Lactic Acid Ganesh 4.4 H* (0.7-2.0) mmol/L
[2024-06-11 07:47] LABS: Basophils % (A) 1 %; Eosinophils # (A) 0.4 k/uL (0-0.7); Eosinophils % (A) 6 %; HCT 40.2 % (39.0-53.0); HGB 13.5 gm/dL (13.0-17.5); Lymphocytes # (A) 1.1 k/uL (1.0-4.8); Lymphocytes % (A) 19 %; MCH 29.6 pg (25.0-35.0); MCHC 33.7 g/dL (31.0-37.0); MCV 87.8 fL (80.0-100.0); Mean Platelet Volume 6.7; Monocytes # (A) 0.5 k/uL (0-1.0); Monocytes % (A) 8 %; Neutrophils # (A) 3.6 k/uL (1.3-7.7); Neutrophils % (A) 63 %; Platelet Count 200 k/uL (150-450); RBC 4.58 m/uL (4.30-5.90); RDW 13.5 % (11.5-15.5); WBC 5.8 k/uL (3.8-10.6)
[2024-06-11 08:16] LABS: Glucose,Whole Blood 127 mg/dL (70-110)
[2024-06-11 08:18] LABS: African American GFR (CKD) 86 (>60 ml/min/1.73 sqM); Anion Gap 7 mmol/L; Blood Urea Nitrogen 18 mg/dL (9-20); Calcium 8.6 mg/dL (8.4-10.2); Carbon Dioxide 25 mmol/L (22-30); Chloride 109 mmol/L (98-107); Glucose 146 mg/dL (74-99); Non-African American GFR(CKD) 75 (>60 ml/min/1.73 sqM); Potassium 3.5 mmol/L (3.5-5.1); Sodium 141 mmol/L (137-145)
[2024-06-11] MEDS: INSULIN ASPART (NovoLOG) 100 UNIT/ML VIAL SQ SCH (08:22)
[2024-06-11] MEDS: ENOXAPARIN 40 MG/0.4 ML SYRINGE SQ SCH (08:26)
[2024-06-11] MEDS: PANTOPRAZOLE 40 MG TABLET PO SCH (08:26)
[2024-06-11] MEDS ORDERED: HYDROcodone/APAP 10-325MG 1 EACH TAB PO PRN (09:43)
[2024-06-11] MEDS ORDERED: CYCLOBENZAPRINE 5 MG TAB PO PRN (09:43)
[2024-06-11 12:16] LABS: Glucose,Whole Blood 160 mg/dL (70-110)
[2024-06-11] MEDS: ONDANSETRON 4 MG/2 ML VIAL IVP PRN (13:47)
--- NOTE | 2024-06-11 15:42 | P.GSCN ---
History of Present Illness Consult date: 06/11/24 History of present illness: CHIEF COMPLAINT: Abdominal pain HISTORY OF PRESENT ILLNESS: This is a 64-year-old male with a history of ulcerative colitis status post colectomy with ileostomy 25 years ago. Patient initially with concerns of dumping syndrome had been placed on Imodium per his formulator. Patient has had intermittent abdominal pain since after T hanksgiving. Patient does report pain after eating. He also reports having episodes of vomiting. He initially presented to the hospital on June 09 a CAT scan was completed that reported no evidence of bowel obstruction and patient was discharged home. Patient then had worsening abdominal pain and came in for further evaluation. Patient feels that he may have a blockage at his ostomy site. Patient reports tenderness around the ostomy. He reports that the stool is watery and no longer having formed stool. KUB x-ray done today which was negative. Patient reports prior surgical history of open appendectomy. He is on Plavix for TIA. Last dose was yesterday. He is also diabetic. PAST MEDICAL HISTORY: See below PAST SURGICAL HISTORY: See below MEDICATIONS: See below ALLERGIES: See below SOCIAL HISTORY: No illicit drug use. REVIEW OF SYSTEMS: CONSTITUTIONAL: Denies fever or chills. HEENT: Denies blurred vision, vision changes, or eye pain. Denies hemoptysis CARDIOVASCULAR: Denies chest pain or pressure. RESPIRATORY: No shortness of breath. GASTROINTESTINAL: See HPI for pertinent findings HEMATOLOGIC: Denies bleeding disorders. GENITOURINARY: Denies any blood in urine or increased urinary frequency. SKIN: Denies pruitis. Denies rash. PHYSICAL EXAM: VITAL SIGNS: Reviewed GENERAL: Well-developed in no acute distress. HEENT: No sclera icterus. Extraocular movements grossly intact. Moist buccal mucosa. Head is atraumatic, normocephalic. No nasal drainage. ABDOMEN: Soft. Nondistended. Incisional hernia noted on the right side incision midline abdomen. Ileostomy with liquidy stool. Small amount of formed stool at the stoma. Tender with palpation above the colostomy and below the ostomy in the right lower quadrant. NEUROLOGIC: Alert and oriented. Cranial nerves II through XII grossly intact. LABORATORY DATA: WBC 5.8 Hgb 13.5 platelets 200 Sodium is 141 potassium 3.5 creatinine 1.07 A1c 8.3 Lactic acid 4.4 down to 2.1 IMAGING: KUB x-ray nonspecific bowel gas pattern CT scan abdomen pelvis from 06/09/2024 reports postsurgical changes from right lower quadrant. No evidence for obstruction. Punctate nonobstructive bilateral renal calculi. ASSESSMENT: 1. Abdominal pain with watery stool output from his ostomy 2. History of ulcerative colitis status post colectomy and ileostomy 25 years ago PLAN: -Small bowel follow-through ordered with Gastrografin for further evaluation of patient's abdominal pain -Hold Plavix at this time in case of possible surgical intervention needed -Continue with IV fluids -Keep patient n.p.o. for now Physician Apron Cleaner note has been reviewed by physician. Signing provider agrees with the documented findings, assessment, and plan of care. Attestation Patient seen and examined at bedside. Presented with chief complaint of abdominal pain and states that he has not had significant output from his ostomy. He did present to the emergency department 2 days ago for the same issue. He had a CT scan of the abdomen pelvis with no evidence of obstruction at that time. He states that his pain returned and he was significantly distended and had some emesis episodes. Abdominal x-ray was performed during this emergency department visit with nonobstructive gas pattern. Patient states that he still has not had significant output from his ostomy. He has had this ostomy in place for about 25 years secondary to ulcerative colitis. He does have a history of subtotal colectomy at that time. Hold anticoagulation. Small bowel follow-through has been ordered for further evaluation. Gary Gross DO Past Medical History Past Medical History: Diabetes Mellitus, GERD/Reflux, Hypertension, Osteoarthritis (OA) Additional Past Medical History / Comment(s): 8-10 KIDNEY STONES, ULCERATIVE Colitis, RECTUM REMOVED. PT HAS ARTHIRITIS ALL OVER, History of Any Multi-Drug Resistant Organisms: None Reported Year Discovered:: 12/14/16 MDRO Source:: TOE Past Surgical History: Appendectomy, Bowel Resection, Heart Catheterization, J oint Replacement, Orthopedic Surgery Additional Past Surgical History / Comment(s): BILATERAL TOTAL KneeS,L Shoulder ROTATOR CUFF REPAIR, BILATERALHandS L HAND INDEX FINGER AND R HAND MIDDLE FINGER BOTH PARTIAL AMP WITH REPAIR, COLECTOMY/ILEOSTOMY. CARDIAC CATH YRS AGO AND NO BLOCKAGES-DONE AT [facility]. Past Anesthesia/Blood Transfusion Reactions: No Reported Reaction Additional Past Anesthesia/Blood Transfusion Reaction / Comm: NEVER RECEIVED BLOOD Past Psychological History: No Psychological Hx Reported Smoking Status: Never smoker Past Alcohol Use History: Occasional Past Drug Use History: None Reported - Past Family History Father Family Medical History: Hypertension Additional Family Medical History / Comment(s): FATHER ALIVE AND IS 74 YRS OLD. Mother Family Medical History: Osteoarthritis (OA) Additional Family Medical History / Comment(s): MOTHER HAS ALOT OF ARTHRITIS AND HAS HAD MANY ORTHOPEDIC SURGERIES. SHE IS 73 YRS OLD. Medications and Allergies Home Medications Medication Instructions Recorded Confirmed Type HYDROcodone/APAP 10-325MG [Jay 1 tab PO Q8H PRN 05/12/14 06/11/24 History 10-325] Tamsulosin [Flomax] 0.4 mg PO HS 05/26/20 06/11/24 History Clopidogrel [Plavix] 75 mg PO DAILY #30 tab 08/12/20 06/11/24 Rx Atorvastatin [Lipitor] 40 mg PO DAILY 03/06/24 06/11/24 History Cyclobenzaprine [Flexeril] 5 mg PO BID PRN 03/06/24 06/11/24 History DULoxetine HCL [Cymbalta] 60 mg PO DAILY 03/06/24 06/11/24 History Insulin Glargine,Hum.rec.anlog 44 units SQ HS 03/06/24 06/11/24 History [Basaglar Sharminpen U-100] Pantoprazole [Protonix] 40 mg PO DAILY 03/06/24 06/11/24 History Pregabalin [Lyrica] 50 mg PO TID 03/06/24 06/11/24 History Semaglutide [Ozempic] 0.5 mg SQ TH@2100 03/06/24 06/11/24 History Cholecalciferol [Vitamin D3 (25 25 mcg PO DAILY 06/09/24 06/11/24 History Mcg = 1000 Iu)] Loperamide [Imodium] 2 mg PO QID PRN 06/09/24 06/11/24 History amLODIPine [Norvasc] 10 mg PO DAILY 06/09/24 06/11/24 History Allergies Allergy/AdvReac Type Severity Reaction Status Date / Time cephalexin monohydrate Allergy Unknown Unknown Verified 06/11/24 07:17 [From Keflex] Childhood levofloxacin [From Levaquin] AdvReac Severe Chest Pain Verified 06/11/24 07:17 codeine AdvReac Unknown Nausea & Verified 06/11/24 07:17 Vomiting Surgical - Exam Osteopathic Statement: *. No significant issues noted on an osteopathic structural exam other than those noted in the History and Physical/Consult. Vital Signs Temp Pulse Resp BP Pulse Ox 98.0 F 87 18 124/72 100 06/10/24 20:53 06/10/24 20:53 06/10/24 20:53 06/10/24 20:53 06/10/24 20:53 Results - Labs 06/11/24 07:36 06/11/24 07:36 Abnormal Lab Results - Last 24 Hours (Table) 06/10/24 06/10/24 06/11/24 Range/Units 21:59 21:59 01:10 Chloride (98-107) mmol/L Carbon Dioxide 21 L (22-30) mmol/L BUN 21 H (9-20) mg/dL Glucose 305 H (74-99) mg/dL POC Glucose (mg/dL) (70-110) mg/dL Hemoglobin A1c (<=6.0) % Plasma Lactic Acid Ganesh 4.4 H* 2.7 H* (0.7-2.0) mmol/L Urine Protein (Negative) Urine Glucose (UA) (Negative) 06/11/24 06/11/24 06/11/24 Range/Units 02:15 02:48 05:08 Chloride (98-107) mmol/L Carbon Dioxide (22-30) mmol/L BUN (9-20) mg/dL Glucose (74-99) mg/dL POC Glucose (mg/dL) 210 H (70-110) mg/dL Hemoglobin A1c 8.3 H (<=6.0) % Plasma Lactic Acid Ganesh (0.7-2.0) mmol/L Urine Protein Trace H (Negative) Urine Glucose (UA) 4+ H (Negative) 06/11/24 06/11/24 06/11/24 Range/Units 05:08 07:36 07:39 Chloride 109 H (98-107) mmol/L Carbon Dioxide (22-30) mmol/L BUN (9-20) mg/dL Glucose 146 H (74-99) mg/dL POC Glucose (mg/dL) (70-110) mg/dL Hemoglobin A1c (<=6.0) % Plasma Lactic Acid Ganesh 2.1 H* 2.3 H* (0.7-2.0) mmol/L Urine Protein (Negative) Urine Glucose (UA) (Negative) 06/11/24 06/11/24 06/11/24 Range/Units 08:14 11:32 12:14 Chloride (98-107) mmol/L Carbon Dioxide (22-30) mmol/L BUN (9-20) mg/dL Glucose (74-99) mg/dL POC Glucose (mg/dL) 127 H 160 H (70-110) mg/dL Hemoglobin A1c (<=6.0) % Plasma Lactic Acid Ganesh 2.4 H* (0.7-2.0) mmol/L Urine Protein (Negative) Urine Glucose (UA) (Negative) Diabetes panel 06/10/24 06/11/24 06/11/24 Range/Units 21:59 05:08 07:36 Sodium 138 141 (137-145) mmol/L Potassium 3.6 3.5 (3.5-5.1) mmol/L Chloride 104 109 H (98-107) mmol/L Carbon Dioxide 21 L 25 (22-30) mmol/L BUN 21 H 18 (9-20) mg/dL Creatinine 1.16 1.07 (0.66-1.25) mg/dL Glucose 305 H 146 H (74-99) mg/dL Hemoglobin A1c 8.3 H (<=6.0) % Calcium 9.4 8.6 (8.4-10.2) mg/dL AST 20 (17-59) U/L ALT 21 (4-49) U/L Alkaline Phosphatase 98 (38-126) U/L Total Protein 6.8 (6.3-8.2) g/dL Albumin 4.2 (3.5-5.0) g/dL Calcium panel 06/10/24 06/11/24 Range/Units 21:59 07:36 Calcium 9.4 8.6 (8.4-10.2) mg/dL Albumin 4.2 (3.5-5.0) g/dL Pituitary panel 06/10/24 06/11/24 Range/Units 21:59 07:36 Sodium 138 141 (137-145) mmol/L Potassium 3.6 3.5 (3.5-5.1) mmol/L Chloride 104 109 H (98-107) mmol/L Carbon Dioxide 21 L 25 (22-30) mmol/L BUN 21 H 18 (9-20) mg/dL Creatinine 1.16 1.07 (0.66-1.25) mg/dL Glucose 305 H 146 H (74-99) mg/dL Calcium 9.4 8.6 (8.4-10.2) mg/dL Adrenal panel 06/10/24 06/11/24 Range/Units 21:59 07:36 Sodium 138 141 (137-145) mmol/L Potassium 3.6 3.5 (3.5-5.1) mmol/L Chloride 104 109 H (98-107) mmol/L Carbon Dioxide 21 L 25 (22-30) mmol/L BUN 21 H 18 (9-20) mg/dL Creatinine 1.16 1.07 (0.66-1.25) mg/dL Glucose 305 H 146 H (74-99) mg/dL Calcium 9.4 8.6 (8.4-10.2) mg/dL Total Bilirubin 0.7 (0.2-1.3) mg/dL AST 20 (17-59) U/L ALT 21 (4-49) U/L Alkaline Phosphatase 98 (38-126) U/L Total Protein 6.8 (6.3-8.2) g/dL Albumin 4.2 (3.5-5.0) g/dL
[2024-06-11] MEDS: PREGABALIN 50 MG CAP PO SCH (16:37)
[2024-06-11 17:39] LABS: Glucose,Whole Blood 125 mg/dL (70-110)
[2024-06-11 20:56] LABS: Glucose,Whole Blood 151 mg/dL (70-110)
[2024-06-11] MEDS: TAMSULOSIN 0.4 MG CAP.ER.24H PO SCH (20:59)
[2024-06-11] MEDS: INSULIN DETEMIR (LEVEMIR) 100 UNIT/ML SYR SQ SCH (20:59)
[2024-06-12 05:43] LABS: Glucose,Whole Blood 109 mg/dL (70-110)
[2024-06-12] MEDS: amLODIPine 10 MG TAB PO SCH (08:46)
[2024-06-12] MEDS: DULoxetine HCL 60 MG CAPSULE.DR PO SCH (08:46)
[2024-06-12] MEDS: ATORVASTATIN 40 MG TAB PO SCH (08:46)
[2024-06-12] MEDS: CHOLECALCIFEROL 25 MCG (1000 IU) TABLET PO SCH (08:46)
[2024-06-12] MEDS ORDERED: CLOPIDOGREL 75 MG TAB PO SCH (09:00)
[2024-06-12 10:46] LABS: Basophils # (A) 0.04 X 10*3/uL (0.00-0.10); Basophils % (A) 0.7 %; Eosinophils # (A) 0.31 X 10*3/uL (0.04-0.35); Eosinophils % (A) 5.2 %; HCT 38.8 % (39.6-50.0); HGB 13.5 g/dL (13.0-17.0); Lymphocytes # (A) 0.99 X 10*3/uL (0.90-5.00); Lymphocytes % (A) 16.6 %; MCH 28.9 pg (27.0-32.0); MCHC 34.8 g/dL (32.0-37.0); MCV 83.1 FL (80.0-97.0); Mean Platelet Volume 8.6 FL (9.5-12.2); Monocytes % (A) 10.1 %; NRBC Per 100 WBC 0 X 10*3/uL (0.00-0.01); Neutrophils # (A) 3.99 X 10*3/uL (1.80-7.70); Neutrophils % (A) 67.1 %; Platelet Count 191 X 10*3/uL (140-440); RBC 4.67 X 10*6/uL (4.40-5.60); RDW 13.2 % (11.5-14.5); WBC 5.95 X 10*3/uL (4.50-10.00)
[2024-06-12 10:58] LABS: Blood Urea Nitrogen 13.6 mg/dL (9.0-27.0); Calcium 8.4 mg/dL (8.7-10.3); Carbon Dioxide 22.8 mmol/L (21.6-31.8); Chloride 106 mmol/L (96-109); Glucose 106 mg/dL (70-110); Potassium 3.2 mmol/L (3.5-5.5); Sodium 141 mmol/L (135-145)
[2024-06-12 11:49] LABS: Glucose,Whole Blood 123 mg/dL (70-110)
--- NOTE | 2024-06-12 12:33 | FL ---
EXAMINATION TYPE: FL small bowel follow through DATE OF EXAM: 06/12/2024 11:41 AM COMPARISON: 06/10/2024 CLINICAL INDICATION:Male, 64 years old with history of abdominal pain, rule out obstruction; TECHNIQUE: The procedure was explained and patient history elicited. All patient questions were ans wered prior to start of procedure. A disc inspector radiograph of the abdomen was also reviewed. The patient was asked to ingest liquid Gastrografin and incremental frontal abdominal radiographs were then taken until contrast was visualized in the cecum. Fluoroscopic time: 0 min Fluoroscopic images: 0 Radiographs taken: 8 DAP: no fluoro [id number] FINDINGS: The disc inspector abdominal radiograph demonstrates a normal bowel gas pattern without dilated loops of small or large bowel. There is no evidence of organomegaly or pneumoperitoneum. No abnormal calcifications . The visualized osseous structures are intact. Postsurgical clips seen over the upper abdomen. Contrast is seen extending from the duodenojejunal junction into the cecum after 1.5 hours, which is within the expected time period. The small bowel demonstrates postsurgical course with normal contou r without any evidence of extraluminal or intraluminal irregularity. There is no displacement of bow el loops or extraluminal extravasation of contrast material. Small bowel mucosal folds are felt to be within normal limits. Contrast accumulates within the ileostomy along the anterior abdominal wall be st seen on lateral view. IMPRESSION: 1. No evidence for obstruction. 2. Normal detailed small bowel examination. [facility], , 06/12/2024 12:31 PM
--- NOTE | 2024-06-12 14:18 | P.PN ---
Subjective Progress Note Date: 06/12/24 SURGICAL PROGRESS NOTE CHIEF COMPLAINT: Abdominal pain HISTORY OF PRESENT ILLNESS: Patient continues to report abdominal pain. He did have nausea. He reports watery stool output through his ileostomy. Afebrile. WBC 5.95 Hgb 13.5 potassium is 3.2. Small bowel follow-through reports no evidence for obstruction. Normal exam. PHYSICAL EXAM: VITAL SIGNS: Reviewed. GENERAL: Well-developed in no acute distress. ABDOMEN: Soft. Nondistended. Incisional hernia noted on the right side incision midline abdomen. Ileostomy with liquidy stool. Small amount of formed stool at the stoma. Tender with palpation above the ileostomy NEUROLOGIC: Alert and oriented. Cranial nerves II through XII grossly intact. ASSESSMENT: 1. Abdominal pain with decreased output from his ileostomy. Small bowel fo llow-through shows no evidence of bowel obstruction 2. History of ulcerative colitis status post colectomy and ileostomy 25 years ago 3. Hypokalemia PLAN: -Advance diet to regular -Replace potassium -Continue to monitor Physician Real Estate Firm Manager note has been reviewed by physician. Signing provider agrees with the documented findings, assessment, and plan of care. Attestation Patient seen and examined at bedside. No acute events. Small bowel series performed with no evidence of obstruction. Okay to advance diet. Shicailinin Gross, DO Objective - Vital Signs Vital signs: Vital Signs Temp 97.8 F 06/12/24 07:00 Pulse 92 06/12/24 08:00 Resp 18 06/12/24 08:00 BP 122/67 06/12/24 07:00 Pulse Ox 95 06/12/24 07:00 FiO2 Intake & Output 06/11/24 06/12/24 06/12/24 18:59 06:59 18:59 Intake Total 0 0 Balance 0 0 Weight 115.666 kg Intake: Oral 0 0 Other: Voiding Method Toilet Toilet # Voids 2 - Labs CBC & Chem 7: 06/12/24 06:10 06/12/24 18:39 Labs: Abnormal Lab Results - Last 24 Hours (Table) 06/11/24 06/11/24 06/11/24 Range/Units 14:27 17:37 20:54 Hct (39.6-50.0) % MPV (9.5-12.2) FL Potassium (3.5-5.5) mmol/L Anion Gap (4.00-12.00) mmol/L POC Glucose (mg/dL) 125 H 151 H (70-110) mg/dL Plasma Lactic Acid Ganesh 2.1 H* (0.7-2.0) mmol/L Calcium (8.7-10.3) mg/dL 06/12/24 06/12/24 06/12/24 Range/Units 06:10 06:10 11:48 Hct 38.8 L (39.6-50.0) % MPV 8.6 L (9.5-12.2) FL Potassium 3.2 L (3.5-5.5) mmol/L Anion Gap 12.20 H (4.00-12.00) mmol/L POC Glucose (mg/dL) 123 H (70-110) mg/dL Plasma Lactic Acid Ganesh (0.7-2.0) mmol/L Calcium 8.4 L (8.7-10.3) mg/dL
--- NOTE | 2024-06-12 15:11 | P.PN ---
Subjective Progress Note Date: 06/12/24 Patient is a 64-year-old male with past medical history of diabetes mellitus, hypertension, GERD, ulcerative colitis status post colectomy with ileostomy bag 20 years ago presented to the ED with abdominal pain. He reports the pain started on Thanksgiving, and is mostly around the ostomy site. The severity of pain pain fluctuates between 6-9 out of 10. He tried taking a stool softener but without much relief of his symptoms. Sometimes he also experiences cramping pain on the left and right sides of his abdomen. He was at work at a [employer] the following day when he started experiencing sharp pain and also vomitted once. He initially felt that there was some blockage/backup near the ostomy, which is why he tried to put pressure on his abdomen around the ostomy site. He mentions that this helps to get the stool out sometimes. Lately he has also had more liquid output. He reports being nauseous today. Denies any precipitating or alleviating factors. Denies stoma bleeding. He denies following up with a stitcher standard machine regularly. He was here at the hospital with similar symptoms yesterday as well as a couple months ago. That was the first time he saw Dr. Coley, and he mentions being scheduled for an endoscopy for the . Additionally, he reports having a low stream of urine as well as numbness and hardening of the sole of his left leg that he attributed to his diabetes mellitus. Denies fever, chills, chest pain, shortness of breah, cough, chest pain, palpitations, hematuria, dysuria, slurred speech. ED documentation reviewed. In the ED patient was treated with morphine 4 mg, ondansetron 4 mg, 0.9 normal saline bolus. -Vitals on admission T 98 F, CT 87 bpm, RR 18, BP 124/72, O2 sat 100% on room air -KUB x-ray shows nonspecific bowel gas pattern -Labs on admission show WBC 5.9, hemoglobin 14.4, sodium 138, potassium 3.6, bicarb 21, anion gap 13, BUN 21, lipase 126, total bilirubin 0.7 -UA shows trace protein and 4+ glucose 06/12/2024 patient seen and examined at bedside. Patient noted to have experienced pain that is improved from admission and nausea controlled with m edication. WBC 5.95 hemoglobin 13.5 platelet count 1 91,000 sodium 141 potassium 3.2 BUN 13.6 creatinine 1 glucose 106 calcium 8.4 Review of systems: Pertinent positives and negatives as discussed in HPI, a complete review of systems was performed and all other systems are negative. Pertinent imaging and labs reviewed. Physical examination: Vital signs reviewed General: nontoxic, no distress, appears at stated age Derm: warm, dry, intact Head: atraumatic, normocephalic, symmetric Eyes: EOMI, anicteric sclera Mouth: no lip lesion, mucus membranes moist Cardiovascular: S1 S2 reg, no murmur Lungs: CTA bilateral, no rhonchi, no rales, no accessory muscle use Abdominal: soft, mild RUQ, RLQ and LUQ tenderness on light palpation without guarding, rigidity, or rebound, ileostomy in place with liquid stool in bag with pink stoma noted Extremities: No cyanosis, clubbing, or pedal edema. Neuro: Alert, Oriented, Gross neurological examination did not reveal any focal deficits. Psych: well appearing, appropriate affect Assessment/Plan: Patient is a 64-year-old male with past medical history of diabetes mellitus,GERD, ulcerative colitis, s/p colectomy with ileostomy bag presented to the ED with abdominal pain, nausea and vomiting since 1 week. He has been admitt ed for further workup and management of the same. #. Abdominal pain r/o obstruction #. S/p colectomy with ileostomy bag 20 years ago -KUB x-ray shows nonspecific bowel gas pattern -Continue morphine 4 mg IV every 4 hours as needed for pain management -Continue ondansetron 4 mg IVP every 8 hours as needed for nausea and vomiting -General Surgery consulted. Small bowel follow-through with Gastrografin was negative for obstruction. Advance to regular diet #. Hypokalemia -Potassium 3.2 -Potassium chloride 40 m equivalents once. Check potassium after repletion -Check mag #. Lactic acidosis, resolved -Lactic acid 1.7 -discontinue 0.9 normal saline IVF #. Hyperglycemia, resolved #. Insulin dependent diabetes mellitus -Insulin sliding scale and blood glucose monitoring ACHS -Continue home med Levemir 30 Units nightly Chronic: #. Hypertension -Continue home med amlodipine 10 mg PO daily #. Hyperlipidemia -Continue home med Atorvastatin 40 mg PO daily #. Anxiety/Depression -Continue home med Duloxetine 60 mg PO daily #. GERD -Continue home med Pantoprazole 40 mg PO daily #. Neuropathy -Continue home med pregabalin 50 mg PO TID #. Urinary retention -Continue home med Tamsulosin 0.4 mg PO HS #. History of TIA in 2020 Continue home med Plavix 75 mg PO Daily Restart home meds once confirmed by pharmacy F: Oral intake E: Replete as needed N: Regular diet A: Concern for ambulating DVT prophylaxis: Lovenox 40 mg SQ daily GI prophylaxis: Protonix 40 mg p.o. daily Phoebe Ferreira MD PGY-1/Behavioral Assistant Dictation was produced using [employer] dictation software. please excuse any grammatical, word or spelling errors. I saw and evaluated the patient during the albarran and critical portions of this encounter, and discussed the case in detail with the resident author of this note, I agree with the Assessment and Plan, and my changes, if any, are noted below. Small bowel follow through without obstruction, diet advanced. Significant output from ostomy after contrast. RN reports lightheadedness, his orthostats are +, 1L NS bolus ordered. Will monitor overnight. Objective - Vital Signs Vital signs: Vital Signs Temp 97.8 F 06/12/24 07:00 Pulse 92 06/12/24 08:00 Resp 18 06/12/24 08:00 BP 122/67 06/12/24 07:00 Pulse Ox 95 06/12/24 07:00 FiO2 Intake & Output 06/11/24 06/12/24 06/12/24 18:59 06:59 18:59 Intake Total 0 0 Balance 0 0 Weight 115.666 kg Intake: Oral 0 0 Other: Voiding Method Toilet Toilet # Voids 2 - Labs CBC & Chem 7: 06/12/24 06:10 06/12/24 06:10 Labs: Abnormal Lab Results - Last 24 Hours (Table) 06/11/24 06/11/24 06/11/24 Range/Units 11:32 12:14 14:27 Hct (39.6-50.0) % MPV (9.5-12.2) FL Potassium (3.5-5.5) mmol/L Anion Gap (4.00-12.00) mmol/L POC Glucose (mg/dL) 160 H (70-110) mg/dL Plasma Lactic Acid Ganesh 2.4 H* 2.1 H* (0.7-2.0) mmol/L Calcium (8.7-10.3) mg/dL 06/11/24 06/11/24 06/12/24 Range/Units 17:37 20:54 06:10 Hct 38.8 L (39.6-50.0) % MPV 8.6 L (9.5-12.2) FL Potassium (3.5-5.5) mmol/L Anion Gap (4.00-12.00) mmol/L POC Glucose (mg/dL) 125 H 151 H (70-110) mg/dL Plasma Lactic Acid Ganesh (0.7-2.0) mmol/L Calcium (8.7-10.3) mg/dL 06/12/24 Range/Units 06:10 Hct (39.6-50.0) % MPV (9.5-12.2) FL Potassium 3.2 L (3.5-5.5) mmol/L Anion Gap 12.20 H (4.00-12.00) mmol/L POC Glucose (mg/dL) (70-110) mg/dL Plasma Lactic Acid Ganesh (0.7-2.0) mmol/L Calcium 8.4 L (8.7-10.3) mg/dL
[2024-06-12] MEDS: POTASSIUM CHLORIDE ER 20 MEQ TAB.ER PO STA (15:31)
[2024-06-12] MEDS: SODIUM CHLORIDE 0.9% 1,000 ML IV ONE (16:28)
[2024-06-12 17:44] LABS: Glucose,Whole Blood 129 mg/dL (70-110)
[2024-06-12 20:18] LABS: Glucose,Whole Blood 283 mg/dL (70-110)
[2024-06-13 06:08] LABS: Glucose,Whole Blood 108 mg/dL (70-110)
[2024-06-13 07:50] VITALS: BP 171/92; PULSE 92; RESP 17; TEMP 97.6
[2024-06-13 10:02] LABS: Basophils # (A) 0.03 X 10*3/uL (0.00-0.10); Basophils % (A) 0.6 %; Eosinophils # (A) 0.25 X 10*3/uL (0.04-0.35); Eosinophils % (A) 5.4 %; HCT 37.3 % (39.6-50.0); Lymphocytes # (A) 0.82 X 10*3/uL (0.90-5.00); Lymphocytes % (A) 17.7 %; MCH 29.4 pg (27.0-32.0); MCHC 34.9 g/dL (32.0-37.0); MCV 84.4 FL (80.0-97.0); Mean Platelet Volume 8.9 FL (9.5-12.2); Monocytes # (A) 0.63 X 10*3/uL (0.20-1.00); Monocytes % (A) 13.6 %; NRBC Per 100 WBC 0 X 10*3/uL (0.00-0.01); Neutrophils % (A) 62.5 %; Platelet Count 192 X 10*3/uL (140-440); RBC 4.42 X 10*6/uL (4.40-5.60); RDW 13.2 % (11.5-14.5); WBC 4.64 X 10*3/uL (4.50-10.00)
[2024-06-13 10:26] LABS: BUN/Creat Ratio 12.25 Ratio (12.00-20.00); Blood Urea Nitrogen 14.7 mg/dL (9.0-27.0); Chloride 107 mmol/L (96-109); Glucose 115 mg/dL (70-110); Potassium 3.2 mmol/L (3.5-5.5); Sodium 142 mmol/L (135-145)
[2024-06-13 10:27] LABS: Calcium 8.6 mg/dL (8.7-10.3); Carbon Dioxide 23.3 mmol/L (21.6-31.8)
[2024-06-13 12:02] LABS: Glucose,Whole Blood 302 mg/dL (70-110)
[2024-06-13] MEDS: INSULIN ASPART (NovoLOG) 100 UNIT/ML VIAL SQ SCH (12:55)
[2024-06-13] MEDS: POTASSIUM CHLORIDE ER 20 MEQ TAB.ER PO STA (12:55)
--- NOTE | 2024-06-13 13:50 | P.PN ---
Subjective Progress Note Date: 06/13/24 Patient seen and examined at bedside. States abdominal pain has resolved. Having output from ostomy site. Tolerating diet. Objective - Vital Signs Vital signs: Vital Signs Temp 97.6 F 06/13/24 07:00 Pulse 92 06/13/24 07:00 Resp 17 06/13/24 07:00 BP 171/92 06/13/24 07:00 Pulse Ox 96 06/13/24 07:00 FiO2 Intake & Output 06/12/24 06/13/24 06/13/24 18:59 06:59 18:59 Intake Total 278 118 Balance 278 118 Intake: Intake, IV Titration 160 Amount Sodium Chloride 0.9% 1, 160 000 ml @ 20 mls/hr IV . Q24H [facility] Rx#:[id number] Oral 118 118 Other: Voiding Method Toilet Toilet # Voids 2 - Constitutional General appearance: Present: cooperative - Gastrointestinal Gastrointestinal Comment(s): Soft, nontender, nondistended, ostomy appears to be functioning - Labs CBC & Chem 7: 06/13/24 05:09 06/13/24 05:09 Labs: Abnormal Lab Results - Last 24 Hours (Table) 06/12/24 06/12/24 06/13/24 Range/Units 17:44 20:16 05:09 Hct 37.3 L (39.6-50.0) % MPV 8.9 L (9.5-12.2) FL Lymphocytes # 0.82 L (0.90-5.00) X 10*3/uL Potassium (3.5-5.5) mmol/L Glucose (70-110) mg/dL POC Glucose (mg/dL) 129 H 283 H (70-110) mg/dL Calcium (8.7-10.3) mg/dL 06/13/24 06/13/24 Range/Units 05:09 12:01 Hct (39.6-50.0) % MPV (9.5-12.2) FL Lymphocytes # (0.90-5.00) X 10*3/uL Potassium 3.2 L (3.5-5.5) mmol/L Glucose 115 H (70-110) mg/dL POC Glucose (mg/dL) 302 H (70-110) mg/dL Calcium 8.6 L (8.7-10.3) mg/dL Assessment and Plan Plan: Ostomy has begun functioning. Small bowel series with no obstruction noted. Tolerating diet. At this point, he is stable for discharge from a surgical perspective.
--- NOTE | 2024-06-13 13:53 | P.DS ---
Providers Date of admission: 06/11/24 00:31 Attending physician: Gilbert Johnson MD Consults: 06/11/24 00:30 Consult Physician Urgent Consulting Provider: Tani Pack Reason/Comments: abd pain Do you want consulting provider notified?: Already Contacted Primary care physician: Regino Ibrahim [facility] Course: Hospital Course: Patient is a 64-year-old male with past medical history of diabetes mellitus, hypertension, GERD, ulcerative colitis status post colectomy with ileostomy bag 20 years ago presented to the ED with abdominal pain. -Vitals on admission T 98 F, OH 87 bpm, RR 18, BP 124/72, O2 sat 100% on room air -KUB x-ray shows nonspecific bowel gas pattern -Labs on admission show WBC 5.9, hemoglobin 14.4, sodium 138, potassium 3.6, bicarb 21, anion gap 13, BUN 21, lipase 126, total bilirubin 0.7. UA shows trace protein and 4+ glucose Patient evaluated for abdominal pain to rule out obstruction. General surgery was consulted, pain control provided, ondansetron given for nausea and vomiting, and was placed on NPO. General surgery advised small bowel follow-through with Gastrografin and showed to be negative for obstruction. Patient symptoms improved throughout hospital stay. Diet was advanced as tolerated. Patient noted to have hypokalemia on 06/12 and was repleted. Patient did have an episode of orthostatic hypotension after the small bowel follow through which resolved with a 1L NS bolus. Patient is cleared by general surgery for discharge today and is advised to follow-up with PCP and repeat his basic metabolic panel within 3 days after discharge for evaluation with PCP. Final Diagnosis: #. Abdominal pain, obstruction ruled out #. Hypokalemia, resolved #. Lactic acidosis, resolved #. Hyperglycemia, resolved #. Insulin dependent diabetes mellitus #. Hypertension #. Hyperlipidemia #. Anxiety/depression #. GERD #. Neuropathy #. Urinary retention #. History of TIA in 2020 Physical examination: Vital signs reviewed General: nontoxic, no distress, appears at stated age Derm: warm, dry, intact Head: atraumatic, normocephalic, symmetric Eyes: EOMI, anicteric sclera Mouth: no lip lesion, mucus membranes moist Cardiovascular: S1 S2 reg, no murmur Lungs: CTA bilateral, no rhonchi, no rales, no accessory muscle use Abdominal: soft, nontender, ileostomy in place with stool output in bag, pink stoma noted Extremities: No cyanosis, clubbing, or pedal edema Neuro: Alert, Oriented, Gross neurological examination did not reveal any focal deficits. Psych: well appearing, appropriate affect I saw and evaluated the patient during the albarran and critical portions of this encounter, and discussed the case in detail with the resident author of this note, I agree with the Assessment and Plan, and my changes, if any, are noted below or highlighted in blue. Patient Condition at Discharge: Stable Plan - Discharge Summary Discharge Rx Participant: No New Discharge Prescriptions: Continue HYDROcodone/APAP 10-325MG [Purmela 10-325] 1 tab PO Q8H PRN PRN Reason: Pain Tamsulosin [Flomax] 0.4 mg PO HS Clopidogrel [Plavix] 75 mg PO DAILY #30 tab DULoxetine HCL [Cymbalta] 60 mg PO DAILY Pregabalin [Lyrica] 50 mg PO TID Loperamide [Imodium] 2 mg PO QID PRN PRN Reason: Diarrhea Cholecalciferol [Vitamin D3 (25 Mcg = 1000 Iu)] 25 mcg PO DAILY Atorvastatin [Lipitor] 40 mg PO DAILY Pantoprazole [Protonix] 40 mg PO DAILY Cyclobenzaprine [Flexeril] 5 mg PO BID PRN PRN Reason: Muscle Pain Insulin Glargine,Hum.rec.anlog [Basaglar Kwikpen U-100] 44 units SQ HS Semaglutide [Ozempic] 0.5 mg SQ TH@2100 amLODIPine [Norvasc] 10 mg PO DAILY Discharge Medication List HYDROcodone/APAP 10-325MG [Purmela 10-325] 1 tab PO Q8H PRN 05/12/14 [History] Tamsulosin [Flomax] 0.4 mg PO HS 05/26/20 [History] Clopidogrel [Plavix] 75 mg PO DAILY #30 tab 08/12/20 [Rx] Atorvastatin [Lipitor] 40 mg PO DAILY 03/06/24 [History] Cyclobenzaprine [Flexeril] 5 mg PO BID PRN 03/06/24 [History] DULoxetine HCL [Cymbalta] 60 mg PO DAILY 03/06/24 [History] Insulin Glargine,Hum.rec.anlog [Basaglar Kwikpen U-100] 44 units SQ HS 03/06/24 [History] Pantoprazole [Protonix] 40 mg PO DAILY 03/06/24 [History] Pregabalin [Lyrica] 50 mg PO TID 03/06/24 [History] Semaglutide [Ozempic] 0.5 mg SQ TH@2100 03/06/24 [History] Cholecalciferol [Vitamin D3 (25 Mcg = 1000 Iu)] 25 mcg PO DAILY 06/09/24 [History] Loperamide [Imodium] 2 mg PO QID PRN 06/09/24 [History] amLODIPine [Norvasc] 10 mg PO DAILY 06/09/24 [History] Follow up Appointment(s)/Referral(s): Regino Ibrahim MD [Primary Care Provider] - 1-2 days Ambulatory/Diagnostic Orders: Basic Metabolic Panel [LAB.AMB] Location: None Selected Patient Instructions/Handouts: Abdominal Pain (ED) Activity/Diet/Wound Care/Special Instructions: Please follow up with PCP Discharge Disposition: HOME SELF-CARE
== END 2024-06-13 14:28 | disposition home or self-care (01) ==
LOC: EC 20:45 → 6NMEDSUR 06-11 00:31
PROVIDERS: ADMIT Internal Medicine; ATTEND Internal Medicine
DX: R10.9 Unspecified abdominal pain (principal); Z43.2 Encounter for attention to ileostomy; E87.20 Acidosis, unspecified; E87.6 Hypokalemia; K91.1 Postgastric surgery syndromes; E11.65 Type 2 diabetes mellitus with hyperglycemia; E11.40 Type 2 diabetes mellitus with diabetic neuropathy, unspecified; K21.9 Gastro-esophageal reflux disease without esophagitis; E78.5 Hyperlipidemia, unspecified; I10 Essential (primary) hypertension; I95.1 Orthostatic hypotension; F41.9 Anxiety disorder, unspecified; F32.A Depression, unspecified; R33.9 Retention of urine, unspecified; Z79.4 Long term (current) use of insulin; Z79.85 Long-term (current) use of injectable non-insulin antidiabetic drugs; Z79.02 Long term (current) use of antithrombotics/antiplatelets; Z79.899 Other long term (current) drug therapy; Z86.73 Personal history of transient ischemic attack (TIA), and cerebral infarction without residual deficits; Z87.19 Personal history of other diseases of the digestive system; Z88.5 Allergy status to narcotic agent; Z88.1 Allergy status to other antibiotic agents; Z90.49 Acquired absence of other specified parts of digestive tract
CPT/HCPCS: 96376 ×3; 96361 ×3; 96372 ×3; 96374; 96375; 99285; 36415; 80053; 80048 ×3; 83605 ×2; 83690; 83735 ×2; 84132; 85025 ×4; 81003; 83036; 74250; 74018; G0378 ×3; J2270 ×3; J2405 ×3; J1650 ×3

== ENCOUNTER 2024-06-30 09:20 | Day surgery (SDC) | payer MEDICAID ==
[2024-06-29 09:10] VITALS: BMI 33.9
[2024-06-30 09:39] LABS: Glucose,Whole Blood 80 mg/dL (70-110)
[2024-06-30] MEDS ORDERED: LIDOCAINE 1% (10MG/ML) FOR IV START INTRADERMA PRN (09:39)
[2024-06-30] MEDS ORDERED: LACTATED RINGERS 1,000 ML IV SCH (09:39)
[2024-06-30 09:43] VITALS: TEMP 97.9
[2024-06-30] MEDS: IV FLUID CONTINUATION 1,000 ML IV ONE (09:43)
[2024-06-30] MEDS ORDERED: PROPOFOL 10 MG/ML 20 ML VIAL IV ONE (10:09)
--- NOTE | 2024-06-30 10:24 | P.PCN ---
Date of Procedure: 06/30/24 Procedure(s) Performed: BRIEF HISTORY: Patient is a 64-year-old pleasant white male scheduled for an elective ileoscopy as a part of evaluation of increased ileostomy output for the last 1 year duration. Patient has history of ulcerative colitis for which he underwent total proctocolectomy with ileostomy about 20 years ago. In the last 6 months he has been hospitalized 3 times for increased ileostomy output and severe dehydration in the last 1 was approximately 4 weeks ago. He is scheduled for an ileoscopy today to rule out ileitis/Crohn's disease. PROCEDURE PERFORMED: Ileoscopy with biopsy PREOPERATIVE DIAGNOSIS: Increased ileostomy output 4/6 months duration. IV sedation per Anesthesia. PROCEDURE: After informed consent was obtained, the patient, was brought into the endoscopy unit. IV sedation was administered by Anesthesia under continuous monitoring. . Ileostomy bag was removed. The ileostomy site was exposed to that appeared normal. Digital rectal examination revealed narrowing of the ileostomy. The Olympus GF 190 video upper scope was answered to the ileostomy site and was gradually advanced into the ileum and approximately 60 cm of the ileum was visualized that appeared entirely normal. There were no erosions or ulcerations seen. Random biopsies were done from the distal ileum.. The patient tolerated the procedure well. IMPRESSION: Ileostomy appears slightly narrowed 60 cm of the distal ileum appeared normal RECOMMENDATIONS: Findings of this examination were discussed with the patient as well as his family. He was advised to follow with the biopsy results. In the meantime he will continue with Imodium 2 tablets 4 times daily as needed. He will be seen in the office in 2 to 3 weeks..
[2024-06-30 10:44] VITALS: BP 128/88; PULSE 88; RESP 16
== END 2024-06-30 11:28 | disposition home or self-care (01) ==
LOC: ORWHC2ENDO 09:20
PROVIDERS: ATTEND Internal Medicine Gastroenterology
DX: K51.90 Ulcerative colitis, unspecified, without complications (principal); K21.9 Gastro-esophageal reflux disease without esophagitis; I10 Essential (primary) hypertension; E78.5 Hyperlipidemia, unspecified; G47.33 Obstructive sleep apnea (adult) (pediatric); G45.9 Transient cerebral ischemic attack, unspecified; E11.9 Type 2 diabetes mellitus without complications; N20.0 Calculus of kidney; Z90.79 Acquired absence of other genital organ(s); Z88.1 Allergy status to other antibiotic agents; Z88.5 Allergy status to narcotic agent; Z79.02 Long term (current) use of antithrombotics/antiplatelets; Z79.899 Other long term (current) drug therapy
CPT/HCPCS: 88305; 44382; J2704

== ENCOUNTER 2024-07-25 11:55 | Emergency (ER) | payer MEDICAID ==
--- NOTE | 2024-07-25 12:34 | ED ---
General Adult HPI - General Chief complaint: Dizziness Stated complaint: inf wound on arm Time Seen by Provider: 07/25/24 12:15 Source: patient Mode of arrival: ambulatory Limitations: no limitations - History of Present Illness Initial comments: This is a 64-year-old male with a history of diabetes and hypertension presenting to the emergency department for complaint of dizziness. Patient states that over the past year and a half he has been experiencing intermittent dizziness that is exacerbated when he changes positions most commonly from sitting to standing. Patient has been informed in the past that he has orthostatic hypotension symptoms are likely secondary to dehydration. Patient was taken off of his antihypertensives in addition to Flomax after recent hospital stay and discharged on 07/23/24 [facility]. Patient presents with concern for pain to his left wrist with erythema over the wrist joint and pain with range of motion. He denies fevers, chills, chest pain, shortness of breath, headaches, blurry double vision, nausea or vomiting. - Related Data Home Medications Medication Instructions Recorded Confirmed HYDROcodone/APAP 10-325MG [Armstrong 1 tab PO Q8H PRN 05/12/14 06/29/24 10-325] Tamsulosin [Flomax] 0.4 mg PO HS 05/26/20 06/29/24 Atorvastatin [Lipitor] 40 mg PO DAILY 03/06/24 06/29/24 Cyclobenzaprine [Flexeril] 5 mg PO BID PRN 03/06/24 06/29/24 DULoxetine HCL [Cymbalta] 60 mg PO DAILY 03/06/24 06/29/24 Insulin Glargine,Hum.rec.anlog 44 units SQ HS 03/06/24 06/30/24 [Basaglar Kwikpen U-100] Pantoprazole [Protonix] 40 mg PO DAILY 03/06/24 06/29/24 Pregabalin [Lyrica] 50 mg PO BID 03/06/24 06/29/24 Semaglutide [Ozempic] 0.5 mg SQ TH@2100 03/06/24 06/29/24 Cholecalciferol [Vitamin D3 (25 25 mcg PO DAILY 06/09/24 06/29/24 Mcg = 1000 Iu)] Loperamide [Imodium] 2 mg PO QID PRN 06/09/24 06/29/24 amLODIPine [Norvasc] 10 mg PO DAILY 06/09/24 06/29/24 Previous Rx's Medication Instructions Recorded Clopidogrel [Plavix] 75 mg PO DAILY #30 tab 08/12/20 Allergies Allergy/AdvReac Type Severity Reaction Status Date / Time cephalexin monohydrate Allergy Unknown Unknown Verified 06/30/24 09:39 [From Keflex] Childhood levofloxacin [From Levaquin] AdvReac Severe Chest Pain Verified 06/30/24 09:39 codeine AdvReac Unknown Nausea & Verified 06/30/24 09:39 Vomiting Review of Systems ROS Statement: Those systems with pertinent positive or pertinent negative responses have been documented in the HPI. ROS Other: All systems not noted in ROS Statement are negative. Past Medical History Past Medical History: Diabetes Mellitus, GERD/Reflux, Hyperlipidemia, Hypertension, Osteoarthritis (OA) Additional Past Medical History / Comment(s): 8-10 KIDNEY STONES, ULCERATIVE Colitis, RECTUM REMOVED. PT HAS ARTHIRITIS ALL OVER, ileoostomy History of Any Multi-Drug Resistant Organisms: None Reported Date of last positivie culture/infection: 12/14/16 MDRO Source:: TOE Past Surgical History: Appendectomy, Bowel Resection, Heart Catheterization, Joint Replacement, Orthopedic Surgery Additional Past Surgical History / Comment(s): BILATERAL TOTAL KneeS,L Shoulder ROTATOR CUFF REPAIR,right shoulder reversal, BILATERALHandS L HAND INDEX FINGER AND R HAND MIDDLE FINGER BOTH PARTIAL AMP WITH REPAIR, COLECTOMY/ILEOSTOMY. CARDIAC CATH YRS AGO AND NO BLOCKAGES-DONE AT [facility]. Past Anesthesia/Blood Transfusion Reactions: No Reported Reaction Additional Past Anesthesia/Blood Transfusion Reaction / Comment(s): NEVER RECEIVED BLOOD Past Psychological History: No Psychological Hx Reported Smoking Status: Never smoker - Past Family History Father Family Medical History: Hypertension Additional Family Medical History / Comment(s): FATHER ALIVE AND IS 74 YRS OLD. Mother Family Medical History: Osteoarthritis (OA) Additional Family Medical History / Comment(s): MOTHER HAS ALOT OF ARTHRITIS AND HAS HAD MANY ORTHOPEDIC SURGERIES. SHE IS 73 YRS OLD. General Exam Limitations: no limitations Neck exam: Present: normal inspection. Absent: tenderness, meningismus, lymphadenopathy Respiratory exam: Present: normal lung sounds bilaterally. Absent: respiratory distress, wheezes, rales, rhonchi, stridor Cardiovascular Exam: Present: regular rate, normal rhythm, normal heart sounds. Absent: systolic murmur, diastolic murmur, rubs, gallop, clicks GI/Abdominal exam: Present: soft, normal bowel sounds. Absent: distended, t enderness, guarding, rebound, rigid Left Hand Wrist exam: Present: full ROM (with pain), tenderness. Absent: swelling, deformity, crepitus, dislocation Neuro motor exam: Present: wrist extension intact, thumb opposition intact Vascular: Present: normal capillary refill, radial pulse (2+). Absent: vascular compromise Right Forearm Wrist exam: Present: swelling (anterior mid forearm area of swelling measuring 2 cm in diameter) Back exam: Present: normal inspection Neurological exam: Present: alert, oriented X3, CN II-XII intact Skin exam: Present: warm, dry, intact, normal color. Absent: rash Course Vital Signs 07/25/24 07/25/24 07/25/24 12:05 13:21 14:09 Temperature 98.3 F Pulse Rate 58 L 80 73 Respiratory 16 20 20 Rate Blood Pressure 134/93 129/91 151/94 O2 Sat by Pulse 95 98 99 Oximetry Medical Decision Making - Medical Decision Making Was pt. sent in by a medical professional or institution (, PA, LAUNDRY MANAGER, urgent care, hospital, or senior care...) When possible be specific @ -No Did you speak to anyone other than the patient for history (EMS, parent, family, police, friend...)? What history was obtained from this source @ -No Did you review nursing and triage notes (agree or disagree)? Why? @ -I reviewed and agree with nursing and triage notes Were old charts reviewed (outside hosp., previous admission, EMS record, old EKG, old radiological studies, urgent care reports/EKG's, senior care records)? Report findings @ -No old charts were reviewed Differential Diagnosis (chest pain, altered mental status, abdominal pain women, abdominal pain men, vaginal bleeding, weakness, fever, dyspnea, syncope, headache, dizziness, GI bleed, back pain, seizure, CVA, palpatations, mental health, musculoskeletal)? @ -Differential Dizziness: Benign paroxysmal positional Vertigo, Meniere's disease, otitis media, acoustic neuroma, vertebrobasilar insufficiency, cerebellar stroke, encephalitis, hypovolemic, arrhythmia, coronary artery syndrome, anemia, this is not meant to be an all-inclusive list EKG interpreted by me (3pts min.). @ -Completed at 1255 sinus rhythm with a first-degree AV block and a ventricular rate of 81, DE interval 217, QRS 126, QTc 445. X-rays interpreted by me (1pt min.). @ -X-ray of the left wrist no acute osseous pathology with degeneration changes at the base of the first digit CT interpreted by me (1pt min.). @ -None done U/S interpreted by me (1pt. min.). @ -None done What testing was considered but not performed or refused? (CT, X-rays, U/S, labs)? Why? @ -None What meds were considered but not given or refused? Why? @ -None Did you discuss the management of the patient with other professionals (professionals i.e. , PA, LAUNDRY MANAGER, lab, RT, psych nurse, psychologist social, shredded filler machine wrapper layer, teacher, textile technical officer, pillowcase cutter)? Give summary @ -No Was smoking cessation discussed for >3mins.? @ -No Was critical care preformed (if so, how long)? @ -No Were there social determinants of health that impacted care today? How? (Homelessness, low income, unemployed, alcoholism, drug addiction, transportation, low edu. Level, literacy, decrease access to med. care, long-term, rehab)? @ -No Was there de-escalation of care discussed even if they declined (Discuss DNR or withdrawal of care, Hospice)? DNR status @ -No What co-morbidities impacted this encounter? (DM, HTN, Smoking, COPD, CAD, Cancer, CVA, ARF, Chemo, Hep., AIDS, mental health diagnosis, sleep apnea, morbid obesity)? @ -None Was patient admitted / discharged? Hospital course, mention meds given and route, prescriptions, significant lab abnormalities, going to OR and other pertinent info. @ -Discharge. 64-year-old male presenting with dizziness and right wrist pain. In triage patient is noted to have positive orthostatic hypotension. On my vika luation patient is resting company no signs acute distress. Neurological examination is unremarkable. Patient noted to have pain of the right wrist with range of motion however range of motion is intact with no neurovascular deficits. Additionally, there is noted erythema over the right anterior forearm measuring approximately 2 cm in diameter that correlates with thrombophlebitis from recent IV removal. Patient is provided with pain medications and IV fluids will undergo laboratory evaluation and x-ray imaging. Patient is hypokalemic with a potassium of 3.2 and hyperglycemic with a glucose of 300. He is provided with supplementation of potassium and subcu injection of insulin. Patient's reevaluation of blood sugar 167. X-rays unremarkable. Patient is provided with Seymour wrap of the right wrist and instructed to continue to rest, ice, elevate and use Tylenol Motrin as needed. Distally, patient instructed to follow-up as scheduled with primary care provider for further evaluation of orthostatic retention. Discussed with Dr. Guillen Undiagnosed new problem with uncertain prognosis? @ -No Drug Therapy requiring intensive monitoring for toxicity (Heparin, Nitro, In sulin, Cardizem)? @ -No Were any procedures done? @ -No Diagnosis/symptom? @ -Hypokalemia, orthostatic hypotension, hyperglycemia, wrist pain Acute, or Chronic, or Acute on Chronic? @ -Acute Uncomplicated (without systemic symptoms) or Complicated (systemic symptoms)? @ -Uncomplicated Side effects of treatment? @ -No Exacerbation, Progression, or Severe Exacerbation? @ -No Poses a threat to life or bodily function? How? (Chest pain, [place], [place], pneumonia, PE, COPD, DKA, ARF, appy, cholecystitis, CVA, Diverticulitis, Homicidal, Suicidal, threat to staff... and all critical care pts) @ -No - Lab Data Result diagrams: 07/25/24 13:15 07/25/24 13:15 Lab Results 07/25/24 07/25/24 07/25/24 Range/Units 13:15 13:15 15:53 WBC 9.3 (3.8-10.6) k/uL RBC 4.96 (4.30-5.90) m/uL Hgb 14.6 (13.0-17.5) gm/dL Hct 42.3 (39.0-53.0) % MCV 85.3 (80.0-100.0) fL MCH 29.4 (25.0-35.0) pg MCHC 34.5 (31.0-37.0) g/dL RDW 13.1 (11.5-15.5) % Plt Count 187 (150-450) k/uL MPV 6.9 Neutrophils % 71 % Lymphocytes % 10 % Monocytes % 6 % Eosinophils % 12 % Basophils % 0 % Neutrophils # 6.6 (1.3-7.7) k/uL Lymphocytes # 0.9 L (1.0-4.8) k/uL Monocytes # 0.6 (0-1.0) k/uL Eosinophils # 1.1 H (0-0.7) k/uL Basophils # 0.0 (0-0.2) k/uL Sodium 135 L (137-145) mmol/L Potassium 3.2 L (3.5-5.1) mmol/L Chloride 98 (98-107) mmol/L Carbon Dioxide 26 (22-30) mmol/L Anion Gap 11 mmol/L BUN 21 H (9-20) mg/dL Creatinine 1.26 H (0.66-1.25) mg/dL Est GFR (CKD-EPI)AfAm 70 (>60 ml/min/1.73 sqM) Est GFR (CKD-EPI)NonAf 61 (>60 ml/min/1.73 sqM) Glucose 300 H (74-99) mg/dL POC Glucose (mg/dL) 167 H (70-110) mg/dL POC Glu Machine Dyer ID October Calcium 9.6 (8.4-10.2) mg/dL Total Bilirubin 1.7 H (0.2-1.3) mg/dL AST 20 (17-59) U/L ALT 19 (4-49) U/L Alkaline Phosphatase 105 (38-126) U/L C-Reactive Protein 8.2 H (<1.0) mg/dL Total Protein 6.5 (6.3-8.2) g/dL Albumin 4.0 (3.5-5.0) g/dL Disposition Clinical Impression: Orthostatic hypotension, Right wrist pain Disposition: HOME SELF-CARE Condition: Good Instructions (If sedation given, give patient instructions): Dizziness (ED) Additional Instructions: Please return to the Emergency Department if symptoms worsen or any other concerns. Is patient prescribed a controlled substance at d/c from ED?: No Referrals: Regino Ibrahim MD [Primary Care Provider] - 1-2 days Time of Disposition: 16:00
[2024-07-25] MEDS: SODIUM CHLORIDE 0.9% 1,000 ML IV STA (13:19)
[2024-07-25] MEDS: MORPHINE SULFATE 2 MG/ML SYRINGE IVP ONE (13:20)
[2024-07-25 13:30] LABS: Basophils % (A) 0 %; Eosinophils # (A) 1.1 k/uL (0-0.7); Eosinophils % (A) 12 %; HCT 42.3 % (39.0-53.0); HGB 14.6 gm/dL (13.0-17.5); Lymphocytes # (A) 0.9 k/uL (1.0-4.8); Lymphocytes % (A) 10 %; MCH 29.4 pg (25.0-35.0); MCHC 34.5 g/dL (31.0-37.0); MCV 85.3 fL (80.0-100.0); Mean Platelet Volume 6.9; Monocytes # (A) 0.6 k/uL (0-1.0); Monocytes % (A) 6 %; Neutrophils # (A) 6.6 k/uL (1.3-7.7); Neutrophils % (A) 71 %; Platelet Count 187 k/uL (150-450); RBC 4.96 m/uL (4.30-5.90); RDW 13.1 % (11.5-15.5); WBC 9.3 k/uL (3.8-10.6)
[2024-07-25 14:06] LABS: ALT 19 U/L (4-49); AST 20 U/L (17-59); African American GFR (CKD) 70 (>60 ml/min/1.73 sqM); Alkaline Phosphatase 105 U/L (38-126); Anion Gap 11 mmol/L; Blood Urea Nitrogen 21 mg/dL (9-20); C Reactive Protein 8.2 mg/dL (<1.0); Calcium 9.6 mg/dL (8.4-10.2); Carbon Dioxide 26 mmol/L (22-30); Chloride 98 mmol/L (98-107); Glucose 300 mg/dL (74-99); Non-African American GFR(CKD) 61 (>60 ml/min/1.73 sqM); Potassium 3.2 mmol/L (3.5-5.1); Sodium 135 mmol/L (137-145); Total Bilirubin 1.7 mg/dL (0.2-1.3); Total Protein 6.5 g/dL (6.3-8.2)
--- NOTE | 2024-07-25 14:10 | XR ---
EXAMINATION TYPE: XR wrist complete LT DATE OF EXAM: 07/25/2024 1:37 PM COMPARISON: None CLINICAL INDICATION: Male, 64 years old with history of pain, erythema over joint; PHH, pain TECHNIQUE: XR wrist complete LT; examined in the Frontal, navicular, lateral, and oblique. FINDINGS: No acute osseous pathology, joint dislocation, or joint effusion. No evidence of any soft tissue swelling is seen. Degeneration changes of the first digit carpometacarpal joint. With endplate sclerosis and osteophytes. IMPRESSION: 1. No acute osseous pathology. 2. Severe degeneration changes at the base of the first digit. [facility], , 07/25/2024 2:08 PM
[2024-07-25] MEDS ORDERED: POTASSIUM CHLORIDE ER 20 MEQ TAB.ER PO STA (14:13)
[2024-07-25] MEDS: POTASSIUM CHLORIDE ER 20 MEQ TAB.ER PO STA (14:43)
[2024-07-25] MEDS: INSULIN REGULAR 100 UNIT/ML VIAL (IM/SQ) SQ ONE (14:47)
[2024-07-25] MEDS: INSULIN REGULAR 100 UNIT/ML VIAL (IV) IV ONE (14:47)
[2024-07-25 15:56] LABS: Glucose,Whole Blood 167 mg/dL (70-110)
[2024-07-25 16:13] VITALS: BP 155/94; PULSE 85; RESP 18; TEMP 98.1
[2024-07-26 00:10] LABS: Erythrocyte Sedimentation Rate 26 mm/Hr (0-20)
== END 2024-07-25 16:13 | disposition home or self-care (01) ==
LOC: EC 11:55
DX: I95.1 Orthostatic hypotension (principal); M25.531 Pain in right wrist; E11.65 Type 2 diabetes mellitus with hyperglycemia; E87.6 Hypokalemia; I44.0 Atrioventricular block, first degree; Z79.4 Long term (current) use of insulin; Z88.1 Allergy status to other antibiotic agents; Z88.5 Allergy status to narcotic agent
CPT/HCPCS: 99284; 96374; 96361; 36415; 93005; 80053; 85652; 85025; 86140; 73110; J2270

== ENCOUNTER → 2024-11-26 | Outpatient (CLI) | payer MEDICAID, OTHER ==
--- NOTE | 2024-11-26 09:55 | MR ---
EXAMINATION TYPE: MR shoulder LT wo con DATE OF EXAM: 11/26/2024 9:30 AM COMPARISON: None. CLINICAL INDICATION: Male, 64 years old with history of S46.912A strain muscle, left shoulder pain fo r 2 months history of surgery on rotator cuff IV Contrast: cc (None if empty) TECHNIQUE: Multiplanar, multisequence imaging of the left shoulder is performed without contrast. FINDINGS: Rotator Cuff: Susceptibility artifact from prior rotator cuff surgery in the lateral superior aspect of the humeral head is seen. There are areas of increased signal in the supraspinatus tendon with sig nificant narrowing near the articular surface. Marked increased signal in the supraspinatus tendon wi th also significant tearing of the articular surface. Only a few fibers may still be intact. Heteroge neous increased signal subscapularis, surrounding fluid. There is mild to moderate muscular atrophy o f the infraspinatus muscle. Acromioclavicular Joint: Moderate to severe narrowing and spurring with 7 mm ossific fragment superio rly. Moderate capsular hypertrophy. Glenohumeral Joint: Narrowing is present. Small joint effusion is seen. No significant spurring. Labrum: Increased signal superior labrum. Biceps Tendon: The long head of biceps is in normal location within bicipital groove. Bone marrow signal: Heterogeneity is present. Other: No additional significant abnormality is appreciated. IMPRESSION: 1. Evidence of prior rotator cuff surgery with significant tendinosis and recurrent retracted signifi cant tearing of at least a majority of the supraspinatus and infraspinatus tendons identified. 2. Moderate to advanced AC joint arthropathy is seen as detailed above. 3. Superior labral tear may be degenerative in etiology. [facility], , 11/26/2024 9:52 AM
== END | disposition home or self-care (01) ==
LOC: RADMRIMAIN 08:00
PROVIDERS: ATTEND Emergency Medicine
DX: S46.912A Strain of unspecified muscle, fascia and tendon at shoulder and upper arm level, left arm, initial encounter (principal); M19.012 Primary osteoarthritis, left shoulder; M75.102 Unspecified rotator cuff tear or rupture of left shoulder, not specified as traumatic; X58.XXXA Exposure to other specified factors, initial encounter